=== PATIENT | male | born 1990 | race American Indian/Alaskan Native ===

== ENCOUNTER 2018-12-25 19:05 | Inpatient (IN) | payer SELFPAY ==
[2018-12-25] MEDS ORDERED: ZOFRAN IV ONE ×2 (19:21→22:40)
[2018-12-25] MEDS ORDERED: NACL 0.9% 1000 ML 1,000 ML IV ONE ×3 (19:21→23:29)
--- NOTE | 2018-12-25 19:24 | Emergency Department Report ---
ED Abdominal Pain HPI - General Stated Complaint: HYPERGLYCEMIA Source: patient, EMS Mode of arrival: Stretcher Limitations: No Limitations - History of Present Illness Initial Comments: Patient is a 28-year-old male that presents emergency with complaints of abdominal pain and nausea vomiting. Patient states pain is 10 out of 10. Patient states the pain started approximate 4 -5 hours ago. Patient states has not been holding anything down. Patient states every time he has abdominal pain he goes into DKA. Patient states the type I diabetic. Patient states the pain is 10 out of 10 and it is not radiating. Patient states the pain is generalized abdomen. Patient states that the pain is better with rest and worse with movement of vomiting exertion. MD Complaint: abdominal pain -: Sudden Location: diffuse Radiation: none Migration to: no migration Severity: severe Severity scale (0 -10): 10 Quality: stabbing, sharp Consistency: constant Improves With: rest Worsens With: vomiting, movement Associated Symptoms: nausea, vomiting. denies: diarrhea, fever, chills, constipation, dysuria, hematemesis, hematochezia, melena, hematuria, anorexia, syncope - Related Data Home Medications Medication Instructions Recorded Confirmed Last Taken Detemir (Nf) [Levemir (Nf)] 20 units SUB-Q QPM 12/25/18 12/25/18 Unknown Allergies Allergy/AdvReac Type Severity Reaction Status Date / Time No Known Allergies Allergy Verified 07/13/14 23:38 ED Review of Systems ROS: Stated complaint: HYPERGLYCEMIA Other details as noted in HPI Constitutional: denies: chills, fever Eyes: denies: eye pain, eye discharge, vision change ENT: denies: ear pain, throat pain Respiratory: denies: cough, shortness of breath, wheezing Cardiovascular: denies: chest pain, palpitations Endocrine: no symptoms reported, increased thirst Gastrointestinal: abdominal pain, nausea, vomiting. denies: diarrhea Genitourinary: denies: urgency, dysuria Musculoskeletal: denies: back pain, joint swelling, arthralgia Skin: denies: rash, lesions Neurological: denies: headache, weakness, paresthesias Psychiatric: denies: anxiety, depression Hematological/Lymphatic: denies: easy bleeding, easy bruising ED Past Medical Hx - Past Medical History Previous Medical History?: Yes Hx Diabetes: Yes - Surgical History Past Surgical History?: No - Family History Family history: no significant - Social History Smoking Status: Never Smoker Substance Use Type: None - Medications Home Medications: Home Medications Medication Instructions Recorded Confirmed Last Taken Type Detemir (Nf) [Levemir (Nf)] 20 units SUB-Q QPM 12/25/18 12/25/18 Unknown History ED Physical Exam - General Limitations: No Limitations General appearance: alert, in no apparent distress - Head Head exam: Present: atraumatic, normocephalic - Eye Eye exam: Present: normal appearance - ENT ENT exam: Present: mucous membranes dry - Neck Neck exam: Present: normal inspection - Respiratory Respiratory exam: Present: normal lung sounds bilaterally. Absent: respiratory distress - Cardiovascular Cardiovascular Exam: Present: regular rate, normal rhythm. Absent: systolic murmur, diastolic murmur, rubs, gallop - GI/Abdominal GI/Abdominal exam: Present: soft, normal bowel sounds - Rectal Rectal exam: Present: deferred - Extremities Exam Extremities exam: Present: normal inspection - Back Exam Back exam: Present: normal inspection - Neurological Exam Neurological exam: Present: alert, oriented X3 - Psychiatric Psychiatric exam: Present: normal affect, normal mood - Skin Skin exam: Present: warm, dry, intact, normal color. Absent: rash ED Course Vital Signs 12/25/18 12/25/18 12/25/18 19:16 19:24 19:27 Temperature 97.9 F Pulse Rate 107 H 106 H Respiratory 20 20 Rate Blood Pressure Blood Pressure 160/92 [Left] O2 Sat by Pulse 100 100 100 Oximetry 12/25/18 12/25/18 12/25/18 19:30 19:46 20:00 Temperature Pulse Rate 106 H 106 H 104 H Respiratory 36 H 22 20 Rate Blood Pressure 160/92 160/92 160/92 Blood Pressure [Left] O2 Sat by Pulse 100 100 Oximetry 12/25/18 12/25/18 12/25/18 20:29 20:31 20:45 Temperature Pulse Rate 99 H 94 H Respiratory 17 20 Rate Blood Pressure 158/96 158/96 158/96 Blood Pressure [Left] O2 Sat by Pulse 100 94 91 Oximetry 12/25/18 12/25/18 12/25/18 21:00 21:15 21:31 Temperature Pulse Rate 99 H 84 97 H Respiratory 22 25 H 21 Rate Blood Pressure 165/90 165/90 165/90 Blood Pressure [Left] O2 Sat by Pulse 94 100 100 Oximetry 12/25/18 12/25/18 12/25/18 21:45 22:00 22:15 Temperature Pulse Rate 97 H 93 H 99 H Respiratory 14 16 16 Rate Blood Pressure 165/90 169/93 169/93 Blood Pressure [Left] O2 Sat by Pulse 100 99 100 Oximetry 12/25/18 12/25/18 12/26/18 22:31 22:35 00:01 Temperature Pulse Rate 93 H 97 H 98 H Respiratory 18 19 20 Rate Blood Pressure 169/93 169/93 146/80 Blood Pressure [Left] O2 Sat by Pulse 91 100 100 Oximetry - Reevaluation(s) Reevaluation #1: Discussed all results with patient. Patient will be given insulin. Patient pain has not improved. Patient failed by mouth challenge. Patient was given another dose of Zofran and Dilaudid. 12/25/18 22:41 Discussed all results with patient. Patient was admitted to the patient's pcp for further evaluation and treatment. Patient agrees with plan of care and admission. PCP verified with the patient 12/25/18 23:22 - Consultations Consultation #1: Patient's primary care consulted for admission. Dr Leon to admit patient and assume care of patient. 12/25/18 23:22 ED Medical Decision Making - Lab Data Result diagrams: 12/25/18 19:32 12/25/18 19:32 - Radiology Data Radiology results: report reviewed FINAL REPORT PROCEDURE: CT abdomen and pelvis without contrast. TECHNIQUE: Computerized axial tomography of the abdomen and pelvis was performed without intravenous contrast. This study is performed without intravascular contrast material and its sensitivity for abdominal and pelvic pathology, including neoplasms, inflammation, abscess, free fluid, thrombosis, arterial dissection and infarction, is reduced compared with a contrast enhanced study. HISTORY: Abdominal pain. COMPARISON: No prior studies are available for comparison. FINDINGS: The lung bases are clear. There are no pleural effusions. The heart size is normal. The liver, pancreas and spleen are grossly normal. The gallbladder is present. There is no biliary dilatation. The adrenal glands are not enlarged. Both kidneys appear normal in size and configuration. The abdominal aorta has a normal caliber. There is no retroperitoneal adenopathy. The unopacified gastrointestinal tract is unremarkable. I believe there is a normal appendix visible. The bladder, seminal vesicles and prostate appear normal. The regional skeleton appears intact. There is probably a bone island in the left iliac bone. IMPRESSION: Normal unenhanced studies of the abdomen and pelvis. - Medical Decision Making Patient is a 28-year-old male that presents to the ER with complaints of abdominal pain and elevated sugar. Abdominal CT negative. Abdominal pain secondary to gastroparesis or gastroenteritis. Patient failed by mouth challenge. Patient's got multiple doses of pain meds for abdominal pain and nausea medications. Patient was admitted to the patient's primary care. Patient's labs marked for hyperglycemia, hyponatremia, and hyperkalemia. - Differential Diagnosis DKA. Hyperglycemia. Intractable nausea and vomiting. Abdominal pain. Critical Care Time: Yes Critical care attestation.: If time is entered above; I have spent that time in minutes in the direct care of this critically ill patient, excluding procedure time. Critical Care Time: 45 minutes ED Disposition Clinical Impression: Intractable abdominal pain, Hyperglycemia due to type 1 diabetes mellitus, Hyperkalemia Abdominal pain Qualifiers: Abdominal location: generalized Qualified Code(s): R10.84 - Generalized abdominal pain Intractable nausea and vomiting Qualifiers: Vomiting type: unspecified Qualified Code(s): R11.2 - Nausea with vomiting, unspecified Disposition: DC-09 OP ADMIT IP TO THIS HOSP Is pt being admited?: Yes Does the pt Need Aspirin: No Condition: Critical Time of Disposition: 23:24
[2018-12-25] MEDS ORDERED: DILAUDID IV ONE ×2 (19:48→22:40)
[2018-12-25 19:56] LABS: Basophils % (Auto) 0.5 % (0.0-1.8); Eosinophils % (Auto) 0.3 % (0.0-4.3); Hematocrit 45.3 % (35.5-45.6); Hemoglobin 15.4 gm/dl (11.8-15.2); Lymphocytes # (Auto) 0.9 K/mm3 (1.2-5.4); Lymphocytes % (Auto) 9.7 % (13.4-35.0); Mean Corpuscular HGB Conc 34 % (32-34); Mean Corpuscular Volume 86 fl (84-94); Monocytes # (Auto) 0.4 K/mm3 (0.0-0.8); Monocytes % (Auto) 4.6 % (0.0-7.3); Platelet Count 372 K/mm3 (140-440); Red Blood Count 5.24 M/mm3 (3.65-5.03); Red Cell Distribution Width 13.7 % (13.2-15.2)
[2018-12-25 20:13] LABS: Alanine Aminotransferase 26 units/L (7-56); Albumin 4.6 g/dL (3.9-5); BUN/Creatinine Ratio 18; Bilirubin,Direct 0.2 mg/dL (0-0.2); Blood Urea Nitrogen 16 mg/dL (9-20); Hemolysis Index 7
[2018-12-25 20:32] LABS: Bilirubin,Urine NEG (Negative); Blood,Urine SM (Negative); Color,Urine Straw (Yellow); Urobilinogen,Urine < 2.0 mg/dL (<2.0); WBC,Urine < 1.0 /HPF (0.0-6.0)
--- NOTE | 2018-12-25 21:15 | Cat Scan Report ---
FINAL REPORT PROCEDURE: CT abdomen and pelvis without contrast. TECHNIQUE: Computerized axial tomography of the abdomen and pelvis was performed without intravenous contrast. This study is performed without intravascular contrast material and its sensitivity for ab dominal and pelvic pathology, including neoplasms, inflammation, abscess, free fluid, thrombosis, art erial dissection and infarction, is reduced compared with a contrast enhanced study. HISTORY: Abdominal pain. COMPARISON: No prior studies are available for comparison. FINDINGS: The lung bases are clear. There are no pleural effusions. The heart size is normal. The liver, pancre as and spleen are grossly normal. The gallbladder is present. There is no biliary dilatation. The adr enal glands are not enlarged. Both kidneys appear normal in size and configuration. The abdominal aor ta has a normal caliber. There is no retroperitoneal adenopathy. The unopacified gastrointestinal tra ct is unremarkable. I believe there is a normal appendix visible. The bladder, seminal vesicles and p rostate appear normal. The regional skeleton appears intact. There is probably a bone island in the l eft iliac bone. IMPRESSION: Normal unenhanced studies of the abdomen and pelvis.
[2018-12-25] MEDS ORDERED: HumuLIN R IV ONE ×2 (22:39→22:49)
[2018-12-26] MEDS: ZOFRAN IV PRN ×3 (05:55→18:59)
[2018-12-26] MEDS: DILAUDID IV PRN ×3 (05:55→19:00)
[2018-12-26 06:50] LABS: Hematocrit 43.5 % (35.5-45.6); Hemoglobin 14.4 gm/dl (11.8-15.2); Mean Corpuscular HGB Conc 33 % (32-34); Mean Corpuscular Volume 87 fl (84-94); Platelet Count 342 K/mm3 (140-440); Red Blood Count 5.01 M/mm3 (3.65-5.03); Red Cell Distribution Width 13.8 % (13.2-15.2)
[2018-12-26 07:12] LABS: Alanine Aminotransferase 23 units/L (7-56); Albumin 4.4 g/dL (3.9-5); BUN/Creatinine Ratio 26; Blood Urea Nitrogen 21 mg/dL (9-20); Calcium 9.2 mg/dL (8.4-10.2); Hemolysis Index 6
[2018-12-26 08:39] LABS: Basophils % (Manual) 0 % (0.0-1.8); Eosinophils % (Manual) 0 % (0.0-4.3); Monocytes % (Manual) 0 % (0.0-7.3); Total Cells Counted 100
[2018-12-26 08:40] LABS: Anisocytosis 1+; Platelet Estimate Consistent w Auto
[2018-12-26] MEDS: HumuLIN R SUB-Q SCH ×4 (09:30→21:51)
[2018-12-26] MEDS ORDERED: LOVENOX SUB-Q SCH (10:00)
[2018-12-26] MEDS ORDERED: APRESOLINE IV ONE (14:00)
[2018-12-26] MEDS: NACL 0.45% 1000 ML 1,000 ML IV SCH (15:28)
[2018-12-26] MEDS ORDERED: APRESOLINE PO PRN (18:48)
[2018-12-26] MEDS: APRESOLINE IV PRN (19:31)
--- NOTE | 2018-12-26 20:29 | History and Physical Report ---
History of Present Illness Date of examination: 12/26/18 Date of admission: 12/25/18 23:42 Chief complaint: ABD pain.N/V. History of present illness: Patient presented to the ED with CC of abd pain, hx of DM-[address] of the abd/pelvic in the ED was normal. He rated his pain at 10/10 even with Diludid 1mg IV q6hrs prn started from the ER.Will start him on reglan, and erythomycin for proper motility. Past History Past Medical History: diabetes Social history: no significant social history, lives with family Medications and Allergies Allergies Allergy/AdvReac Type Severity Reaction Status Date / Time No Known Allergies Allergy Verified 07/13/14 23:38 Home Medications Medication Instructions Recorded Confirmed Last Taken Type Detemir (Nf) [Levemir (Nf)] 20 units SUB-Q QPM 12/25/18 12/25/18 Unknown History Active Meds: Active Medications Hydralazine HCl (Apresoline) 20 mg IV Q4HR PRN PRN Reason: Hypertension Last Admin: 12/26/18 19:31 Dose: 20 mg Documented by: Hydromorphone HCl (Dilaudid) 1 mg IV Q6H PRN PRN Reason: Pain , Severe (7-10) Last Admin: 12/26/18 19:00 Dose: 1 mg Documented by: Sodium Chloride (Nacl 0.45% 1000 Ml) 1,000 mls @ 125 mls/hr IV DIRECT CHIP Last Admin: 12/26/18 15:28 Dose: 125 mls/hr Documented by: Insulin Glargine (Lantus) 20 units SUB-Q QHS CHIP Insulin Human Regular (Humulin R) 0 units SUB-Q ACHS CHIP; Protocol Last Admin: 12/26/18 17:19 Dose: 6 units Documented by: Metoprolol Tartrate (Lopressor) 50 mg PO BID CHIP Ondansetron HCl (Zofran) 4 mg IV Q4HR PRN PRN Reason: Nausea And Vomiting Last Admin: 12/26/18 18:59 Dose: 4 mg Documented by: Review of Systems Constitutional: fatigue, weakness, chronic pain Gastrointestinal: abdominal pain, nausea, vomiting Exam - Constitutional Vitals: Temp Pulse Resp BP Pulse Ox 98.2 F 129 H 12 172/88 100 12/26/18 17:10 12/26/18 17:10 12/26/18 17:10 12/26/18 19:31 12/26/18 17:10 General appearance: Present: mild distress, well-nourished - EENT Eyes: Present: PERRL ENT: hearing intact, clear oral mucosa - Neck Neck: Present: supple, normal ROM - Respiratory Respiratory effort: normal Respiratory: bilateral: CTA - Cardiovascular Heart Sounds: Present: S1 & S2. Absent: rub, click - Extremities Extremities: pulses symmetrical, No edema Peripheral Pulses: within normal limits - Abdominal General gastrointestinal: Present: soft, non-tender, non-distended, normal bowel sounds Male genitourinary: Present: deferred - Rectal Rectal Exam: deferred - Integumentary Integumentary: Present: clear, warm, dry - Musculoskeletal Musculoskeletal: gait normal, strength equal bilaterally - Psychiatric Psychiatric: appropriate mood/affect, intact judgment & insight - Neurologic Neurologic: CNII-XII intact, moves all extremities Results - Labs CBC & Chem 7: 12/26/18 06:09 12/26/18 06:09 Labs: Abnormal lab results 12/25/18 12/26/18 12/26/18 Range/Units 23:42 06:09 06:09 WBC 12.2 H (4.5-11.0) K/mm3 Seg Neuts % (Manual) 97.0 H (40.0-70.0) % Lymphocytes % (Manual) 3.0 L (13.4-35.0) % Seg Neutrophils # Man 11.8 H (1.8-7.7) K/mm3 Lymphocytes # (Manual) 0.4 L (1.2-5.4) K/mm3 Potassium 5.2 H (3.6-5.0) mmol/L Carbon Dioxide 18 L (22-30) mmol/L BUN 21 H (9-20) mg/dL Glucose 434 H (75-100) mg/dL POC Glucose 378 H (70-105) Hemoglobin A1c (4-6) % 12/26/18 12/26/18 12/26/18 Range/Units 06:09 08:47 11:31 WBC (4.5-11.0) K/mm3 Seg Neuts % (Manual) (40.0-70.0) % Lymphocytes % (Manual) (13.4-35.0) % Seg Neutrophils # Man (1.8-7.7) K/mm3 Lymphocytes # (Manual) (1.2-5.4) K/mm3 Potassium (3.6-5.0) mmol/L Carbon Dioxide (22-30) mmol/L BUN (9-20) mg/dL Glucose (75-100) mg/dL POC Glucose 364 H 349 H (70-105) Hemoglobin A1c 8.2 H (4-6) % 12/26/18 Range/Units 16:26 WBC (4.5-11.0) K/mm3 Seg Neuts % (Manual) (40.0-70.0) % Lymphocytes % (Manual) (13.4-35.0) % Seg Neutrophils # Man (1.8-7.7) K/mm3 Lymphocytes # (Manual) (1.2-5.4) K/mm3 Potassium (3.6-5.0) mmol/L Carbon Dioxide (22-30) mmol/L BUN (9-20) mg/dL Glucose (75-100) mg/dL POC Glucose 345 H (70-105) Hemoglobin A1c (4-6) % Assessment and Plan - Patient Problems (1) Abdominal pain Current Visit: Yes Status: Acute Qualifiers: Abdominal location: generalized Qualified Code(s): R10.84 - Generalized abdominal pain Plan to address problem: Pain control, pro-motility. (2) Hyperglycemia due to type 1 diabetes mellitus Current Visit: Yes Status: Acute Plan to address problem: monitor, and adjust BG with insulin. (3) Hyperkalemia Current Visit: Yes Status: Acute Plan to address problem: monitor, and adjust when needed. (4) Intractable nausea and vomiting Current Visit: Yes Status: Acute Qualifiers: Vomiting type: unspecified Qualified Code(s): R11.2 - Nausea with vomiting, unspecified Plan to address problem: Anti emetics.hydration.
[2018-12-26] MEDS: REGLAN IV PRN (21:51)
[2018-12-26] MEDS: LANTUS SUB-Q SCH (21:52)
[2018-12-26] MEDS ORDERED: ERY-TAB PO SCH (22:00)
[2018-12-26] MEDS ORDERED: LOPRESSOR PO SCH (22:00)
[2018-12-26] MEDS: APRESOLINE PO SCH (22:00)
[2018-12-26] MEDS: ERY-TAB PO SCH (22:01)
[2018-12-27] MEDS: DILAUDID IV PRN ×3 (01:08→22:30)
[2018-12-27] MEDS: REGLAN IV PRN ×3 (08:32→22:30)
[2018-12-27] MEDS: ERY-TAB PO SCH ×3 (09:26→17:47)
[2018-12-27] MEDS: HumuLIN R SUB-Q SCH ×4 (09:27→22:32)
[2018-12-27] MEDS: APRESOLINE PO SCH ×2 (09:48→22:45)
[2018-12-27] MEDS: NACL 0.45% 1000 ML 1,000 ML IV SCH ×3 (11:57→22:30)
[2018-12-27] MEDS: APRESOLINE IV PRN (13:59)
[2018-12-27] MEDS: LOPRESSOR PO SCH ×2 (16:50→22:44)
--- NOTE | 2018-12-27 21:30 | Progress Note ---
Assessment and Plan - Patient Problems (1) Abdominal pain Current Visit: Yes Status: Acute Qualifiers: Abdominal location: generalized Qualified Code(s): R10.84 - Generalized abdominal pain Plan to address problem: Pain control, pro-motility. (2) Hyperglycemia due to type 1 diabetes mellitus Current Visit: Yes Status: Acute Plan to address problem: monitor, and adjust BG with insulin. (3) Hyperkalemia Current Visit: Yes Status: Acute Plan to address problem: monitor, and adjust when needed. (4) Intractable nausea and vomiting Current Visit: Yes Status: Acute Qualifiers: Vomiting type: unspecified Qualified Code(s): R11.2 - Nausea with vomiting, unspecified Plan to address problem: Anti emetics.hydration. (5) Loss of appetite Current Visit: Yes Status: Acute Plan to address problem: try on megace. Subjective Date of service: 12/27/18 Principal diagnosis: Diabetic gastropareses Interval history: patient seen/examined, resting in bed, had N/V today, but better, Claims lack of appetite.Will try on megace. Objective - Constitutional Vitals: Vital Signs - 12hr 12/27/18 12/27/18 12/27/18 09:48 10:00 12:49 Temperature 97.5 F L Pulse Rate 119 H 126 H Respiratory 18 Rate Blood Pressure 121/68 172/102 O2 Sat by Pulse 100 100 Oximetry 12/27/18 12/27/18 12/27/18 13:59 16:50 16:51 Temperature 99.1 F Pulse Rate 126 H 142 H 142 H Respiratory 18 Rate Blood Pressure 172/102 132/73 132/73 O2 Sat by Pulse 97 Oximetry General appearance: Present: mild distress - EENT Eyes: PERRL, EOM intact ENT: hearing intact, clear oral mucosa Ears: bilateral: normal - Neck Neck: supple, normal ROM - Respiratory Respiratory effort: normal Respiratory: bilateral: CTA - Breasts Breasts: deferred - Cardiovascular Rhythm: regular Heart Sounds: Present: S1 & S2. Absent: gallop, rub Extremities: pulses intact, No edema, normal color, Full ROM - Gastrointestinal General gastrointestinal: Present: soft, non-tender, non-distended, normal bowel sounds Rectal Exam: deferred - Genitourinary Male genitourinary: deferred - Integumentary Integumentary: clear, warm, dry - Musculoskeletal Musculoskeletal: 1, strength equal bilaterally - Neurologic Neurologic: moves all extremities - Psychiatric Psychiatric: memory intact, appropriate mood/affect, intact judgment & insight - Labs CBC & Chem 7: 12/26/18 06:09 12/26/18 06:09 Labs: Abnormal lab results 12/27/18 12/27/18 12/27/18 Range/Units 08:29 11:51 16:57 POC Glucose 200 H 222 H 291 H (70-105) 12/27/18 Range/Units 21:22 POC Glucose 216 H (70-105) Medications & Allergies - Medications Allergies/Adverse Reactions: Allergies No Known Allergies Allergy (Verified 07/13/14 23:38) Home Medications: Home Medications Medication Instructions Recorded Confirmed Last Taken Type Detemir (Nf) [Levemir (Nf)] 20 units SUB-Q QPM 12/25/18 12/25/18 Unknown History Active Medications: Generic Name Dose Route Start Last Admin Trade Name Freq PRN Reason Stop Dose Admin Erythromycin 250 mg 12/26/18 22:00 12/27/18 17:47 Jg-Tab PO Not Given AC CHIP Hydralazine HCl 20 mg 12/26/18 19:07 12/27/18 13:59 Apresoline IV 20 mg Q4HR PRN Administration Hypertension Hydralazine HCl 50 mg 12/26/18 22:00 12/27/18 09:48 Apresoline PO 50 mg Q12HR CHIP Administration Hydromorphone HCl 1 mg 12/26/18 05:07 12/27/18 09:49 Dilaudid IV 1 mg Q6H PRN Administration Pain , Severe (7-10) Sodium Chloride 1,000 mls @ 125 mls/hr 12/26/18 14:00 12/27/18 11:57 Nacl 0.45% 1000 Ml IV 125 mls/hr DIRECT CHIP Administration Insulin Glargine 20 units 12/26/18 22:00 12/26/18 21:52 Lantus SUB-Q 20 units QHS CHIP Administration Insulin Human Regular 0 units 12/26/18 07:30 12/27/18 17:46 Humulin R SUB-Q 4 units ACHS CHIP Administration Protocol Megestrol Acetate 400 mg 12/28/18 10:00 Megace PO QDAY CHIP Metoclopramide HCl 10 mg 12/26/18 20:38 12/27/18 15:05 Reglan IV 10 mg Q6H PRN Administration Nausea And Vomiting Metoprolol Tartrate 50 mg 12/27/18 17:00 12/27/18 16:50 Lopressor PO 50 mg BID CHIP Administration
[2018-12-27] MEDS: LANTUS SUB-Q SCH (22:30)
[2018-12-28 06:07] LABS: BUN/Creatinine Ratio 29; Blood Urea Nitrogen 23 mg/dL (9-20); Calcium 9.2 mg/dL (8.4-10.2); Hemolysis Index 12
[2018-12-28 06:09] LABS: Basophils % (Auto) 0.3 % (0.0-1.8); Hematocrit 45.9 % (35.5-45.6); Hemoglobin 15.1 gm/dl (11.8-15.2); Lymphocytes # (Auto) 1.3 K/mm3 (1.2-5.4); Lymphocytes % (Auto) 9.9 % (13.4-35.0); Mean Corpuscular HGB Conc 33 % (32-34); Mean Corpuscular Volume 87 fl (84-94); Monocytes % (Auto) 7.7 % (0.0-7.3); Platelet Count 327 K/mm3 (140-440); Red Blood Count 5.28 M/mm3 (3.65-5.03); Red Cell Distribution Width 13.9 % (13.2-15.2)
[2018-12-28] MEDS: DILAUDID IV PRN ×2 (08:32→21:56)
[2018-12-28] MEDS: ERY-TAB PO SCH ×3 (08:33→17:19)
[2018-12-28] MEDS: HumuLIN R SUB-Q SCH ×4 (08:45→22:04)
[2018-12-28] MEDS: REGLAN IV PRN ×2 (10:48→21:57)
[2018-12-28] MEDS: LOPRESSOR PO SCH ×2 (10:50→22:02)
[2018-12-28] MEDS: MEGACE PO SCH (10:51)
[2018-12-28] MEDS: APRESOLINE PO SCH ×2 (10:51→21:57)
[2018-12-28] MEDS: NACL 0.45% 1000 ML 1,000 ML IV SCH (12:00)
--- NOTE | 2018-12-28 15:50 | Progress Note ---
Assessment and Plan - Patient Problems (1) Abdominal pain Current Visit: Yes Status: Acute Qualifiers: Abdominal location: generalized Qualified Code(s): R10.84 - Generalized abdominal pain Plan to address problem: Pain control, pro-motility. (2) Hyperglycemia due to type 1 diabetes mellitus Current Visit: Yes Status: Acute Plan to address problem: monitor, and adjust BG with insulin. (3) Hyperkalemia Current Visit: Yes Status: Acute Plan to address problem: monitor, and adjust when needed. (4) Intractable nausea and vomiting Current Visit: Yes Status: Acute Qualifiers: Vomiting type: unspecified Qualified Code(s): R11.2 - Nausea with vomiting, unspecified Plan to address problem: Anti emetics.hydration. (5) Loss of appetite Current Visit: Yes Status: Acute Plan to address problem: try on megace. Subjective Date of service: 12/28/18 Principal diagnosis: Diabetic gastropareses Interval history: patient seen/examined, resting in bed, had N/V today, but better, Claims lack of appetite.Will try on megace. Patient seen/examined, case d/w him, and his family at the bed side.encouraged him to eat some food. will continue current management, and probably plan d/c in the next day or two. Objective - Constitutional Vitals: Vital Signs - 12hr 12/28/18 12/28/18 12/28/18 05:01 10:50 10:51 Temperature 99.1 F Pulse Rate 100 H 100 H 100 H Respiratory 18 Rate Blood Pressure 132/77 132/77 132/77 O2 Sat by Pulse 97 Oximetry 12/28/18 14:13 Temperature 98.2 F Pulse Rate 86 Respiratory 16 Rate Blood Pressure 131/89 O2 Sat by Pulse 99 Oximetry General appearance: Present: mild distress - EENT Eyes: PERRL, EOM intact ENT: hearing intact, clear oral mucosa Ears: bilateral: normal - Neck Neck: supple, normal ROM - Respiratory Respiratory effort: normal Respiratory: bilateral: CTA - Breasts Breasts: deferred - Cardiovascular Rhythm: regular Heart Sounds: Present: S1 & S2. Absent: gallop, rub Extremities: pulses intact, No edema, normal color, Full ROM - Gastrointestinal General gastrointestinal: Present: soft, non-tender, non-distended, normal bowel sounds - Genitourinary Male genitourinary: deferred - Integumentary Integumentary: clear, warm, dry - Musculoskeletal Musculoskeletal: 1, strength equal bilaterally - Neurologic Neurologic: moves all extremities - Psychiatric Psychiatric: memory intact, appropriate mood/affect, intact judgment & insight - Labs CBC & Chem 7: 12/28/18 04:20 12/28/18 04:20 Labs: Abnormal lab results 12/27/18 12/27/18 12/28/18 Range/Units 16:57 21:22 04:20 WBC 13.2 H (4.5-11.0) K/mm3 RBC 5.28 H (3.65-5.03) M/mm3 Hct 45.9 H (35.5-45.6) % Lymph % (Auto) 9.9 L (13.4-35.0) % [place] % (Auto) 7.7 H (0.0-7.3) % [place] # 1.0 H (0.0-0.8) K/mm3 Seg Neutrophils % 82.1 H (40.0-70.0) % Seg Neutrophils # 10.8 H (1.8-7.7) K/mm3 BUN (9-20) mg/dL Glucose (75-100) mg/dL POC Glucose 291 H 216 H (70-105) 12/28/18 12/28/18 12/28/18 Range/Units 04:20 08:34 11:56 WBC (4.5-11.0) K/mm3 RBC (3.65-5.03) M/mm3 Hct (35.5-45.6) % Lymph % (Auto) (13.4-35.0) % [place] % (Auto) (0.0-7.3) % [place] # (0.0-0.8) K/mm3 Seg Neutrophils % (40.0-70.0) % Seg Neutrophils # (1.8-7.7) K/mm3 BUN 23 H (9-20) mg/dL Glucose 178 H (75-100) mg/dL POC Glucose 188 H 237 H (70-105) Medications & Allergies - Medications Allergies/Adverse Reactions: Allergies No Known Allergies Allergy (Verified 07/13/14 23:38) Home Medications: Home Medications Medication Instructions Recorded Confirmed Last Taken Type Detemir (Nf) [Levemir (Nf)] 20 units SUB-Q QPM 12/25/18 12/25/18 Unknown History Active Medications: Generic Name Dose Route Start Last Admin Trade Name Reba PRN Reason Stop Dose Admin Erythromycin 250 mg 12/26/18 22:00 12/28/18 12:32 Jg-Tab PO 250 mg AC CHIP Administration Hydralazine HCl 20 mg 12/26/18 19:07 12/27/18 13:59 Apresoline IV 20 mg Q4HR PRN Administration Hypertension Hydralazine HCl 50 mg 12/26/18 22:00 12/28/18 10:51 Apresoline PO 50 mg Q12HR CHIP Administration Hydromorphone HCl 1 mg 12/26/18 05:07 12/28/18 08:32 Dilaudid IV 1 mg Q6H PRN Administration Pain , Severe (7-10) Sodium Chloride 1,000 mls @ 125 mls/hr 12/26/18 14:00 12/28/18 12:00 Nacl 0.45% 1000 Ml IV 125 mls/hr DIRECT CHIP Administration Insulin Glargine 20 units 12/26/18 22:00 12/27/18 22:30 Lantus SUB-Q 20 units QHS CHIP Administration Insulin Human Regular 0 units 12/26/18 07:30 12/28/18 12:32 Humulin R SUB-Q 3 units ACHS CHIP Administration Protocol Megestrol Acetate 400 mg 12/28/18 10:00 12/28/18 10:51 Megace PO 400 mg QDAY CHIP Administration Metoclopramide HCl 10 mg 12/26/18 20:38 12/28/18 10:48 Reglan IV 10 mg Q6H PRN Administration Nausea And Vomiting Metoprolol Tartrate 50 mg 12/27/18 17:00 12/28/18 10:50 Lopressor PO 50 mg BID CHIP Administration
[2018-12-28] MEDS: LANTUS SUB-Q SCH (22:03)
[2018-12-29] MEDS: NACL 0.45% 1000 ML 1,000 ML IV SCH (03:38)
[2018-12-29] MEDS: HumuLIN R SUB-Q SCH ×3 (08:33→17:47)
[2018-12-29] MEDS: ERY-TAB PO SCH ×3 (08:37→17:47)
[2018-12-29] MEDS: APRESOLINE PO SCH (09:36)
[2018-12-29] MEDS: LOPRESSOR PO SCH (09:36)
[2018-12-29] MEDS: MEGACE PO SCH (09:37)
[2018-12-29 18:16] VITALS: BP 145/93
--- NOTE | 2018-12-29 18:50 | Discharge Summary ---
Providers - Providers Date of Admission: 12/25/18 23:42 Date of discharge: 12/29/18 Attending physician: CAROL WILLAMS Primary care physician: CAROL WILLAMS Hospitalization Reason for admission: diabetic gastroparesis Condition: Good Hospital course: Patient presented to the ER with intractable n/v, and hx of type 1 diabetes, was not in ketosis , Hx of gastroparesis, He was hydrated, given anti emetic, and insulin, and admitted for better control of his sxs. The same management was continues on the floor. He needed an appetite enhancement, and tolerated it very well. patient was seen today, examined, in bed, and doing much better in every way. he was eating well, denies any problem. he will be discharged home. Patient was never my patient, but i was called late at night, not sure about the name, but admitted him anyhow. He has never met me before. So the next time , that he comes to the ER, he will need to go to the hospitalist group. He usually goes to [facility]. Disposition: TO HOME OR SELFCARE - Discharge Diagnoses (1) Abdominal pain Status: Resolved Qualifiers: Abdominal location: generalized Qualified Code(s): R10.84 - Generalized abdominal pain (2) Hyperglycemia due to type 1 diabetes mellitus Status: Chronic (3) Hyperkalemia Status: Resolved (4) Intractable nausea and vomiting Status: Resolved Qualifiers: Vomiting type: unspecified Qualified Code(s): R11.2 - Nausea with vomiting, unspecified (5) Loss of appetite Status: Resolved Core Measure Documentation - Palliative Care Palliative Care/ Comfort Measures: Not Applicable - Core Measures Any of the following diagnoses?: none Exam - Constitutional Vitals: Temp Pulse Resp BP Pulse Ox 98.0 F 85 14 145/93 99 12/29/18 17:25 12/29/18 17:25 12/29/18 17:25 12/29/18 17:25 12/29/18 17:25 General appearance: Present: no acute distress - EENT Eyes: Present: PERRL ENT: hearing intact, clear oral mucosa - Neck Neck: Present: supple, normal ROM - Respiratory Respiratory effort: normal Respiratory: bilateral: CTA - Cardiovascular Heart Sounds: Present: S1 & S2. Absent: rub, click - Extremities Extremities: pulses symmetrical, No edema Peripheral Pulses: within normal limits - Abdominal General gastrointestinal: Present: soft, non-tender, non-distended, normal bowel sounds Male genitourinary: Present: deferred - Rectal Rectal Exam: deferred - Integumentary Integumentary: Present: clear, warm, dry - Musculoskeletal Musculoskeletal: gait normal, strength equal bilaterally - Psychiatric Psychiatric: appropriate mood/affect, intact judgment & insight - Neurologic Neurologic: CNII-XII intact, moves all extremities Plan Diet: diabetic Additional Instructions: Follow up with your Doctors at [facility].
== END 2018-12-29 20:05 | disposition home or self-care (01) | DRG 639 ==
LOC: ED 19:05 → 3A 23:42
PROVIDERS: ADMIT Internal Medicine Hematology & Oncology; ATTEND Internal Medicine Hematology & Oncology
DX: E10.65 Type 1 diabetes mellitus with hyperglycemia (principal); E87.5 Hyperkalemia; E10.43 Type 1 diabetes mellitus with diabetic autonomic (poly)neuropathy; K31.84 Gastroparesis; F17.210 Nicotine dependence, cigarettes, uncomplicated; Z79.84 Long term (current) use of oral hypoglycemic drugs; Z71.6 Tobacco abuse counseling
CPT/HCPCS: 36415; 74176; 80048; 80053; 80076; 81001; 82140; 82805; 82962; 83036; 85007; 85025; 96361; 96374; 96375; 96376; 99406; G0378; J0360; J1170; J1815; J2405; J2765; J7030

== ENCOUNTER 2019-02-12 19:44 | Inpatient (IN) | payer SELFPAY ==
[2019-02-12] MEDS ORDERED: NACL 0.9% 1000 ML 1,000 ML IV ONE ×2 (21:40→23:26)
[2019-02-12] MEDS ORDERED: ZOFRAN IV ONE (21:44)
[2019-02-12] MEDS ORDERED: SUBLIMAZE IV ONE (21:44)
[2019-02-12] MEDS ORDERED: ZOFRAN ONE (21:48)
--- NOTE | 2019-02-12 21:48 | Emergency Department Report ---
HPI - General Chief Complaint: Hyperglycemia Time Seen by Provider: 02/12/19 21:39 - HPI HPI: Room 18 The patient is a 29-year-old male presenting with chief complaint of "DKA." Patient states she's had abdominal pain weakness and since this m orning. Patient states he was asymptomatic yesterday. She states he has been compliant with his Levemir. Patient denies any history of fever. Location: See above Duration: One day Quality: "DKA" Severity: Moderate Modifying factors: [see above] Context: [see above] Mode of transportation: [not driving] ED Past Medical Hx - Past Medical History Hx Diabetes: Yes (type 1) Additional medical history: Gastroparesis - Surgical History Past Surgical History?: No - Family History Family history: no significant - Social History Smoking Status: Current Some Day Smoker Substance Use Type: None - Medications Home Medications: Home Medications Medication Instructions Recorded Confirmed Last Taken Type Detemir (Nf) [Levemir (Nf)] 20 units SUB-Q QPM 12/25/18 12/25/18 Unknown History ED Review of Systems ROS: Stated complaint: HYPERGLYCEMIA Other details as noted in HPI Constitutional: weakness Eyes: denies: eye pain ENT: denies: throat pain Respiratory: no symptoms reported Cardiovascular: denies: chest pain Endocrine: increased thirst Gastrointestinal: abdominal pain, nausea, vomiting Genitourinary: denies: dysuria Musculoskeletal: denies: back pain Neurological: denies: headache Physical Exam - Physical Exam Vital Signs: Vital Signs 02/12/19 19:47 Temperature 98.3 F Pulse Rate 124 H Respiratory 27 H Rate Blood Pressure 181/104 [Right] O2 Sat by Pulse 100 Oximetry Physical Exam: GENERAL: The patient is well-developed well-nourished male appearing lethargic lying on stretcher. [] HEENT: Normocephalic. Atraumatic. Extraocular motions are intact. NECK: Supple. Trachea midline CHEST/LUNGS: Clear to auscultation. There is no respiratory distress noted. HEART/CARDIOVASCULAR: Regular. There is tachycardia. There is no gallop rub or murmur. ABDOMEN: Abdomen is soft, nontender. Patient has normal bowel sounds. There is no abdominal distention. SKIN: There is no rash. There is no edema. There is no diaphoresis. NEURO: The patient is awake and oriented but appears lethargic. The patient is cooperative. The patient has no focal neurologic deficits. The patient has normal speech MUSCULOSKELETAL: There is no evidence of acute injury. ED Course Vital Signs 02/12/19 19:47 Temperature 98.3 F Pulse Rate 124 H Respiratory 27 H Rate Blood Pressure 181/104 [Right] O2 Sat by Pulse 100 Oximetry - Reevaluation(s) Reevaluation #1: 02/13/19 00:44 Patient persistently tachycardic despite 2 L of IV fluids. Will admit ED Medical Decision Making - Lab Data Result diagrams: 02/12/19 21:53 02/12/19 21:53 Laboratory Tests 02/12/19 02/12/19 02/12/19 21:41 21:53 21:53 WBC 9.5 RBC 4.86 Hgb 14.7 Hct 41.8 MCV 86 MCH 30 MCHC 35 H RDW 14.2 Plt Count 291 Lymph % (Auto) 6.9 L Whitley % (Auto) 6.7 Eos % (Auto) 0.0 Baso % (Auto) 0.6 Lymph # 0.7 L Whitley # 0.6 Eos # 0.0 Baso # 0.1 Seg Neutrophils % 85.8 H Seg Neutrophils # 8.1 H VBG pH Sodium 131 L Potassium 5.0 Chloride 91.3 L Carbon Dioxide 18 L Anion Gap 27 BUN 24 H Creatinine 1.2 Estimated GFR > 60 BUN/Creatinine Ratio 20 Glucose 560 H* POC Glucose 425 H Calcium 9.3 Total Bilirubin 0.60 AST 23 ALT 17 Alkaline Phosphatase 115 Total Protein 7.2 Albumin 3.9 Albumin/Globulin Ratio 1.2 Lipase 7 L Urine Color Urine Turbidity Urine pH Ur Specific Dante Urine Protein Urine Glucose (UA) Urine Ketones Urine Blood Urine Nitrite Urine Bilirubin Urine Urobilinogen Ur Leukocyte Esterase Urine WBC (Auto) Urine RBC (Auto) 02/12/19 02/12/19 02/12/19 21:53 22:11 23:30 WBC RBC Hgb Hct MCV MCH MCHC RDW Plt Count Lymph % (Auto) Whitley % (Auto) Eos % (Auto) Baso % (Auto) Lymph # Whitley # Eos # Baso # Seg Neutrophils % Seg Neutrophils # VBG pH 7.375 Sodium Potassium Chloride Carbon Dioxide Anion Gap BUN Creatinine Estimated GFR BUN/Creatinine Ratio Glucose POC Glucose 444 H Calcium Total Bilirubin AST ALT Alkaline Phosphatase Total Protein Albumin Albumin/Globulin Ratio Lipase Urine Color Straw Urine Turbidity Clear Urine pH 6.0 Ur Specific Dante 1.027 Urine Protein 100 mg/dl Urine Glucose (UA) >=500 Urine Ketones 80 Urine Blood Mod Urine Nitrite Neg Urine Bilirubin Neg Urine Urobilinogen < 2.0 Ur Leukocyte Esterase Neg Urine WBC (Auto) 1.0 Urine RBC (Auto) 16.0 - Radiology Data Radiology results: report reviewed (CT abdomen and pelvis), image reviewed (CT abdomen and pelvis) Findings [facility], [place] [address] [place] [address] Cat Scan Report Signed Patient: JODI HAYDEN MR#: [id number] : 1990 Acct:[id number] Age/Sex: 29 / M ADM Date: 02/12/19 Loc: ED Attending Dr: Ordering Physician: MARISSA SOSA MD Date of Service: 02/12/19 Procedure(s): CT abdomen pelvis w con Accession Number(s): [id number] cc: MARISSA SOSA MD PROCEDURE: CT ABDOMEN PELVIS W CON TECHNIQUE: Computerized axial tomography of the abdomen and pelvis was performed after the IV injection of iodinated nonionic contrast. CT DOSE LENGTH PRODUCT: 930.6 mGycm HISTORY: epigastric abdominal pain nausea vomiting COMPARISONS: None . FINDINGS: Visualized lower thorax: No significant abnormality. Liver: Normal size and attenuation. Spleen: Normal size and attenuation. Gallbladder and biliary system: Normal. Pancreas: Normal. Adrenals: Normal. Kidneys: Both kidneys have a normal size. There is mild prominence of the collecting systems including the ureters all the way down the distended urinary bladder. No stones or masses are identified. Nonobstructive uropathy is suspected.. GI tract: No obstruction is seen. There is minimal fecal debris in the colon. The appendix is not identified separate from the remainder of the bowel. The evaluation is limited without oral contrast. . Lymph nodes and mesentery: Normal. Vasculature: Normal.. Bladder: The urinary bladder is significantly distended in this patient.. Reproductive organs: Normal. Peritoneum: No free fluid. Musculoskeletal structures: No significant abnormality. Other: None . IMPRESSION: The urinary bladder is significantly distended. There is mild hydronephrosis and hydroureter of both collecting systems, this is most likely related to nonobstructive uropathy due to a distended urinary bladder. Stones or masses are noted. There is no evidence of intestinal obstruction. The appendix is not clearly visualized on this study. . This document is electronically signed by Ching Mcgarry DO., February 13 2019 12:15:14 AM ET Transcribed By: [facility] Dictated By: CHING MCGARRY MD Electronically Authenticated By: CHING MCGARRY MD Signed Date/Time: 02/13/19 0017 DD/ 0004 TD/TT: 02/13/19 0006 - Differential Diagnosis DKA, gastroparesis, dehydration Critical care attestation.: If time is entered above; I have spent that time in minutes in the direct care of this critically ill patient, excluding procedure time. ED Disposition Clinical Impression: Hyperglycemia, Gastroparesis, Tachycardia Disposition: -09 OP ADMIT IP TO THIS HOSP Is pt being admited?: Yes Does the pt Need Aspirin: No Condition: Fair Referrals: PRIMARY CARE, [Primary Care Provider] - 3-5 Days Time of Disposition: 00:49 ( hospitalist notified (Dr. Florecita Mays))
[2019-02-12 22:08] LABS: Basophils # (Auto) 0.1 K/mm3 (0.0-0.1); Basophils % (Auto) 0.6 % (0.0-1.8); Hematocrit 41.8 % (35.5-45.6); Hemoglobin 14.7 gm/dl (11.8-15.2); Lymphocytes # (Auto) 0.7 K/mm3 (1.2-5.4); Lymphocytes % (Auto) 6.9 % (13.4-35.0); Mean Corpuscular HGB Conc 35 % (32-34); Mean Corpuscular Volume 86 fl (84-94); Monocytes # (Auto) 0.6 K/mm3 (0.0-0.8); Monocytes % (Auto) 6.7 % (0.0-7.3); Platelet Count 291 K/mm3 (140-440); Red Blood Count 4.86 M/mm3 (3.65-5.03); Red Cell Distribution Width 14.2 % (13.2-15.2)
[2019-02-12 22:27] LABS: Alanine Aminotransferase 17 units/L (7-56); Albumin 3.9 g/dL (3.9-5); BUN/Creatinine Ratio 20; Blood Urea Nitrogen 24 mg/dL (9-20); Calcium 9.3 mg/dL (8.4-10.2); Hemolysis Index 2
[2019-02-12 23:25] LABS: Bilirubin,Urine NEG (Negative); Blood,Urine MOD (Negative); Color,Urine Straw (Yellow); Urobilinogen,Urine < 2.0 mg/dL (<2.0)
[2019-02-12] MEDS ORDERED: REGLAN IV ONE (23:27)
[2019-02-12] MEDS ORDERED: HumuLIN R IV ONE (23:27)
--- NOTE | 2019-02-13 00:17 | Cat Scan Report ---
PROCEDURE: CT ABDOMEN PELVIS W CON TECHNIQUE: Computerized axial tomography of the abdomen and pelvis was performed after the IV inject ion of iodinated nonionic contrast. CT DOSE LENGTH PRODUCT: 930.6 mGycm HISTORY: epigastric abdominal pain nausea vomiting COMPARISONS: None . FINDINGS: Visualized lower thorax: No significant abnormality. Liver: Normal size and attenuation. Spleen: Normal size and attenuation. Gallbladder and biliary system: Normal. Pancreas: Normal. Adrenals: Normal. Kidneys: Both kidneys have a normal size. There is mild prominence of the collecting systems includin g the ureters all the way down the distended urinary bladder. No stones or masses are identified. Non obstructive uropathy is suspected.. GI tract: No obstruction is seen. There is minimal fecal debris in the colon. The appendix is not id entified separate from the remainder of the bowel. The evaluation is limited without oral contrast. . Lymph nodes and mesentery: Normal. Vasculature: Normal.. Bladder: The urinary bladder is significantly distended in this patient.. Reproductive organs: Normal. Peritoneum: No free fluid. Musculoskeletal structures: No significant abnormality. Other: None . IMPRESSION: The urinary bladder is significantly distended. There is mild hydronephrosis and hydrour eter of both collecting systems, this is most likely related to nonobstructive uropathy due to a dist ended urinary bladder. Stones or masses are noted. There is no evidence of intestinal obstruction. The appendix is not clearly visualized on this study. . This document is electronically signed by Ching Mcgarry DO., February 13 2019 12:15:14 AM ET
[2019-02-13] MEDS ORDERED: HumuLIN R IV ONE (00:42)
[2019-02-13] MEDS ORDERED: D50W (25GM) Syringe IV PRN (01:25)
[2019-02-13] MEDS ORDERED: TYLENOL PO PRN (01:26)
[2019-02-13] MEDS ORDERED: SODIUM CHLORIDE FLUSH SYRINGE 10 ML IV PRN (01:26)
[2019-02-13] MEDS ORDERED: TYLENOL PR PRN (01:26)
--- NOTE | 2019-02-13 01:33 | History and Physical Report ---
History of Present Illness Date of examination: 02/13/19 History of present illness: 29-year-old man a history of diabetes comes emergency room complaining of feeling sick. He stated that he had allergic symptoms from the pollen, he was coughing a lot, itchy eyes, a symptoms worsen and he started going downhill. He complains of generalized weakness over the last 3 days, nausea vomiting, unable to tolerate oral intake. Also complaining of abdominal pain, mid abdomen, constant, sharp, intensity 5/10, no radiation, cannot identify exacerbating factors. Review of systems Constitutional: no weight loss, chills, fever Ears, eyes, nose, mouth and throat: no nasal congestion, no nasal discharge, no sinus pressure, no vision change, no red eye. Neck: No neck pain or rigidity. Cardiovascular: no palpitations, chest pain Respiratory: no cough, shortness of breath Gastrointestinal: no hematochezia, +abdominal pain Genitourinary : no frequency , no hematuria Musculoskeletal: no joint swelling or muscle ache Integumentary: no rash, no pruritis Neurological: no parathesias, no focal weakness Endocrine: no cold or heat intolerance, no polyuria or polydipsia Hematologic/Lymphatic: no easy bruising, no easy bleeding, no gland swelling Allergic/Immunologic: no urticaria, no angioedema. PAST MEDICAL HISTORY:diabetes PAST SURGICAL HISTORY: None SOCIAL HISTORY: Denies alcohol, drugs, +tobacco FAMILY HISTORY: Hypertension Medications and Allergies Allergies Allergy/AdvReac Type Severity Reaction Status Date / Time No Known Allergies Allergy Verified 07/13/14 23:38 Home Medications Medication Instructions Recorded Confirmed Last Taken Type Detemir (Nf) [Levemir (Nf)] 20 units SUB-Q QPM 12/25/18 12/25/18 Unknown History Exam - Physical Exam Narrative exam: General Apperance: The patient lying in bed, breathing comfortable HEENT: Normocephalic, atraumatic. Pupils equally round and reactive to light, EOMI, no sclericterus or JVD or thyromegaly or nodule. , no carotid bruit, mucous membranes moist, no exudate or erythema Heart: S1-S2, regular is rhythm Lungs: Clear to auscultation bilaterally, breathing comfortable Abdomen: Positive bowel sounds, soft, tender in the mid abdomen, nondistended, no organomegaly Extremities: No edema cyanosis clubbing Skin: no rash, nodule, warm and dry Neuro: cranial nerves 2-12 intact, speech is fluent, motor/sensory intact - Constitutional Vitals: Temp Pulse Resp BP Pulse Ox 98.3 F 134 H 52 H 175/91 100 02/12/19 19:47 02/13/19 01:00 02/13/19 01:00 02/13/19 01:00 02/13/19 01:00 Results - Labs CBC & Chem 7: 02/13/19 04:20 02/13/19 04:20 Labs: Abnormal lab results 02/12/19 02/12/19 02/12/19 Range/Units 21:41 21:53 21:53 MCHC 35 H (32-34) % Lymph % (Auto) 6.9 L (13.4-35.0) % Lymph # 0.7 L (1.2-5.4) K/mm3 Seg Neutrophils % 85.8 H (40.0-70.0) % Seg Neutrophils # 8.1 H (1.8-7.7) K/mm3 Sodium 131 L (137-145) mmol/L Chloride 91.3 L (98-107) mmol/L Carbon Dioxide 18 L (22-30) mmol/L BUN 24 H (9-20) mg/dL Glucose 560 H* (75-100) mg/dL POC Glucose 425 H (70-105) Lipase 7 L (13-60) units/L 02/12/19 02/13/19 Range/Units 23:30 00:45 MCHC (32-34) % Lymph % (Auto) (13.4-35.0) % Lymph # (1.2-5.4) K/mm3 Seg Neutrophils % (40.0-70.0) % Seg Neutrophils # (1.8-7.7) K/mm3 Sodium (137-145) mmol/L Chloride (98-107) mmol/L Carbon Dioxide (22-30) mmol/L BUN (9-20) mg/dL Glucose (75-100) mg/dL POC Glucose 444 H 424 H (70-105) Lipase (13-60) units/L - Imaging and Cardiology CT scan - abdomen: report reviewed CT scan - pelvis: report reviewed Assessment and Plan Assessment DKA Pseudohyponatremia Abdominal pain secondary to DKA Distended bladder with hydronephrosis and hydroureter Plan Start DKA protocol with insulin drip, IV fluid Monitor serial electrolytes Consult medical care, urology. Patient refuses Melvin IV morphine, DVT prophylaxis
[2019-02-13] MEDS ORDERED: NACL 0.9% 1000 ML 1,000 ML IV SCH (02:00)
[2019-02-13] MEDS ORDERED: D5W/0.45% NACL/KCL 20 MEQ 20 MEQ/1,000 ML BAG IV SCH (02:00)
[2019-02-13] MEDS: MORPHINE IV PRN ×3 (02:32→22:00)
[2019-02-13] MEDS: ZOFRAN IV PRN ×2 (02:32→18:32)
[2019-02-13] MEDS: HumuLIN R 100 UNITS in NACL 0.9% 99 ML IV SCH (02:33)
[2019-02-13 02:44] LABS: BUN/Creatinine Ratio 22; Blood Urea Nitrogen 22 mg/dL (9-20); Hemolysis Index 4
[2019-02-13 04:35] LABS: Basophils % (Auto) 0.4 % (0.0-1.8); Hematocrit 44.3 % (35.5-45.6); Hemoglobin 15.1 gm/dl (11.8-15.2); Lymphocytes # (Auto) 0.7 K/mm3 (1.2-5.4); Mean Corpuscular HGB Conc 34 % (32-34); Mean Corpuscular Volume 87 fl (84-94); Monocytes # (Auto) 0.6 K/mm3 (0.0-0.8); Monocytes % (Auto) 5.8 % (0.0-7.3); Platelet Count 286 K/mm3 (140-440); Red Blood Count 5.12 M/mm3 (3.65-5.03); Red Cell Distribution Width 14.1 % (13.2-15.2)
[2019-02-13] MEDS ORDERED: PHENERGAN PR ONE ×2 (04:40→04:45)
[2019-02-13] MEDS ORDERED: DILAUDID IV ONE (04:42)
[2019-02-13] MEDS ORDERED: DILAUDID ONE (04:45)
[2019-02-13 04:55] LABS: BUN/Creatinine Ratio 22; Blood Urea Nitrogen 20 mg/dL (9-20); Calcium 9.7 mg/dL (8.4-10.2); Hemolysis Index 24
[2019-02-13 07:29] LABS: BUN/Creatinine Ratio 22; Blood Urea Nitrogen 20 mg/dL (9-20); Calcium 9.1 mg/dL (8.4-10.2); Hemolysis Index 15
[2019-02-13 07:48] LABS: BUN/Creatinine Ratio 22; Blood Urea Nitrogen 20 mg/dL (9-20); Calcium 9.3 mg/dL (8.4-10.2); Hemolysis Index 20
--- NOTE | 2019-02-13 09:38 | Event Note ---
Date: 02/13/19 Patient seen and examined. Was admitted today for DKA pseudohyponatremia abdomen pains or limits of DKA hydronephrosis and hydroureters. We'll continue current management. With recommendations from urologist
[2019-02-13] MEDS ORDERED: LOVENOX SUB-Q SCH (10:00)
[2019-02-13] MEDS ORDERED: D5W/0.45% NACL/KCL 20 MEQ 20 MEQ/1,000 ML BAG IV ONE ×2 (10:33→22:11)
[2019-02-13 10:54] LABS: Hemolysis Index 0
[2019-02-13] MEDS: SODIUM CHLORIDE FLUSH SYRINGE 10 ML IV SCH (11:18)
[2019-02-13 11:22] LABS: BUN/Creatinine Ratio 20; Blood Urea Nitrogen 20 mg/dL (9-20); Calcium 9.6 mg/dL (8.4-10.2)
[2019-02-13] MEDS ORDERED: LOVENOX SUB-Q ONE (11:25)
[2019-02-13] MEDS: LOVENOX SUB-Q SCH (11:30)
[2019-02-13] MEDS ORDERED: REGLAN ONE ×2 (11:40→21:06)
[2019-02-13] MEDS ORDERED: MORPHINE ONE ×2 (11:41→21:06)
[2019-02-13] MEDS: REGLAN IV PRN ×2 (11:50→22:00)
--- NOTE | 2019-02-13 16:07 | Consultation ---
History of Present Illness - Reason for Consult Consult date: 02/13/19 hypernatremia, metabolic acidosis - History of Present Illness The patient is a 29 YO male with history significant for Type 1 DM and Gastroparesis who presented to [facility] ED with complaint of nausea, vomiting and abd pain since yesterday. He also reports having cough, itchy eyes, generalized weakness and unable to keep food down. He states he has been compliant with his Insulin. Patient denies any history of fever, chills, hemetemesis, dysuria, hematuria, cp, sob or leg swelling. His blood sugar on arrival was 560 and urine ketones were positive. Creatinine was 1.2 on admission. Nephrology was consulted for further evaluation. Past History Past Medical History: diabetes Medications and Allergies Allergies Allergy/AdvReac Type Severity Reaction Status Date / Time No Known Allergies Allergy Verified 07/13/14 23:38 Home Medications Medication Instructions Recorded Confirmed Last Taken Type Detemir (Nf) [Levemir (Nf)] 0 units SUB-Q AC 12/25/18 02/13/19 Unknown History Lispro Insulin [Humalog] 0 unit SQ AC 02/13/19 02/13/19 Unknown History Active Meds: Active Medications Acetaminophen (Tylenol) 650 mg PO Q4H PRN PRN Reason: Pain MILD(1-3)/Fever >100.5/BAE Acetaminophen (Tylenol) 650 mg NM Q4H PRN PRN Reason: Pain MILD(1-3)/Fever >100.5/BAE Dextrose (D50w (25gm) Syringe) 0 ml IV ONCE PRN PRN Reason: Hypoglycemia Enoxaparin Sodium (Lovenox) 40 mg SUB-Q QDAY@1000 CHIP Last Admin: 02/13/19 11:30 Dose: 40 mg Documented by: Sodium Chloride (Nacl 0.9% 1000 Ml) 1,000 mls @ 150 mls/hr IV DIRECT CHIP Insulin Human Regular 100 (units/ Sodium Chloride) 100 mls @ 1 mls/hr IV TITR [facility]; Protocol Last Titration: 02/13/19 14:18 Dose: 3 units/hr, 3 mls/hr Documented by: Potassium Chloride/Dextrose/Sod Cl (D5w/0.45% Nacl/Kcl 20 Meq) 20 meq in 1,000 mls @ 125 mls/hr IV DIRECT CHIP Metoclopramide HCl (Reglan) 10 mg IV Q6H PRN PRN Reason: Nausea And Vomiting Last Admin: 02/13/19 11:50 Dose: 10 mg Documented by: Morphine Sulfate (Morphine) 2 mg IV Q4H PRN PRN Reason: Pain, Moderate (4-6) Last Admin: 02/13/19 11:49 Dose: 2 mg Documented by: Ondansetron HCl (Zofran) 4 mg IV Q4H PRN PRN Reason: Nausea And Vomiting Last Admin: 02/13/19 02:32 Dose: 4 mg Documented by: Sodium Chloride (Sodium Chloride Flush Syringe 10 Ml) 10 ml IV BID CHIP Last Admin: 02/13/19 11:18 Dose: 10 ml Documented by: Sodium Chloride (Sodium Chloride Flush Syringe 10 Ml) 10 ml IV PRN PRN PRN Reason: LINE FLUSH Review of Systems Constitutional: anorexia, weakness, no weight loss, no weight gain, no fever, no chills Cardiovascular: no chest pain, no orthopnea, no edema, no syncope, no lightheadedness, no shortness of breath, no leg edema Respiratory: no cough, no hemoptysis, no shortness of breath, no dyspnea on exertion Gastrointestinal: abdominal pain, nausea, vomiting, no diarrhea, no hematemesis, no melena, no hematochezia Genitourinary Male: no dysuria, no hematuria Musculoskeletal: no low back pain Integumentary: no rash, no wounds Neurological: no paralysis, no weakness, no seizures, no syncope, no change in speech, no change in mentation, no confusion, no memory loss Exam - Vital Signs Vital signs: Vital Signs Temp Pulse Resp BP Pulse Ox 98.3 F 124 H 27 H 181/104 100 02/12/19 19:47 02/12/19 19:47 02/12/19 19:47 02/12/19 19:47 02/12/19 19:47 - General Appearance General appearance: well-developed, well-nourished, appears stated age, other (not in distress) EENT: ATNC, PERRL, mucous membranes dry, hearing intact, vision intact Neck: Present: neck supple, trachea midline Respiratory: Clear to Ascultation Heart: regular, S1S2, no murmurs Gastrointestinal: Present: normoactive bowel sounds, other (Palacios catheter). Absent: tenderness, distended Integumentary: no rash, warm and dry Neurologic: no focal deficit, no asterixis, alert and oriented x3 Musculoskeletal: Present: other (no edema) Results - Lab Results 02/13/19 04:20 02/13/19 17:06 Most recent lab results Calcium 9.6 mg/dL (8.4-10.2) 02/13/19 10:08 Phosphorus 4.10 mg/dL (2.5-4.5) 02/13/19 02:04 Magnesium 2.30 mg/dL (1.7-2.3) 02/13/19 02:04 Assessment and Plan 1. Acute kidney injury: Mild WANDY in the setting of DKA. Renal function is better. Continue IV fluids. Monitor renal function. Avoid nephrotoxic agents. 2. FEN: Continue IV fluids. Monitor lytes. 3. Bladder retention: S/p palacios catheter. 4. DKA.
--- NOTE | 2019-02-13 16:40 | Event Note ---
Date: 02/13/19 Discussed with patient again who had earlier refuse insertion of Melvin's catheter despite evidence of obstructive Uropathy, explaining to him the consequences of his action which included . He now agreed to have Melvin catheter inserted.
--- NOTE | 2019-02-13 17:17 | Consultation ---
History of Present Illness - Reason for Consult Consult date: 02/13/19 - History of Present Illness CC - Retention (NEW The patient is a 29-year-old male presenting with chief complaint of "DKA." Patient states she's had abdominal pain weakness and since this morning. Patient states he was asymptomatic yesterday. She states he has been compliant with his Levemir. Patient denies any history of fever. HX OF GASTROPARESIS CTAP: MILD BILAT HYDRO, DISTENDED BLADDER ABD SOFT CIRC NIXON WITH GUILLERMINA URINE A/p NEUROGENIC BLADDER MILD BILAT HYDRO MAY NEED URODYNAMICS CONTINUE NIXON NEEDED Medications and Allergies Allergies Allergy/AdvReac Type Severity Reaction Status Date / Time No Known Allergies Allergy Verified 07/13/14 23:38 Home Medications Medication Instructions Recorded Confirmed Last Taken Type Detemir (Nf) [Levemir (Nf)] 0 units SUB-Q AC 12/25/18 02/13/19 Unknown History Lispro Insulin [Humalog] 0 unit SQ AC 02/13/19 02/13/19 Unknown History Active Meds: Active Medications Acetaminophen (Tylenol) 650 mg PO Q4H PRN PRN Reason: Pain MILD(1-3)/Fever >100.5/BAE Acetaminophen (Tylenol) 650 mg CA Q4H PRN PRN Reason: Pain MILD(1-3)/Fever >100.5/BAE Dextrose (D50w (25gm) Syringe) 0 ml IV ONCE PRN PRN Reason: Hypoglycemia Enoxaparin Sodium (Lovenox) 40 mg SUB-Q QDAY@1000 CHIP Last Admin: 02/13/19 11:30 Dose: 40 mg Documented by: Sodium Chloride (Nacl 0.9% 1000 Ml) 1,000 mls @ 150 mls/hr IV DIRECT CHIP Insulin Human Regular 100 (units/ Sodium Chloride) 100 mls @ 1 mls/hr IV TITR CHIP; Protocol Last Titration: 02/13/19 16:22 Dose: 1.5 units/hr, 1.5 mls/hr Documented by: Potassium Chloride/Dextrose/Sod Cl (D5w/0.45% Nacl/Kcl 20 Meq) 20 meq in 1,000 mls @ 125 mls/hr IV DIRECT CHIP Metoclopramide HCl (Reglan) 10 mg IV Q6H PRN PRN Reason: Nausea And Vomiting Last Admin: 02/13/19 11:50 Dose: 10 mg Documented by: Morphine Sulfate (Morphine) 2 mg IV Q4H PRN PRN Reason: Pain, Moderate (4-6) Last Admin: 02/13/19 11:49 Dose: 2 mg Documented by: Ondansetron HCl (Zofran) 4 mg IV Q4H PRN PRN Reason: Nausea And Vomiting Last Admin: 02/13/19 02:32 Dose: 4 mg Documented by: Sodium Chloride (Sodium Chloride Flush Syringe 10 Ml) 10 ml IV BID CHIP Last Admin: 02/13/19 11:18 Dose: 10 ml Documented by: Sodium Chloride (Sodium Chloride Flush Syringe 10 Ml) 10 ml IV PRN PRN PRN Reason: LINE FLUSH Exam - Constitutional Vitals: Temp Pulse Resp BP Pulse Ox 98.3 F 108 H 16 170/83 100 02/12/19 19:47 02/13/19 16:25 02/13/19 16:25 02/13/19 16:25 02/13/19 16:25 Results - Labs CBC & Chem 7: 02/13/19 04:20 02/13/19 10:08 Labs: Abnormal lab results 02/12/19 02/12/19 02/12/19 Range/Units 21:41 21:53 21:53 RBC (3.65-5.03) M/mm3 MCHC 35 H (32-34) % Lymph % (Auto) 6.9 L (13.4-35.0) % Lymph # 0.7 L (1.2-5.4) K/mm3 Seg Neutrophils % 85.8 H (40.0-70.0) % Seg Neutrophils # 8.1 H (1.8-7.7) K/mm3 Sodium 131 L (137-145) mmol/L Chloride 91.3 L (98-107) mmol/L Carbon Dioxide 18 L (22-30) mmol/L BUN 24 H (9-20) mg/dL Glucose 560 H* (75-100) mg/dL POC Glucose 425 H (70-105) Lipase 7 L (13-60) units/L 02/12/19 02/13/19 02/13/19 Range/Units 23:30 00:45 02:04 RBC (3.65-5.03) M/mm3 MCHC (32-34) % Lymph % (Auto) (13.4-35.0) % Lymph # (1.2-5.4) K/mm3 Seg Neutrophils % (40.0-70.0) % Seg Neutrophils # (1.8-7.7) K/mm3 Sodium 136 L (137-145) mmol/L Chloride (98-107) mmol/L Carbon Dioxide 19 L (22-30) mmol/L BUN 22 H (9-20) mg/dL Glucose 379 H (75-100) mg/dL POC Glucose 444 H 424 H (70-105) Lipase (13-60) units/L 02/13/19 02/13/19 02/13/19 Range/Units 03:45 04:20 04:20 RBC 5.12 H (3.65-5.03) M/mm3 MCHC (32-34) % Lymph % (Auto) 7.0 L (13.4-35.0) % Lymph # 0.7 L (1.2-5.4) K/mm3 Seg Neutrophils % 86.8 H (40.0-70.0) % Seg Neutrophils # 8.8 H (1.8-7.7) K/mm3 Sodium (137-145) mmol/L Chloride (98-107) mmol/L Carbon Dioxide 18 L (22-30) mmol/L BUN (9-20) mg/dL Glucose 283 H (75-100) mg/dL POC Glucose 266 H (70-105) Lipase (13-60) units/L 02/13/19 02/13/19 02/13/19 Range/Units 04:54 06:54 06:58 RBC (3.65-5.03) M/mm3 MCHC (32-34) % Lymph % (Auto) (13.4-35.0) % Lymph # (1.2-5.4) K/mm3 Seg Neutrophils % (40.0-70.0) % Seg Neutrophils # (1.8-7.7) K/mm3 Sodium (137-145) mmol/L Chloride (98-107) mmol/L Carbon Dioxide 18 L (22-30) mmol/L BUN (9-20) mg/dL Glucose 315 H (75-100) mg/dL POC Glucose 295 H 278 H (70-105) Lipase (13-60) units/L 03/29/19 03/29/19 03/29/19 Range/Units 07:20 08:18 09:49 RBC (3.65-5.03) M/mm3 MCHC (32-34) % Lymph % (Auto) (13.4-35.0) % Lymph # (1.2-5.4) K/mm3 Seg Neutrophils % (40.0-70.0) % Seg Neutrophils # (1.8-7.7) K/mm3 Sodium (137-145) mmol/L Chloride (98-107) mmol/L Carbon Dioxide 19 L (22-30) mmol/L BUN (9-20) mg/dL Glucose 311 H (75-100) mg/dL POC Glucose 207 H 175 H (70-105) Lipase (13-60) units/L 02/13/19 02/13/19 02/13/19 Range/Units 10:08 12:06 13:04 RBC (3.65-5.03) M/mm3 MCHC (32-34) % Lymph % (Auto) (13.4-35.0) % Lymph # (1.2-5.4) K/mm3 Seg Neutrophils % (40.0-70.0) % Seg Neutrophils # (1.8-7.7) K/mm3 Sodium (137-145) mmol/L Chloride 60.0 L (98-107) mmol/L Carbon Dioxide 21 L (22-30) mmol/L BUN (9-20) mg/dL Glucose 185 H (75-100) mg/dL POC Glucose 218 H 190 H (70-105) Lipase (13-60) units/L 02/13/19 Range/Units 16:23 RBC (3.65-5.03) M/mm3 MCHC (32-34) % Lymph % (Auto) (13.4-35.0) % Lymph # (1.2-5.4) K/mm3 Seg Neutrophils % (40.0-70.0) % Seg Neutrophils # (1.8-7.7) K/mm3 Sodium (137-145) mmol/L Chloride (98-107) mmol/L Carbon Dioxide (22-30) mmol/L BUN (9-20) mg/dL Glucose (75-100) mg/dL POC Glucose 129 H (70-105) Lipase (13-60) units/L
[2019-02-13 17:46] LABS: BUN/Creatinine Ratio 26; Blood Urea Nitrogen 21 mg/dL (9-20); Calcium 9.2 mg/dL (8.4-10.2); Hemolysis Index 15
[2019-02-13] MEDS ORDERED: ZOFRAN ONE (18:31)
[2019-02-13] MEDS: D5W/0.45% NACL/KCL 20 MEQ 20 MEQ/1,000 ML BAG IV SCH ×2 (18:33→22:16)
[2019-02-13] MEDS ORDERED: NACL 0.9% 1000 ML 1,000 ML ONE (21:08)
--- NOTE | 2019-02-13 21:40 | Event Note ---
EDMD EJ IV note Request by nursing to place EJ IV as patient has accidentally lost his other peripheral access. Right external jugular site prepped. 20-gauge IV placed in the right external jugular with good blood return. IV secured in place with tape. Patient tolerated well
[2019-02-14] MEDS ORDERED: ZOFRAN ONE ×3 (01:54→13:03)
[2019-02-14] MEDS: ZOFRAN IV PRN ×5 (02:00→21:37)
[2019-02-14 02:22] LABS: BUN/Creatinine Ratio 27; Blood Urea Nitrogen 19 mg/dL (9-20); Calcium 9.1 mg/dL (8.4-10.2); Hemolysis Index 115
[2019-02-14] MEDS: HumuLIN R 100 UNITS in NACL 0.9% 99 ML IV SCH (04:15)
[2019-02-14] MEDS ORDERED: D5W/0.45% NACL/KCL 20 MEQ 20 MEQ/1,000 ML BAG IV ONE (06:44)
[2019-02-14] MEDS: D5W/0.45% NACL/KCL 20 MEQ 20 MEQ/1,000 ML BAG IV SCH ×2 (07:00→20:16)
--- NOTE | 2019-02-14 09:28 | Progress Note ---
Assessment and Plan - DKA Improved on insulin drip which is discontinued. Continue with sliding scale insulin Cholecystectomy provider diet - Acute kidney injury Resolving with IV hydration and relief of urinary retention Continue with indwelling Melvin - Diabetes mellitus Sliding scale insulin Consistent carbohydrate diet - Diabetes gastroparesis IV Protonix Consider iv Reglan if condition persists - Pseudohyponatremia - corrected -Urinary retention from neurogenic bladder Continue with indwelling Melvin Urology following - Mild bilateral hydronephrosis For urodynamic studies per Urology - DVT prophylaxis with Lovenox and GI Pepcid Disposition downgraded admission to [facility] and discharge home when more stable Time spent 35 minutes Subjective Date of service: 02/14/19 Principal diagnosis: DKA, acute kidney injury, neurogenic bladder with urinary retention Interval history: Mary leyva in bed. In no obvious distress Objective - Exam Narrative Exam: Constitutional: Well-nourished well-developed. In no distress Head: Normocephalic atraumatic Eyes: Pupils are equal round and reactive to light Nose: No enlarged turbinates, no septal deviation. Mouth: Moist mucous membranes. Neck: Supple no thyromegaly. No bruit. No JVD Heart: Regular rate and rhythm, S1-S2 normal. No rubs murmurs or gallop Lungs: Clear to auscultation bilaterally. no rales or rhonchi Abdomen: Soft, nontender. Bowel sound are present. Extremities: No edema, no cyanosis, no clubbing. Neuro: Alert oriented Oriented x3. No focal sensory or motor deficit. Skin: No rashes or hyperpigmented spots Musculoskeletal system: No joint pain or swelling Hematological: No petechia or subcutanous hemorrhages. Genitourinary system: Has an indwelling Melvin is currently in place Immunological: No multiple septic spots on the skin Lymphatic: No generalized lymphadenopathy Psychiatry: Euthymic. Calm. - Constitutional Vitals: Vital Signs - 12hr 02/13/19 02/13/19 02/13/19 22:00 22:31 23:00 Temperature Pulse Rate 111 H 107 H 98 H Respiratory 17 16 19 Rate Blood Pressure 177/103 162/91 116/66 O2 Sat by Pulse 98 98 100 Oximetry 02/14/19 02/14/19 02/14/19 00:00 03:00 04:00 Temperature Pulse Rate 103 H 104 H 104 H Respiratory 22 18 18 Rate Blood Pressure 122/80 153/86 O2 Sat by Pulse 97 100 98 Oximetry 02/14/19 02/14/19 02/14/19 05:00 06:00 07:00 Temperature Pulse Rate 96 H 106 H 104 H Respiratory 20 21 22 Rate Blood Pressure 181/85 166/95 148/85 O2 Sat by Pulse 100 99 100 Oximetry 02/14/19 02/14/19 08:00 08:53 Temperature 98.2 F Pulse Rate 103 H Respiratory 18 Rate Blood Pressure 157/93 O2 Sat by Pulse 99 Oximetry - Labs CBC & Chem 7: 02/13/19 04:20 02/14/19 01:56 Labs: Abnormal lab results 02/13/19 02/13/19 02/13/19 Range/Units 09:49 10:08 12:06 Chloride 60.0 L (98-107) mmol/L Carbon Dioxide 21 L (22-30) mmol/L BUN (9-20) mg/dL Creatinine (0.8-1.5) mg/dL Glucose 185 H (75-100) mg/dL POC Glucose 175 H 218 H (70-105) 02/13/19 02/13/19 02/13/19 Range/Units 13:04 16:23 17:06 Chloride (98-107) mmol/L Carbon Dioxide (22-30) mmol/L BUN 21 H (9-20) mg/dL Creatinine (0.8-1.5) mg/dL Glucose 139 H (75-100) mg/dL POC Glucose 190 H 129 H (70-105) 02/13/19 02/13/19 02/13/19 Range/Units 17:36 18:32 19:35 Chloride (98-107) mmol/L Carbon Dioxide (22-30) mmol/L BUN (9-20) mg/dL Creatinine (0.8-1.5) mg/dL Glucose (75-100) mg/dL POC Glucose 130 H 150 H 144 H (70-105) 02/13/19 02/14/19 02/14/19 Range/Units 22:01 01:24 01:56 Chloride (98-107) mmol/L Carbon Dioxide (22-30) mmol/L BUN (9-20) mg/dL Creatinine 0.7 L (0.8-1.5) mg/dL Glucose 128 H (75-100) mg/dL POC Glucose 204 H 110 H (70-105) 02/14/19 02/14/19 02/14/19 Range/Units 02:56 04:21 05:30 Chloride (98-107) mmol/L Carbon Dioxide (22-30) mmol/L BUN (9-20) mg/dL Creatinine (0.8-1.5) mg/dL Glucose (75-100) mg/dL POC Glucose 129 H 158 H 159 H (70-105) 02/14/19 Range/Units 06:35 Chloride (98-107) mmol/L Carbon Dioxide (22-30) mmol/L BUN (9-20) mg/dL Creatinine (0.8-1.5) mg/dL Glucose (75-100) mg/dL POC Glucose 170 H (70-105)
[2019-02-14] MEDS: REGLAN IV PRN ×3 (09:47→20:15)
[2019-02-14] MEDS: MORPHINE IV PRN ×4 (09:47→20:08)
[2019-02-14] MEDS ORDERED: REGLAN ONE (09:47)
[2019-02-14] MEDS ORDERED: MORPHINE ONE ×2 (09:47→13:03)
[2019-02-14] MEDS: LOVENOX SUB-Q SCH (10:25)
[2019-02-14] MEDS: SODIUM CHLORIDE FLUSH SYRINGE 10 ML IV SCH ×3 (10:25→21:08)
--- NOTE | 2019-02-14 10:44 | Progress Note ---
Assessment and Plan WANDY - Resolved on IVF, continue as present Acidosis - Resolved, continue IVF Vitals - Stable Urinary Retention - ?Neurogenic bladder, f/u per , palacios in place Abd pain - F/u Mx Will sign of at this time, plse reconsult if necessary. Thanks Subjective Date of service: 02/14/19 Principal diagnosis: DKA, acute kidney injury, neurogenic bladder with urinary retention Interval history: Still c/o abd pain, N/v No BM Objective - Vital Signs Vital signs: Vital Signs - 12hr 02/13/19 02/14/19 02/14/19 23:00 00:00 03:00 Temperature Pulse Rate 98 H 103 H 104 H Respiratory 19 22 18 Rate Blood Pressure 116/66 122/80 O2 Sat by Pulse 100 97 100 Oximetry 02/14/19 02/14/19 02/14/19 04:00 05:00 06:00 Temperature Pulse Rate 104 H 96 H 106 H Respiratory 18 20 21 Rate Blood Pressure 153/86 181/85 166/95 O2 Sat by Pulse 98 100 99 Oximetry 02/14/19 02/14/19 02/14/19 07:00 08:00 08:53 Temperature 98.2 F Pulse Rate 104 H 103 H Respiratory 22 18 Rate Blood Pressure 148/85 157/93 O2 Sat by Pulse 100 99 Oximetry 02/14/19 09:00 Temperature Pulse Rate 95 H Respiratory 19 Rate Blood Pressure 140/90 O2 Sat by Pulse 100 Oximetry - General Appearance General appearance: other (Awake & alert) Neck: no JVD Respiratory: Present: Clear to Ascultation, Other Cardiology: regular, S1S2 Gastrointestinal: other (Diffuse tenderness with guarding) Neurologic: no focal deficit - Lab 02/13/19 04:20 02/14/19 01:56 Most recent lab results Calcium 9.1 mg/dL (8.4-10.2) 02/14/19 01:56 Phosphorus 4.10 mg/dL (2.5-4.5) 02/13/19 02:04 Magnesium 2.30 mg/dL (1.7-2.3) 02/13/19 02:04 Medications & Allergies - Medications Allergies/Adverse Reactions: Allergies No Known Allergies Allergy (Verified 07/13/14 23:38) Home Medications: Home Medications Medication Instructions Recorded Confirmed Last Taken Type Detemir (Nf) [Levemir (Nf)] 0 units SUB-Q AC 12/25/18 02/13/19 Unknown History Lispro Insulin [Humalog] 0 unit SQ AC 02/13/19 02/13/19 Unknown History Active Medications: Generic Name Dose Route Start Last Admin Trade Name Freq PRN Reason Stop Dose Admin Acetaminophen 650 mg 02/13/19 01:26 Tylenol PO Q4H PRN Pain MILD(1-3)/Fever >100.5/BAE Acetaminophen 650 mg 02/13/19 01:26 Tylenol CO Q4H PRN Pain MILD(1-3)/Fever >100.5/BAE Dextrose 0 ml 02/13/19 01:25 D50w (25gm) Syringe IV ONCE PRN Hypoglycemia Enoxaparin Sodium 40 mg 02/13/19 10:00 02/14/19 10:25 Lovenox SUB-Q Not Given QDAY@1000 CHIP Sodium Chloride 1,000 mls @ 150 mls/hr 02/13/19 02:00 Nacl 0.9% 1000 Ml IV DIRECT CHIP Potassium Chloride/Dextrose/Sod Cl 20 meq in 1,000 mls @ 125 mls/hr 02/13/19 10:00 02/14/19 07:00 D5w/0.45% Nacl/Kcl 20 Meq IV 125 mls/hr DIRECT CHIP Administration Metoclopramide HCl 10 mg 02/13/19 01:26 02/14/19 09:47 Reglan IV 10 mg Q6H PRN Administration Nausea And Vomiting Morphine Sulfate 2 mg 02/13/19 01:26 02/14/19 09:47 Morphine IV 2 mg Q4H PRN Administration Pain, Moderate (4-6) Ondansetron HCl 4 mg 02/13/19 01:26 02/14/19 07:21 Zofran IV 4 mg Q4H PRN Administration Nausea And Vomiting Sodium Chloride 10 ml 02/13/19 10:00 02/14/19 10:25 Sodium Chloride Flush Syringe 10 Ml IV 10 ml BID CHIP Administration Sodium Chloride 10 ml 02/13/19 01:26 Sodium Chloride Flush Syringe 10 Ml IV PRN PRN LINE FLUSH
[2019-02-14 11:36] LABS: BUN/Creatinine Ratio 20; Blood Urea Nitrogen 16 mg/dL (9-20); Calcium 9.7 mg/dL (8.4-10.2); Hemolysis Index 12
[2019-02-14] MEDS: HumaLOG SUB-Q SCH ×2 (17:29→21:35)
[2019-02-14] MEDS ORDERED: APRESOLINE IV PRN (19:46)
[2019-02-14] MEDS: COZAAR PO SCH (21:06)
[2019-02-14] MEDS ORDERED: DILAUDID IV ONE (21:18)
[2019-02-14] MEDS ORDERED: COREG PO SCH (22:00)
[2019-02-14 22:17] LABS: Creatine Kinase MB 5.6 ng/mL (0.0-4.0)
[2019-02-14] MEDS ORDERED: NORMODYNE IV ONE (23:41)
[2019-02-14] MEDS ORDERED: LOPRESSOR IV ONE (23:45)
[2019-02-14] MEDS: LANTUS SUB-Q SCH (23:55)
[2019-02-15] MEDS: MORPHINE IV PRN ×2 (03:23→08:37)
[2019-02-15] MEDS: ZOFRAN IV PRN ×2 (03:23→22:51)
[2019-02-15] MEDS ORDERED: DILAUDID IV ONE (03:37)
[2019-02-15] MEDS: REGLAN IV PRN (05:26)
[2019-02-15] MEDS: DILAUDID IV PRN ×4 (05:26→22:51)
[2019-02-15] MEDS: NORVASC PO SCH (10:07)
[2019-02-15] MEDS: COZAAR PO SCH (10:07)
[2019-02-15] MEDS: COREG PO SCH ×2 (10:08→22:51)
[2019-02-15] MEDS: HumaLOG SUB-Q SCH ×4 (10:11→23:05)
[2019-02-15] MEDS: LOVENOX SUB-Q SCH (10:14)
[2019-02-15] MEDS: SODIUM CHLORIDE FLUSH SYRINGE 10 ML IV SCH ×2 (10:19→22:56)
--- NOTE | 2019-02-15 13:16 | Progress Note ---
Assessment and Plan - DKA Improved on insulin drip which is discontinued. Continue with sliding scale insulin Cholecystectomy provider diet - Acute kidney injury Resolving with IV hydration and relief of urinary retention Continue with indwelling Melvin - Diabetes mellitus type 1 Sliding scale insulin add balasl insulin Consistent carbohydrate diet - Diabetes gastroparesis IV Protonix Consider iv Reglan if condition persists - Pseudohyponatremia - corrected -Urinary retention from neurogenic bladder Continue with indwelling Melvin Urology following - Mild bilateral hydronephrosis For urodynamic studies per Urology - DVT prophylaxis with Lovenox and GI Pepcid Disposition downgraded admission to [facility] and discharge home when more stable Time spent 35 minutes Subjective Date of service: 02/15/19 Principal diagnosis: DKA, acute kidney injury, neurogenic bladder with urinary retention Interval history: Lying quielty in bed. In no obvious distress Objective - Exam Narrative Exam: Constitutional: Well-nourished well-developed. In no distress Head: Normocephalic atraumatic Eyes: Pupils are equal round and reactive to light Nose: No enlarged turbinates, no septal deviation. Mouth: Moist mucous membranes. Neck: Supple no thyromegaly. No bruit. No JVD Heart: Regular rate and rhythm, S1-S2 normal. No rubs murmurs or gallop Lungs: Clear to auscultation bilaterally. no rales or rhonchi Abdomen: Soft, nontender. Bowel sound are present. Extremities: No edema, no cyanosis, no clubbing. Neuro: Alert oriented Oriented x3. No focal sensory or motor deficit. Skin: No rashes or hyperpigmented spots Musculoskeletal system: No joint pain or swelling Hematological: No petechia or subcutanous hemorrhages. Genitourinary system: Has an indwelling Melvin is currently in place Immunological: No multiple septic spots on the skin Lymphatic: No generalized lymphadenopathy Psychiatry: Euthymic. Calm. - Constitutional Vitals: Vital Signs - 12hr 02/15/19 02/15/19 02/15/19 01:42 03:23 03:41 Temperature 98.2 F 97.5 F L Pulse Rate 100 H 100 H Respiratory 20 22 20 Rate Respiratory Rate [Abdomen] Blood Pressure 166/104 169/108 O2 Sat by Pulse 100 100 Oximetry 02/15/19 02/15/19 02/15/19 03:53 03:55 05:26 Temperature Pulse Rate Respiratory 22 18 Rate Respiratory 22 Rate [Abdomen] Blood Pressure O2 Sat by Pulse Oximetry 02/15/19 02/15/19 02/15/19 05:56 06:11 10:05 Temperature 98.1 F Pulse Rate 106 H 73 Respiratory 20 20 Rate Respiratory Rate [Abdomen] Blood Pressure 163/97 187/109 O2 Sat by Pulse 96 97 Oximetry 02/15/19 02/15/19 02/15/19 10:07 10:08 12:18 Temperature 98.3 F Pulse Rate 104 H Respiratory 18 Rate Respiratory Rate [Abdomen] Blood Pressure 187/109 187/109 150/90 O2 Sat by Pulse 99 Oximetry - Labs CBC & Chem 7: 02/13/19 04:20 02/14/19 10:01 Labs: Abnormal lab results 02/14/19 02/14/19 02/14/19 Range/Units 16:50 21:07 23:55 POC Glucose 405 H 251 H (70-105) Total Creatine Kinase 347 H (55-170) units/L CK-MB (CK-2) 5.6 H (0.0-4.0) ng/mL 02/15/19 02/15/19 Range/Units 07:44 11:35 POC Glucose 272 H 228 H (70-105) Total Creatine Kinase (55-170) units/L CK-MB (CK-2) (0.0-4.0) ng/mL
[2019-02-15] MEDS: DUONEB *Not for PRN Use IH SCH ×2 (20:40→20:41)
[2019-02-15] MEDS: LANTUS SUB-Q SCH (22:52)
[2019-02-16] MEDS: DUONEB *Not for PRN Use IH SCH ×4 (03:15→20:51)
[2019-02-16] MEDS: ZOFRAN IV PRN ×2 (05:12→17:27)
[2019-02-16] MEDS: DILAUDID IV PRN ×3 (05:12→17:26)
[2019-02-16 08:50] LABS: Basophils # (Auto) 0.1 K/mm3 (0.0-0.1); Basophils % (Auto) 0.6 % (0.0-1.8); Eosinophils % (Auto) 0.1 % (0.0-4.3); Hematocrit 44.7 % (35.5-45.6); Hemoglobin 15.5 gm/dl (11.8-15.2); Lymphocytes # (Auto) 1.4 K/mm3 (1.2-5.4); Mean Corpuscular HGB Conc 35 % (32-34); Mean Corpuscular Volume 84 fl (84-94); Monocytes # (Auto) 0.8 K/mm3 (0.0-0.8); Monocytes % (Auto) 7.9 % (0.0-7.3); Platelet Count 224 K/mm3 (140-440)
[2019-02-16] MEDS: HumaLOG SUB-Q SCH ×4 (09:03→22:42)
[2019-02-16] MEDS: COREG PO SCH ×2 (09:04→22:43)
[2019-02-16] MEDS: LOVENOX SUB-Q SCH (09:04)
[2019-02-16] MEDS: NORVASC PO SCH (09:04)
[2019-02-16] MEDS: COZAAR PO SCH (09:04)
[2019-02-16] MEDS: SODIUM CHLORIDE FLUSH SYRINGE 10 ML IV SCH ×2 (09:05→22:47)
[2019-02-16] MEDS: REGLAN IV PRN (09:09)
[2019-02-16 09:51] LABS: Alanine Aminotransferase 13 units/L (7-56); Albumin 3.4 g/dL (3.9-5); BUN/Creatinine Ratio 25; Blood Urea Nitrogen 20 mg/dL (9-20); Calcium 8.9 mg/dL (8.4-10.2); Hemolysis Index 33
--- NOTE | 2019-02-16 17:43 | Progress Note ---
Assessment and Plan - DKA Improved on insulin drip which is discontinued. Continue with sliding scale insulin Conistent CHO diet - Acute kidney injury Resolving with IV hydration and relief of urinary retention Continue with indwelling Melvin - Diabetes mellitus type 1 Sliding scale insulin add balasl insulin Consistent carbohydrate diet - Diabetes gastroparesis IV Protonix Consider iv Reglan if condition persists - Pseudohyponatremia - corrected -Urinary retention from neurogenic bladder Continue with indwelling Melvin Urology following - Mild bilateral hydronephrosis For urodynamic studies per Urology - DVT prophylaxis with Lovenox and GI Pepcid Disposition downgraded admission to [facility] and discharge home by tomorrow as vomiting is resolving. To f/u with Urology on outpt for Neurogenic bladder and hydronephrosis Time spent 35 minutes Subjective Date of service: 02/16/19 Principal diagnosis: DKA, acute kidney injury, neurogenic bladder with urinary retention Interval history: Lying quielty in bed. In no obvious distress. Requesting the Melvin catheter to be removed Objective - Exam Narrative Exam: Constitutional: Well-nourished well-developed. In no distress Head: Normocephalic atraumatic Eyes: Pupils are equal round and reactive to light Nose: No enlarged turbinates, no septal deviation. Mouth: Moist mucous membranes. Neck: Supple no thyromegaly. No bruit. No JVD Heart: Regular rate and rhythm, S1-S2 normal. No rubs murmurs or gallop Lungs: Clear to auscultation bilaterally. no rales or rhonchi Abdomen: Soft, nontender. Bowel sound are present. Extremities: No edema, no cyanosis, no clubbing. Neuro: Alert oriented Oriented x3. No focal sensory or motor deficit. Skin: No rashes or hyperpigmented spots Musculoskeletal system: No joint pain or swelling Hematological: No petechia or subcutanous hemorrhages. Genitourinary system: Has an indwelling Melvin is currently in place Immunological: No multiple septic spots on the skin Lymphatic: No generalized lymphadenopathy Psychiatry: Euthymic. Calm. - Constitutional Vitals: Vital Signs - 12hr 02/16/19 02/16/19 02/16/19 06:29 08:08 08:18 Temperature 98.1 F Pulse Rate 83 Pulse Rate [ 82 83 Bilateral Throughout] Respiratory 20 Rate Respiratory 18 18 Rate [Bilateral Throughout] Blood Pressure 135/88 O2 Sat by Pulse 99 Oximetry 02/16/19 11:40 Temperature Pulse Rate 79 Pulse Rate [ Bilateral Throughout] Respiratory 20 Rate Respiratory Rate [Bilateral Throughout] Blood Pressure 107/71 O2 Sat by Pulse 99 Oximetry - Labs CBC & Chem 7: 02/16/19 08:14 02/16/19 08:14 Labs: Abnormal lab results 02/16/19 02/16/19 02/16/19 Range/Units 08:02 08:14 08:14 RBC 5.30 H (3.65-5.03) M/mm3 Hgb 15.5 H (11.8-15.2) gm/dl MCHC 35 H (32-34) % [place] % (Auto) 7.9 H (0.0-7.3) % Seg Neutrophils % 77.4 H (40.0-70.0) % Sodium 134 L D (137-145) mmol/L Chloride 97.9 L (98-107) mmol/L Glucose 352 H (75-100) mg/dL POC Glucose 237 H (70-105) Albumin 3.4 L (3.9-5) g/dL 02/16/19 Range/Units 11:47 RBC (3.65-5.03) M/mm3 Hgb (11.8-15.2) gm/dl MCHC (32-34) % [place] % (Auto) (0.0-7.3) % Seg Neutrophils % (40.0-70.0) % Sodium (137-145) mmol/L Chloride (98-107) mmol/L Glucose (75-100) mg/dL POC Glucose 213 H (70-105) Albumin (3.9-5) g/dL
[2019-02-16] MEDS: LANTUS SUB-Q SCH (22:42)
[2019-02-17] MEDS: DILAUDID IV PRN (01:36)
[2019-02-17] MEDS: DUONEB *Not for PRN Use IH SCH ×3 (07:22→13:51)
[2019-02-17] MEDS: HumaLOG SUB-Q SCH ×2 (08:40→12:38)
[2019-02-17] MEDS: SODIUM CHLORIDE FLUSH SYRINGE 10 ML IV SCH (09:55)
[2019-02-17] MEDS: LOVENOX SUB-Q SCH (09:55)
[2019-02-17] MEDS: NORVASC PO SCH (09:55)
[2019-02-17] MEDS: COREG PO SCH (09:56)
[2019-02-17] MEDS: COZAAR PO SCH (09:59)
[2019-02-17 10:41] LABS: Basophils % (Auto) 0.6 % (0.0-1.8); Eosinophils % (Auto) 0.1 % (0.0-4.3); Hematocrit 43.8 % (35.5-45.6); Hemoglobin 14.9 gm/dl (11.8-15.2); Lymphocytes # (Auto) 1.2 K/mm3 (1.2-5.4); Mean Corpuscular HGB Conc 34 % (32-34); Mean Corpuscular Volume 86 fl (84-94); Monocytes # (Auto) 0.6 K/mm3 (0.0-0.8); Platelet Count 230 K/mm3 (140-440); Red Blood Count 5.09 M/mm3 (3.65-5.03); Red Cell Distribution Width 13.9 % (13.2-15.2)
[2019-02-17 11:07] LABS: Alanine Aminotransferase 11 units/L (7-56); Albumin 3.5 g/dL (3.9-5); BUN/Creatinine Ratio 20; Blood Urea Nitrogen 24 mg/dL (9-20); Calcium 8.8 mg/dL (8.4-10.2); Hemolysis Index 17
[2019-02-17 11:36] VITALS: BP 99/55
--- NOTE | 2019-02-17 12:02 | Discharge Summary ---
Providers - Providers Date of Admission: 02/13/19 01:33 Attending physician: DUC WONG MD 02/13/19 01:37 Consult to Physician [CONS] Routine Comment: office notified [phone] left message Consulting Provider: GENNA HIGHTOWER Physician Instructions: Reason For Exam: hydro 02/13/19 16:08 Consult to Physician [CONS] Routine Comment: Consulting Provider: PARAS SANCHEZ Physician Instructions: Reason For Exam: Acute renal failure Primary care physician: COMPUTER TESTER Hospitalization Condition: Fair Hospital course: 29m with pmh of DM, who pw high sugars. he was found to have DKA, he was rx with insulin ggt, and then transitioned to sq insulin. He was found to have neurogenic distended bladder with mild biateral hydronephrosis, he received palacios cath, CT confirmed lack of obstruction he was seen by urology who recommended cath PRN, and fup with Urology clinic for urodynamics, Palacios removed prior to dc, he is to go to clinic [facility] -he was found to have htn urgency, started on BP meds -he also had n/v due to Dm gastroparesis, improved with anti-emetics Diagnosis DKA uncontrolled type 1 DM neurogenic bladder, leaded to non obstructive urinary stasis htn urgency Dm gastroparesis Disposition: DC-01 TO HOME OR SELFCARE Time spent for discharge: 33 mins Core Measure Documentation - Palliative Care Palliative Care/ Comfort Measures: Not Applicable - Core Measures Any of the following diagnoses?: none Exam - Constitutional Vitals: Temp Pulse Resp BP Pulse Ox 98.6 F 88 16 99/55 97 02/17/19 11:34 02/17/19 11:34 02/17/19 11:34 02/17/19 11:34 02/17/19 11:34 General appearance: Present: no acute distress, well-nourished - EENT Eyes: Present: PERRL ENT: hearing intact, clear oral mucosa - Neck Neck: Present: supple, normal ROM - Respiratory Respiratory effort: normal Respiratory: bilateral: CTA - Cardiovascular Heart Sounds: Present: S1 & S2. Absent: rub, click - Extremities Extremities: pulses symmetrical, No edema Peripheral Pulses: within normal limits - Abdominal General gastrointestinal: Present: soft, non-tender, non-distended, normal bowel sounds Male genitourinary: Present: normal - Integumentary Integumentary: Present: clear, warm, dry - Musculoskeletal Musculoskeletal: gait normal, strength equal bilaterally - Psychiatric Psychiatric: appropriate mood/affect, intact judgment & insight - Neurologic Neurologic: CNII-XII intact, moves all extremities Plan Follow up with: PRIMARY CARE,MD [Primary Care Provider] - 3-5 Days Prescriptions: Insulin Glargine [Lantus VIAL] 20 units SUB-Q QHS #1 vial Insulin Lispro [HumaLOG VIAL] 0 units SQ AC #1 vial Lisinopril/Hydrochlorothiazide [Zestoretic 10-12.5 mg Tablet] 1 each PO DAILY #30 tablet Ondansetron [Zofran Odt] 4 mg PO Q8HR PRN #30 tab.rapdis PRN Reason: Nausea
== END 2019-02-17 16:00 | disposition home or self-care (01) | DRG 638 ==
LOC: ED 19:44 → CC1 02-13 01:33 → 3A 02-14 11:02
PROVIDERS: ADMIT Internal Medicine; ATTEND Internal Medicine
DX: E10.10 Type 1 diabetes mellitus with ketoacidosis without coma (principal); E87.1 Hypo-osmolality and hyponatremia; N13.30 Unspecified hydronephrosis; N17.9 Acute kidney failure, unspecified; E10.43 Type 1 diabetes mellitus with diabetic autonomic (poly)neuropathy; K31.84 Gastroparesis; R33.9 Retention of urine, unspecified; N32.89 Other specified disorders of bladder; F17.210 Nicotine dependence, cigarettes, uncomplicated; Z82.49 Family history of ischemic heart disease and other diseases of the circulatory system; Z71.6 Tobacco abuse counseling
CPT/HCPCS: 36415; 74177; 80048; 80053; 81001; 82550; 82553; 82805; 82962; 83690; 83735; 84100; 84484; 85025; 93005; 93010; 94640; 96374; 99285; 99406; G0378; J0360; J1170; J1650; J1815; J2270; J2405; J2765; J3010; J7030; Q9967

== ENCOUNTER 2019-05-18 23:11 | Inpatient (IN) | payer SELFPAY ==
[2019-05-19] MEDS ORDERED: NACL 0.9% 1000 ML 1,000 ML ONE (00:49)
[2019-05-19 01:20] LABS: Hematocrit 42.6 % (35.5-45.6); Hemoglobin 14.3 gm/dl (11.8-15.2); Mean Corpuscular HGB Conc 34 % (32-34); Mean Corpuscular Volume 87 fl (84-94); Platelet Count 284 K/mm3 (140-440); Red Blood Count 4.88 M/mm3 (3.65-5.03); Red Cell Distribution Width 14.1 % (13.2-15.2)
[2019-05-19] MEDS ORDERED: ZOFRAN ONE ×2 (01:38→11:35)
[2019-05-19] MEDS ORDERED: SUBLIMAZE IV ONE (01:41)
[2019-05-19] MEDS ORDERED: ZOFRAN IV ONE ×2 (01:41→17:15)
[2019-05-19] MEDS ORDERED: SUBLIMAZE ONE (01:44)
[2019-05-19 01:47] LABS: Alanine Aminotransferase 23 units/L (7-56); Albumin 4.9 g/dL (3.9-5); BUN/Creatinine Ratio 24; Blood Urea Nitrogen 26 mg/dL (9-20); Calcium 10.3 mg/dL (8.4-10.2); Hemolysis Index 5
[2019-05-19] MEDS ORDERED: NACL 0.9% 1000 ML 1,000 ML IV ONE (01:47)
--- NOTE | 2019-05-19 01:48 | Emergency Department Report ---
HPI - General Chief Complaint: Hyperglycemia Time Seen by Provider: 05/19/19 01:01 - [facility] HPI: Room 40 The patient is a 29-year-old male presenting with a chief complaint of abdominal pain nausea vomiting. She has a history of type 1 diabetes and gastroparesis and states he has been compliant with his insulin. The patient states this afternoon at 13:00 "overheated and diaphoretic experience frequent nausea vomiting. Patient, pain but denies diarrhea. Patient produces pain is 8/10. Location: [See above] Duration: [See above] Quality: [See above] Severity: [See above] Modifying factors: [see above] Context: [see above] Mode of transportation: [not driving] ED Past Medical Hx - Past Medical History Previous Medical History?: Yes Hx Hypertension: Yes Hx Diabetes: Yes (type 1) Additional medical history: Gastroparesis - Surgical History Past Surgical History?: No - Family History Family history: no significant - Social History Smoking Status: Never Smoker Substance Use Type: None (denies illicit drug use) - Medications Home Medications: Home Medications Medication Instructions Recorded Confirmed Last Taken Type Insulin NPH, Human [NovoLIN N] 10 unit SQ BID #1 vial 02/17/19 Unknown Rx Insulin Regular, Human [HumuLIN R] 0 unit SQ AC #1 vial 02/17/19 Unknown Rx Lisinopril [Zestril TAB] 40 mg PO QDAY #30 tablet 02/17/19 Unknown Rx Ondansetron [Zofran Odt] 4 mg PO Q8HR PRN #30 tab.rapdis 02/17/19 Unknown Rx ED Review of Systems ROS: Stated complaint: STOMACH PAIN/EMESIS/SOB Other details as noted in HPI Constitutional: fever (subjective) Eyes: denies: eye pain ENT: denies: throat pain Respiratory: no symptoms reported Cardiovascular: denies: chest pain Endocrine: no symptoms reported Gastrointestinal: abdominal pain, nausea, vomiting. denies: diarrhea Genitourinary: denies: dysuria Musculoskeletal: denies: back pain Neurological: denies: headache Physical Exam - Physical Exam Vital Signs: Vital Signs 05/18/19 05/19/19 23:27 01:27 Temperature 97.5 F L 97.7 F Pulse Rate 109 H 105 H Respiratory 18 22 Rate Blood Pressure 171/91 Blood Pressure 175/92 [Left] O2 Sat by Pulse 100 99 Oximetry Physical Exam: GENERAL: The patient is well-developed well-nourished male lying on stretcher appearing to be in moderate discomfort increased respirations. [] HEENT: Normocephalic. Atraumatic. Extraocular motions are intact. Patient has dry-appearing lips NECK: Supple. Trachea midline CHEST/LUNGS: Clear to auscultation. There is no respiratory distress noted. HEART/CARDIOVASCULAR: Regular. There is tachycardia. There is no gallop rub or murmur. ABDOMEN: Abdomen is soft, nontender. Patient has normal bowel sounds. There is no abdominal distention. SKIN: There is no rash. There is no edema. There is no diaphoresis. NEURO: The patient is awake, alert, and oriented. The patient is cooperative. The patient has normal speech MUSCULOSKELETAL: There is no evidence of acute injury. ED Course Vital Signs 05/18/19 05/19/19 23:27 01:27 Temperature 97.5 F L 97.7 F Pulse Rate 109 H 105 H Respiratory 18 22 Rate Blood Pressure 171/91 Blood Pressure 175/92 [Left] O2 Sat by Pulse 100 99 Oximetry ED Medical Decision Making - Lab Data Result diagrams: 05/19/19 00:57 05/19/19 00:57 Laboratory Tests 05/18/19 05/19/19 05/19/19 23:24 00:56 00:57 WBC 12.7 H RBC 4.88 Hgb 14.3 Hct 42.6 MCV 87 MCH 29 MCHC 34 RDW 14.1 Plt Count 284 Add Manual Diff Complete Total Counted 100 Seg Neutrophils % Merchandise Flow Team Leader Seg Neuts % (Manual) 94.0 H Band Neutrophils % 0 Lymphocytes % (Manual) 3.0 L Reactive Lymphs % (Man) 0 Monocytes % (Manual) 3.0 Eosinophils % (Manual) 0 Basophils % (Manual) 0 Metamyelocytes % 0 Myelocytes % 0 Promyelocytes % 0 Blast Cells % 0 Nucleated RBC % Not Reportable Seg Neutrophils # Man 11.9 H Band Neutrophils # 0.0 Lymphocytes # (Manual) 0.4 L Abs React Lymphs (Man) 0.0 Monocytes # (Manual) 0.4 Eosinophils # (Manual) 0.0 Basophils # (Manual) 0.0 Metamyelocytes # 0.0 Myelocytes # 0.0 Promyelocytes # 0.0 Blast Cells # 0.0 WBC Morphology Not Reportable Hypersegmented Neuts Not Reportable Hyposegmented Neuts Not Reportable Hypogranular Neuts Not Reportable Smudge Cells Not Reportable Toxic Granulation Not Reportable Toxic Vacuolation Not Reportable Dohle Bodies Not Reportable Pelger-Huet Anomaly Not Reportable Daniel Rods Not Reportable Platelet Estimate Consistent w auto Clumped Platelets Not Reportable Plt Clumps, EDTA Not Reportable Large Platelets Not Reportable Giant Platelets Not Reportable Platelet Satelliting Not Reportable Plt Morphology Comment Not Reportable RBC Morphology Not Reportable Dimorphic RBCs Not Reportable Polychromasia Not Reportable Hypochromasia Not Reportable Poikilocytosis 1+ Anisocytosis 1+ Microcytosis Not Reportable Macrocytosis Not Reportable Spherocytes Not Reportable Pappenheimer Bodies Not Reportable Sickle Cells Not Reportable Target Cells Not Reportable Tear Drop Cells Not Reportable Ovalocytes Not Reportable Helmet Cells Not Reportable Diez-[place] Bodies Not Reportable [place] Rings Not Reportable [place] Cells Not Reportable Bite Cells Not Reportable Crenated Cell Not Reportable Elliptocytes Not Reportable Acanthocytes (Spur) Not Reportable Rouleaux Not Reportable Hemoglobin C Crystals Not Reportable Schistocytes Not Reportable Malaria parasites Not Reportable [place] Bodies Not Reportable Hem Pathologist Commnt No VBG pH 7.425 H Sodium Potassium Chloride Carbon Dioxide Anion Gap BUN Creatinine Estimated GFR BUN/Creatinine Ratio Glucose POC Glucose 346 H Calcium Total Bilirubin AST ALT Alkaline Phosphatase Total Protein Albumin Albumin/Globulin Ratio Urine Color Urine Turbidity Urine pH Ur Specific [place] Urine Protein Urine Glucose (UA) Urine Ketones Urine Blood Urine Nitrite Urine Bilirubin Urine Urobilinogen Ur Leukocyte Esterase Urine WBC (Auto) Urine RBC (Auto) 05/19/19 05/19/19 00:57 Unknown WBC RBC Hgb Hct MCV MCH MCHC RDW Plt Count Add Manual Diff Total Counted Seg Neutrophils % Seg Neuts % (Manual) Band Neutrophils % Lymphocytes % (Manual) Reactive Lymphs % (Man) Monocytes % (Manual) Eosinophils % (Manual) Basophils % (Manual) Metamyelocytes % Myelocytes % Promyelocytes % Blast Cells % Nucleated RBC % Seg Neutrophils # Man Band Neutrophils # Lymphocytes # (Manual) Abs React Lymphs (Man) Monocytes # (Manual) Eosinophils # (Manual) Basophils # (Manual) Metamyelocytes # Myelocytes # Promyelocytes # Blast Cells # WBC Morphology Hypersegmented Neuts Hyposegmented Neuts Hypogranular Neuts Smudge Cells Toxic Granulation Toxic Vacuolation Dohle Bodies Pelger-Huet Anomaly Daniel Rods Platelet Estimate Clumped Platelets Plt Clumps, EDTA Large Platelets Giant Platelets Platelet Satelliting Plt Morphology Comment RBC Morphology Dimorphic RBCs Polychromasia Hypochromasia Poikilocytosis Anisocytosis Microcytosis Macrocytosis Spherocytes Pappenheimer Bodies Sickle Cells Target Cells Tear Drop Cells Ovalocytes Helmet Cells Diez-[place] Bodies [place] Rings Sal Cells Bite Cells Crenated Cell Elliptocytes Acanthocytes (Spur) Rouleaux Hemoglobin C Crystals Schistocytes Malaria parasites Bonifacio Bodies Hem Pathologist Commnt VBG pH Sodium 137 Potassium 5.3 H Chloride 96.3 L Carbon Dioxide 18 L Anion Gap 28 BUN 26 H Creatinine 1.1 Estimated GFR > 60 BUN/Creatinine Ratio 24 Glucose 501 H* POC Glucose Calcium 10.3 H Total Bilirubin 0.90 AST 28 ALT 23 Alkaline Phosphatase 119 Total Protein 8.2 Albumin 4.9 Albumin/Globulin Ratio 1.5 Urine Color Yellow Urine Turbidity Clear Urine pH 8.0 H Ur Specific [place] 1.028 Urine Protein >500 Urine Glucose (UA) >=500 Urine Ketones 80 Urine Blood Sm Urine Nitrite Neg Urine Bilirubin Neg Urine Urobilinogen < 2.0 Ur Leukocyte Esterase Neg Urine WBC (Auto) 3.0 Urine RBC (Auto) 26.0 - Differential Diagnosis DKA, gastroparesis, dehydration Critical care attestation.: If time is entered above; I have spent that time in minutes in the direct care of this critically ill patient, excluding procedure time. ED Disposition Clinical Impression: Hyperglycemia, Gastroparesis, Tachycardia, Nausea and vomiting Disposition: OP ADMIT IP TO THIS HOSP Is pt being admited?: Yes Does the pt Need Aspirin: No Condition: Fair Referrals: DEDRICK DUMONT MD [Primary Care Provider] - 3-5 Days Time of Disposition: 03:25 (hospitalist notified (Dr Hackett))
[2019-05-19 02:08] LABS: Bilirubin,Urine NEG (Negative); Blood,Urine SM (Negative); Color,Urine Yellow (Yellow); Urobilinogen,Urine < 2.0 mg/dL (<2.0)
[2019-05-19 02:12] LABS: Protein,Urine >500 mg/dL (Negative)
[2019-05-19 02:22] LABS: Basophils % (Manual) 0 % (0.0-1.8); Eosinophils % (Manual) 0 % (0.0-4.3); Total Cells Counted 100
[2019-05-19 02:23] LABS: Anisocytosis 1+; Platelet Estimate Consistent w Auto; Poikilocytosis 1+
[2019-05-19] MEDS ORDERED: D50W (25GM) Syringe IV PRN ×2 (03:21→11:52)
[2019-05-19] MEDS ORDERED: HumuLIN R 100 UNITS in NACL 0.9% 99 ML IV SCH (04:00)
[2019-05-19] MEDS ORDERED: APRESOLINE IV PRN (04:20)
[2019-05-19] MEDS ORDERED: SODIUM CHLORIDE FLUSH SYRINGE 10 ML IV PRN (04:20)
[2019-05-19 04:37] LABS: BUN/Creatinine Ratio 25; Blood Urea Nitrogen 27 mg/dL (9-20); Calcium 9.6 mg/dL (8.4-10.2); Hemolysis Index 11
--- NOTE | 2019-05-19 04:39 | History and Physical Report ---
History of Present Illness Date of examination: 05/19/19 Chief complaint: severe Nausea and Vomiting. Abdominal pain History of present illness: 29M with PMH of DM, type 1, gastroparesis, HTN presents with c/o severe abdominal pain that started around 1am today. He says pain is across his abdomen and that he has vomited about 4 times, non bloody. Reports that his abdominal pain is severe and 10/10. PT is visibly writhing in pain in the ED. He says his BS were 300s then 200s yesterday. He reports he has been adherent to taking his insulin and other meds. He says he gets relief from Cannabis sometimes. Denies any dysuria,polyuria Past History Past Medical History: diabetes (type 1), hypertension Past Surgical History: No surgical history Social history: no significant social history, full code Family history: hypertension Medications and Allergies Allergies Allergy/AdvReac Type Severity Reaction Status Date / Time No Known Allergies Allergy Verified 07/13/14 23:38 Home Medications Medication Instructions Recorded Confirmed Last Taken Type Insulin Detemir [Levemir VIAL] 12 unit SQ QHS 05/19/19 05/19/19 Unknown History Insulin Regular, Human [Novolin R] 12 unit SQ AC 05/19/19 05/19/19 Unknown History Lispro Insulin [HumaLOG] 0 unit SQ QID PRN 05/19/19 05/19/19 Unknown History Active Meds: Active Medications Dextrose (D50w (25gm) Syringe) 0 ml IV ONCE PRN PRN Reason: Hypoglycemia Enoxaparin Sodium (Lovenox) 40 mg SUB-Q QDAY CHIP Hydralazine HCl (Apresoline) 10 mg IV Q4HR PRN PRN Reason: Increased Blood Pressure Hydromorphone HCl (Dilaudid) 0.5 mg IV Q3H PRN PRN Reason: Pain , Severe (7-10) Insulin Human Regular 100 (units/ Sodium Chloride) 100 mls @ 6 mls/hr IV TITR CHIP; Protocol Sodium Chloride (Nacl 0.9% 1000 Ml) 1,000 mls @ 200 mls/hr IV DIRECT CHIP Metoclopramide HCl (Reglan) 10 mg IV Q6H PRN PRN Reason: Nausea And Vomiting Morphine Sulfate (Morphine) 2 mg IV Q4H PRN PRN Reason: Pain, Moderate (4-6) Ondansetron HCl (Zofran) 4 mg IV Q8H PRN PRN Reason: Nausea And Vomiting Pantoprazole Sodium (Protonix) 40 mg IV QDAY CHIP Sodium Chloride (Sodium Chloride Flush Syringe 10 Ml) 10 ml IV BID CHIP Sodium Chloride (Sodium Chloride Flush Syringe 10 Ml) 10 ml IV PRN PRN PRN Reason: LINE FLUSH Review of Systems Constitutional: poor appetite Exam - Constitutional Vitals: Temp Pulse Resp BP Pulse Ox 97.9 F 118 H 22 161/84 100 05/19/19 03:00 05/19/19 03:00 05/19/19 03:00 05/19/19 03:00 05/19/19 03:00 General appearance: Present: no acute distress, well-nourished - EENT Eyes: Present: PERRL ENT: hearing intact, clear oral mucosa - Neck Neck: Present: supple, normal ROM - Respiratory Respiratory effort: normal Respiratory: bilateral: CTA - Cardiovascular Heart Sounds: Present: S1 & S2. Absent: rub, click - Extremities Extremities: pulses symmetrical, No edema Peripheral Pulses: within normal limits - Abdominal General gastrointestinal: Present: soft, non-tender, tender (across his abdomen), non-distended, normal bowel sounds. Absent: distended Male genitourinary: Present: normal - Integumentary Integumentary: Present: clear, warm, dry - Musculoskeletal Musculoskeletal: gait normal, strength equal bilaterally - Psychiatric Psychiatric: appropriate mood/affect, intact judgment & insight - Neurologic Neurologic: CNII-XII intact, moves all extremities Results - Labs CBC & Chem 7: 05/19/19 00:57 05/19/19 00:57 Labs: Laboratory Last Values WBC 12.7 K/mm3 (4.5-11.0) H 05/19/19 00:57 RBC 4.88 M/mm3 (3.65-5.03) 05/19/19 00:57 Hgb 14.3 gm/dl (11.8-15.2) 05/19/19 00:57 Hct 42.6 % (35.5-45.6) 05/19/19 00:57 MCV 87 fl (84-94) 05/19/19 00:57 MCH 29 pg (28-32) 05/19/19 00:57 MCHC 34 % (32-34) 05/19/19 00:57 RDW 14.1 % (13.2-15.2) 05/19/19 00:57 Plt Count 284 K/mm3 (140-440) 05/19/19 00:57 Add Manual Diff Complete 05/19/19 00:57 Total Counted 100 05/19/19 00:57 Seg Neutrophils % Structures Assembler 05/19/19 00:57 Seg Neuts % (Manual) 94.0 % (40.0-70.0) H 05/19/19 00:57 0 % 05/19/19 00:57 3.0 % (13.4-35.0) L 05/19/19 00:57 Reactive Lymphs % (Man) 0 % 05/19/19 00:57 3.0 % (0.0-7.3) 05/19/19 00:57 0 % (0.0-4.3) 05/19/19 00:57 0 % (0.0-1.8) 05/19/19 00:57 0 % 05/19/19 00:57 0 % 05/19/19 00:57 0 % 05/19/19 00:57 0 % 05/19/19 00:57 Nucleated RBC % Not Reportable 05/19/19 00:57 Seg Neutrophils # Man 11.9 K/mm3 (1.8-7.7) H 05/19/19 00:57 Band Neutrophils # 0.0 K/mm3 05/19/19 00:57 0.4 K/mm3 (1.2-5.4) L 05/19/19 00:57 Abs React Lymphs (Man) 0.0 K/mm3 05/19/19 00:57 0.4 K/mm3 (0.0-0.8) 05/19/19 00:57 0.0 K/mm3 (0.0-0.4) 05/19/19 00:57 0.0 K/mm3 (0.0-0.1) 05/19/19 00:57 0.0 K/mm3 05/19/19 00:57 0.0 K/mm3 05/19/19 00:57 0.0 K/mm3 05/19/19 00:57 Blast Cells # 0.0 K/mm3 05/19/19 00:57 WBC Morphology Not Reportable 05/19/19 00:57 Hypersegmented Neuts Not Reportable 05/19/19 00:57 Hyposegmented Neuts Not Reportable 05/19/19 00:57 Hypogranular Neuts Not Reportable 05/19/19 00:57 Not Reportable 05/19/19 00:57 Not Reportable 05/19/19 00:57 Not Reportable 05/19/19 00:57 Not Reportable 05/19/19 00:57 Not Reportable 05/19/19 00:57 Not Reportable 05/19/19 00:57 Consistent w auto 05/19/19 00:57 Not Reportable 05/19/19 00:57 Plt Clumps, EDTA Not Reportable 05/19/19 00:57 Not Reportable 05/19/19 00:57 Not Reportable 05/19/19 00:57 Not Reportable 05/19/19 00:57 Plt Morphology Comment Not Reportable 05/19/19 00:57 RBC Morphology Not Reportable 05/19/19 00:57 Dimorphic RBCs Not Reportable 05/19/19 00:57 Not Reportable 05/19/19 00:57 Not Reportable 05/19/19 00:57 1+ 05/19/19 00:57 1+ 05/19/19 00:57 Not Reportable 05/19/19 00:57 Not Reportable 05/19/19 00:57 Not Reportable 05/19/19 00:57 Not Reportable 05/19/19 00:57 Not Reportable 05/19/19 00:57 Not Reportable 05/19/19 00:57 Not Reportable 05/19/19 00:57 Not Reportable 05/19/19 00:57 Not Reportable 05/19/19 00:57 Not Reportable 05/19/19 00:57 Not Reportable 05/19/19 00:57 Not Reportable 05/19/19 00:57 Not Reportable 05/19/19 00:57 Not Reportable 05/19/19 00:57 Not Reportable 05/19/19 00:57 Acanthocytes (Spur) Not Reportable 05/19/19 00:57 Rouleaux Not Reportable 05/19/19 00:57 Not Reportable 05/19/19 00:57 Not Reportable 05/19/19 00:57 Not Reportable 05/19/19 00:57 Not Reportable 05/19/19 00:57 Hem Pathologist Commnt No 05/19/19 00:57 VBG pH 7.425 (7.320-7.420) H 05/19/19 00:56 Sodium 137 mmol/L (137-145) 05/19/19 00:57 Potassium 5.3 mmol/L (3.6-5.0) H 05/19/19 00:57 Chloride 96.3 mmol/L (98-107) L 05/19/19 00:57 Carbon Dioxide 18 mmol/L (22-30) L 05/19/19 00:57 28 mmol/L 05/19/19 00:57 BUN 26 mg/dL (9-20) H 05/19/19 00:57 1.1 mg/dL (0.8-1.5) 05/19/19 00:57 Estimated GFR > 60 ml/min 05/19/19 00:57 24 % 05/19/19 00:57 Glucose 501 mg/dL (75-100) H* 05/19/19 00:57 POC Glucose 346 (70-105) H 05/18/19 23:24 Calcium 10.3 mg/dL (8.4-10.2) H 05/19/19 00:57 0.90 mg/dL (0.1-1.2) 05/19/19 00:57 AST 28 units/L (5-40) 05/19/19 00:57 ALT 23 units/L (7-56) 05/19/19 00:57 119 units/L (35-129) 05/19/19 00:57 8.2 g/dL (6.3-8.2) 05/19/19 00:57 4.9 g/dL (3.9-5) 05/19/19 00:57 1.5 % 05/19/19 00:57 Yellow (Yellow) 05/19/19 Unknown Clear (Clear) 05/19/19 Unknown 8.0 (5.0-7.0) H 05/19/19 Unknown Ur Specific [place] 1.028 (1.003-1.030) 05/19/19 Unknown >500 mg/dL (Negative) 05/19/19 Unknown >=500 mg/dL (Negative) 05/19/19 Unknown 80 mg/dL (Negative) 05/19/19 Unknown Sm (Negative) 05/19/19 Unknown Neg (Negative) 05/19/19 Unknown Neg (Negative) 05/19/19 Unknown < 2.0 mg/dL (<2.0) 05/19/19 Unknown Ur Leukocyte Esterase Neg (Negative) 05/19/19 Unknown 3.0 /HPF (0.0-6.0) 05/19/19 Unknown 26.0 /HPF (0.0-6.0) 05/19/19 Unknown Assessment and Plan Assessment and plan: Intractable Nausea/Vomiting Acute Gastroparesis Mild DKA Hyperkalemia Hypertension; uncontrolled Plan - Admit to the hospital using the DKA protocol. initiate IV insulin Gtt for now to achieve prompt euglycemia - no infection focus present - IVF with NS - transition to SQ insulin once ketosis has been stopped - IV Analgesia and antihypertensives - recheck and monitor for resolution of Hyperkalemia with continued Insulin use
[2019-05-19] MEDS ORDERED: NACL 0.9% 1000 ML 1,000 ML IV SCH (05:00)
[2019-05-19] MEDS: REGLAN IV PRN ×2 (05:03→13:05)
[2019-05-19 06:39] LABS: BUN/Creatinine Ratio 25; Blood Urea Nitrogen 27 mg/dL (9-20); Calcium 9.9 mg/dL (8.4-10.2); Hemolysis Index 95
[2019-05-19 08:52] LABS: BUN/Creatinine Ratio 25; Blood Urea Nitrogen 28 mg/dL (9-20); Hemolysis Index 7
[2019-05-19] MEDS ORDERED: D5W/0.45% NACL/KCL 20 MEQ 20 MEQ/1,000 ML BAG IV SCH (09:00)
[2019-05-19] MEDS ORDERED: LOVENOX SUB-Q ONE (10:06)
[2019-05-19] MEDS ORDERED: PROTONIX IV ONE (10:07)
[2019-05-19] MEDS: LOVENOX SUB-Q SCH (10:11)
[2019-05-19] MEDS: PROTONIX IV SCH (10:11)
[2019-05-19] MEDS: SODIUM CHLORIDE FLUSH SYRINGE 10 ML IV SCH ×2 (10:12→22:44)
[2019-05-19 10:26] LABS: BUN/Creatinine Ratio 23; Blood Urea Nitrogen 28 mg/dL (9-20); Calcium 9.2 mg/dL (8.4-10.2); Hemolysis Index 10
[2019-05-19] MEDS ORDERED: MORPHINE ONE (11:34)
[2019-05-19] MEDS: ZOFRAN IV PRN (11:39)
[2019-05-19] MEDS: MORPHINE IV PRN ×2 (11:40→16:50)
--- NOTE | 2019-05-19 11:48 | Event Note ---
Date: 05/19/19 Patient with DKA. I have seen and examined him. He is doing better. blood glucose improved. Will downgrade to med/surg. Discontinue Insulin drip, start subcut Insulin, diabetic diet.
[2019-05-19] MEDS: NACL 0.9% 1000 ML 1,000 ML IV SCH ×2 (13:00→20:53)
[2019-05-19] MEDS: HumaLOG SUB-Q SCH ×4 (13:07→22:42)
[2019-05-19 13:45] LABS: BUN/Creatinine Ratio 24; Blood Urea Nitrogen 26 mg/dL (9-20); Calcium 9.8 mg/dL (8.4-10.2); Hemolysis Index 18
[2019-05-19] MEDS: THORAZINE 25 MG in NACL 0.9% 50 ML IV PRN (19:48)
[2019-05-19] MEDS: LANTUS SUB-Q SCH (22:41)
[2019-05-19 23:35] LABS: BUN/Creatinine Ratio 22; Blood Urea Nitrogen 29 mg/dL (9-20); Calcium 9.1 mg/dL (8.4-10.2); Hemolysis Index 6
[2019-05-20] MEDS: ZOFRAN IV PRN ×2 (03:06→20:24)
[2019-05-20 04:51] LABS: Basophils % (Auto) 0.3 % (0.0-1.8); Hematocrit 41.7 % (35.5-45.6); Lymphocytes % (Auto) 6.4 % (13.4-35.0); Mean Corpuscular HGB Conc 34 % (32-34); Mean Corpuscular Volume 87 fl (84-94); Monocytes # (Auto) 0.9 K/mm3 (0.0-0.8); Monocytes % (Auto) 5.4 % (0.0-7.3); Platelet Count 271 K/mm3 (140-440); Red Blood Count 4.81 M/mm3 (3.65-5.03); Red Cell Distribution Width 14.2 % (13.2-15.2)
[2019-05-20 05:11] LABS: BUN/Creatinine Ratio 25; Blood Urea Nitrogen 27 mg/dL (9-20); Calcium 9.5 mg/dL (8.4-10.2); Hemolysis Index 7
[2019-05-20] MEDS: MORPHINE IV PRN ×4 (05:37→22:44)
[2019-05-20] MEDS: HumaLOG SUB-Q SCH ×7 (08:51→22:14)
[2019-05-20] MEDS: REGLAN IV PRN (08:55)
[2019-05-20] MEDS: PROTONIX IV SCH (09:42)
[2019-05-20] MEDS: LOVENOX SUB-Q SCH (09:42)
[2019-05-20] MEDS: SODIUM CHLORIDE FLUSH SYRINGE 10 ML IV SCH ×2 (09:43→22:13)
[2019-05-20] MEDS ORDERED: PNEUMOVAX 23 IM ONE (12:00)
--- NOTE | 2019-05-20 12:21 | Progress Note ---
Assessment and Plan Assessment and plan: Diabetic ketoacidosis, Resolved Blood glucose improved continue Niovolin 70/30 gastroparesis Still vomiting change diet to full liquid diet Abdominal pain Persists Will get CT Abdomen Dehydration. Cont iv fluids Full code status History Interval history: Still not feeling well Nausea still vomiting Hospitalist Physical - Physical exam Narrative exam: Gen: Not in acute distress, lying in bed,obese HEENT: Normocephalic, atraumatic Neck: supple, no JVD Heart: S1 and S2 reg, no murmurs, rubs or gallop Lungs: Clear, no crackles, no wheeze Abd: soft, non tender, non distended, normal BS Ext: No edema, no clubbing, no cyanosis, Neuro: Awake,alert, oriented,moves all ext, - Constitutional Vitals: Temp Pulse Resp BP Pulse Ox 97.7 F 114 H 20 184/91 100 05/20/19 06:39 05/20/19 10:00 05/20/19 06:39 05/20/19 06:39 05/20/19 06:39 General appearance: Present: no acute distress, well-nourished Results - Labs CBC & Chem 7: 05/20/19 04:31 05/20/19 04:31 Labs: Laboratory Last Values WBC 15.7 K/mm3 (4.5-11.0) H 05/20/19 04:31 RBC 4.81 M/mm3 (3.65-5.03) 05/20/19 04:31 Hgb 14.0 gm/dl (11.8-15.2) 05/20/19 04:31 Hct 41.7 % (35.5-45.6) 05/20/19 04:31 MCV 87 fl (84-94) 05/20/19 04:31 MCH 29 pg (28-32) 05/20/19 04:31 MCHC 34 % (32-34) 05/20/19 04:31 RDW 14.2 % (13.2-15.2) 05/20/19 04:31 Plt Count 271 K/mm3 (140-440) 05/20/19 04:31 Lymph % (Auto) 6.4 % (13.4-35.0) L 05/20/19 04:31 [place] % (Auto) 5.4 % (0.0-7.3) 05/20/19 04:31 Eos % (Auto) 0.0 % (0.0-4.3) 05/20/19 04:31 Baso % (Auto) 0.3 % (0.0-1.8) 05/20/19 04:31 Lymph # 1.0 K/mm3 (1.2-5.4) L 05/20/19 04:31 [place] # 0.9 K/mm3 (0.0-0.8) H 05/20/19 04:31 Eos # 0.0 K/mm3 (0.0-0.4) 05/20/19 04:31 Baso # 0.0 K/mm3 (0.0-0.1) 05/20/19 04:31 Add Manual Diff Complete 05/19/19 00:57 Total Counted 100 05/19/19 00:57 Seg Neutrophils % 87.9 % (40.0-70.0) H 05/20/19 04:31 Seg Neuts % (Manual) 94.0 % (40.0-70.0) H 05/19/19 00:57 0 % 05/19/19 00:57 3.0 % (13.4-35.0) L 05/19/19 00:57 Reactive Lymphs % (Man) 0 % 05/19/19 00:57 3.0 % (0.0-7.3) 05/19/19 00:57 0 % (0.0-4.3) 05/19/19 00:57 0 % (0.0-1.8) 05/19/19 00:57 0 % 05/19/19 00:57 0 % 05/19/19 00:57 0 % 05/19/19 00:57 0 % 05/19/19 00:57 Nucleated RBC % Not Reportable 05/19/19 00:57 Seg Neutrophils # 13.8 K/mm3 (1.8-7.7) H 05/20/19 04:31 Seg Neutrophils # Man 11.9 K/mm3 (1.8-7.7) H 05/19/19 00:57 Band Neutrophils # 0.0 K/mm3 05/19/19 00:57 0.4 K/mm3 (1.2-5.4) L 05/19/19 00:57 Abs React Lymphs (Man) 0.0 K/mm3 05/19/19 00:57 0.4 K/mm3 (0.0-0.8) 05/19/19 00:57 0.0 K/mm3 (0.0-0.4) 05/19/19 00:57 0.0 K/mm3 (0.0-0.1) 05/19/19 00:57 0.0 K/mm3 05/19/19 00:57 0.0 K/mm3 05/19/19 00:57 0.0 K/mm3 05/19/19 00:57 Blast Cells # 0.0 K/mm3 05/19/19 00:57 WBC Morphology Not Reportable 05/19/19 00:57 Hypersegmented Neuts Not Reportable 05/19/19 00:57 Hyposegmented Neuts Not Reportable 05/19/19 00:57 Hypogranular Neuts Not Reportable 05/19/19 00:57 Not Reportable 05/19/19 00:57 Not Reportable 05/19/19 00:57 Not Reportable 05/19/19 00:57 Not Reportable 05/19/19 00:57 Not Reportable 05/19/19 00:57 Not Reportable 05/19/19 00:57 Consistent w auto 05/19/19 00:57 Not Reportable 05/19/19 00:57 Plt Clumps, EDTA Not Reportable 05/19/19 00:57 Not Reportable 05/19/19 00:57 Not Reportable 05/19/19 00:57 Not Reportable 05/19/19 00:57 Plt Morphology Comment Not Reportable 05/19/19 00:57 RBC Morphology Not Reportable 05/19/19 00:57 Dimorphic RBCs Not Reportable 05/19/19 00:57 Not Reportable 05/19/19 00:57 Not Reportable 05/19/19 00:57 1+ 05/19/19 00:57 1+ 05/19/19 00:57 Not Reportable 05/19/19 00:57 Not Reportable 05/19/19 00:57 Not Reportable 05/19/19 00:57 Not Reportable 05/19/19 00:57 Not Reportable 05/19/19 00:57 Not Reportable 05/19/19 00:57 Not Reportable 05/19/19 00:57 Not Reportable 05/19/19 00:57 Not Reportable 05/19/19 00:57 Not Reportable 05/19/19 00:57 Not Reportable 05/19/19 00:57 Not Reportable 05/19/19 00:57 Not Reportable 05/19/19 00:57 Not Reportable 05/19/19 00:57 Not Reportable 05/19/19 00:57 Acanthocytes (Spur) Not Reportable 05/19/19 00:57 Rouleaux Not Reportable 05/19/19 00:57 Not Reportable 05/19/19 00:57 Not Reportable 05/19/19 00:57 Not Reportable 05/19/19 00:57 Not Reportable 05/19/19 00:57 Hem Pathologist Commnt No 05/19/19 00:57 VBG pH 7.425 (7.320-7.420) H 05/19/19 00:56 Sodium 141 mmol/L (137-145) 05/20/19 04:31 Potassium 4.4 mmol/L (3.6-5.0) 05/20/19 04:31 Chloride 103.7 mmol/L (98-107) 05/20/19 04:31 Carbon Dioxide 20 mmol/L (22-30) L 05/20/19 04:31 22 mmol/L 05/20/19 04:31 BUN 27 mg/dL (9-20) H 05/20/19 04:31 1.1 mg/dL (0.8-1.5) 05/20/19 04:31 Estimated GFR > 60 ml/min 05/20/19 04:31 25 % 05/20/19 04:31 Glucose 291 mg/dL (75-100) H 05/20/19 04:31 POC Glucose 161 (70-105) H 05/20/19 11:26 8.2 % (4-6) H 05/19/19 00:57 Calcium 9.5 mg/dL (8.4-10.2) 05/20/19 04:31 Phosphorus 4.90 mg/dL (2.5-4.5) H 05/19/19 03:52 Magnesium 2.10 mg/dL (1.7-2.3) 05/19/19 03:52 0.90 mg/dL (0.1-1.2) 05/19/19 00:57 AST 28 units/L (5-40) 05/19/19 00:57 ALT 23 units/L (7-56) 05/19/19 00:57 119 units/L (35-129) 05/19/19 00:57 8.2 g/dL (6.3-8.2) 05/19/19 00:57 4.9 g/dL (3.9-5) 05/19/19 00:57 1.5 % 05/19/19 00:57 Yellow (Yellow) 05/19/19 Unknown Clear (Clear) 05/19/19 Unknown 8.0 (5.0-7.0) H 05/19/19 Unknown Ur Specific [place] 1.028 (1.003-1.030) 05/19/19 Unknown >500 mg/dL (Negative) 05/19/19 Unknown >=500 mg/dL (Negative) 05/19/19 Unknown 80 mg/dL (Negative) 05/19/19 Unknown Sm (Negative) 05/19/19 Unknown Neg (Negative) 05/19/19 Unknown Neg (Negative) 05/19/19 Unknown < 2.0 mg/dL (<2.0) 05/19/19 Unknown Ur Leukocyte Esterase Neg (Negative) 05/19/19 Unknown 3.0 /HPF (0.0-6.0) 05/19/19 Unknown 26.0 /HPF (0.0-6.0) 05/19/19 Unknown Active Medications - Current Medications Current Medications: Generic Name Dose Route Start Last Admin Trade Name Shirazq PRN Reason Stop Dose Admin Dextrose 50 ml 05/19/19 11:52 D50w (25gm) Syringe IV PRN PRN Hypoglycemia Enoxaparin Sodium 40 mg 05/19/19 10:00 05/20/19 09:42 Lovenox SUB-Q 40 mg QDAY CHIP Administration Hydralazine HCl 10 mg 05/19/19 04:20 Apresoline IV Q4H PRN Increased Blood Pressure Hydromorphone HCl 0.5 mg 05/19/19 04:20 Dilaudid IV Q3H PRN Pain , Severe (7-10) Sodium Chloride 1,000 mls @ 200 mls/hr 05/19/19 05:00 05/19/19 05:18 Nacl 0.9% 1000 Ml IV 200 mls/hr DIRECT CHIP Administration Sodium Chloride 1,000 mls @ 125 mls/hr 05/19/19 12:00 05/19/19 20:53 Nacl 0.9% 1000 Ml IV 125 mls/hr DIRECT CHIP Administration Chlorpromazine HCl 25 mg/ 51 mls @ 100 mls/hr 05/19/19 19:30 05/19/19 19:48 Sodium Chloride IV 100 mls/hr Q4H PRN Administration Hiccups Insulin Glargine 15 units 05/19/19 22:00 05/19/19 22:41 Lantus SUB-Q 15 units QHS CHIP Administration Insulin Human Lispro 10 unit 05/19/19 12:00 05/20/19 08:51 Humalog SUB-Q 10 unit AC CHIP Administration Insulin Human Lispro 0 unit 05/19/19 16:30 05/20/19 08:51 Humalog SUB-Q 4 unit AC CHIP Administration Protocol Insulin Human Lispro 0 unit 05/19/19 22:00 05/19/19 22:42 Humalog SUB-Q 3 unit QHS CHIP Administration Protocol Metoclopramide HCl 10 mg 05/19/19 04:20 05/20/19 08:55 Reglan IV 10 mg Q6H PRN Administration Nausea And Vomiting Morphine Sulfate 2 mg 05/19/19 04:20 05/20/19 09:42 Morphine IV 2 mg Q4H PRN Administration Pain, Moderate (4-6) Ondansetron HCl 4 mg 05/19/19 04:20 05/20/19 03:06 Zofran IV 4 mg Q8H PRN Administration Nausea And Vomiting Pantoprazole Sodium 40 mg 05/21/19 10:00 Protonix PO DAILY CHIP Sodium Chloride 10 ml 05/19/19 10:00 05/20/19 09:43 Sodium Chloride Flush Syringe 10 Ml IV 10 ml BID CHIP Administration Sodium Chloride 10 ml 05/19/19 04:20 Sodium Chloride Flush Syringe 10 Ml IV PRN PRN LINE FLUSH
[2019-05-20] MEDS: REGLAN IV SCH ×2 (16:16→22:13)
[2019-05-20] MEDS: NACL 0.9% 1000 ML 1,000 ML IV SCH (16:22)
--- NOTE | 2019-05-20 19:24 | Cat Scan Report ---
CT of the abdomen and pelvis with intravenous contrast INDICATION / CLINICAL INFORMATION: Abdominal pain with nausea and vomiting. TECHNIQUE: The patient received 100 cc Omnipaque [address] scans at this location are performed using CT dose reduction for ALARA by means of automated exposure control. COMPARISON: None currently available. FINDINGS: ABDOMEN: The liver, spleen, gallbladder, bile ducts, pancreas, adrenal glands and kidneys are normal. There is no evidence of bowel obstruction, wall thickening or free air. No adenopathy is identified. Minimal soft tissue gas involving the subcutaneous cutaneous fat of the right lower anterior abdomin al wall is likely related to an injection site. The lung bases are clear. PELVIS: The distal ureters, urinary bladder and prostate gland are normal. A normal appendix is prese nt and there is no evidence of diverticulitis. There is a 5.7 cm fat-containing mass in the right upp er thigh medially near the perineum. I do not identify a hernia. No acute osseous abnormality is seen . IMPRESSION: 1. No acute intra-abdominal disease is identified. 2. 5.7 cm lipoma in the right upper thigh medially. Signer Name: Abram Guerra MD Signed: 05/20/2019 7:20 PM Workstation Name: [id number]
[2019-05-20] MEDS: LANTUS SUB-Q SCH (22:12)
[2019-05-20] MEDS: DILAUDID IV PRN (23:35)
[2019-05-21] MEDS: DILAUDID IV PRN ×4 (03:43→22:14)
[2019-05-21] MEDS: THORAZINE 25 MG in NACL 0.9% 50 ML IV PRN ×2 (03:44→22:12)
[2019-05-21 08:05] LABS: BUN/Creatinine Ratio 23; Blood Urea Nitrogen 18 mg/dL (9-20); Calcium 9.1 mg/dL (8.4-10.2); Hemolysis Index 4
[2019-05-21] MEDS: PROTONIX PO SCH (11:09)
[2019-05-21] MEDS: LOVENOX SUB-Q SCH (11:09)
[2019-05-21] MEDS: NACL 0.9% 1000 ML 1,000 ML IV SCH ×2 (11:10→22:12)
[2019-05-21] MEDS: HumaLOG SUB-Q SCH ×7 (11:11→22:13)
[2019-05-21] MEDS: SODIUM CHLORIDE FLUSH SYRINGE 10 ML IV SCH ×2 (11:12→22:15)
[2019-05-21] MEDS: REGLAN IV SCH ×4 (11:14→22:12)
--- NOTE | 2019-05-21 13:49 | Progress Note ---
Assessment and Plan Assessment and plan: Diabetic ketoacidosis, Resolved Blood glucose improved continue Niovolin 70/30 Gastroparesis Still vomiting Trial of GI soft diet Still having abd pain CT Abd unremarkable Abdominal pain Persists CT Abdomen unremarkable Dehydration. Cont iv fluids Full code status patient not stable to discharge because still vomiting, not eating, abdominal pain. History Interval history: Still not feeling well Nausea still vomiting Still having abd pain Hospitalist Physical - Physical exam Narrative exam: Gen: Not in acute distress, lying in bed,obese HEENT: Normocephalic, atraumatic Neck: supple, no JVD Heart: S1 and S2 reg, no murmurs, rubs or gallop Lungs: Clear, no crackles, no wheeze Abd: soft, non tender, non distended, normal BS Ext: No edema, no clubbing, no cyanosis, right upper thigh lipoma Neuro: Awake,alert, oriented,moves all ext, - Constitutional Vitals: Temp Pulse Resp BP Pulse Ox 98.3 F 128 H 16 178/115 100 05/21/19 12:21 05/21/19 12:21 05/21/19 12:21 05/21/19 12:21 05/21/19 12:21 General appearance: Present: no acute distress, well-nourished Results - Labs CBC & Chem 7: 05/20/19 04:31 05/21/19 07:26 Labs: Laboratory Last Values WBC 15.7 K/mm3 (4.5-11.0) H 05/20/19 04:31 RBC 4.81 M/mm3 (3.65-5.03) 05/20/19 04:31 Hgb 14.0 gm/dl (11.8-15.2) 05/20/19 04:31 Hct 41.7 % (35.5-45.6) 05/20/19 04:31 MCV 87 fl (84-94) 05/20/19 04:31 MCH 29 pg (28-32) 05/20/19 04:31 MCHC 34 % (32-34) 05/20/19 04:31 RDW 14.2 % (13.2-15.2) 05/20/19 04:31 Plt Count 271 K/mm3 (140-440) 05/20/19 04:31 Lymph % (Auto) 6.4 % (13.4-35.0) L 05/20/19 04:31 [place] % (Auto) 5.4 % (0.0-7.3) 05/20/19 04:31 Eos % (Auto) 0.0 % (0.0-4.3) 05/20/19 04:31 Baso % (Auto) 0.3 % (0.0-1.8) 05/20/19 04:31 Lymph # 1.0 K/mm3 (1.2-5.4) L 05/20/19 04:31 [place] # 0.9 K/mm3 (0.0-0.8) H 05/20/19 04:31 Eos # 0.0 K/mm3 (0.0-0.4) 05/20/19 04:31 Baso # 0.0 K/mm3 (0.0-0.1) 05/20/19 04:31 Add Manual Diff Complete 05/19/19 00:57 Total Counted 100 05/19/19 00:57 Seg Neutrophils % 87.9 % (40.0-70.0) H 05/20/19 04:31 Seg Neuts % (Manual) 94.0 % (40.0-70.0) H 05/19/19 00:57 0 % 05/19/19 00:57 3.0 % (13.4-35.0) L 05/19/19 00:57 Reactive Lymphs % (Man) 0 % 05/19/19 00:57 3.0 % (0.0-7.3) 05/19/19 00:57 0 % (0.0-4.3) 05/19/19 00:57 0 % (0.0-1.8) 05/19/19 00:57 0 % 05/19/19 00:57 0 % 05/19/19 00:57 0 % 05/19/19 00:57 0 % 05/19/19 00:57 Nucleated RBC % Not Reportable 05/19/19 00:57 Seg Neutrophils # 13.8 K/mm3 (1.8-7.7) H 05/20/19 04:31 Seg Neutrophils # Man 11.9 K/mm3 (1.8-7.7) H 05/19/19 00:57 Band Neutrophils # 0.0 K/mm3 05/19/19 00:57 0.4 K/mm3 (1.2-5.4) L 05/19/19 00:57 Abs React Lymphs (Man) 0.0 K/mm3 05/19/19 00:57 0.4 K/mm3 (0.0-0.8) 05/19/19 00:57 0.0 K/mm3 (0.0-0.4) 05/19/19 00:57 0.0 K/mm3 (0.0-0.1) 05/19/19 00:57 0.0 K/mm3 05/19/19 00:57 0.0 K/mm3 05/19/19 00:57 0.0 K/mm3 05/19/19 00:57 Blast Cells # 0.0 K/mm3 05/19/19 00:57 WBC Morphology Not Reportable 05/19/19 00:57 Hypersegmented Neuts Not Reportable 05/19/19 00:57 Hyposegmented Neuts Not Reportable 05/19/19 00:57 Hypogranular Neuts Not Reportable 05/19/19 00:57 Not Reportable 05/19/19 00:57 Not Reportable 05/19/19 00:57 Not Reportable 05/19/19 00:57 Not Reportable 05/19/19 00:57 Not Reportable 05/19/19 00:57 Not Reportable 05/19/19 00:57 Consistent w auto 05/19/19 00:57 Not Reportable 05/19/19 00:57 Plt Clumps, EDTA Not Reportable 05/19/19 00:57 Not Reportable 05/19/19 00:57 Not Reportable 05/19/19 00:57 Not Reportable 05/19/19 00:57 Plt Morphology Comment Not Reportable 05/19/19 00:57 RBC Morphology Not Reportable 05/19/19 00:57 Dimorphic RBCs Not Reportable 05/19/19 00:57 Not Reportable 05/19/19 00:57 Not Reportable 05/19/19 00:57 1+ 05/19/19 00:57 1+ 05/19/19 00:57 Not Reportable 05/19/19 00:57 Not Reportable 05/19/19 00:57 Not Reportable 05/19/19 00:57 Not Reportable 05/19/19 00:57 Not Reportable 05/19/19 00:57 Not Reportable 05/19/19 00:57 Not Reportable 05/19/19 00:57 Not Reportable 05/19/19 00:57 Not Reportable 05/19/19 00:57 Not Reportable 05/19/19 00:57 Not Reportable 05/19/19 00:57 Not Reportable 05/19/19 00:57 Not Reportable 05/19/19 00:57 Not Reportable 05/19/19 00:57 Not Reportable 05/19/19 00:57 Acanthocytes (Spur) Not Reportable 05/19/19 00:57 Rouleaux Not Reportable 05/19/19 00:57 Not Reportable 05/19/19 00:57 Not Reportable 05/19/19 00:57 Not Reportable 05/19/19 00:57 Not Reportable 05/19/19 00:57 Hem Pathologist Commnt No 05/19/19 00:57 VBG pH 7.425 (7.320-7.420) H 05/19/19 00:56 Sodium 138 mmol/L (137-145) 05/21/19 07:26 Potassium 4.1 mmol/L (3.6-5.0) 05/21/19 07:26 Chloride 100.4 mmol/L (98-107) 05/21/19 07:26 Carbon Dioxide 24 mmol/L (22-30) 05/21/19 07:26 18 mmol/L 05/21/19 07:26 BUN 18 mg/dL (9-20) 05/21/19 07:26 0.8 mg/dL (0.8-1.5) 05/21/19 07:26 Estimated GFR > 60 ml/min 05/21/19 07:26 23 % 05/21/19 07:26 Glucose 298 mg/dL (75-100) H 05/21/19 07:26 POC Glucose 328 (70-105) H 05/21/19 11:08 8.2 % (4-6) H 05/19/19 00:57 Calcium 9.1 mg/dL (8.4-10.2) 05/21/19 07:26 Phosphorus 4.90 mg/dL (2.5-4.5) H 05/19/19 03:52 Magnesium 2.10 mg/dL (1.7-2.3) 05/19/19 03:52 0.90 mg/dL (0.1-1.2) 05/19/19 00:57 AST 28 units/L (5-40) 05/19/19 00:57 ALT 23 units/L (7-56) 05/19/19 00:57 119 units/L (35-129) 05/19/19 00:57 8.2 g/dL (6.3-8.2) 05/19/19 00:57 4.9 g/dL (3.9-5) 05/19/19 00:57 1.5 % 05/19/19 00:57 Yellow (Yellow) 05/19/19 Unknown Clear (Clear) 05/19/19 Unknown 8.0 (5.0-7.0) H 05/19/19 Unknown Ur Specific [place] 1.028 (1.003-1.030) 05/19/19 Unknown >500 mg/dL (Negative) 05/19/19 Unknown >=500 mg/dL (Negative) 05/19/19 Unknown 80 mg/dL (Negative) 05/19/19 Unknown Sm (Negative) 05/19/19 Unknown Neg (Negative) 05/19/19 Unknown Neg (Negative) 05/19/19 Unknown < 2.0 mg/dL (<2.0) 05/19/19 Unknown Ur Leukocyte Esterase Neg (Negative) 05/19/19 Unknown 3.0 /HPF (0.0-6.0) 05/19/19 Unknown 26.0 /HPF (0.0-6.0) 05/19/19 Unknown Active Medications - Current Medications Current Medications: Generic Name Dose Route Start Last Admin Trade Name Freq PRN Reason Stop Dose Admin Dextrose 50 ml 05/19/19 11:52 05/20/19 17:38 D50w (25gm) Syringe IV 50 ml PRN PRN Administration Hypoglycemia Enoxaparin Sodium 40 mg 05/19/19 10:00 05/21/19 11:09 Lovenox SUB-Q 40 mg QDAY CHIP Administration Hydralazine HCl 10 mg 05/19/19 04:20 05/20/19 19:50 Apresoline IV 10 mg Q4H PRN Administration Increased Blood Pressure Hydromorphone HCl 0.5 mg 05/19/19 04:20 05/21/19 12:17 Dilaudid IV 0.5 mg Q3H PRN Administration Pain , Severe (7-10) Sodium Chloride 1,000 mls @ 200 mls/hr 05/19/19 05:00 05/19/19 05:18 Nacl 0.9% 1000 Ml IV 200 mls/hr DIRECT CHIP Administration Sodium Chloride 1,000 mls @ 125 mls/hr 05/19/19 12:00 05/21/19 11:10 Nacl 0.9% 1000 Ml IV 125 mls/hr DIRECT CHIP Administration Chlorpromazine HCl 25 mg/ 51 mls @ 100 mls/hr 05/19/19 19:30 05/21/19 03:44 Sodium Chloride IV 100 mls/hr Q4H PRN Administration Hiccups Insulin Glargine 15 units 05/19/19 22:00 05/20/19 22:12 Lantus SUB-Q 15 units QHS CHIP Administration Insulin Human Lispro 10 unit 05/19/19 12:00 05/21/19 11:11 Humalog SUB-Q 10 unit AC CHIP Administration Insulin Human Lispro 0 unit 05/19/19 16:30 05/21/19 11:11 Humalog SUB-Q 8 unit AC CHIP Administration Protocol Insulin Human Lispro 0 unit 05/19/19 22:00 05/20/19 22:14 Humalog SUB-Q Not Given QHS [facility] Protocol Metoclopramide HCl 10 mg 05/20/19 16:30 05/21/19 11:14 Reglan IV 10 mg ACHS CHIP Administration Morphine Sulfate 2 mg 05/19/19 04:20 05/20/19 22:44 Morphine IV 2 mg Q4H PRN Administration Pain, Moderate (4-6) Ondansetron HCl 4 mg 05/19/19 04:20 05/20/19 20:24 Zofran IV 4 mg Q8H PRN Administration Nausea And Vomiting Pantoprazole Sodium 40 mg 05/21/19 10:00 05/21/19 11:09 Protonix PO 40 mg DAILY CHIP Administration Sodium Chloride 10 ml 05/19/19 10:00 05/21/19 11:12 Sodium Chloride Flush Syringe 10 Ml IV 10 ml BID CHIP Administration Sodium Chloride 10 ml 05/19/19 04:20 Sodium Chloride Flush Syringe 10 Ml IV PRN PRN LINE FLUSH Nutrition/Malnutrition Assess - Dietary Evaluation Nutrition/Malnutrition Findings: Nutrition Notes Start: 05/20/19 18:35 Freq: Status: Active Protocol: Document 05/20/19 18:35 RM (Rec: 05/20/19 18:45 RM [id number]) Nutrition Notes Need for Assessment generated from: MD Order Initial or Follow up Assessment Current Diagnosis Diabetes,Hypertension Other Pertinent Diagnosis Gastroparesis, DKA, Abdominal pain Current Diet Full liquid Labs/Tests A1c 8.2 Pertinent Medications Zofran Height 5 ft 5 in Weight 54.3 kg Usual Body Weight 55.91 kg [place] Body Weight (kg) 61.81 BMI 19.9 Subjective/Other Information Consulted for ONS diet. Screened for malnutrition. Consistent CHO diet in place earlier today. Full liquid diet ordered later today. Pt stated that PIPELAYER his appetite was poor and he did not eat anything X 2 days. Stated that his appetite is okay now. Admitted to vomiting meals and Glucerna this morning. Stated UBW was 123 lbs 1 month ago. No temporal or orbital wasting . Pt stated that he had been previously educated but could not recall what he learned. Reviewed DM diet education. Gave handout. Percent of energy/protein needs met: 0%/0% Burn Absent Trauma Absent #2 Nutrition Diagnosis Food and nutrition-related knowledge deficit Etiology inability to recall previous education As Evidenced by Signs and Symptoms pt desire for education #1 Nutrition Diagnosis Inadequate oral intake Etiology gastroparesis As Evidenced by Signs and Symptoms pt statement that he vomited meals and Glucerna Is patient on ventilator? No Is Patient Ambulatory and/or Out of Bed Yes REE-([facility]-ambulatory/OOB) [ [id number] [id number]] Calculation Used for Recommendations [facility] Additional Notes Protein Needs: (0.8-1g/kg) Fluid Needs: 1 ml/kcal Nutrition Intervention Change Diet Order: Advance diet when medically able Add Supplement/Snack (indicate name/kcal Glucerna 1 daily /protein ) Provides kCal: 220 Provides Protein (gm) 10 Teaching Recipient Patient Learning Readiness Good Teaching Methods Discussion,Handout Response to Teaching Verbalize understanding Education Handouts Provided Carbohydrate counting for people with diabetes Barriers to Learning No Barriers RD phone number provided Yes Patient aware of follow up options Yes Goal #1 PO tolerance Goal #2 Diet advancement Anticipated Discharge Needs: Unable to determine at this time Follow-Up By: 05/22/19 Additional Comments Follow for PO and ONS intakes
[2019-05-21] MEDS: LANTUS SUB-Q SCH (22:12)
[2019-05-22] MEDS: HumaLOG SUB-Q SCH ×3 (08:30→12:39)
[2019-05-22] MEDS: SODIUM CHLORIDE FLUSH SYRINGE 10 ML IV SCH (09:59)
[2019-05-22] MEDS: PROTONIX PO SCH (09:59)
[2019-05-22] MEDS: LOVENOX SUB-Q SCH (09:59)
[2019-05-22] MEDS: REGLAN IV SCH ×2 (10:01→12:19)
--- NOTE | 2019-05-22 10:25 | Discharge Summary ---
Providers - Providers Date of Admission: 05/19/19 04:20 Date of discharge: 05/22/19 Attending physician: WILD LEACH 05/19/19 04:20 Consult to Dietitian/Nutrition [CONS] Routine Physician Instructions: Reason For Exam: Reason for Consult: Diet education Primary care physician: DEDRICK AMEZCUA MD Hospitalization Condition: Fair Hospital course: Patient is 29 yo with diabetes mellitus type 1, gastroparesis, HTN presented with c/o severe abdominal pain, nausea and vomiting. He was seen and evaluated in Emergency Department. He was diagnosed with diabetic ketoacidosis with glucose of 548, CO 2 of 18 and anion gap 24. He also had hyperkalemia. He was started on iv fluids, Insulin drip. Blood glucose improved, anion gap closed so was transferred to medical floor. he was put on Zofran and Reglan for nausea and vomiting due to gastroparesis. He improved slowly and was eventually discharged home on 05/22/19. Total time spent on discharge, 33 mins Disposition: DC- TO HOME OR SELFCARE - Discharge Diagnoses (1) DKA (diabetic ketoacidosis) Status: Acute (2) Gastroparesis Status: Acute (3) Hyperkalemia Status: Acute (4) Hyperphosphatemia Status: Acute Core Measure Documentation - Palliative Care Palliative Care/ Comfort Measures: Not Applicable - Core Measures Any of the following diagnoses?: none Exam - Physical Exam Narrative exam: Gen: Not in acute distress, lying in bed,obese HEENT: Normocephalic, atraumatic Neck: supple, no JVD Heart: S1 and S2 reg, no murmurs, rubs or gallop Lungs: Clear, no crackles, no wheeze Abd: soft, non tender, non distended, normal BS Ext: No edema, no clubbing, no cyanosis, right upper thigh lipoma Neuro: Awake,alert, oriented,moves all ext, - Constitutional Vitals: Temp Pulse Resp BP Pulse Ox 97.9 F 100 H 18 126/77 98 05/22/19 05:19 05/22/19 05:19 05/22/19 05:19 05/22/19 05:19 05/22/19 05:19 Plan Activity: no restrictions Diet: diabetic Additional Instructions: 1.Follow up with PCP or Dedrick spivey in 1 week Follow up with: DEDRICK DUMONT MD [Primary Care Provider] - 3-5 Days Forms: Work/School Release Form Prescriptions: Famotidine [Pepcid] 20 mg PO BID #30 tablet Metoclopramide HCl [Reglan TAB] 5 mg PO TIDAC PRN #20 tablet PRN Reason: nausea or vomiting
[2019-05-22 11:48] VITALS: BP 138/83
== END 2019-05-22 13:00 | disposition home or self-care (01) | DRG 74 ==
LOC: ED 23:11 → CC1 05-19 04:20 → 3A 05-19 11:57
PROVIDERS: ADMIT Hospitalist; ATTEND Internal Medicine
DX: E10.43 Type 1 diabetes mellitus with diabetic autonomic (poly)neuropathy (principal); K31.84 Gastroparesis; E10.10 Type 1 diabetes mellitus with ketoacidosis without coma; I10 Essential (primary) hypertension; E86.0 Dehydration; Z82.49 Family history of ischemic heart disease and other diseases of the circulatory system; Z79.4 Long term (current) use of insulin
CPT/HCPCS: 36415; 74177; 80048; 80053; 81001; 82805; 82962; 83036; 83735; 84100; 85007; 85025; 90732; 96361; 96365; 96375; G0378; C9113; J0360; J1170; J1650; J1815; J2270; J2405; J2765; J3010; J3230; J7030; Q9967

== ENCOUNTER 2019-09-12 12:37 | Inpatient (IN) | payer OTHER ==
[2019-09-12] MEDS ORDERED: ONDANSETRON 4 MG/2 ML INJ IV ONE ×2 (13:26→15:03)
[2019-09-12] MEDS ORDERED: diphenhydrAMINE 50 MG/ML VIAL IV ONE (14:00)
[2019-09-12] MEDS ORDERED: METOCLOPRAMIDE 10 MG/2 ML INJ IV ONE (14:00)
[2019-09-12 14:25] LABS: Bilirubin,Urine NEG (Negative); Blood,Urine MOD (Negative); Color,Urine Straw (Yellow); Urobilinogen,Urine < 2.0 mg/dL (<2.0)
[2019-09-12] MEDS ORDERED: MORPHINE 4 MG/1 ML INJ IV ONE (14:50)
--- NOTE | 2019-09-12 15:01 | Emergency Department Report ---
<MIKAL LAMAR - Last Filed: 09/12/19 16:51> ED N/V/D HPI - General Chief complaint: Nausea/Vomiting/Diarrhea Stated complaint: NAUSEA VOMITING Time Seen by Provider: 09/12/19 13:18 Source: EMS Mode of arrival: Stretcher Limitations: No Limitations - History of Present Illness Initial comments: 29-year-old -Slovenian male patient with history of type 1 diabetes and gastroparesis presents today with complaints of sudden onset of nausea and vomiting today. Admits to abdominal pain. Denies stool changes. Patient also admits to smoking marijuana yesterday. Patient has been admitted 2-3 times this year for intractable vomiting. He denies any hematemesis/coffee ground emesis, shortness of breath, chest pain, or fever -: Sudden Associated Abdominal Pain: Yes Location: epigastric Radiation: none Severity: severe Pain Scale: 10 Quality: stabbing Consistency: constant Improves with: none Worsens with: vomiting - Related Data Home Medications Medication Instructions Recorded Confirmed Last Taken Insulin Detemir [Levemir VIAL] 12 unit SQ QHS 05/19/19 09/12/19 09/11/19 10 Insulin Regular, Human [Novolin R] 12 unit SQ AC 05/19/19 09/12/19 09/11/19 10 Allergies Allergy/AdvReac Type Severity Reaction Status Date / Time No Known Allergies Allergy Verified 07/13/14 23:38 ED Past Medical Hx - Past Medical History Hx Hypertension: Yes Hx Congestive Heart Failure: No Hx Diabetes: Yes Hx Asthma: No Hx COPD: No Hx HIV: No Additional medical history: Gastroparesis - Surgical History Past Surgical History?: No - Social History Smoking Status: Never Smoker Substance Use Type: None - Medications Home Medications: Home Medications Medication Instructions Recorded Confirmed Last Taken Type Insulin Detemir [Levemir VIAL] 12 unit SQ QHS 05/19/19 09/12/19 09/11/19 History 10 Insulin Regular, Human [Novolin R] 12 unit SQ AC 05/19/19 09/12/19 09/11/19 History 10 ED Physical Exam - General Limitations: No Limitations General appearance: alert - Head Head exam: Present: atraumatic, normocephalic - Eye Eye exam: Present: normal appearance - Neck Neck exam: Present: normal inspection - Respiratory Respiratory exam: Present: normal lung sounds bilaterally. Absent: respiratory distress, wheezes - Cardiovascular Cardiovascular Exam: Present: tachycardia, normal heart sounds - GI/Abdominal GI/Abdominal exam: Present: soft, tenderness, guarding, normal bowel sounds. Absent: distended, rebound, rigid, mass - Rectal Rectal exam: Present: deferred - Extremities Exam Extremities exam: Absent: pedal edema, joint swelling, calf tenderness - Neurological Exam Neurological exam: Present: alert, oriented X3 - Psychiatric Psychiatric exam: Present: normal affect, normal mood - Skin Skin exam: Present: warm, dry, intact, normal color. Absent: rash ED Medical Decision Making - Lab Data Result diagrams: 09/12/19 15:07 09/12/19 15:07 Lab Results 09/12/19 09/12/19 09/12/19 Range/Units 12:59 13:35 15:07 WBC 9.2 (4.5-11.0) K/mm3 RBC 5.12 H (3.65-5.03) M/mm3 Hgb 14.8 (11.8-15.2) gm/dl Hct 44.3 (35.5-45.6) % MCV 87 (84-94) fl MCH 29 (28-32) pg MCHC 34 (32-34) % RDW 14.0 (13.2-15.2) % Plt Count 323 (140-440) K/mm3 Lymph % (Auto) 9.5 L (13.4-35.0) % [place] % (Auto) 4.6 (0.0-7.3) % Eos % (Auto) 0.1 (0.0-4.3) % Baso % (Auto) 0.3 (0.0-1.8) % Lymph # 0.9 L (1.2-5.4) K/mm3 [place] # 0.4 (0.0-0.8) K/mm3 Eos # 0.0 (0.0-0.4) K/mm3 Baso # 0.0 (0.0-0.1) K/mm3 Seg Neutrophils % 85.5 H (40.0-70.0) % Seg Neutrophils # 7.8 H (1.8-7.7) K/mm3 Sodium (137-145) mmol/L Potassium (3.6-5.0) mmol/L Chloride (98-107) mmol/L Carbon Dioxide (22-30) mmol/L Anion Gap mmol/L BUN (9-20) mg/dL Creatinine (0.8-1.5) mg/dL Estimated GFR ml/min BUN/Creatinine Ratio % Glucose (75-100) mg/dL POC Glucose 84 (70-105) Calcium (8.4-10.2) mg/dL Total Bilirubin (0.1-1.2) mg/dL Direct Bilirubin (0-0.2) mg/dL Indirect Bilirubin mg/dL AST (5-40) units/L ALT (7-56) units/L Alkaline Phosphatase (35-129) units/L Total Protein (6.3-8.2) g/dL Albumin (3.9-5) g/dL Albumin/Globulin Ratio % Lipase (13-60) units/L Urine Color Straw (Yellow) Urine Turbidity Clear (Clear) Urine pH 9.0 H (5.0-7.0) Ur Specific [place] 1.010 (1.003-1.030) Urine Protein 100 mg/dl (Negative) mg/dL Urine Glucose (UA) Neg (Negative) mg/dL Urine Ketones Neg (Negative) mg/dL Urine Blood Mod (Negative) Urine Nitrite Neg (Negative) Urine Bilirubin Neg (Negative) Urine Urobilinogen < 2.0 (<2.0) mg/dL Ur Leukocyte Esterase Neg (Negative) Urine WBC (Auto) 1.0 (0.0-6.0) /HPF Urine RBC (Auto) 33.0 (0.0-6.0) /HPF 09/12/19 09/12/19 09/12/19 Range/Units 15:07 15:07 15:07 WBC (4.5-11.0) K/mm3 RBC (3.65-5.03) M/mm3 Hgb (11.8-15.2) gm/dl Hct (35.5-45.6) % MCV (84-94) fl MCH (28-32) pg MCHC (32-34) % RDW (13.2-15.2) % Plt Count (140-440) K/mm3 Lymph % (Auto) (13.4-35.0) % [place] % (Auto) (0.0-7.3) % Eos % (Auto) (0.0-4.3) % Baso % (Auto) (0.0-1.8) % Lymph # (1.2-5.4) K/mm3 [place] # (0.0-0.8) K/mm3 Eos # (0.0-0.4) K/mm3 Baso # (0.0-0.1) K/mm3 Seg Neutrophils % (40.0-70.0) % Seg Neutrophils # (1.8-7.7) K/mm3 Sodium 138 (137-145) mmol/L Potassium 3.6 (3.6-5.0) mmol/L Chloride 101.9 (98-107) mmol/L Carbon Dioxide 19 L (22-30) mmol/L Anion Gap 21 mmol/L BUN 14 (9-20) mg/dL Creatinine 0.9 (0.8-1.5) mg/dL Estimated GFR > 60 ml/min BUN/Creatinine Ratio 16 % Glucose 200 H (75-100) mg/dL POC Glucose (70-105) Calcium 9.3 (8.4-10.2) mg/dL Total Bilirubin 0.60 (0.1-1.2) mg/dL Direct Bilirubin < 0.2 (0-0.2) mg/dL Indirect Bilirubin 0.4 mg/dL AST 46 H (5-40) units/L ALT 25 (7-56) units/L Alkaline Phosphatase 114 (35-129) units/L Total Protein 7.7 (6.3-8.2) g/dL Albumin 4.4 (3.9-5) g/dL Albumin/Globulin Ratio 1.3 % Lipase 14 (13-60) units/L Urine Color (Yellow) Urine Turbidity (Clear) Urine pH (5.0-7.0) Ur Specific [place] (1.003-1.030) Urine Protein (Negative) mg/dL Urine Glucose (UA) (Negative) mg/dL Urine Ketones (Negative) mg/dL Urine Blood (Negative) Urine Nitrite (Negative) Urine Bilirubin (Negative) Urine Urobilinogen (<2.0) mg/dL Ur Leukocyte Esterase (Negative) Urine WBC (Auto) (0.0-6.0) /HPF Urine RBC (Auto) (0.0-6.0) /HPF 09/12/ Range/Units 16:27 WBC (4.5-11.0) K/mm3 RBC (3.65-5.03) M/mm3 Hgb (11.8-15.2) gm/dl Hct (35.5-45.6) % MCV (84-94) fl MCH (28-32) pg MCHC (32-34) % RDW (13.2-15.2) % Plt Count (140-440) K/mm3 Lymph % (Auto) (13.4-35.0) % [place] % (Auto) (0.0-7.3) % Eos % (Auto) (0.0-4.3) % Baso % (Auto) (0.0-1.8) % Lymph # (1.2-5.4) K/mm3 [place] # (0.0-0.8) K/mm3 Eos # (0.0-0.4) K/mm3 Baso # (0.0-0.1) K/mm3 Seg Neutrophils % (40.0-70.0) % Seg Neutrophils # (1.8-7.7) K/mm3 Sodium (137-145) mmol/L Potassium (3.6-5.0) mmol/L Chloride (98-107) mmol/L Carbon Dioxide (22-30) mmol/L Anion Gap mmol/L BUN (9-20) mg/dL Creatinine (0.8-1.5) mg/dL Estimated GFR ml/min BUN/Creatinine Ratio % Glucose (75-100) mg/dL POC Glucose 232 H (70-105) Calcium (8.4-10.2) mg/dL Total Bilirubin (0.1-1.2) mg/dL Direct Bilirubin (0-0.2) mg/dL Indirect Bilirubin mg/dL AST (5-40) units/L ALT (7-56) units/L Alkaline Phosphatase (35-129) units/L Total Protein (6.3-8.2) g/dL Albumin (3.9-5) g/dL Albumin/Globulin Ratio % Lipase (13-60) units/L Urine Color (Yellow) Urine Turbidity (Clear) Urine pH (5.0-7.0) Ur Specific [place] (1.003-1.030) Urine Protein (Negative) mg/dL Urine Glucose (UA) (Negative) mg/dL Urine Ketones (Negative) mg/dL Urine Blood (Negative) Urine Nitrite (Negative) Urine Bilirubin (Negative) Urine Urobilinogen (<2.0) mg/dL Ur Leukocyte Esterase (Negative) Urine WBC (Auto) (0.0-6.0) /HPF Urine RBC (Auto) (0.0-6.0) /HPF - Medical Decision Making 29-year-old male patient with history of type 1 diabetes and gastroparesis. Here with intractable vomiting. Patient has filled on 2 rounds of Zofran and Benadryl and Reglan. Patient is mildly tachycardic around 110. Gastroparesis versus marijuana induced hyperemesis. Initial glucose at 86. Glucose 232 on repeat. Discussed patient with Dr. Murphy, agrees with admission. Also agrees with trial of Haldol to control vomiting. 2 L normal saline currently infusing. An anionic gap of 21 noted. No other acute findings on labs.. No ketones noted in UA. ED Disposition Clinical Impression: Gastroparesis, Intractable vomiting with nausea Disposition: OP ADMIT IP TO THIS HOSP Is pt being admited?: Yes Condition: Stable <WILLIAM CARRANZA P - Last Filed: 09/13/19 16:07> ED Review of Systems ROS: Stated complaint: NAUSEA VOMITING Other details as noted in HPI ED Course Vital Signs 09/12/19 09/12/19 09/12/19 12:48 12:57 13:00 Temperature 97.7 F Pulse Rate 100 H 94 H 78 Respiratory 22 19 Rate Blood Pressure 170/83 170/83 Blood Pressure 170/83 [Left] O2 Sat by Pulse 100 100 100 Oximetry 09/12/19 09/12/19 09/12/19 13:02 13:16 13:30 Temperature 97.7 F Pulse Rate 94 H 88 93 H Respiratory 22 22 Rate Blood Pressure 152/78 164/88 Blood Pressure 170/83 [Left] O2 Sat by Pulse 100 99 100 Oximetry 09/12/19 09/12/19 09/12/19 13:46 14:00 14:15 Temperature Pulse Rate 95 H 93 H 93 H Respiratory 35 H Rate Blood Pressure 182/100 179/98 164/92 Blood Pressure [Left] O2 Sat by Pulse 100 99 100 Oximetry 09/12/19 09/12/19 09/12/19 14:31 14:45 15:01 Temperature Pulse Rate 95 H 84 84 Respiratory 29 H 14 20 Rate Blood Pressure 128/94 128/94 128/94 Blood Pressure [Left] O2 Sat by Pulse 100 91 99 Oximetry 09/12/19 09/12/19 09/12/19 15:15 15:31 15:45 Temperature Pulse Rate 100 H 94 H 98 H Respiratory 47 H 28 H 21 Rate Blood Pressure 128/94 128/94 128/94 Blood Pressure [Left] O2 Sat by Pulse 100 100 98 Oximetry 09/12/19 09/12/19 09/12/19 16:01 16:15 16:30 Temperature Pulse Rate 92 H 104 H 103 H Respiratory 27 H 54 H 50 H Rate Blood Pressure 128/94 128/94 184/106 Blood Pressure [Left] O2 Sat by Pulse 98 100 100 Oximetry 09/12/19 09/12/19 09/12/19 16:45 17:00 17:16 Temperature Pulse Rate 100 H 90 94 H Respiratory 20 17 19 Rate Blood Pressure 184/106 167/98 167/98 Blood Pressure [Left] O2 Sat by Pulse 100 99 98 Oximetry 09/12/19 09/12/19 09/12/19 17:30 17:40 17:50 Temperature Pulse Rate 95 H 96 H 96 H Respiratory 19 22 20 Rate Blood Pressure 172/97 167/98 167/98 Blood Pressure [Left] O2 Sat by Pulse 100 100 100 Oximetry ED Medical Decision Making - Lab Data Result diagrams: 09/13/19 13:28 09/13/19 13:28 - Medical Decision Making Attestation: Available for consultation Critical care attestation.: If time is entered above; I have spent that time in minutes in the direct care of this critically ill patient, excluding procedure time. ED Disposition Is pt being admited?: Yes
[2019-09-12] MEDS ORDERED: SODIUM CHLORIDE 0.9% 1000 ML 1,000 ML IV ONE ×2 (15:26→16:47)
[2019-09-12 15:31] LABS: Basophils % (Auto) 0.3 % (0.0-1.8); Eosinophils % (Auto) 0.1 % (0.0-4.3); Hematocrit 44.3 % (35.5-45.6); Hemoglobin 14.8 gm/dl (11.8-15.2); Lymphocytes # (Auto) 0.9 K/mm3 (1.2-5.4); Lymphocytes % (Auto) 9.5 % (13.4-35.0); Mean Corpuscular HGB Conc 34 % (32-34); Mean Corpuscular Volume 87 fl (84-94); Monocytes # (Auto) 0.4 K/mm3 (0.0-0.8); Monocytes % (Auto) 4.6 % (0.0-7.3); Platelet Count 323 K/mm3 (140-440); Red Blood Count 5.12 M/mm3 (3.65-5.03)
[2019-09-12 15:40] LABS: BUN/Creatinine Ratio 16; Blood Urea Nitrogen 14 mg/dL (9-20); Calcium 9.3 mg/dL (8.4-10.2); Hemolysis Index 43
[2019-09-12 15:44] LABS: Alanine Aminotransferase 25 units/L (7-56); Albumin 4.4 g/dL (3.9-5); Bilirubin,Direct < 0.2 mg/dL (0-0.2)
[2019-09-12] MEDS ORDERED: SODIUM BICARBONATE 150 MEQ in DEXTROSE 5% IN WATER 1,000 ML IV ONE (16:00)
[2019-09-12] MEDS ORDERED: HALOPERIDOL LACTATE 5 MG/1 ML INJ IM ONE (16:46)
[2019-09-12] MEDS ORDERED: HYDROmorphone 1 MG/1 ML INJ IV ONE (16:47)
--- NOTE | 2019-09-12 19:57 | History and Physical Report ---
History of Present Illness Date of examination: 09/12/19 Date of admission: 09/12/19 16:48 Chief complaint: Nausea and vomiting since a.m. 5-6 times. History of present illness: 29-year-old -Iranian male with history of insulin-dependent diabetes --type 1 and hypertension comes in for persistent nausea and vomiting since a.m. Warned her about 5-6 times. Patient also admits to smoking marijuana yesterday. No fever or chills. No exacerbating or relieving factors. Patient has been taking his insulin regularly. No shortness of breath. No hematemesis or coffee-ground emesis. No chest pain. Has diffuse abdominal pain. Pain is about 5 on a scale of 1-10 intermittent in nature. Dull in character. Past Medical History Hypertension: Yes Diabetes Gastroparesis Surgical History Past Surgical History?: No Social History Smoking Status: Never Smoker Substance Use Type: None Family history Htn - Medications Home Medications: Home Medications Medication Instructions Recorded Confirmed Last Taken Type Insulin Detemir [Levemir VIAL] 12 unit SQ QHS 05/19/19 05/19/19 Unknown History Insulin Regular, Human [Novolin R] 12 unit SQ AC 05/19/19 05/19/19 Unknown History Lispro Insulin [HumaLOG] 0 unit SQ QID PRN 05/19/19 05/19/19 Unknown History Famotidine [Pepcid] 20 mg PO BID #30 tablet 05/22/19 Unknown Rx Metoclopramide HCl [Reglan TAB] 5 mg PO TIDAC PRN #20 tablet 05/22/19 Unknown Rx Review of Systems ROS: Stated complaint: NAUSEA VOMITING Other details as noted in HPI Medications and Allergies Allergies Allergy/AdvReac Type Severity Reaction Status Date / Time No Known Allergies Allergy Verified 07/13/14 23:38 Home Medications Medication Instructions Recorded Confirmed Last Taken Type Insulin Detemir [Levemir VIAL] 12 unit SQ QHS 05/19/19 09/12/19 09/11/19 History 10 Insulin Regular, Human [Novolin R] 12 unit SQ AC 05/19/19 09/12/19 09/11/19 History 10 Review of Systems All systems: negative Ears, nose, mouth and throat: no ear pain, no ear discharge, no tinnitis, no decreased hearing, no nose pain, no nasal congestion, no nasal discharge, no s inus pressure, no sinus pain Cardiovascular: no chest pain, no orthopnea Respiratory: no cough, no cough with sputum, no excessive sputum Gastrointestinal: abdominal pain, nausea, vomiting, no diarrhea, no constipation, no change in bowel habits, no hematemesis Genitourinary Male: no dysuria, no hematuria, no flank pain, no discharge, no urinary frequency, no urinary hesitancy, no nocturia, no incontinence, no erectile dysfunction, no genital pain Musculoskeletal: no neck stiffness, no neck pain, no shooting arm pain, no arm numbness/tingling, no low back pain, no shooting leg pain, no leg numbness/tingling, no redness of joints Integumentary: no pruritis, no redness, no sores, no wounds, no jaundice, no boils, no blisters Neurological: no seizures, no syncope Psychiatric: no anxiety, no memory loss, no change in sleep habits, no sleep disturbances Endocrine: no cold intolerance, no heat intolerance, no polyphagia, no excessive thirst, no polydipsia, no polyuria Hematologic/Lymphatic: no easy bruising, no easy bleeding Allergic/Immunologic: no urticaria, no allergic rhinitis, no wheezing Exam - Constitutional Vitals: Temp Pulse Resp BP Pulse Ox 99.0 F 96 H 12 162/89 100 09/12/19 18:23 09/12/19 17:50 09/12/19 18:23 09/12/19 18:23 09/12/19 17:50 General appearance: Present: no acute distress, well-nourished - EENT Eyes: Present: PERRL ENT: hearing intact, clear oral mucosa - Neck Neck: Present: supple, normal ROM - Respiratory Respiratory effort: normal Respiratory: bilateral: CTA - Cardiovascular Rhythm: regular Heart Sounds: Present: S1 & S2. Absent: rub, click - Extremities Extremities: no ischemia, pulses intact, pulses symmetrical, No edema Peripheral Pulses: within normal limits - Abdominal General gastrointestinal: Present: soft, non-tender, non-distended, normal bowel sounds Localized gastrointestinal: tender: diffuse Male genitourinary: Present: normal - Integumentary Integumentary: Present: clear, warm, dry - Musculoskeletal Musculoskeletal: gait normal, strength equal bilaterally - Psychiatric Psychiatric: appropriate mood/affect, intact judgment & insight - Neurologic Neurologic: CNII-XII intact, moves all extremities - Allied Health Allied health notes reviewed: nursing, case management Results - Labs CBC & Chem 7: 09/12/19 15:07 09/12/19 15:07 Labs: Laboratory Last Values WBC 9.2 K/mm3 (4.5-11.0) 09/12/19 15:07 RBC 5.12 M/mm3 (3.65-5.03) H 09/12/19 15:07 Hgb 14.8 gm/dl (11.8-15.2) 09/12/19 15:07 Hct 44.3 % (35.5-45.6) 09/12/19 15:07 MCV 87 fl (84-94) 09/12/19 15:07 MCH 29 pg (28-32) 09/12/19 15:07 MCHC 34 % (32-34) 09/12/19 15:07 RDW 14.0 % (13.2-15.2) 09/12/19 15:07 Plt Count 323 K/mm3 (140-440) 09/12/19 15:07 Lymph % (Auto) 9.5 % (13.4-35.0) L 09/12/19 15:07 [place] % (Auto) 4.6 % (0.0-7.3) 09/12/19 15:07 Eos % (Auto) 0.1 % (0.0-4.3) 09/12/19 15:07 Baso % (Auto) 0.3 % (0.0-1.8) 09/12/19 15:07 Lymph # 0.9 K/mm3 (1.2-5.4) L 09/12/19 15:07 [place] # 0.4 K/mm3 (0.0-0.8) 09/12/19 15:07 Eos # 0.0 K/mm3 (0.0-0.4) 09/12/19 15:07 Baso # 0.0 K/mm3 (0.0-0.1) 09/12/19 15:07 Seg Neutrophils % 85.5 % (40.0-70.0) H 09/12/19 15:07 Seg Neutrophils # 7.8 K/mm3 (1.8-7.7) H 09/12/19 15:07 Sodium 138 mmol/L (137-145) 09/12/19 15:07 Potassium 3.6 mmol/L (3.6-5.0) 09/12/19 15:07 Chloride 101.9 mmol/L (98-107) 09/12/19 15:07 Carbon Dioxide 19 mmol/L (22-30) L 09/12/19 15:07 Anion Gap 21 mmol/L 09/12/19 15:07 BUN 14 mg/dL (9-20) 09/12/19 15:07 Creatinine 0.9 mg/dL (0.8-1.5) 09/12/19 15:07 Estimated GFR > 60 ml/min 09/12/19 15:07 BUN/Creatinine Ratio 16 % 09/12/19 15:07 Glucose 200 mg/dL (75-100) H 09/12/19 15:07 POC Glucose 232 (70-105) H 09/12/19 16:27 Calcium 9.3 mg/dL (8.4-10.2) 09/12/19 15:07 Total Bilirubin 0.60 mg/dL (0.1-1.2) 09/12/19 15:07 Direct Bilirubin < 0.2 mg/dL (0-0.2) 09/12/19 15:07 Indirect Bilirubin 0.4 mg/dL 09/12/19 15:07 AST 46 units/L (5-40) H 09/12/19 15:07 ALT 25 units/L (7-56) 09/12/19 15:07 Alkaline Phosphatase 114 units/L (35-129) 09/12/19 15:07 Total Protein 7.7 g/dL (6.3-8.2) 09/12/19 15:07 Albumin 4.4 g/dL (3.9-5) 09/12/19 15:07 Albumin/Globulin Ratio 1.3 % 09/12/19 15:07 Lipase 14 units/L (13-60) 09/12/19 15:07 Urine Color Straw (Yellow) 09/12/19 13:35 Urine Turbidity Clear (Clear) 09/12/19 13:35 Urine pH 9.0 (5.0-7.0) H 09/12/19 13:35 Ur Specific [place] 1.010 (1.003-1.030) 09/12/19 13:35 Urine Protein 100 mg/dl mg/dL (Negative) 09/12/19 13:35 Urine Glucose (UA) Neg mg/dL (Negative) 09/12/19 13:35 Urine Ketones Neg mg/dL (Negative) 09/12/19 13:35 Urine Blood Mod (Negative) 09/12/19 13:35 Urine Nitrite Neg (Negative) 09/12/19 13:35 Urine Bilirubin Neg (Negative) 09/12/19 13:35 Urine Urobilinogen < 2.0 mg/dL (<2.0) 09/12/19 13:35 Ur Leukocyte Esterase Neg (Negative) 09/12/19 13:35 Urine WBC (Auto) 1.0 /HPF (0.0-6.0) 09/12/19 13:35 Urine RBC (Auto) 33.0 /HPF (0.0-6.0) 09/12/19 13:35 Short CBC 09/12/19 Range/Units 15:07 WBC 9.2 (4.5-11.0) K/mm3 Hgb 14.8 (11.8-15.2) gm/dl Hct 44.3 (35.5-45.6) % Plt Count 323 (140-440) K/mm3 BMP 09/12/19 15:07 Sodium 138 Potassium 3.6 Chloride 101.9 Carbon Dioxide 19 L BUN 14 Creatinine 0.9 Glucose 200 H Calcium 9.3 Liver Function 09/12/19 Range/Units 15:07 Total Bilirubin 0.60 (0.1-1.2) mg/dL Direct Bilirubin < 0.2 (0-0.2) mg/dL AST 46 H (5-40) units/L ALT 25 (7-56) units/L Alkaline Phosphatase 114 (35-129) units/L Albumin 4.4 (3.9-5) g/dL Urine 09/12/19 Range/Units 13:35 Urine Color Straw (Yellow) Urine pH 9.0 H (5.0-7.0) Ur Specific [place] 1.010 (1.003-1.030) Urine Protein 100 mg/dl (Negative) mg/dL Urine Glucose (UA) Neg (Negative) mg/dL Assessment and Plan Advance Directives: Yes (full code) VTE prophylaxis?: Chemical Plan of care discussed with patient/family: Yes - Patient Problems (1) Gastroparesis due to DM Current Visit: Yes Status: Acute Plan to address problem: Patient initiated on IV fluids IV Zofran IV Reglan and Phenergan suppositories when necessary.. Nuclear scan for gastric emptying was not ordered Will order if necessary or if not done in the past (2) Insulin dependent diabetes mellitus Current Visit: Yes Status: Chronic Plan to address problem: Patient is vomiting. Will hold his home insulin and give him coverage every every 4 hours. Resume home insulin when he starts eating. Check hemoglobin A1c (3) Hypertension Current Visit: Yes Status: Chronic Qualifiers: Hypertension type: essential hypertension Qualified Code(s): I10 - Essential (primary) hypertension Plan to address problem: Patient initiated on losartan 100 mg once a day (4) DVT prophylaxis Current Visit: Yes Status: Acute Plan to address problem: On Lovenox and GI prophylaxis
[2019-09-12] MEDS ORDERED: ACETAMINOPHEN 325 MG TAB PO PRN (19:58)
[2019-09-12] MEDS: PANTOPRAZOLE 40 MG INJ IV SCH (21:32)
[2019-09-12] MEDS: SODIUM CHLORIDE 0.9% 1000 ML 1,000 ML IV SCH (21:32)
[2019-09-12] MEDS: LOSARTAN 50 MG TAB PO SCH (21:33)
[2019-09-12] MEDS: INSULIN LISPRO 100 UNIT/ML SUB-Q SCH (22:35)
[2019-09-13] MEDS: INSULIN LISPRO 100 UNIT/ML SUB-Q SCH ×6 (03:05→22:29)
[2019-09-13] MEDS: ONDANSETRON 4 MG/2 ML INJ IV PRN ×3 (03:06→21:51)
[2019-09-13] MEDS: PANTOPRAZOLE 40 MG INJ IV SCH ×2 (09:09→21:50)
[2019-09-13] MEDS: LOSARTAN 50 MG TAB PO SCH (09:09)
[2019-09-13] MEDS: HYDROmorphone 1 MG/1 ML INJ IV PRN ×2 (09:16→16:31)
--- NOTE | 2019-09-13 09:36 | Progress Note ---
Assessment and Plan Assessment and plan: -- Gastroparesis due to uncontrolled DM Current Visit: Yes Status: Acute Continue IV fluids IV Zofran IV Reglan and Phenergan Check gastric emptying tomorrow, nothing by mouth midnight Advance diet to mechanical soft as tolerated GI consult if no improvement -- Insulin dependent diabetes mellitus Current Visit: Yes Status: Chronic Accu-Chek sliding scale coverage initiated soft diet Advance as tolerated, resume long-acting home insulin Monitor blood sugars closely HbA1c 8.0. Diabetic education, nutrition education --Hypertension; uncontrolled Current Visit: Yes Status: Chronic Patient initiated on losartan 100 mg once a day Add by mouth and IV hydralazine, monitor -- DVT prophylaxis Current Visit: Yes Status: Acute On Lovenox DC planning per case management; possible home health nurse at discharge For disease monitoring and diabetic education Clinically monitor closely and adjust the management As needed Plan of care reviewed with the patient and his nurse History Interval history: Patient seen and examined medical records reviewed Patient was admitted with severe gastroparesis Patient is sleeping easily awakens Encouraged to take oral nutrition Vital signs noted Hospitalist Physical - Constitutional Vitals: Temp Pulse Resp BP Pulse Ox 97.6 F 108 H 20 177/96 99 09/13/19 05:22 09/13/19 05:22 09/13/19 05:22 09/13/19 09:09 09/13/19 05:22 General appearance: Present: no acute distress, well-nourished - EENT Eyes: Present: PERRL, EOM intact - Neck Neck: Present: supple, normal ROM - Respiratory Respiratory effort: normal Respiratory: bilateral: diminished, negative: rales, rhonchi, wheezing - Cardiovascular Rhythm: regular Heart Sounds: Present: S1 & S2 - Extremities Extremities: no ischemia, No edema - Abdominal General gastrointestinal: soft, non-tender, non-distended, normal bowel sounds - Integumentary Integumentary: Present: clear, warm - Psychiatric Psychiatric: appropriate mood/affect, cooperative - Neurologic Neurologic: CNII-XII intact, moves all extremities Results - Labs CBC & Chem 7: 09/12/19 15:07 09/12/19 15:07 Labs: Laboratory Last Values WBC 9.2 K/mm3 (4.5-11.0) 09/12/19 15:07 RBC 5.12 M/mm3 (3.65-5.03) H 09/12/19 15:07 Hgb 14.8 gm/dl (11.8-15.2) 09/12/19 15:07 Hct 44.3 % (35.5-45.6) 09/12/19 15:07 MCV 87 fl (84-94) 09/12/19 15:07 MCH 29 pg (28-32) 09/12/19 15:07 MCHC 34 % (32-34) 09/12/19 15:07 RDW 14.0 % (13.2-15.2) 09/12/19 15:07 Plt Count 323 K/mm3 (140-440) 09/12/19 15:07 Lymph % (Auto) 9.5 % (13.4-35.0) L 09/12/19 15:07 [place] % (Auto) 4.6 % (0.0-7.3) 09/12/19 15:07 Eos % (Auto) 0.1 % (0.0-4.3) 09/12/19 15:07 Baso % (Auto) 0.3 % (0.0-1.8) 09/12/19 15:07 Lymph # 0.9 K/mm3 (1.2-5.4) L 09/12/19 15:07 [place] # 0.4 K/mm3 (0.0-0.8) 09/12/19 15:07 Eos # 0.0 K/mm3 (0.0-0.4) 09/12/19 15:07 Baso # 0.0 K/mm3 (0.0-0.1) 09/12/19 15:07 Seg Neutrophils % 85.5 % (40.0-70.0) H 09/12/19 15:07 Seg Neutrophils # 7.8 K/mm3 (1.8-7.7) H 09/12/19 15:07 Sodium 138 mmol/L (137-145) 09/12/19 15:07 Potassium 3.6 mmol/L (3.6-5.0) 09/12/19 15:07 Chloride 101.9 mmol/L (98-107) 09/12/19 15:07 Carbon Dioxide 19 mmol/L (22-30) L 09/12/19 15:07 Anion Gap 21 mmol/L 09/12/19 15:07 BUN 14 mg/dL (9-20) 09/12/19 15:07 Creatinine 0.9 mg/dL (0.8-1.5) 09/12/19 15:07 Estimated GFR > 60 ml/min 09/12/19 15:07 BUN/Creatinine Ratio 16 % 09/12/19 15:07 Glucose 200 mg/dL (75-100) H 09/12/19 15:07 POC Glucose 282 (70-105) H 09/13/19 05:41 Hemoglobin A1c 8.0 % (4-6) H 09/12/19 15:07 Calcium 9.3 mg/dL (8.4-10.2) 09/12/19 15:07 Total Bilirubin 0.60 mg/dL (0.1-1.2) 09/12/19 15:07 Direct Bilirubin < 0.2 mg/dL (0-0.2) 09/12/19 15:07 Indirect Bilirubin 0.4 mg/dL 09/12/19 15:07 AST 46 units/L (5-40) H 09/12/19 15:07 ALT 25 units/L (7-56) 09/12/19 15:07 Alkaline Phosphatase 114 units/L (35-129) 09/12/19 15:07 Total Protein 7.7 g/dL (6.3-8.2) 09/12/19 15:07 Albumin 4.4 g/dL (3.9-5) 09/12/19 15:07 Albumin/Globulin Ratio 1.3 % 09/12/19 15:07 Lipase 14 units/L (13-60) 09/12/19 15:07 Urine Color Straw (Yellow) 09/12/19 13:35 Urine Turbidity Clear (Clear) 09/12/19 13:35 Urine pH 9.0 (5.0-7.0) H 09/12/19 13:35 Ur Specific [place] 1.010 (1.003-1.030) 09/12/19 13:35 Urine Protein 100 mg/dl mg/dL (Negative) 09/12/19 13:35 Urine Glucose (UA) Neg mg/dL (Negative) 09/12/19 13:35 Urine Ketones Neg mg/dL (Negative) 09/12/19 13:35 Urine Blood Mod (Negative) 09/12/19 13:35 Urine Nitrite Neg (Negative) 09/12/19 13:35 Urine Bilirubin Neg (Negative) 09/12/19 13:35 Urine Urobilinogen < 2.0 mg/dL (<2.0) 09/12/19 13:35 Ur Leukocyte Esterase Neg (Negative) 09/12/19 13:35 Urine WBC (Auto) 1.0 /HPF (0.0-6.0) 09/12/19 13:35 Urine RBC (Auto) 33.0 /HPF (0.0-6.0) 09/12/19 13:35 Active Medications - Current Medications Current Medications: Generic Name Dose Route Start Last Admin Trade Name Freq PRN Reason Stop Dose Admin Acetaminophen 650 mg 09/12/19 19:58 Tylenol PO Q4H PRN Pain MILD(1-3)/Fever >100.5/BAE Hydromorphone HCl 1 mg 09/12/19 19:58 09/13/19 09:16 Dilaudid IV 1 mg Q3H PRN Administration Pain , Severe (7-10) Sodium Chloride 1,000 mls @ 100 mls/hr 09/12/19 20:00 09/12/19 21:32 Nacl 0.9% 1000 Ml IV 100 mls/hr DIRECT CHIP Administration Insulin Human Lispro 0 unit 09/12/19 22:00 09/13/19 06:13 Humalog SUB-Q 4 unit Q4HR CHIP Administration Protocol Losartan Potassium 100 mg 09/12/19 21:00 09/13/19 09:09 Cozaar PO 100 mg QDAY CHIP Administration Metoclopramide HCl 10 mg 09/12/19 19:58 Reglan IV Q6H PRN Nausea And Vomiting Ondansetron HCl 4 mg 09/12/19 19:58 09/13/19 03:06 Zofran IV 4 mg Q3H PRN Administration Nausea And Vomiting Pantoprazole Sodium 40 mg 09/12/19 22:00 09/13/19 09:09 Protonix IV 40 mg BID CHIP Administration Promethazine HCl 25 mg 09/12/19 19:58 Phenergan HI Q6H PRN N/V IF NPO AND NO IV ACCESS Sodium Chloride 10 ml 09/12/19 22:00 09/13/19 09:19 Sodium Chloride Flush Syringe 10 Ml IV 10 ml BID CHIP Administration Sodium Chloride 10 ml 09/12/19 19:58 Sodium Chloride Flush Syringe 10 Ml IV PRN PRN LINE FLUSH
[2019-09-13] MEDS: INSULIN REGULAR, HUMAN 100 UNITS/1 ML SUB-Q SCH ×2 (12:11→17:17)
[2019-09-13 14:00] LABS: Basophils # (Auto) 0.1 K/mm3 (0.0-0.1); Basophils % (Auto) 0.6 % (0.0-1.8); Eosinophils % (Auto) 0.1 % (0.0-4.3); Hematocrit 42.9 % (35.5-45.6); Hemoglobin 14.1 gm/dl (11.8-15.2); Lymphocytes # (Auto) 1.1 K/mm3 (1.2-5.4); Lymphocytes % (Auto) 7.4 % (13.4-35.0); Mean Corpuscular HGB Conc 33 % (32-34); Mean Corpuscular Volume 88 fl (84-94); Monocytes # (Auto) 0.8 K/mm3 (0.0-0.8); Monocytes % (Auto) 5.4 % (0.0-7.3); Platelet Count 294 K/mm3 (140-440); Red Cell Distribution Width 14.2 % (13.2-15.2)
[2019-09-13] MEDS ORDERED: hydrALAZINE 25 MG TAB PO SCH (14:00)
[2019-09-13 14:26] LABS: Alanine Aminotransferase 23 units/L (7-56); BUN/Creatinine Ratio 25; Blood Urea Nitrogen 30 mg/dL (9-20); Calcium 8.9 mg/dL (8.4-10.2); Hemolysis Index 8
[2019-09-13] MEDS: SODIUM CHLORIDE 0.9% 1000 ML 1,000 ML IV SCH (14:47)
[2019-09-13] MEDS ORDERED: SODIUM CHLORIDE 0.9% 1000 ML 1,000 ML IV ONE (16:25)
[2019-09-13] MEDS: PROMETHAZINE 25 MG RECT SUPP PR PRN (16:51)
[2019-09-13] MEDS: hydrALAZINE 20 MG/1 ML INJ IV PRN (16:51)
--- NOTE | 2019-09-13 16:52 | Event Note ---
Date: 09/13/19 Patient has intractable nausea vomiting, unable to retain anything down Tachycardic heart rate ranging between 105 - 114 Uncontrolled blood pressures probably secondary to pain and vomiting Manage his pain medications, antiemetics, Reglan as needed ,IV normal saline bolus Nutrition supplements Glucerna. Most recent blood sugar is 294 If the patient's symptoms and blood sugars do not improve with the above management Plan to transfer the patient to IMCU. I discussed with ICU charge Ms. Colon, no beds available Plan of care reviewed with the patient's nurse. we will Sign out to the covering hospitalist.
[2019-09-13] MEDS: hydrALAZINE 25 MG TAB PO SCH (21:52)
[2019-09-13] MEDS ORDERED: INSULIN GLARGINE 100 UNITS/ML SUB-Q SCH (22:00)
[2019-09-13] MEDS ORDERED: INSULIN DETEMIR 12 UNIT SQ SCH (22:00)
[2019-09-14] MEDS: hydrALAZINE 25 MG TAB PO SCH ×3 (05:38→21:09)
[2019-09-14] MEDS: SODIUM CHLORIDE 0.9% 1000 ML 1,000 ML IV SCH (06:26)
[2019-09-14 07:28] LABS: Alanine Aminotransferase 18 units/L (7-56); Albumin 3.5 g/dL (3.9-5); BUN/Creatinine Ratio 26; Blood Urea Nitrogen 29 mg/dL (9-20); Calcium 8.7 mg/dL (8.4-10.2); Hemolysis Index 1
[2019-09-14] MEDS ORDERED: INSULIN NPH/REGULAR 70/30 INJ SUB-Q ONE (09:00)
[2019-09-14] MEDS: INSULIN LISPRO 100 UNIT/ML SUB-Q SCH ×4 (09:32→21:17)
[2019-09-14] MEDS: PANTOPRAZOLE 40 MG TAB PO SCH ×2 (09:33→21:08)
[2019-09-14] MEDS: LOSARTAN 50 MG TAB PO SCH (09:33)
[2019-09-14 10:21] LABS: Basophils % (Auto) 0.4 % (0.0-1.8); Hematocrit 40.4 % (35.5-45.6); Hemoglobin 13.8 gm/dl (11.8-15.2); Lymphocytes # (Auto) 1.2 K/mm3 (1.2-5.4); Lymphocytes % (Auto) 11.5 % (13.4-35.0); Mean Corpuscular HGB Conc 34 % (32-34); Mean Corpuscular Volume 86 fl (84-94); Monocytes # (Auto) 0.7 K/mm3 (0.0-0.8); Monocytes % (Auto) 6.6 % (0.0-7.3); Platelet Count 284 K/mm3 (140-440); Red Blood Count 4.72 M/mm3 (3.65-5.03); Red Cell Distribution Width 14.4 % (13.2-15.2)
[2019-09-14] MEDS: ONDANSETRON 4 MG/2 ML INJ IV PRN (10:30)
[2019-09-14] MEDS: HYDROmorphone 1 MG/1 ML INJ IV PRN ×2 (10:30→12:32)
[2019-09-14] MEDS: PROMETHAZINE 25 MG RECT SUPP PR PRN (11:46)
[2019-09-14] MEDS ORDERED: METOCLOPRAMIDE 10 MG/2 ML INJ IV ONE (12:14)
[2019-09-14] MEDS ORDERED: SODIUM CHLORIDE 0.9% 500 ML 500 ML IV ONE (12:15)
--- NOTE | 2019-09-14 12:20 | Progress Note ---
Assessment and Plan Assessment and plan: 29-year-old -Filipino male patient with history of type 1 diabetes and gastroparesis was admitted through emergency room with complaints of sudden onset of nausea and vomiting today. Patient also has mild abdominal pain. Patient has severe gastroparesis and uncontrolled blood sugars Started on clear liquids slightly improved patient's diet was advanced, scheduled for gastric emptying study he refused . Blood sugars are moderately controlled , however this afternoon again patient started having intractable nausea vomiting and abdominal pain , on antiemetics and Reglan and full liquid diet rescheduled for gastric emptying study for tomorrow. If negative and patient is stable and may be discharged home tomorrow -- Severe Gastroparesis due to uncontrolled DM Current Visit: Yes Status: Acute Continue IV fluids IV Zofran IV Reglan and Phenergan Check gastric emptying tomorrow, nothing by mouth midnight Advance diet to mechanical soft as tolerated GI consult if no improvement -- Insulin dependent diabetes mellitus; moderate control Current Visit: Yes Status: Chronic Accu-Chek sliding scale coverage and cannot afford Lantus Novolin 70/30 15 units twice a day, HbA1c 8.0. adjust as needed Diabetic education, nutrition education --Hypertension; Moderate control Current Visit: Yes Status: Chronic Continue losartan 100 mg once a day, hydralazine When necessary medications, closely monitor -- DVT prophylaxis Current Visit: Yes Status: Acute On Lovenox DC planning per case management; possible home health nurse at discharge For disease monitoring and diabetic education Disposition :Possible discharge in 1-2 days if stable Plan of care as reviewed with the patient and his nurse History Interval history: Patient seen and examined medical records reviewed Patient was feeling slightly better this morning Diet was advanced ,however patient unable to tolerate Later developed severe intractable nausea vomiting, Vital signs reviewed Hospitalist Physical - Constitutional Vitals: Temp Pulse Resp BP Pulse Ox 98.2 F 117 H 28 H 183/100 100 09/14/19 11:31 09/14/19 11:31 09/14/19 11:31 09/14/19 11:31 09/14/19 11:31 General appearance: Present: no acute distress, well-nourished - EENT Eyes: Present: PERRL, EOM intact - Neck Neck: Present: supple, normal ROM - Respiratory Respiratory effort: normal Respiratory: bilateral: diminished, negative: rales, rhonchi, wheezing - Cardiovascular Rhythm: regular Heart Sounds: Present: S1 & S2 - Extremities Extremities: no ischemia, No edema Peripheral Pulses: within normal limits - Abdominal General gastrointestinal: soft, non-tender, non-distended, normal bowel sounds - Integumentary Integumentary: Present: clear, warm - Psychiatric Psychiatric: appropriate mood/affect, cooperative - Neurologic Neurologic: CNII-XII intact, moves all extremities Results - Labs CBC & Chem 7: 09/14/19 10:03 09/14/19 06:48 Labs: Laboratory Last Values WBC 10.6 K/mm3 (4.5-11.0) 09/14/19 10:03 RBC 4.72 M/mm3 (3.65-5.03) 09/14/19 10:03 Hgb 13.8 gm/dl (11.8-15.2) 09/14/19 10:03 Hct 40.4 % (35.5-45.6) 09/14/19 10:03 MCV 86 fl (84-94) 09/14/19 10:03 MCH 29 pg (28-32) 09/14/19 10:03 MCHC 34 % (32-34) 09/14/19 10:03 RDW 14.4 % (13.2-15.2) 09/14/19 10:03 Plt Count 284 K/mm3 (140-440) 09/14/19 10:03 Lymph % (Auto) 11.5 % (13.4-35.0) L 09/14/19 10:03 [place] % (Auto) 6.6 % (0.0-7.3) 09/14/19 10:03 Eos % (Auto) 0.0 % (0.0-4.3) 09/14/19 10:03 Baso % (Auto) 0.4 % (0.0-1.8) 09/14/19 10:03 Lymph # 1.2 K/mm3 (1.2-5.4) 09/14/19 10:03 [place] # 0.7 K/mm3 (0.0-0.8) 09/14/19 10:03 Eos # 0.0 K/mm3 (0.0-0.4) 09/14/19 10:03 Baso # 0.0 K/mm3 (0.0-0.1) 09/14/19 10:03 Seg Neutrophils % 81.5 % (40.0-70.0) H 09/14/19 10:03 Seg Neutrophils # 8.6 K/mm3 (1.8-7.7) H 09/14/19 10:03 Sodium 140 mmol/L (137-145) 09/14/19 06:48 Potassium 4.1 mmol/L (3.6-5.0) 09/14/19 06:48 Chloride 106.6 mmol/L (98-107) 09/14/19 06:48 Carbon Dioxide 22 mmol/L (22-30) 09/14/19 06:48 Anion Gap 16 mmol/L 09/14/19 06:48 BUN 29 mg/dL (9-20) H 09/14/19 06:48 Creatinine 1.1 mg/dL (0.8-1.5) 09/14/19 06:48 Estimated GFR > 60 ml/min 09/14/19 06:48 BUN/Creatinine Ratio 26 % 09/14/19 06:48 Glucose 224 mg/dL (75-100) H 09/14/19 06:48 POC Glucose 243 (70-105) H 09/14/19 11:37 Hemoglobin A1c 8.0 % (4-6) H 09/12/19 15:07 Calcium 8.7 mg/dL (8.4-10.2) 09/14/19 06:48 Phosphorus 2.60 mg/dL (2.5-4.5) 09/14/19 06:48 Magnesium 2.20 mg/dL (1.7-2.3) 09/14/19 06:48 Total Bilirubin 0.50 mg/dL (0.1-1.2) 09/14/19 06:48 Direct Bilirubin < 0.2 mg/dL (0-0.2) 09/12/19 15:07 Indirect Bilirubin 0.4 mg/dL 09/12/19 15:07 AST 21 units/L (5-40) 09/14/19 06:48 ALT 18 units/L (7-56) 09/14/19 06:48 Alkaline Phosphatase 102 units/L (35-129) 09/14/19 06:48 Total Protein 6.1 g/dL (6.3-8.2) L 09/14/19 06:48 Albumin 3.5 g/dL (3.9-5) L 09/14/19 06:48 Albumin/Globulin Ratio 1.3 % 09/14/19 06:48 Lipase 14 units/L (13-60) 09/12/19 15:07 Urine Color Straw (Yellow) 09/12/19 13:35 Urine Turbidity Clear (Clear) 09/12/19 13:35 Urine pH 9.0 (5.0-7.0) H 09/12/19 13:35 Ur Specific [place] 1.010 (1.003-1.030) 09/12/19 13:35 Urine Protein 100 mg/dl mg/dL (Negative) 09/12/19 13:35 Urine Glucose (UA) Neg mg/dL (Negative) 09/12/19 13:35 Urine Ketones Neg mg/dL (Negative) 09/12/19 13:35 Urine Blood Mod (Negative) 09/12/19 13:35 Urine Nitrite Neg (Negative) 09/12/19 13:35 Urine Bilirubin Neg (Negative) 09/12/19 13:35 Urine Urobilinogen < 2.0 mg/dL (<2.0) 09/12/19 13:35 Ur Leukocyte Esterase Neg (Negative) 09/12/19 13:35 Urine WBC (Auto) 1.0 /HPF (0.0-6.0) 09/12/19 13:35 Urine RBC (Auto) 33.0 /HPF (0.0-6.0) 09/12/19 13:35 Active Medications - Current Medications Current Medications: Generic Name Dose Route Start Last Admin Trade Name Freq PRN Reason Stop Dose Admin Acetaminophen 650 mg 09/12/19 19:58 Tylenol PO Q4H PRN Pain MILD(1-3)/Fever >100.5/BAE Hydralazine HCl 20 mg 09/13/19 13:05 09/13/19 16:51 Apresoline IV 20 mg Q4H PRN Administration Hypertension Hydralazine HCl 50 mg 09/13/19 16:31 09/14/19 05:38 Apresoline PO 50 mg Q8HR CHIP Administration Hydromorphone HCl 1 mg 09/12/19 19:58 09/14/19 10:30 Dilaudid IV 1 mg Q3H PRN Administration Pain , Severe (7-10) Sodium Chloride 1,000 mls @ 100 mls/hr 09/12/19 20:00 09/14/19 06:26 Nacl 0.9% 1000 Ml IV 100 mls/hr DIRECT CHIP Administration Sodium Chloride 500 mls @ 999 mls/hr 09/14/19 12:15 Nacl 0.9% 500 Ml IV 09/14/19 12:45 ONCE ONE Insulin Human Isoph/Insulin Regular 15 unit 09/14/19 17:00 Humulin 70/30 SUB-Q BIDDIAB CHIP Insulin Human Lispro 0 unit 09/13/19 16:30 09/14/19 09:32 Humalog SUB-Q 3 unit ACHS CHIP Administration Protocol Losartan Potassium 100 mg 09/12/19 21:00 09/14/19 09:33 Cozaar PO 100 mg QDAY CHIP Administration Metoclopramide HCl 10 mg 09/12/19 19:58 Reglan IV Q6H PRN Nausea And Vomiting Metoclopramide HCl 10 mg 09/14/19 12:14 Reglan IV 09/14/19 12:15 ONCE ONE Ondansetron HCl 4 mg 09/12/19 19:58 09/14/19 10:30 Zofran IV 4 mg Q3H PRN Administration Nausea And Vomiting Pantoprazole Sodium 40 mg 09/14/19 10:00 09/14/19 09:33 Protonix PO 40 mg BID CHIP Administration Promethazine HCl 25 mg 09/12/19 19:58 09/14/19 11:46 Phenergan NM 25 mg Q6H PRN Administration N/V IF NPO AND NO IV ACCESS Sodium Chloride 10 ml 09/12/19 22:00 09/13/19 21:51 Sodium Chloride Flush Syringe 10 Ml IV 10 ml BID CHIP Administration Sodium Chloride 10 ml 09/12/19 19:58 Sodium Chloride Flush Syringe 10 Ml IV PRN PRN LINE FLUSH Nutrition/Malnutrition Assess - Dietary Evaluation Nutrition/Malnutrition Findings: Nutrition Notes Start: 09/13/19 10:27 Freq: Status: Active Protocol: Document 09/13/19 10:27 LP (Rec: 09/13/19 10:32 LP [id number]) Nutrition Notes Need for Assessment generated from: MD Order Initial or Follow up Assessment Current Diagnosis Diabetes,Hypertension Other Pertinent Diagnosis Gastroparesis, N/V Current Diet Clear Liquid Labs/Tests A1c 8 Pertinent Medications NS at 100ml/hr Height 5 ft 5 in Weight 56.699 kg [place] Body Weight (kg) 61.81 BMI 20.7 Subjective/Other Information Consult for diet education. 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 Pt denies wt changes and would like a supplement. Pt denies need for diet education. Burn Absent Trauma Absent GI Symptoms Nausea,Vomiting Food Allergy No Current % PO Negligible Minimum of two criteria No #1 Nutrition Diagnosis Inadequate oral intake Etiology DKA As Evidenced by Signs and Symptoms Pt with N/V and unable to consume PO Is patient on ventilator? No Is Patient Ambulatory and/or Out of Bed Yes REE-([facility]-ambulatory/OOB) [ 1909.531 [id number]] Calculation Used for Recommendations [facility] Additional Notes Protein needs are 45-56g (0.8- 1g/kg) Fluid needs are 1ml/kcal Nutrition Intervention Change Diet Order: Advance as tolerated Add Supplement/Snack (indicate name/kcal Ensure clear apple daily /protein ) Provides kCal: 240 Provides Protein (gm) 8 Goal #1 Meet kcal and protein needs as best as possible with clear liquid diet and ONS Anticipated Discharge Needs: Cardiac/consistent CHO diet Follow-Up By: 09/15/19 Additional Comments Follow for diet advancement and intakes
[2019-09-14] MEDS: METOCLOPRAMIDE 10 MG/2 ML INJ IV PRN (12:32)
[2019-09-14] MEDS ORDERED: SODIUM CHLORIDE 0.9% 500 ML 500 ML ONE (14:50)
[2019-09-14] MEDS: INSULIN REGULAR, HUMAN 100 UNITS/1 ML SUB-Q SCH (16:46)
[2019-09-14] MEDS: INSULIN NPH/REGULAR 70/30 INJ SUB-Q SCH (18:14)
[2019-09-15] MEDS ORDERED: DEXTROSE 50% IN WATER (25GM) 50 ML SYRINGE IV ONE (03:41)
[2019-09-15] MEDS ORDERED: DEXTROSE 50% IN WATER (25GM) 50 ML SYRINGE IV PRN (03:45)
[2019-09-15] MEDS: hydrALAZINE 25 MG TAB PO SCH ×3 (06:00→21:37)
[2019-09-15 06:59] LABS: BUN/Creatinine Ratio 14; Blood Urea Nitrogen 15 mg/dL (9-20); Calcium 8.4 mg/dL (8.4-10.2); Hemolysis Index 6
[2019-09-15] MEDS: INSULIN LISPRO 100 UNIT/ML SUB-Q SCH ×4 (08:46→21:48)
[2019-09-15] MEDS: INSULIN NPH/REGULAR 70/30 INJ SUB-Q SCH (08:47)
[2019-09-15] MEDS: ONDANSETRON 4 MG/2 ML INJ IV PRN (09:18)
[2019-09-15] MEDS: HYDROmorphone 1 MG/1 ML INJ IV PRN (09:46)
--- NOTE | 2019-09-15 11:32 | Progress Note ---
Assessment and Plan / Severe Gastroparesis due to uncontrolled DM Continue IV fluids, IV Zofran as needed, IV Reglan scheduled, ativan po on full liquid now, Advance diet to mechanical soft as tolerated GI consult if no improvement / Insulin dependent diabetes mellitus; moderate control Accu-Chek sliding scale coverage and cannot afford Lantus adjust Novolin 70/30 dose to prevent hypoglycemia, HbA1c 8.0. adjust as needed Diabetic education, nutrition education /Hypertension; Moderate control Continue losartan 100 mg once a day, hydralazine When necessary medications, closely monitor / DVT prophylaxis On Lovenox DC planning when BG more stabilizes AND n/v IMPROVES possible home health nurse at discharge For disease monitoring and diabetic ed ucation Brief History 29-year-old -[place] male with history of insulin-dependent diabetes --type 1 and hypertension comes in for persistent nausea and vomiting Hospitalist Physical General appearance: Present: no acute distress, well-nourished - EENT Eyes: Present: PERRL, EOM intact - Neck Neck: Present: supple, normal ROM - Respiratory Respiratory effort: normal Respiratory: bilateral: diminished, negative: rales, rhonchi, wheezing - Cardiovascular Rhythm: regular Heart Sounds: Present: S1 & S2 - Extremities Extremities: no ischemia, No edema Peripheral Pulses: within normal limits - Abdominal General gastrointestinal: soft, non-tender, non-distended, normal bowel sounds - Integumentary Integumentary: Present: clear, warm - Psychiatric Psychiatric: appropriate mood/affect, cooperative - Neurologic Neurologic: CNII-XII intact, moves all extremities Subjective Date of service: 09/15/19 Interval history: Patient seen and examined. Medical records and medication list reviewed. No acute event overnight noted by the RN. Patient denies any chest pain or difficulty breathing. 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 Objective - Constitutional Vitals: Vital Signs - 12hr 09/14/19 09/15/19 23:52 06:00 Temperature 97.9 F Pulse Rate 98 H 84 Respiratory 16 Rate Blood Pressure 116/65 122/72 O2 Sat by Pulse 97 Oximetry - Labs CBC & Chem 7: 09/14/19 10:03 09/15/19 05:54 Labs: Abnormal lab results 09/14/19 09/14/19 09/15/19 Range/Units 11:37 21:04 03:39 Carbon Dioxide (22-30) mmol/L Glucose (75-100) mg/dL POC Glucose 243 H 352 H 40 L (70-105) 09/15/19 09/15/19 09/15/19 Range/Units 03:57 04:23 05:54 Carbon Dioxide 21 L (22-30) mmol/L Glucose 273 H (75-100) mg/dL POC Glucose 45 L 172 H (70-105) 09/15/19 09/15/19 Range/Units 06:22 07:48 Carbon Dioxide (22-30) mmol/L Glucose (75-100) mg/dL POC Glucose 281 H 311 H (70-105)
[2019-09-15] MEDS: LOSARTAN 50 MG TAB PO SCH (11:44)
[2019-09-15] MEDS: PANTOPRAZOLE 40 MG TAB PO SCH ×2 (11:44→21:37)
[2019-09-15] MEDS ORDERED: INSULIN NPH/REGULAR 70/30 INJ SUB-Q SCH ×3 (12:00→17:00)
[2019-09-15] MEDS ORDERED: LORazepam 0.5 MG TAB PO PRN (12:10)
[2019-09-15] MEDS: SODIUM CHLORIDE 0.9% 1000 ML 1,000 ML IV SCH ×2 (12:12→21:32)
[2019-09-15] MEDS: hydrALAZINE 20 MG/1 ML INJ IV PRN (12:13)
[2019-09-15] MEDS: METOCLOPRAMIDE 10 MG/2 ML INJ IV PRN (12:14)
[2019-09-16] MEDS: hydrALAZINE 25 MG TAB PO SCH ×2 (05:45→13:34)
[2019-09-16] MEDS: SODIUM CHLORIDE 0.9% 1000 ML 1,000 ML IV SCH (06:59)
[2019-09-16] MEDS: INSULIN LISPRO 100 UNIT/ML SUB-Q SCH ×3 (07:35→17:01)
[2019-09-16] MEDS: INSULIN NPH/REGULAR 70/30 INJ SUB-Q SCH ×2 (08:00→12:57)
[2019-09-16] MEDS: PANTOPRAZOLE 40 MG TAB PO SCH (10:48)
[2019-09-16] MEDS: LOSARTAN 50 MG TAB PO SCH (10:48)
[2019-09-16] MEDS: ONDANSETRON 4 MG/2 ML INJ IV PRN (10:53)
[2019-09-16] MEDS ORDERED: LORazepam 0.5 MG TAB PO PRN (12:05)
[2019-09-16 12:14] VITALS: BP 161/85
[2019-09-16] MEDS: LORazepam 1 MG TAB PO PRN ×2 (12:39→17:16)
--- NOTE | 2019-09-16 13:44 | Discharge Summary ---
Providers - Providers Date of Admission: 09/12/19 16:48 Date of discharge: 09/16/19 Attending physician: CAMRON ARIZA 09/12/19 20:00 Consult to Dietitian/Nutrition [CONS] Routine Physician Instructions: Reason For Exam: Reason for Consult: Diet education Primary care physician: RESOURCE ROOM TEACHER Hospitalization Condition: Stable Hospital course: Brief History 29-year-old -Bangladeshi male with history of insulin-dependent diabetes --type 1 and hypertension comes in for persistent nausea and vomiting Discharge diagnosis and Mx: / Severe Gastroparesis due to uncontrolled DM Treated with IV fluids, IV Zofran as needed, IV Reglan scheduled, ativan po Placed on full liquid, Advance diet to mechanical soft as tolerated / Insulin dependent diabetes mellitus; moderate control Monitored BG with Accu-Chek sliding scale coverage, Patient cannot afford Lantus adjusted Novolin 70/30 dose to prevent hypoglycemia, HbA1c 8.0. Provided Diabetic education, nutrition education /Hypertension; Moderately control Continue losartan 100 mg once a day, hydralazine / DVT prophylaxis On Lovenox DC planning: home with Hospitalist Physical General appearance: Present: no acute distress, well-nourished - EENT Eyes: Present: PERRL, EOM intact - Neck Neck: Present: supple, normal ROM - Respiratory Respiratory effort: normal Respiratory: bilateral: diminished, negative: rales, rhonchi, wheezing - Cardiovascular Rhythm: regular Heart Sounds: Present: S1 & S2 - Extremities Extremities: no ischemia, No edema Peripheral Pulses: within normal limits - Abdominal General gastrointestinal: soft, non-tender, non-distended, normal bowel sounds - Integumentary Integumentary: Present: clear, warm - Psychiatric Psychiatric: appropriate mood/affect, cooperative - Neurologic Neurologic: CNII-XII intact, moves all extremities Disposition: [id number]/[id number] HOME UNDER [facility] Time spent for discharge: 34 minutes Core Measure Documentation - Palliative Care Palliative Care/ Comfort Measures: Not Applicable - Core Measures Any of the following diagnoses?: none Exam - Constitutional Vitals: Temp Pulse Resp BP Pulse Ox 97.5 F L 115 H 20 161/85 99 09/16/19 11:41 09/16/19 11:41 09/16/19 11:41 09/16/19 11:41 09/16/19 11:41 Plan Activity: advance as tolerated Weight Bearing Status: Weight Bear as Tolerated Diet: advance as tolerated Special Instructions: record blood sugar diary Follow up with: PRIMARY CARE, [Primary Care Provider] - 3-5 Days MARIA ISABEL HALL MD [Staff Physician] - 7 Days Prescriptions: LORazepam [Ativan] 1 mg PO Q4H PRN #10 tablet PRN Reason: Agitation Losartan [Cozaar] 100 mg PO QDAY #30 tablet Insulin Regular, Human [HumuLIN R] See Protocol SQ QAC 30 Days Insulin NPH/Regular [NovoLIN 70/30] 14 unit SUB-Q QPMDIAB 30 Days Insulin NPH/Regular [NovoLIN 70/30] 18 unit SUB-Q QAMDIAB 30 Days Promethazine [Phenergan] 25 mg PO Q6HR PRN #14 tab PRN Reason: Nausea Pantoprazole [Protonix TAB] 40 mg PO BID #60 tablet Metoclopramide [Reglan ORAL LIQ] 10 mg PO QACHS 30 Days
[2019-09-16] MEDS ORDERED: INSULIN NPH/REGULAR 70/30 INJ SUB-Q SCH (17:00)
== END 2019-09-16 19:15 | disposition home health service (06) | DRG 74 ==
LOC: ED 12:37 → 3A 16:48
PROVIDERS: ADMIT Internal Medicine; ATTEND Internal Medicine
DX: E10.43 Type 1 diabetes mellitus with diabetic autonomic (poly)neuropathy (principal); K31.84 Gastroparesis; I10 Essential (primary) hypertension; Z79.4 Long term (current) use of insulin; Z82.49 Family history of ischemic heart disease and other diseases of the circulatory system; Z79.899 Other long term (current) drug therapy
CPT/HCPCS: 36415; 80048; 80053; 80076; 81001; 82962; 83036; 83690; 83735; 84100; 85025; 96361; 96374; 96375; 96376; G0378; C9113; J0360; J1170; J1200; J1630; J1815; J2270; J2405; J2765; J7030; J7040; J7070

== ENCOUNTER 2019-10-08 05:49 | Inpatient (IN) | payer SELFPAY ==
[2019-10-08 06:18] LABS: Basophils # (Auto) 0.1 K/mm3 (0.0-0.1); Basophils % (Auto) 0.7 % (0.0-1.8); Eosinophils % (Auto) 0.1 % (0.0-4.3); Hematocrit 39.6 % (35.5-45.6); Hemoglobin 13.6 gm/dl (11.8-15.2); Lymphocytes # (Auto) 0.9 K/mm3 (1.2-5.4); Lymphocytes % (Auto) 11.2 % (13.4-35.0); Mean Corpuscular HGB Conc 34 % (32-34); Mean Corpuscular Volume 85 fl (84-94); Monocytes # (Auto) 0.2 K/mm3 (0.0-0.8); Platelet Count 340 K/mm3 (140-440); Red Blood Count 4.65 M/mm3 (3.65-5.03); Red Cell Distribution Width 14.1 % (13.2-15.2)
[2019-10-08 06:27] LABS: BUN/Creatinine Ratio 18; Blood Urea Nitrogen 21 mg/dL (9-20); Calcium 10.1 mg/dL (8.4-10.2); Hemolysis Index 5
[2019-10-08] MEDS ORDERED: ONDANSETRON 4 MG/2 ML INJ ONE (06:31)
[2019-10-08] MEDS ORDERED: SODIUM CHLORIDE 0.9% 1000 ML 1,000 ML ONE (06:32)
[2019-10-08] MEDS ORDERED: SODIUM CHLORIDE 0.9% 1000 ML 1,000 ML IV ONE ×2 (06:33→07:51)
[2019-10-08] MEDS ORDERED: ONDANSETRON 4 MG/2 ML INJ IV ONE ×2 (06:33→07:35)
[2019-10-08] MEDS ORDERED: INSULIN REGULAR, HUMAN 100 UNITS/1 ML IV ONE (07:51)
--- NOTE | 2019-10-08 08:02 | Emergency Department Report ---
ED Abdominal Pain HPI - General Chief Complaint: Hyperglycemia Stated Complaint: EMESIS Time Seen by Provider: 10/08/19 07:50 Source: patient Mode of arrival: Ambulatory Limitations: No Limitations - History of Present Illness Initial Comments: CC: "DKA" HPI: Mr. Santa is a 29 yo male with hx of T1DM and gastroparesis who presents with abdominal pain and vomiting. He has abdominal central cramping severe abdominal pain. Symptoms began this morning. Gradual onset. No radiation of pain. Persistent pain. According to EMR admitted 3 weeks ago with similar presentation CT A/P obtained 05/20/2019 no acute intraabdominal disease identified MD Complaint: abdominal pain -: Gradual, days(s) (1) Location: diffuse Radiation: none Migration to: no migration Severity: severe Severity scale (0 -10): 10 Quality: cramping Consistency: constant Improves With: nothing Worsens With: nothing Context: other (diabetric gastroparesis) Associated Symptoms: nausea, vomiting - Related Data Previous Rx's Medication Instructions Recorded Last Taken Type Insulin NPH/Regular [NovoLIN 70/30] 14 unit SUB-Q QPMDIAB 30 Days 09/16/19 Unknown Rx Insulin NPH/Regular [NovoLIN 70/30] 18 unit SUB-Q QAMDIAB 30 Days 09/16/19 Unknown Rx Insulin Regular, Human [HumuLIN R] See Protocol SQ QAC 30 Days 09/16/19 Unknown Rx LORazepam [Ativan] 1 mg PO Q4H PRN #10 tablet 09/16/19 Unknown Rx Losartan [Cozaar] 100 mg PO QDAY #30 tablet 09/16/19 Unknown Rx Metoclopramide [Reglan ORAL LIQ] 10 mg PO QACHS 30 Days 09/16/19 Unknown Rx Pantoprazole [Protonix TAB] 40 mg PO BID #60 tablet 09/16/19 Unknown Rx Promethazine [Phenergan] 25 mg PO Q6HR PRN #14 tab 09/16/19 Unknown Rx Allergies Allergy/AdvReac Type Severity Reaction Status Date / Time No Known Allergies Allergy Verified 07/13/14 23:38 ED Review of Systems ROS: Stated complaint: EMESIS Other details as noted in HPI Comment: All other systems reviewed and negative Constitutional: denies: fever, malaise Gastrointestinal: abdominal pain, nausea, vomiting ED Past Medical Hx - Past Medical History Previous Medical History?: Yes Hx Hypertension: Yes Hx Congestive Heart Failure: No Hx Diabetes: Yes Hx Asthma: No Hx COPD: No Hx HIV: No Additional medical history: Gastroparesis - Surgical History Past Surgical History?: No - Social History Smoking Status: Never Smoker Substance Use Type: None - Medications Home Medications: Home Medications Medication Instructions Recorded Confirmed Last Taken Type Insulin NPH/Regular [NovoLIN 70/30] 14 unit SUB-Q QPMDIAB 30 Days 09/16/19 Un known Rx Insulin NPH/Regular [NovoLIN 70/30] 18 unit SUB-Q QAMDIAB 30 Days 09/16/19 Unknown Rx Insulin Regular, Human [HumuLIN R] See Protocol SQ QAC 30 Days 09/16/19 Unknown Rx LORazepam [Ativan] 1 mg PO Q4H PRN #10 tablet 09/16/19 Unknown Rx Losartan [Cozaar] 100 mg PO QDAY #30 tablet 09/16/19 Unknown Rx Metoclopramide [Reglan ORAL LIQ] 10 mg PO QACHS 30 Days 09/16/19 Unknown Rx Pantoprazole [Protonix TAB] 40 mg PO BID #60 tablet 09/16/19 Unknown Rx Promethazine [Phenergan] 25 mg PO Q6HR PRN #14 tab 09/16/19 Unknown Rx ED Physical Exam - General Limitations: No Limitations General appearance: alert, other (appears uncomfortable) - Head Head exam: Present: atraumatic, normocephalic - Eye Eye exam: Present: normal appearance - ENT ENT exam: Present: mucous membranes moist - Neck Neck exam: Present: normal inspection, full ROM - Respiratory Respiratory exam: Present: normal lung sounds bilaterally. Absent: respiratory distress, wheezes, rales - Cardiovascular Cardiovascular Exam: Present: regular rate, normal rhythm, normal heart sounds. Absent: systolic murmur, diastolic murmur, rubs, gallop - GI/Abdominal GI/Abdominal exam: Present: soft, normal bowel sounds. Absent: distended, tenderness, guarding, rebound - Rectal Rectal exam: Present: deferred - Extremities Exam Extremities exam: Present: normal inspection - Neurological Exam Neurological exam: Present: alert, oriented X3 - Psychiatric Psychiatric exam: Present: normal affect, normal mood - Skin Skin exam: Present: warm, dry, intact, normal color. Absent: rash ED Course Vital Signs 10/08/19 10/08/19 10/08/19 05:53 06:10 06:16 Temperature 97.6 F Pulse Rate 105 H 97 H 97 H Respiratory 22 10 L 16 Rate Blood Pressure 168/112 160/96 Blood Pressure [Left] O2 Sat by Pulse 97 100 100 Oximetry 10/08/19 10/08/19 10/08/19 06:30 06:34 06:46 Temperature 97.7 F Pulse Rate 102 H 106 H 111 H Respiratory 25 H 24 35 H Rate Blood Pressure 160/96 Blood Pressure 165/104 [Left] O2 Sat by Pulse 100 100 100 Oximetry 10/08/19 10/08/19 10/08/19 07:00 07:11 07:16 Temperature Pulse Rate 113 H 86 120 H Respiratory 24 30 H 39 H Rate Blood Pressure 171/106 175/103 Blood Pressure 175/103 [Left] O2 Sat by Pulse 100 100 100 Oximetry 10/08/19 10/08/19 10/08/19 07:30 07:46 08:00 Temperature Pulse Rate 116 H Respiratory 35 H Rate Blood Pressure 168/102 168/102 189/108 Blood Pressure [Left] O2 Sat by Pulse 100 100 100 Oximetry ED Medical Decision Making - Lab Data Result diagrams: 10/08/19 06:00 10/08/19 06:00 Laboratory Results - last 24 hr 10/08/19 10/08/19 10/08/19 06:00 06:00 06:00 WBC 7.8 RBC 4.65 Hgb 13.6 Hct 39.6 MCV 85 MCH 29 MCHC 34 RDW 14.1 Plt Count 340 Lymph % (Auto) 11.2 L [place] % (Auto) 2.0 Eos % (Auto) 0.1 Baso % (Auto) 0.7 Lymph # 0.9 L [place] # 0.2 Eos # 0.0 Baso # 0.1 Seg Neutrophils % 86.0 H Seg Neutrophils # 6.7 VBG pH 7.336 Sodium 137 Potassium 3.8 Chloride 97.3 L Carbon Dioxide 21 L Anion Gap 23 BUN 21 H Creatinine 1.2 Estimated GFR > 60 BUN/Creatinine Ratio 18 Glucose 437 H POC Glucose Calcium 10.1 10/08/19 06:05 WBC RBC Hgb Hct MCV MCH MCHC RDW Plt Count Lymph % (Auto) [place] % (Auto) Eos % (Auto) Baso % (Auto) Lymph # [place] # Eos # Baso # Seg Neutrophils % Seg Neutrophils # VBG pH Sodium Potassium Chloride Carbon Dioxide Anion Gap BUN Creatinine Estimated GFR BUN/Creatinine Ratio Glucose POC Glucose 402 H Calcium - Medical Decision Making Mr. Santa presents with severe abdominal pain and intractable n/v due to diabetic gastroparesis. I do not suspect peritonitis or acute intra-abdominal process such as obstruction with normal exam and absence of leukocytosis on CBC Given supportive care in the ED with IVF, IV antiemetic, IV analgesia with persistent vomiting and discomfort Admitted to the hospitalist service for further treatment Critical care attestation.: If time is entered above; I have spent that time in minutes in the direct care of this critically ill patient, excluding procedure time. ED Disposition Clinical Impression: Hyperglycemia due to type 1 diabetes mellitus, Gastroparesis, Intractable vomiting with nausea, Intractable abdominal pain Disposition: OP ADMIT IP TO THIS HOSP Is pt being admited?: Yes Does the pt Need Aspirin: No Condition: Stable
[2019-10-08 08:33] LABS: Bilirubin,Urine NEG (Negative); Blood,Urine MOD (Negative); Color,Urine Yellow (Yellow); Urobilinogen,Urine < 2.0 mg/dL (<2.0)
[2019-10-08 08:36] LABS: Protein,Urine >500 mg/dL (Negative)
[2019-10-08] MEDS ORDERED: PNEUMOCOCCAL 23 Valent 0.5 ML VIAL IM ONE (10:44)
[2019-10-08] MEDS ORDERED: FLU VACC QUAD 2019-20 (3 YR UP)/PF 60 MCG/0.5 ML SYRINGE IM ONE (10:44)
[2019-10-08] MEDS ORDERED: oxyCODONE /ACETAMINOPHEN 5-325MG TAB PO PRN (11:12)
[2019-10-08] MEDS ORDERED: ACETAMINOPHEN 325 MG TAB PO PRN (11:12)
[2019-10-08] MEDS: HYDROmorphone 1 MG/1 ML INJ IV PRN ×2 (11:35→14:44)
[2019-10-08] MEDS: ONDANSETRON 4 MG/2 ML INJ IV PRN ×3 (11:35→23:12)
[2019-10-08] MEDS: INSULIN LISPRO 100 UNIT/ML SUB-Q SCH ×4 (11:39→23:12)
[2019-10-09] MEDS: HYDROmorphone 1 MG/1 ML INJ IV PRN ×5 (03:42→21:53)
[2019-10-09] MEDS: INSULIN LISPRO 100 UNIT/ML SUB-Q SCH ×6 (04:37→21:50)
--- NOTE | 2019-10-09 07:19 | History and Physical Report ---
History of Present Illness Date of examination: 10/08/19 Date of admission: 10/08/19 08:47 Chief complaint: Persistent Vomiting History of present illness: Mr. Santa is a 29 yo male with hx of T1DM and gastroparesis who presents with abdominal pain and vomiting. He has abdominal central cramping severe abdominal pain. Symptoms began this morning. Gradual onset. No radiation of pain. Persistent pain. According to EMR admitted 3 weeks ago with similar presentation. Past Medical History Previous Medical History?: Yes Hx Hypertension: Yes Hx Diabetes: Yes Additional medical history: Gastroparesis - Surgical History Past Surgical History?: No - Social History Smoking Status: Never Smoker Substance Use Type: None - Medications Home Medications: Home Medications Medication Instructions Recorded Confirmed Last Taken Type Insulin NPH/Regular [NovoLIN 70/30] 14 unit SUB-Q QPMDIAB 30 Days 09/16/19 Unknown Rx Insulin NPH/Regular [NovoLIN 70/30] 18 unit SUB-Q QAMDIAB 30 Days 09/16/19 Un known Rx Insulin Regular, Human [HumuLIN R] See Protocol SQ QAC 30 Days 09/16/19 Unknown Rx LORazepam [Ativan] 1 mg PO Q4H PRN #10 tablet 09/16/19 Unknown Rx Losartan [Cozaar] 100 mg PO QDAY #30 tablet 09/16/19 Unknown Rx Metoclopramide [Reglan ORAL LIQ] 10 mg PO QACHS 30 Days 09/16/19 Unknown Rx Pantoprazole [Protonix TAB] 40 mg PO BID #60 tablet 09/16/19 Unknown Rx Promethazine [Phenergan] 25 mg PO Q6HR PRN #14 tab 09/16/19 Unknown Rx Review of Systems ROS: Stated complaint: EMESIS Other details as noted in HPI Comment: All other systems reviewed and negative Constitutional: denies: fever, malaise Gastrointestinal: abdominal pain, nausea, vomiting Medications and Allergies Allergies Allergy/AdvReac Type Severity Reaction Status Date / Time No Known Allergies Allergy Verified 07/13/14 23:38 Home Medications Medication Instructions Recorded Confirmed Last Taken Type Insulin NPH/Regular [NovoLIN 70/30] 14 unit SUB-Q QPMDIAB 30 Days 09/16/19 10/08/19 10/07/19 Rx Insulin NPH/Regular [NovoLIN 70/30] 18 unit SUB-Q QAMDIAB 30 Days 09/16/19 10/08/1910/07/19 Rx Insulin Regular, Human [HumuLIN R] See Protocol SQ QAC 30 Days 09/16/19 10/08/19 10/07/19 Rx Active Meds: Active Medications Acetaminophen (Tylenol) 650 mg PO Q4H PRN PRN Reason: Pain MILD(1-3)/Fever >100.5/BAE Hydromorphone HCl (Dilaudid) 1 mg IV Q3H PRN PRN Reason: Pain , Severe (7-10) Last Admin: 10/09/19 03:42 Dose: 1 mg Documented by: Sodium Chloride (Nacl 0.9% 1000 Ml) 1,000 mls @ 75 mls/hr IV DIRECT CHIP Insulin Human Lispro (Humalog) 0 unit SUB-Q Q4HR CHIP; Protocol Last Admin: 10/09/19 06:08 Dose: 6 unit Documented by: Ondansetron HCl (Zofran) 4 mg IV Q3H PRN PRN Reason: Nausea And Vomiting Last Admin: 10/08/19 23:12 Dose: 4 mg Documented by: Oxycodone/Acetaminophen (Percocet 5/325) 1 tab PO Q6H PRN PRN Reason: Pain, Moderate (4-6) Sodium Chloride (Sodium Chloride Flush Syringe 10 Ml) 10 ml IV BID CHIP Last Admin: 10/08/19 23:14 Dose: 10 ml Documented by: Sodium Chloride (Sodium Chloride Flush Syringe 10 Ml) 10 ml IV PRN PRN PRN Reason: LINE FLUSH Exam - Constitutional Vitals: Temp Pulse Resp BP Pulse Ox 98.8 F 111 H 20 190/107 99 10/09/19 05:46 10/09/19 05:46 10/09/19 05:46 10/09/19 05:46 10/09/19 05:46 General appearance: Present: no acute distress, well-nourished - EENT Eyes: Present: PERRL ENT: hearing intact, clear oral mucosa - Neck Neck: Present: supple, normal ROM - Respiratory Respiratory effort: normal Respiratory: bilateral: CTA - Cardiovascular Heart rate: 78 Rhythm: regular Heart Sounds: Present: S1 & S2. Absent: rub, click - Extremities Extremities: pulses symmetrical, No edema Peripheral Pulses: within normal limits - Abdominal General gastrointestinal: Present: soft, non-tender, non-distended, normal bowel sounds Male genitourinary: Present: normal - Integumentary Integumentary: Present: clear, warm, dry - Musculoskeletal Musculoskeletal: gait normal, strength equal bilaterally - Psychiatric Psychiatric: appropriate mood/affect, intact judgment & insight - Neurologic Neurologic: CNII-XII intact, moves all extremities Results - Labs CBC & Chem 7: 10/08/19 06:00 10/08/19 06:00 Labs: Laboratory Last Values WBC 7.8 K/mm3 (4.5-11.0) 10/08/19 06:00 RBC 4.65 M/mm3 (3.65-5.03) 10/08/19 06:00 Hgb 13.6 gm/dl (11.8-15.2) 10/08/19 06:00 Hct 39.6 % (35.5-45.6) 10/08/19 06:00 MCV 85 fl (84-94) 10/08/19 06:00 MCH 29 pg (28-32) 10/08/19 06:00 MCHC 34 % (32-34) 10/08/19 06:00 RDW 14.1 % (13.2-15.2) 10/08/19 06:00 Plt Count 340 K/mm3 (140-440) 10/08/19 06:00 Lymph % (Auto) 11.2 % (13.4-35.0) L 10/08/19 06:00 [place] % (Auto) 2.0 % (0.0-7.3) 10/08/19 06:00 Eos % (Auto) 0.1 % (0.0-4.3) 10/08/19 06:00 Baso % (Auto) 0.7 % (0.0-1.8) 10/08/19 06:00 Lymph # 0.9 K/mm3 (1.2-5.4) L 10/08/19 06:00 [place] # 0.2 K/mm3 (0.0-0.8) 10/08/19 06:00 Eos # 0.0 K/mm3 (0.0-0.4) 10/08/19 06:00 Baso # 0.1 K/mm3 (0.0-0.1) 10/08/19 06:00 Seg Neutrophils % 86.0 % (40.0-70.0) H 10/08/19 06:00 Seg Neutrophils # 6.7 K/mm3 (1.8-7.7) 10/08/19 06:00 VBG pH 7.336 (7.320-7.420) 10/08/19 06:00 Sodium 137 mmol/L (137-145) 10/08/19 06:00 Potassium 3.8 mmol/L (3.6-5.0) 10/08/19 06:00 Chloride 97.3 mmol/L (98-107) L 10/08/19 06:00 Carbon Dioxide 21 mmol/L (22-30) L 10/08/19 06:00 Anion Gap 23 mmol/L 10/08/19 06:00 BUN 21 mg/dL (9-20) H 10/08/19 06:00 Creatinine 1.2 mg/dL (0.8-1.5) 10/08/19 06:00 Estimated GFR > 60 ml/min 10/08/19 06:00 BUN/Creatinine Ratio 18 % 10/08/19 06:00 Glucose 437 mg/dL (75-100) H 10/08/19 06:00 POC Glucose 343 (70-105) H 10/09/19 05:57 Ketones Quantitative Small (Negative) 10/08/19 08:08 Calcium 10.1 mg/dL (8.4-10.2) 10/08/19 06:00 Lipase 8 units/L (13-60) L 10/08/19 08:08 Urine Color Yellow (Yellow) 10/08/19 08:11 Urine Turbidity Clear (Clear) 10/08/19 08:11 Urine pH 6.0 (5.0-7.0) 10/08/19 08:11 Ur Specific [place] 1.026 (1.003-1.030) 10/08/19 08:11 Urine Protein >500 mg/dL (Negative) 10/08/19 08:11 Urine Glucose (UA) >=500 mg/dL (Negative) 10/08/19 08:11 Urine Ketones 80 mg/dL (Negative) 10/08/19 08:11 Urine Blood Mod (Negative) 10/08/19 08:11 Urine Nitrite Neg (Negative) 10/08/19 08:11 Urine Bilirubin Neg (Negative) 10/08/19 08:11 Urine Urobilinogen < 2.0 mg/dL (<2.0) 10/08/19 08:11 Ur Leukocyte Esterase Neg (Negative) 10/08/19 08:11 Urine WBC (Auto) 1.0 /HPF (0.0-6.0) 10/08/19 08:11 Urine RBC (Auto) 12.0 /HPF (0.0-6.0) 10/08/19 08:11 U Epithel Cells (Auto) < 1.0 /HPF (0-13.0) 10/08/19 08:11 Urine 10/08/19 Range/Units 08:11 Urine Color Yellow (Yellow) Urine pH 6.0 (5.0-7.0) Ur Specific [place] 1.026 (1.003-1.030) Urine Protein >500 (Negative) mg/dL Urine Glucose (UA) >=500 (Negative) mg/dL Assessment and Plan Advance Directives: Yes (Full code) VTE prophylaxis?: Chemical Plan of care discussed with patient/family: Yes - Patient Problems (1) Gastroparesis Current Visit: Yes Status: Acute Plan to address problem: Control emesis IV Zofran and IV Metoclopromide (2) Intractable abdominal pain Current Visit: Yes Status: Acute Plan to address problem: IV Dilaudid (3) Uncontrolled diabetes mellitus Current Visit: Yes Status: Acute Qualifiers: Diabetes mellitus type: type 1 Plan to address problem: Frequent accuchecks and Insulin high dose protocol (4) HTN (hypertension) Current Visit: Yes Status: Chronic Qualifiers: Hypertension type: essential hypertension Qualified Code(s): I10 - Essential (primary) hypertension Plan to address problem: COnt antihypertensives (5) DVT prophylaxis Current Visit: No Status: Acute Plan to address problem: On Heparin
[2019-10-09] MEDS ORDERED: hydrALAZINE 20 MG/1 ML INJ IV PRN (07:30)
--- NOTE | 2019-10-09 08:10 | Progress Note ---
Assessment and Plan Assessment and plan: -- Gastroparesis Current Visit: Yes Status: Acute Control emesis with anti emetics, IV Zofran and IV Metoclopromide -- Intractable abdominal pain Current Visit: Yes Status: Acute Pain meds,supportive care --Uncontrolled diabetes mellitus Current Visit: Yes Status: Acute accuchecks,SSC and long acting Insulin as needed --HTN (hypertension) Current Visit: Yes Status: Chronic COnt current antihypertensives --DVT prophylaxis Current Visit: No Status: Acute On Heparin. Monitor closely and adjust as needed Possible discharge in 1-2 days if stable History Interval history: Patient seen and examined Medical records reviewed. Continues to have nausea and vomiting Feels tired and weak Vital signs reviewed Hospitalist Physical - Constitutional Vitals: Temp Pulse Resp BP Pulse Ox 98.8 F 111 H 20 190/107 99 10/09/19 05:46 10/09/19 05:46 10/09/19 05:46 10/09/19 05:46 10/09/19 05:46 General appearance: Present: no acute distress, well-nourished - EENT Eyes: Present: PERRL, EOM intact - Neck Neck: Present: supple, normal ROM - Respiratory Respiratory effort: normal Respiratory: bilateral: diminished, negative: rales, rhonchi, wheezing - Cardiovascular Rhythm: regular Heart Sounds: Present: S1 & S2 - Extremities Extremities: no ischemia, No edema - Abdominal General gastrointestinal: soft, non-tender, non-distended, normal bowel sounds - Integumentary Integumentary: Present: clear, warm - Psychiatric Psychiatric: appropriate mood/affect, cooperative - Neurologic Neurologic: CNII-XII intact, moves all extremities Results - Labs CBC & Chem 7: 10/09/19 08:07 10/09/19 08:07 Labs: Laboratory Last Values WBC 7.8 K/mm3 (4.5-11.0) 10/08/19 06:00 RBC 4.65 M/mm3 (3.65-5.03) 10/08/19 06:00 Hgb 13.6 gm/dl (11.8-15.2) 10/08/19 06:00 Hct 39.6 % (35.5-45.6) 10/08/19 06:00 MCV 85 fl (84-94) 10/08/19 06:00 MCH 29 pg (28-32) 10/08/19 06:00 MCHC 34 % (32-34) 10/08/19 06:00 RDW 14.1 % (13.2-15.2) 10/08/19 06:00 Plt Count 340 K/mm3 (140-440) 10/08/19 06:00 Lymph % (Auto) 11.2 % (13.4-35.0) L 10/08/19 06:00 [place] % (Auto) 2.0 % (0.0-7.3) 10/08/19 06:00 Eos % (Auto) 0.1 % (0.0-4.3) 10/08/19 06:00 Baso % (Auto) 0.7 % (0.0-1.8) 10/08/19 06:00 Lymph # 0.9 K/mm3 (1.2-5.4) L 10/08/19 06:00 [place] # 0.2 K/mm3 (0.0-0.8) 10/08/19 06:00 Eos # 0.0 K/mm3 (0.0-0.4) 10/08/19 06:00 Baso # 0.1 K/mm3 (0.0-0.1) 10/08/19 06:00 Seg Neutrophils % 86.0 % (40.0-70.0) H 10/08/19 06:00 Seg Neutrophils # 6.7 K/mm3 (1.8-7.7) 10/08/19 06:00 VBG pH 7.336 (7.320-7.420) 10/08/19 06:00 Sodium 137 mmol/L (137-145) 10/08/19 06:00 Potassium 3.8 mmol/L (3.6-5.0) 10/08/19 06:00 Chloride 97.3 mmol/L (98-107) L 10/08/19 06:00 Carbon Dioxide 21 mmol/L (22-30) L 10/08/19 06:00 Anion Gap 23 mmol/L 10/08/19 06:00 BUN 21 mg/dL (9-20) H 10/08/19 06:00 Creatinine 1.2 mg/dL (0.8-1.5) 10/08/19 06:00 Estimated GFR > 60 ml/min 10/08/19 06:00 BUN/Creatinine Ratio 18 % 10/08/19 06:00 Glucose 437 mg/dL (75-100) H 10/08/19 06:00 POC Glucose 343 (70-105) H 10/09/19 05:57 Ketones Quantitative Small (Negative) 10/08/19 08:08 Calcium 10.1 mg/dL (8.4-10.2) 10/08/19 06:00 Lipase 8 units/L (13-60) L 10/08/19 08:08 Urine Color Yellow (Yellow) 10/08/19 08:11 Urine Turbidity Clear (Clear) 10/08/19 08:11 Urine pH 6.0 (5.0-7.0) 10/08/19 08:11 Ur Specific [place] 1.026 (1.003-1.030) 10/08/19 08:11 Urine Protein >500 mg/dL (Negative) 10/08/19 08:11 Urine Glucose (UA) >=500 mg/dL (Negative) 10/08/19 08:11 Urine Ketones 80 mg/dL (Negative) 10/08/19 08:11 Urine Blood Mod (Negative) 10/08/19 08:11 Urine Nitrite Neg (Negative) 10/08/19 08:11 Urine Bilirubin Neg (Negative) 10/08/19 08:11 Urine Urobilinogen < 2.0 mg/dL (<2.0) 10/08/19 08:11 Ur Leukocyte Esterase Neg (Negative) 10/08/19 08:11 Urine WBC (Auto) 1.0 /HPF (0.0-6.0) 10/08/19 08:11 Urine RBC (Auto) 12.0 /HPF (0.0-6.0) 10/08/19 08:11 U Epithel Cells (Auto) < 1.0 /HPF (0-13.0) 10/08/19 08:11 Active Medications - Current Medications Current Medications: Generic Name Dose Route Start Last Admin Trade Name Freq PRN Reason Stop Dose Admin Acetaminophen 650 mg 10/08/19 11:12 Tylenol PO Q4H PRN Pain MILD(1-3)/Fever >100.5/BAE Hydralazine HCl 10 mg 10/09/19 07:30 Apresoline IV Q3H PRN Blood Pressure Hydromorphone HCl 1 mg 10/08/19 11:12 10/09/19 03:42 Dilaudid IV 1 mg Q3H PRN Administration Pain , Severe (7-10) Sodium Chloride 1,000 mls @ 75 mls/hr 10/08/19 12:00 Nacl 0.9% 1000 Ml IV DIRECT CHIP Insulin Human Isoph/Insulin Regular 14 unit 10/09/19 17:00 Humulin 70/30 SUB-Q QPMDIAB CHIP Insulin Human Isoph/Insulin Regular 18 unit 10/09/19 08:00 Humulin 70/30 SUB-Q QAMDIAB [facility] Insulin Human Lispro 0 unit 10/08/19 12:00 10/09/19 06:08 Humalog SUB-Q 6 unit Q4HR [facility] Administration Protocol Losartan Potassium 100 mg 10/09/19 08:00 Cozaar PO QDAY CHIP Ondansetron HCl 4 mg 10/08/19 11:12 10/08/19 23:12 Zofran IV 4 mg Q3H PRN Administration Nausea And Vomiting Oxycodone/Acetaminophen 1 tab 10/08/19 11:12 Percocet 5/325 PO Q6H PRN Pain, Moderate (4-6) Sodium Chloride 10 ml 10/08/19 22:00 10/08/19 23:14 Sodium Chloride Flush Syringe 10 Ml IV 10 ml BID CHIP Administration Sodium Chloride 10 ml 10/08/19 11:12 Sodium Chloride Flush Syringe 10 Ml IV PRN PRN LINE FLUSH
[2019-10-09] MEDS: LOSARTAN 50 MG TAB PO SCH (08:25)
[2019-10-09] MEDS: ONDANSETRON 4 MG/2 ML INJ IV PRN ×3 (08:25→18:10)
[2019-10-09] MEDS: SODIUM CHLORIDE 0.9% 1000 ML 1,000 ML IV SCH ×2 (09:23→21:52)
[2019-10-09] MEDS: INSULIN NPH/REGULAR 70/30 INJ SUB-Q SCH (09:25)
[2019-10-09 09:28] LABS: Basophils % (Auto) 0.2 % (0.0-1.8); Hematocrit 42.9 % (35.5-45.6); Hemoglobin 14.3 gm/dl (11.8-15.2); Lymphocytes # (Auto) 1.1 K/mm3 (1.2-5.4); Lymphocytes % (Auto) 6.5 % (13.4-35.0); Mean Corpuscular HGB Conc 33 % (32-34); Mean Corpuscular Volume 85 fl (84-94); Monocytes # (Auto) 0.9 K/mm3 (0.0-0.8); Monocytes % (Auto) 5.4 % (0.0-7.3); Red Blood Count 5.07 M/mm3 (3.65-5.03); Red Cell Distribution Width 14.2 % (13.2-15.2)
[2019-10-09 10:18] LABS: Platelet Count 355 K/mm3 (140-440)
[2019-10-09 10:23] LABS: BUN/Creatinine Ratio 22; Blood Urea Nitrogen 24 mg/dL (9-20); Calcium 9.8 mg/dL (8.4-10.2); Hemolysis Index 24
[2019-10-09] MEDS ORDERED: INSULIN NPH/REGULAR 70/30 INJ SUB-Q SCH (17:00)
[2019-10-10] MEDS: HYDROmorphone 1 MG/1 ML INJ IV PRN (00:57)
[2019-10-10] MEDS: INSULIN LISPRO 100 UNIT/ML SUB-Q SCH ×2 (03:27→10:49)
[2019-10-10] MEDS ORDERED: DEXTROSE 50% IN WATER (25GM) 50 ML SYRINGE IV PRN (03:32)
[2019-10-10] MEDS: INSULIN NPH/REGULAR 70/30 INJ SUB-Q SCH (10:50)
[2019-10-10] MEDS: LOSARTAN 50 MG TAB PO SCH (10:50)
[2019-10-10 12:30] VITALS: BP 155/92
--- NOTE | 2019-10-10 13:03 | Discharge Summary ---
Providers - Providers Date of Admission: 10/08/19 08:47 Date of discharge: 10/10/19 Attending physician: ROSA OSORIO Primary care physician: [employer] Hospitalization Reason for admission: Intractable nausea and vomiting/gastroparesis Condition: Stable Hospital course: Mr. Santa is a 29 yo male with hx of T1DM and gastroparesis who presents with abdominal pain and vomiting. He has abdominal central cramping severe abdominal pain. Symptoms began this morning. Gradual onset. No radiation of pain. Persistent pain.Managed with anti emetics,pain meds,closely monitored blood sugars and optimised medications. Today patient feels better,no new complaints,vital signs good. Stable at discharge, Patient reports ,he has all his home meds and does not need prescriptions Advised to comply with meds,diet and f/u visits. Stable at discharge. Discharge Diagnosis: -- Gastroparesis Current Visit: Yes Status: Acute Control emesis with anti emetics, IV Zofran and IV Metoclopromide Symptoms improved -- Intractable abdominal pain Current Visit: Yes Status: Acute Pain meds,supportive care,resolved --Uncontrolled diabetes mellitus Current Visit: Yes Status: Acute accuchecks,SSC and long acting Insulin as needed --HTN (hypertension) Current Visit: Yes Status: Chronic COnt current antihypertensives --DVT prophylaxis Current Visit: No Status: Acute On Heparin. Stable at discharge Disposition: DC-01 TO HOME OR SELFCARE Time spent for discharge: 32 min Core Measure Documentation - Palliative Care Palliative Care/ Comfort Measures: Not Applicable - Core Measures Any of the following diagnoses?: none Exam - Constitutional Vitals: Temp Pulse Resp BP Pulse Ox 97.4 F L 115 H 20 155/92 98 10/10/19 11:24 10/10/19 11:24 10/10/19 11:24 10/10/19 11:24 10/10/19 11:24 General appearance: Present: no acute distress, well-nourished - EENT Eyes: Present: PERRL, EOM intact - Neck Neck: Present: supple, normal ROM - Respiratory Respiratory effort: normal Respiratory: negative: rales, rhonchi, wheezing - Cardiovascular Rhythm: regular Heart Sounds: Present: S1 & S2 - Extremities Extremities: no ischemia, No edema - Abdominal General gastrointestinal: Present: soft, non-tender, non-distended, normal bowel sounds - Integumentary Integumentary: Present: clear, warm - Musculoskeletal Musculoskeletal: strength equal bilaterally - Psychiatric Psychiatric: appropriate mood/affect, cooperative - Neurologic Neurologic: moves all extremities Plan Activity: no restrictions Diet: diabetic, advance as tolerated Additional Instructions: Advice Glucerna 3 times a day. Advised to see private sports broadcaster for diabetes management Follow up with: PRIMARY CARE, [Primary Care Provider] - 7 Days
== END 2019-10-10 14:55 | disposition home or self-care (01) | DRG 74 ==
LOC: ED 05:49 → 3A 08:47
PROVIDERS: ADMIT Internal Medicine; ATTEND Internal Medicine
PROC: 3E0234Z Introduction of Serum, Toxoid and Vaccine into Muscle, Percutaneous Approach (ICD-10-PCS; principal; 2019-10-08)
DX: E10.43 Type 1 diabetes mellitus with diabetic autonomic (poly)neuropathy (principal); K31.84 Gastroparesis; I10 Essential (primary) hypertension; E10.65 Type 1 diabetes mellitus with hyperglycemia; Z23 Encounter for immunization; Z79.4 Long term (current) use of insulin; Z79.899 Other long term (current) drug therapy
CPT/HCPCS: 36415; 80048; 81001; 82010; 82805; 82962; 83690; 85025; 87116; 90686; 90732; 96374; 96375; 96376; G0378; J0360; J1170; J1815; J2405; J7030

== ENCOUNTER 2019-10-11 02:55 | Inpatient (IN) | payer OTHER ==
[2019-10-11] MEDS ORDERED: SODIUM CHLORIDE 0.9% 1000 ML 1,000 ML IV ONE ×3 (03:00→05:43)
--- NOTE | 2019-10-11 03:04 | Emergency Department Report ---
ED General Adult HPI - General Stated complaint: HYPERGLYCEMIA Time Seen by Provider: 10/11/19 02:58 Source: patient, EMS Mode of arrival: Stretcher Limitations: No Limitations - History of Present Illness Initial comments: Patient is a 29-year-old male presents to emergency with complaints of being in DKA and hyperglycemia. Patient states that his sugar is high. Patient states she hasn't taken any insulin for 24 hours. Patient states she was just discharged from this hospital and was instructed prior to discharge to take any insulin since he's always dropping low. Patient complains of polyuria, polydipsia and dry mouth. Patient also is complaining of abdominal pain. Patient states it's a mild abdominal pain. Patient states his symptoms are consistent with when he goes into DKA. Patient states she is a type I diabetic. Patient was brought in by EMS and his sugar on their glucometer is greater than 500. -: Sudden Location: abdomen Radiation: non-radiation Severity scale (0 -10): 4 Quality: aching Consistency: constant Improves with: rest Worsens with: movement Associated Symptoms: loss of appetite, weakness. denies: confusion, chest pain, cough, diaphoresis, fever/chills, headaches, malaise, nausea/vomiting, rash, seizure, shortness of breath, syncope Treatments Prior to Arrival: none - Related Data Previous Rx's Medication Instructions Recorded Last Taken Type Insulin NPH/Regular [NovoLIN 70/30] 14 unit SUB-Q QPMDIAB 30 Days 09/16/19 10/07/19 Rx Insulin NPH/Regular [NovoLIN 70/30] 18 unit SUB-Q QAMDIAB 30 Days 09/16/19 10/07/19 Rx Insulin Regular, Human [HumuLIN R] See Protocol SQ QAC 30 Days 09/16/19 10/07/19 Rx Losartan [Cozaar] 100 mg PO QDAY #30 tablet 10/10/19 Unknown Rx Ondansetron [Zofran Odt] 4 mg PO Q8HR PRN #21 tab.rapdis 10/10/19 Unknown Rx oxyCODONE /ACETAMINOPHEN [Percocet 1 tab PO Q8H PRN #6 tablet 10/10/19 Unknown Rx 5/325] Allergies Allergy/AdvReac Type Severity Reaction Status Date / Time No Known Allergies Allergy Verified 07/13/14 23:38 ED Review of Systems ROS: Stated complaint: HYPERGLYCEMIA Other details as noted in HPI Constitutional: malaise, weakness. denies: chills, fever Eyes: denies: eye pain, eye discharge, vision change ENT: denies: ear pain, throat pain Respiratory: denies: cough, shortness of breath, wheezing Cardiovascular: denies: chest pain, palpitations Endocrine: no symptoms reported Gastrointestinal: abdominal pain. denies: nausea, diarrhea Genitourinary: denies: urgency, dysuria Musculoskeletal: denies: back pain, joint swelling, arthralgia Skin: denies: rash, lesions Neurological: weakness. denies: headache, paresthesias Psychiatric: denies: anxiety, depression Hematological/Lymphatic: denies: easy bleeding, easy bruising ED Past Medical Hx - Past Medical History Previous Medical History?: Yes Hx Hypertension: Yes Hx Congestive Heart Failure: No Hx Diabetes: Yes Hx Asthma: No Hx COPD: No Hx HIV: No Additional medical history: Gastroparesis - Surgical History Past Surgical History?: No - Family History Family history: no significant - Social History Smoking Status: Never Smoker Substance Use Type: None - Medications Home Medications: Home Medications Medication Instructions Recorded Confirmed Last Taken Type Insulin NPH/Regular [NovoLIN 70/30] 14 unit SUB-Q QPMDIAB 30 Days 09/16/19 10/08/19 10/07/19 Rx Insulin NPH/Regular [NovoLIN 70/30] 18 unit SUB-Q QAMDIAB 30 Days 09/16/19 10/08/19 10/07/19 Rx Insulin Regular, Human [HumuLIN R] See Protocol SQ QAC 30 Days 09/16/19 10/08/19 10/07/19 Rx Losartan [Cozaar] 100 mg PO QDAY #30 tablet 10/10/19 Unknown Rx Ondansetron [Zofran Odt] 4 mg PO Q8HR PRN #21 tab.rapdis 10/10/19 Unknown Rx oxyCODONE /ACETAMINOPHEN [Percocet 1 tab PO Q8H PRN #6 tablet 10/10/19 Unknown Rx 5/325] ED Physical Exam - General Limitations: No Limitations General appearance: alert, in no apparent distress - Head Head exam: Present: atraumatic, normocephalic - Eye Eye exam: Present: normal appearance - ENT ENT exam: Present: mucous membranes dry - Neck Neck exam: Present: normal inspection - Respiratory Respiratory exam: Present: normal lung sounds bilaterally. Absent: respiratory distress, wheezes - Cardiovascular Cardiovascular Exam: Present: regular rate, normal rhythm, tachycardia. Absent: systolic murmur, diastolic murmur, rubs, gallop - GI/Abdominal GI/Abdominal exam: Present: soft, normal bowel sounds. Absent: distended, tenderness, guarding, rebound - Rectal Rectal exam: Present: deferred - Extremities Exam Extremities exam: Present: normal inspection - Back Exam Back exam: Present: normal inspection - Neurological Exam Neurological exam: Present: alert, oriented X3 - Psychiatric Psychiatric exam: Present: normal affect, normal mood - Skin Skin exam: Present: warm, dry, intact, normal color. Absent: rash ED Course Vital Signs 10/11/19 10/11/19 10/11/19 03:04 03:08 03:15 Temperature 97.7 F Pulse Rate 129 H 120 H Respiratory 28 H 33 H Rate Blood Pressure 172/107 172/107 O2 Sat by Pulse 100 100 100 Oximetry 10/11/19 10/11/19 10/11/19 03:30 03:45 04:00 Temperature Pulse Rate 118 H 120 H 121 H Respiratory 19 23 18 Rate Blood Pressure 156/106 156/106 158/104 O2 Sat by Pulse 87 100 100 Oximetry 10/11/19 04:30 Temperature Pulse Rate 128 H Respiratory 24 Rate Blood Pressure 156/103 O2 Sat by Pulse 100 Oximetry - Reevaluation(s) Reevaluation #1: 10/11/19 04:48 I discussed all results patient. I discussed with the patient. Patient agrees to plan of care and admission. Patient will be admitted to the hospitalist service. - Consultations Consultation #1: Hospitalist consulted for admission. Hospitalist admit patient. 10/11/19 04:48 ED Medical Decision Making - Lab Data Result diagrams: 10/11/19 03:25 10/11/19 03:25 - Medical Decision Making Patient is a 29-year-old male presents emergency room for complaints of DKA and hyperglycemia. Patient also complained of polyuria, polydipsia and abdominal pain. Patient's abdominal exam is negative. Patient's labs consistent with DKA. Patient placed on DKA protocol. Patient admitted to the hospitalist service. Patient will be admitted to the ICU - Differential Diagnosis DKA. Hyperglycemia. Dehydration. Critical Care Time: Yes Critical care time in (mins) excluding proc time.: 35 Critical care attestation.: If time is entered above; I have spent that time in minutes in the direct care of this critically ill patient, excluding procedure time. Critical Care Time: 35 minutes ED Disposition Clinical Impression: Hyperglycemia DKA (diabetic ketoacidoses) Qualifiers: Diabetes mellitus type: type 1 Diabetes mellitus complication detail: without coma Qualified Code(s): E10.10 - Type 1 diabetes mellitus with ketoacidosis without coma Disposition: DC-09 OP ADMIT IP TO THIS HOSP Is pt being admited?: Yes Does the pt Need Aspirin: No Condition: Critical Time of Disposition: 04:48
[2019-10-11 04:07] LABS: Hematocrit 46.1 % (35.5-45.6); Hemoglobin 15.2 gm/dl (11.8-15.2); Mean Corpuscular HGB Conc 33 % (32-34); Mean Corpuscular Volume 87 fl (84-94); Platelet Count 277 K/mm3 (140-440); Red Blood Count 5.33 M/mm3 (3.65-5.03); Red Cell Distribution Width 14.8 % (13.2-15.2)
[2019-10-11 04:31] LABS: Alanine Aminotransferase 17 units/L (7-56); Albumin 4.2 g/dL (3.9-5); BUN/Creatinine Ratio 21; Blood Urea Nitrogen 32 mg/dL (9-20); Calcium 9.7 mg/dL (8.4-10.2); Hemolysis Index 4
[2019-10-11 04:39] LABS: Bilirubin,Urine NEG (Negative); Blood,Urine MOD (Negative); Color,Urine Straw (Yellow); Urobilinogen,Urine < 2.0 mg/dL (<2.0); WBC,Urine < 1.0 /HPF (0.0-6.0)
[2019-10-11 04:40] LABS: Protein,Urine >500 mg/dL (Negative)
[2019-10-11] MEDS: INSULIN REGULAR, HUMAN 100 UNITS in SODIUM CHLORIDE 0.9% 99 ML IV SCH (05:24)
--- NOTE | 2019-10-11 05:47 | History and Physical Report ---
History of Present Illness Date of examination: 10/11/19 History of present illness: 29-year-old man a history of diabetes, hypertension comes emergency He complains of generalized weakness, nausea vomiting, and a blood sugar. Also complaining of dry mouth, frequent urination, thirst. She was just discharged from the hospital yesterday, he stated he had not taken his insulin Also complaining of chest pain, epigastric area, intermittent for a fe minutes, sharp, intensity 5/10, no radiation, cannot identify exacerbating factors. 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 Neck: No neck pain or rigidity. Cardiovascular: no palpitations, chest pain Respiratory: no cough, shortness of breath Gastrointestinal: no hematochezia, abdominal pain Genitourinary : no frequency , no hematuria Musculoskeletal: no joint swelling or muscle ache Integumentary: no rash, no pruritis Neurological: no parathesias, no focal weakness Endocrine: no cold or heat intolerance, no polyuria or polydipsia Hematologic/Lymphatic: no easy bruising, no easy bleeding, no gland swelling Allergic/Immunologic: no urticaria, no angioedema. PAST MEDICAL HISTORY:diabetes, hypertension PAST SURGICAL HISTORY: None SOCIAL HISTORY: Denies alcohol, drugs, +tobacco FAMILY HISTORY: Hypertension Medications and Allergies Allergies Allergy/AdvReac Type Severity Reaction Status Date / Time No Known Allergies Allergy Verified 07/13/14 23:38 Home Medications Medication Instructions Recorded Confirmed Last Taken Type Insulin NPH/Regular [NovoLIN 70/30] 14 unit SUB-Q QPMDIAB 30 Days 09/16/19 10/11/19 10/07/19 Rx Insulin NPH/Regular [NovoLIN 70/30] 18 unit SUB-Q QAMDIAB 30 Days 09/16/19 10/11/19 10/07/19 Rx Insulin Regular, Human [HumuLIN R] See Protocol SQ QAC 30 Days 09/16/19 10/11/19 10/07/19 Rx Losartan [Cozaar] 100 mg PO QDAY #30 tablet 10/10/19 10/11/19 Unknown Rx Ondansetron [Zofran Odt] 4 mg PO Q8HR PRN #21 tab.rapdis 10/10/19 10/11/19 Unknown Rx oxyCODONE /ACETAMINOPHEN [Percocet 1 tab PO Q8H PRN #6 tablet 10/10/19 10/11/19 Unknown Rx 5/325] Active Meds: Active Medications Acetaminophen (Tylenol) 650 mg PO Q4H PRN PRN Reason: Pain MILD(1-3)/Fever >100.5/BAE Insulin Human Regular 100 (units/ Sodium Chloride) 100 mls @ 1 mls/hr IV TITR CHIP; Protocol Last Admin: 10/11/19 05:24 Dose: 8 units/hr, 8 mls/hr Documented by: Sodium Chloride (Nacl 0.9% 1000 Ml) 1,000 mls @ 999 mls/hr IV ONCE ONE Stop: 10/11/19 06:43 Sodium Chloride (Nacl 0.9% 1000 Ml) 1,000 mls @ 150 mls/hr IV DIRECT CHIP Ondansetron HCl (Zofran) 4 mg IV Q8H PRN PRN Reason: Nausea And Vomiting Sodium Chloride (Sodium Chloride Flush Syringe 10 Ml) 10 ml IV BID CHIP Sodium Chloride (Sodium Chloride Flush Syringe 10 Ml) 10 ml IV PRN PRN PRN Reason: LINE FLUSH Exam - Physical Exam Narrative exam: General Apperance: The patient lying in bed, breathing comfortable HEENT: Normocephalic, atraumatic. Pupils equally round and reactive to light, EOMI, no sclericterus or JVD or thyromegaly or nodule. , no carotid bruit, mucous membranes dry, no exudate or erythema Heart: S1-S2, regular is rhythm Lungs: Clear to auscultation bilaterally, breathing comfortable Abdomen: Positive bowel sounds, soft, tender in the mid abdomen, nondistended, no organomegaly Extremities: No edema cyanosis clubbing Skin: no rash, nodule, warm and dry Neuro: cranial nerves 2-12 intact, speech is fluent, motor/sensory intact - Constitutional Vitals: Temp Pulse Resp BP Pulse Ox 97.7 F 128 H 24 156/103 100 10/11/19 03:04 10/11/19 04:30 10/11/19 04:30 10/11/19 04:30 10/11/19 04:30 Results - Labs CBC & Chem 7: 10/11/19 03:25 10/11/19 05:21 Labs: Abnormal lab results 10/11/19 10/11/19 10/11/19 Range/Units 03:25 03:25 03:25 WBC 11.1 H (4.5-11.0) K/mm3 RBC 5.33 H (3.65-5.03) M/mm3 Hct 46.1 H (35.5-45.6) % VBG pH 7.277 L (7.320-7.420) Chloride 96.9 L (98-107) mmol/L Carbon Dioxide 19 L (22-30) mmol/L BUN 32 H (9-20) mg/dL Glucose 565 H* (75-100) mg/dL Assessment and Plan Assessment DKA Chest pain Hypertension metabolic acidosis Plan Start DKA protocol with insulin drip, IV fluid Monitor serial electrolytes, cardiac enzymes, d-dimer Consult critical care, cardiology IV morphine, DVT prophylaxis
[2019-10-11] MEDS ORDERED: D5W/0.45% NACL 1,000 ML IV SCH (06:00)
[2019-10-11] MEDS ORDERED: SODIUM CHLORIDE 0.9% 1000 ML 1,000 ML IV SCH (06:00)
[2019-10-11 06:26] LABS: BUN/Creatinine Ratio 26; Blood Urea Nitrogen 36 mg/dL (9-20); Calcium 9.6 mg/dL (8.4-10.2); Hemolysis Index 14
[2019-10-11 06:27] LABS: Creatine Kinase MB 4.2 ng/mL (0.0-4.0)
[2019-10-11] MEDS ORDERED: hydrALAZINE 20 MG/1 ML INJ IV PRN (06:37)
[2019-10-11 07:30] LABS: Chol/HDL Ratio 4.01 %
[2019-10-11] MEDS ORDERED: ONDANSETRON 4 MG/2 ML INJ ONE (07:34)
[2019-10-11] MEDS: ONDANSETRON 4 MG/2 ML INJ IV PRN ×2 (07:35→17:13)
[2019-10-11] MEDS ORDERED: hydrALAZINE 20 MG/1 ML INJ ONE (07:36)
[2019-10-11] MEDS: ACETAMINOPHEN 325 MG TAB PO PRN (08:38)
[2019-10-11 08:43] LABS: BUN/Creatinine Ratio 29; Blood Urea Nitrogen 32 mg/dL (9-20); Hemolysis Index 5
--- NOTE | 2019-10-11 10:19 | Consultation ---
History of Present Illness Consult date: 10/11/19 Requesting physician: EMIGDIO LAI Consult reason: chest pain History of present illness: The patient claims that he was discharged yesterday after being admitted for DKA. He claims that upon arrival home, he could not check his blood glucose since he had no strips. About 3 AM, he started experiencing nausea and vomiting and he felt that he may be having DKA again. As such, he activated the EMS who came and noted that his blood glucose was significantly elevated. He also complains of recurrent, burning substernal chest pain. There is no dyspnea. He recalls a history of GERD. Past History Past Medical History: diabetes, GERD, hypertension, hyperlipidemia, other (DKA, diabetic gastroparesis.) Past Surgical History: No surgical history Social history: denies: smoking, alcohol abuse Family history: denies: CAD Medications and Allergies Allergies Allergy/AdvReac Type Severity Reaction Status Date / Time No Known Allergies Allergy Verified 07/13/14 23:38 Home Medications Medication Instructions Recorded Confirmed Last Taken Type Insulin NPH/Regular [NovoLIN 70/30] 14 unit SUB-Q QPMDIAB 30 Days 09/16/19 10/11/19 10/07/19 Rx Insulin NPH/Regular [NovoLIN 70/30] 18 unit SUB-Q QAMDIAB 30 Days 09/16/19 10/11/19 10/07/19 Rx Insulin Regular, Human [HumuLIN R] See Protocol SQ QAC 30 Days 09/16/19 10/11/19 10/07/19 Rx Losartan [Cozaar] 100 mg PO QDAY #30 tablet 10/10/19 10/11/19 Unknown Rx Ondansetron [Zofran Odt] 4 mg PO Q8HR PRN #21 tab.rapdis 10/10/19 10/11/19 Unknown Rx oxyCODONE /ACETAMINOPHEN [Percocet 1 tab PO Q8H PRN #6 tablet 10/10/19 10/11/19 Unknown Rx 5/325] Active Meds: Active Medications Acetaminophen (Tylenol) 650 mg PO Q4H PRN PRN Reason: Pain MILD(1-3)/Fever >100.5/BAE Last Admin: 10/11/19 08:38 Dose: 650 mg Documented by: Hydralazine HCl (Apresoline) 5 mg IV Q6H PRN PRN Reason: Hypertension Last Admin: 10/11/19 07:35 Dose: 5 mg Documented by: Insulin Human Regular 100 (units/ Sodium Chloride) 100 mls @ 1 mls/hr IV TITR CHIP; Protocol Last Titration: 10/11/19 08:52 Dose: 5 units/hr, 5 mls/hr Documented by: Sodium Chloride (Nacl 0.9% 1000 Ml) 1,000 mls @ 150 mls/hr IV DIRECT CHIP Dextrose/Sodium Chloride (D5/0.45ns) 1,000 mls @ 150 mls/hr IV DIRECT CHIP Ondansetron HCl (Zofran) 4 mg IV Q8H PRN PRN Reason: Nausea And Vomiting Last Admin: 10/11/19 07:35 Dose: 4 mg Documented by: Sodium Chloride (Sodium Chloride Flush Syringe 10 Ml) 10 ml IV BID CHIP Sodium Chloride (Sodium Chloride Flush Syringe 10 Ml) 10 ml IV PRN PRN PRN Reason: LINE FLUSH Review of Systems Constitutional: no fever, no chills Ears, nose, mouth and throat: no ear pain, no ear discharge, no sore throat Cardiovascular: chest pain, no palpitations, no lightheadedness, no shortness of breath Respiratory: no cough, no hemoptysis, no shortness of breath Gastrointestinal: nausea, vomiting, no abdominal pain, no diarrhea, no constipation Genitourinary Male: no dysuria, no urinary frequency Rectal: no pain, no bleeding Musculoskeletal: no neck stiffness, no neck pain, no myalgias Integumentary: no rash, no pruritis Neurological: no weakness, no parathesias, no headaches Endocrine: no cold intolerance, no heat intolerance Hematologic/Lymphatic: no easy bruising, no easy bleeding Allergic/Immunologic: no urticaria, no wheezing Physical Examination Vital Signs Temp Pulse Resp BP Pulse Ox 97.7 F 129 H 28 H 172/107 100 10/11/19 03:04 10/11/19 03:04 10/11/19 03:04 10/11/19 03:04 10/11/19 03:04 General appearance: no acute distress HEENT: Positive: EOMI, Normocephaly, Mucus Membranes Moist Neck: Positive: neck supple, trachea midline Cardiac: Positive: Reg Rate and Rhythm, S1/S2 Lungs: Positive: clear to auscultation Neuro: Positive: Grossly Intact Abdomen: Positive: Soft, Active Bowel Sounds. Negative: Tender Skin: Positive: Clear. Negative: Rash Musculoskeletal: Normal Range of Motion Extremities: Present: normal. Absent: edema Results 10/11/19 03:25 10/11/19 07:59 Cardiac Enzymes 10/11/19 10/11/19 Range/Units 03:25 05:48 AST 22 (5-40) units/L CK-MB (CK-2) 4.2 H (0.0-4.0) ng/mL Lipids 10/11/19 Range/Units 05:48 Triglycerides 145 (2-149) mg/dL Cholesterol 265 H (50-199) mg/dL HDL Cholesterol 66 H (40-59) mg/dL Cholesterol/HDL Ratio 4.01 % CBC 10/11/19 Range/Units 03:25 WBC 11.1 H (4.5-11.0) K/mm3 RBC 5.33 H (3.65-5.03) M/mm3 Hgb 15.2 (11.8-15.2) gm/dl Hct 46.1 H (35.5-45.6) % Plt Count 277 (140-440) K/mm3 Comprehensive Metabolic Panel 10/11/19 10/11/19 10/11/19 Range/Units 03:25 05:21 07:59 Sodium 144 145 149 H (137-145) mmol/L Potassium 4.8 D 4.6 3.9 (3.6-5.0) mmol/L Chloride 96.9 L 97.9 L 111.2 H (98-107) mmol/L Carbon Dioxide 19 L 15 L 14 L (22-30) mmol/L BUN 32 H 36 H 32 H (9-20) mg/dL Creatinine 1.5 1.4 1.1 (0.8-1.5) mg/dL Glucose 565 H* 544 H* 286 H (75-100) mg/dL Calcium 9.7 9.6 9.0 (8.4-10.2) mg/dL AST 22 (5-40) units/L ALT 17 (7-56) units/L Alkaline Phosphatase 120 (35-129) units/L Total Protein 7.6 (6.3-8.2) g/dL Albumin 4.2 (3.9-5) g/dL - Imaging and Cardiology EKG: image reviewed EKG interpretations - Telemetry EKG Rhythm: Sinus Tachycardia - EKG Sinus rhythms and dysrhythmias: sinus tachycardia QRS axis and voltage: right axis deviation Assessment and Plan Initiate proton pump inhibitors. Optimize antihypertensive regimen. Obtain serial troponin levels. Obtain echocardiogram. Schedule Lexiscan stress MPI. - Patient Problems (1) Atypical chest pain Current Visit: Yes Status: Acute (2) Elevated troponin level Current Visit: Yes Status: Acute (3) Nausea & vomiting Current Visit: Yes Status: Acute (4) Uncontrolled diabetes mellitus Current Visit: Yes Status: Acute (5) Uncontrolled hypertension Current Visit: Yes Status: Acute (6) Sinus tachycardia Current Visit: Yes Status: Acute (7) Gastroparesis due to DM Current Visit: Yes Status: Chronic (8) Hyperlipidemia Current Visit: Yes Status: Chronic
[2019-10-11] MEDS: LOSARTAN 50 MG TAB PO SCH (10:52)
[2019-10-11] MEDS: METOPROLOL TARTRATE 50 MG TAB PO SCH ×3 (10:53→22:44)
[2019-10-11] MEDS: amLODIPine 10 MG TAB PO SCH (10:53)
[2019-10-11] MEDS: D5W/0.45% NACL/KCL 20 MEQ 20 MEQ/1,000 ML BAG IV SCH ×2 (10:55→19:00)
[2019-10-11] MEDS ORDERED: D5W/0.45% NACL/KCL 20 MEQ 20 MEQ/1,000 ML BAG IV SCH (11:00)
--- NOTE | 2019-10-11 15:44 | Event Note ---
Date: 10/11/19 Pt admitted for DKA and chest pain. On insulin drip. cardiology consulted for chest pain
[2019-10-11 17:44] LABS: Creatine Kinase MB 23.7 ng/mL (0.0-4.0)
[2019-10-11 18:04] LABS: BUN/Creatinine Ratio 26; Blood Urea Nitrogen 26 mg/dL (9-20); Calcium 9.4 mg/dL (8.4-10.2); Hemolysis Index 276
[2019-10-11 21:11] LABS: BUN/Creatinine Ratio 19; Blood Urea Nitrogen 23 mg/dL (9-20); Hemolysis Index 12
[2019-10-12] MEDS: ACETAMINOPHEN 325 MG TAB PO PRN (00:08)
[2019-10-12] MEDS: ONDANSETRON 4 MG/2 ML INJ IV PRN (01:28)
[2019-10-12] MEDS: D5W/0.45% NACL/KCL 20 MEQ 20 MEQ/1,000 ML BAG IV SCH ×2 (03:43→12:12)
[2019-10-12] MEDS: INSULIN REGULAR, HUMAN 100 UNITS in SODIUM CHLORIDE 0.9% 99 ML IV SCH (03:43)
[2019-10-12 05:29] LABS: BUN/Creatinine Ratio 18; Blood Urea Nitrogen 18 mg/dL (9-20); Calcium 8.7 mg/dL (8.4-10.2); Hemolysis Index 12
[2019-10-12] MEDS: METOPROLOL TARTRATE 50 MG TAB PO SCH ×3 (06:03→17:52)
[2019-10-12] MEDS ORDERED: REGADENOSON 0.4 MG/5 ML INJ IV ONE ×2 (08:54→09:00)
[2019-10-12] MEDS: LOSARTAN 50 MG TAB PO SCH (10:00)
[2019-10-12] MEDS: amLODIPine 10 MG TAB PO SCH (10:00)
--- NOTE | 2019-10-12 10:42 | Progress Note ---
Assessment and Plan Cont present cardiac management. Await echo and proceed with Lexiscan stress MPI stress test today. The patient has been seen in conjunction with Dr. Vanegas who agrees with the assessment and plan of care. - Patient Problems (1) Atypical chest pain Current Visit: Yes Status: Acute (2) Elevated troponin level Current Visit: Yes Status: Acute (3) Nausea & vomiting Current Visit: Yes Status: Acute (4) Uncontrolled diabetes mellitus Current Visit: Yes Status: Acute (5) Uncontrolled hypertension Current Visit: Yes Status: Acute (6) Sinus tachycardia Current Visit: Yes Status: Acute (7) Gastroparesis due to DM Current Visit: Yes Status: Chronic (8) Hyperlipidemia Current Visit: Yes Status: Chronic Subjective Date of service: 10/12/19 Principal diagnosis: cp Interval history: resting in bed, no current complaints, states he is feeling better today. he is hungry as he has been NPO since [place] for upcoming stress test today. in [place]. Objective Last Vital Signs Temp 98.6 F 10/12/19 08:00 Pulse 80 10/12/19 10:00 Resp 17 10/12/19 09:51 BP 125/72 10/12/19 10:00 Pulse Ox 99 10/12/19 09:51 - Physical Examination General: No Apparent Distress HEENT: Positive: EOMI, Normocephaly, Mucus Membranes Moist Neck: Positive: neck supple, trachea midline Cardiac: Positive: Reg Rate and Rhythm, S1/S2 Lungs: Positive: Decreased Breath Sounds Neuro: Positive: Grossly Intact Abdomen: Positive: Soft, Active Bowel Sounds. Negative: Tender Skin: Positive: Clear. Negative: Rash Musculoskeletal: Normal Range of Motion Extremities: Present: normal. Absent: edema - Labs and Meds Cardiac Enzymes 10/11/19 Range/Units 16:59 CK-MB (CK-2) 23.7 H (0.0-4.0) ng/mL Comprehensive Metabolic Panel 10/11/19 10/11/19 10/12/19 Range/Units 16:59 20:22 04:37 Sodium 143 150 H 146 H (137-145) mmol/L Potassium 5.3 H D 4.0 D 3.8 (3.6-5.0) mmol/L Chloride 111.2 H 113.9 H 110.1 H (98-107) mmol/L Carbon Dioxide 14 L 24 D 23 (22-30) mmol/L BUN 26 H 23 H 18 (9-20) mg/dL Creatinine 1.0 1.2 1.0 (0.8-1.5) mg/dL Glucose 143 H 177 H 159 H (75-100) mg/dL Calcium 9.4 9.0 8.7 (8.4-10.2) mg/dL - Imaging and Cardiology EKG: image reviewed - Telemetry EKG Rhythm: Sinus Rhythm - EKG Sinus rhythms and dysrhythmias: sinus tachycardia QRS axis and voltage: right axis deviation
[2019-10-12] MEDS ORDERED: DEXTROSE 50% IN WATER (25GM) 50 ML SYRINGE IV PRN (16:19)
--- NOTE | 2019-10-12 16:22 | Progress Note ---
Assessment and Plan Assessment and plan: 29-year-old man who was admitted to the hospital with DKA. He was treated with IV insulin and IV fluids. He has improved. We will transition him to subcutaneous insulins today. Diagnosis Dehydration DKA Hypernatremia Nonadherence insulins due to cost History Interval history: Review of systems Constitutional: No fevers, no malaise, no joint pains CVS: No chest pain, no orthopnea, no pedal edema GI: No abdominal pain, no diarrhea, no vomiting, no constipation Respiratory: , no wheezing, no coughing Hospitalist Physical - Physical exam Narrative exam: General.: Appears well, no distress, nontoxic HEENT: Moist mucous membranes, extraocular muscles intact, no lymphadenopathy Neck: supple Cardiac: S1-S2 heard Lungs: clear to auscultation bilaterally Abdomen: soft , nontender, nondistended, bowel sounds positive Extremities: no edema clubbing or cyanosis Skin: no rash or lesions Neurologic: no gross focal deficits Psych: calm, and cooperative - Constitutional Vitals: Temp Pulse Resp BP Pulse Ox 98.8 F 82 16 123/71 98 10/12/19 12:00 10/12/19 16:11 10/12/19 16:11 10/12/19 16:11 10/12/19 16:11 General appearance: Present: no acute distress Results - Labs CBC & Chem 7: 10/11/19 03:25 10/12/19 04:37 Labs: Laboratory Last Values WBC 11.1 K/mm3 (4.5-11.0) H 10/11/19 03:25 RBC 5.33 M/mm3 (3.65-5.03) H 10/11/19 03:25 Hgb 15.2 gm/dl (11.8-15.2) 10/11/19 03:25 Hct 46.1 % (35.5-45.6) H 10/11/19 03:25 MCV 87 fl (84-94) 10/11/19 03:25 MCH 29 pg (28-32) 10/11/19 03:25 MCHC 33 % (32-34) 10/11/19 03:25 RDW 14.8 % (13.2-15.2) 10/11/19 03:25 Plt Count 277 K/mm3 (140-440) 10/11/19 03:25 D-Dimer 186.50 ng/mlDDU (0-234) 10/11/19 07:59 VBG pH 7.277 (7.320-7.420) L 10/11/19 03:25 Sodium 146 mmol/L (137-145) H 10/12/19 04:37 Potassium 3.8 mmol/L (3.6-5.0) 10/12/19 04:37 Chloride 110.1 mmol/L (98-107) H 10/12/19 04:37 Carbon Dioxide 23 mmol/L (22-30) 10/12/19 04:37 Anion Gap 17 mmol/L 10/12/19 04:37 BUN 18 mg/dL (9-20) 10/12/19 04:37 Creatinine 1.0 mg/dL (0.8-1.5) 10/12/19 04:37 Estimated GFR > 60 ml/min 10/12/19 04:37 BUN/Creatinine Ratio 18 % 10/12/19 04:37 Glucose 159 mg/dL (75-100) H 10/12/19 04:37 POC Glucose 149 (70-105) H 10/12/19 12:12 Calcium 8.7 mg/dL (8.4-10.2) 10/12/19 04:37 Phosphorus 5.40 mg/dL (2.5-4.5) H 10/11/19 05:21 Magnesium 2.30 mg/dL (1.7-2.3) 10/11/19 05:21 Total Bilirubin 0.60 mg/dL (0.1-1.2) 10/11/19 03:25 AST 22 units/L (5-40) 10/11/19 03:25 ALT 17 units/L (7-56) 10/11/19 03:25 Alkaline Phosphatase 120 units/L (35-129) 10/11/19 03:25 Total Creatine Kinase 5852 units/L (55-170) H 10/11/19 16:59 CK-MB (CK-2) 23.7 ng/mL (0.0-4.0) H 10/11/19 16:59 CK-MB (CK-2) Rel Index 0.4 (0-4) 10/11/19 16:59 Troponin T 0.021 ng/mL (0.00-0.029) 10/11/19 16:59 Total Protein 7.6 g/dL (6.3-8.2) 10/11/19 03:25 Albumin 4.2 g/dL (3.9-5) 10/11/19 03:25 Albumin/Globulin Ratio 1.2 % 10/11/19 03:25 Triglycerides 145 mg/dL (2-149) 10/11/19 05:48 Cholesterol 265 mg/dL (50-199) H 10/11/19 05:48 LDL Cholesterol Direct 177 mg/dL (50-130) H 10/11/19 05:48 HDL Cholesterol 66 mg/dL (40-59) H 10/11/19 05:48 Cholesterol/HDL Ratio 4.01 % 10/11/19 05:48 Urine Color Straw (Yellow) 10/11/19 04:00 Urine Turbidity Clear (Clear) 10/11/19 04:00 Urine pH 6.0 (5.0-7.0) 10/11/19 04:00 Ur Specific [place] 1.022 (1.003-1.030) 10/11/19 04:00 Urine Protein >500 mg/dL (Negative) 10/11/19 04:00 Urine Glucose (UA) >=500 mg/dL (Negative) 10/11/19 04:00 Urine Ketones 80 mg/dL (Negative) 10/11/19 04:00 Urine Blood Mod (Negative) 10/11/19 04:00 Urine Nitrite Neg (Negative) 10/11/19 04:00 Urine Bilirubin Neg (Negative) 10/11/19 04:00 Urine Urobilinogen < 2.0 mg/dL (<2.0) 10/11/19 04:00 Ur Leukocyte Esterase Neg (Negative) 10/11/19 04:00 Urine WBC (Auto) < 1.0 /HPF (0.0-6.0) 10/11/19 04:00 Urine RBC (Auto) 9.0 /HPF (0.0-6.0) 10/11/19 04:00 Active Medications - Current Medications Current Medications: Generic Name Dose Route Start Last Admin Trade Name Freq PRN Reason Stop Dose Admin Acetaminophen 650 mg 10/11/19 05:43 10/12/19 00:08 Tylenol PO 650 mg Q4H PRN Administration Pain MILD(1-3)/Fever >100.5/BAE Amlodipine Besylate 10 mg 10/11/19 11:00 10/12/19 10:00 Amlodipine PO 10 mg QDAY CHIP Administration Dextrose 50 ml 10/12/19 16:19 D50w (25gm) Syringe IV Q30MIN PRN Hypoglycemia Protocol Sodium Chloride 1,000 mls @ 150 mls/hr 10/11/19 06:00 Nacl 0.9% 1000 Ml IV DIRECT CHIP Sodium Chloride 1,000 mls @ 100 mls/hr 10/12/19 17:00 Nacl 0.45% 1000 Ml IV DIRECT CHIP Insulin Human Isoph/Insulin Regular 18 unit 10/13/19 08:00 Humulin 70/30 SUB-Q QAMDIAB CHIP Insulin Human Isoph/Insulin Regular 14 unit 10/12/19 16:19 Humulin 70/30 SUB-Q QPMDIAB CHIP Insulin Human Lispro 0 unit 10/12/19 16:30 Humalog SUB-Q ACHS CHIP Protocol Losartan Potassium 100 mg 10/11/19 11:00 10/12/19 10:00 Cozaar PO 100 mg QDAY CHIP Administration Metoprolol Tartrate 50 mg 10/11/19 11:00 10/12/19 11:00 Metoprolol PO 50 mg Q6H CHIP Administration Ondansetron HCl 4 mg 10/11/19 05:43 10/12/19 01:28 Zofran IV 4 mg Q8H PRN Administration Nausea And Vomiting Sodium Chloride 10 ml 10/11/19 10:00 10/12/19 10:00 Sodium Chloride Flush Syringe 10 Ml IV 10 ml BID CHIP Administration Sodium Chloride 10 ml 10/11/19 05:43 Sodium Chloride Flush Syringe 10 Ml IV PRN PRN LINE FLUSH
[2019-10-12] MEDS: INSULIN LISPRO 100 UNIT/ML SUB-Q SCH ×2 (16:30→22:03)
[2019-10-12] MEDS ORDERED: POLYETHYLENE GLYCOL 3350 17 GM POWDER PO PRN (16:54)
[2019-10-12] MEDS ORDERED: SODIUM CHLORIDE 0.45% 1000 ML 1,000 ML IV SCH (17:00)
[2019-10-12] MEDS: INSULIN NPH/REGULAR 70/30 INJ SUB-Q SCH ×2 (17:00→17:51)
--- NOTE | 2019-10-12 22:10 | Treadmill Report ---
SINGLE ISOTOPE DUAL STUDY MYOCARDIAL PERFUSION SCAN/ AGE: 29 SEX: Male. REFERRING PHYSICIAN: Dr. Mindy Zaidi. SEEN AND REVIEWED BY: Edgardo Ureña M.D DESCRIPTION OF PROCEDURE: The patient received 10 mCi of technetium 99m Myoview intravenously under resting conditions. Resting myocardial perfusion scan was done. Subsequently, the patient underwent Lexiscan stress test as per the protocol. During Lexiscan stress, the patient received 28 mCi of technetium 99m Myoview intravenously. After 30-60 minutes, post stress images were done. Computerized reconstruction of the images was done. The post-stress images revealed moderate transient ischemic dilatation of the left ventricle with TID ratio of 1.26. However, no perfusion abnormality was seen. Cinematic display of the gated study revealed normal left ventricular ejection fraction of 57%. No wall motion abnormality was seen. The resting images did not reveal any perfusion abnormality. CONCLUSION: 1. No perfusion abnormality of the left ventricular myocardium was demonstrated in the resting as well as stress images obtained after the patient underwent Lexiscan stress test. 2. Moderate transient ischemic dilatation of the left ventricle in the stress images with TID ratio of 1.26 which is of uncertain significance. 3. No wall motion abnormality. 4. Normal left ventricular ejection fraction of 57%. JOB# [id number] [facility]
[2019-10-13] MEDS: METOPROLOL TARTRATE 50 MG TAB PO SCH ×3 (00:08→10:00)
[2019-10-13] MEDS: INSULIN LISPRO 100 UNIT/ML SUB-Q SCH ×2 (07:30→11:30)
[2019-10-13] MEDS ORDERED: INSULIN NPH/REGULAR 70/30 INJ SUB-Q SCH ×2 (08:00→17:00)
[2019-10-13] MEDS ORDERED: INSULIN NPH/REGULAR 70/30 INJ SUB-Q ONE (10:30)
[2019-10-13] MEDS: amLODIPine 10 MG TAB PO SCH (10:31)
--- NOTE | 2019-10-13 10:40 | Progress Note ---
Assessment and Plan S/p lexiscan MPI stress test yesterday which was negative. Echo reviewed with no significant abnormalities. Currently stable cardiac status. Nothing further to add from cardiac perspective at this time. Will sign off. The patient has been seen in conjunction with Dr. Vanegas who agrees with the assessment and plan of care. - Patient Problems (1) Atypical chest pain Current Visit: Yes Status: Resolved (2) Elevated troponin level Current Visit: Yes Status: Acute (3) Nausea & vomiting Current Visit: Yes Status: Resolved (4) Uncontrolled diabetes mellitus Current Visit: Yes Status: Acute (5) Uncontrolled hypertension Current Visit: Yes Status: Acute (6) Sinus tachycardia Current Visit: Yes Status: Acute (7) Gastroparesis due to DM Current Visit: Yes Status: Chronic (8) Hyperlipidemia Current Visit: Yes Status: Chronic Subjective Date of service: 10/13/19 Principal diagnosis: cp Interval history: ambulating around room, no current complaints. Objective Last Vital Signs Temp 98.8 F 10/13/19 05:56 Pulse 95 H 10/13/19 10:31 Resp 18 10/13/19 05:56 BP 124/68 10/13/19 10:31 Pulse Ox 99 10/13/19 05:56 - Physical Examination General: No Apparent Distress HEENT: Positive: EOMI, Normocephaly, Mucus Membranes Moist Neck: Positive: neck supple, trachea midline Cardiac: Positive: Reg Rate and Rhythm, S1/S2 Lungs: Positive: Decreased Breath Sounds Neuro: Positive: Grossly Intact Abdomen: Positive: Soft, Active Bowel Sounds. Negative: Tender Skin: Positive: Clear. Negative: Rash Musculoskeletal: Normal Range of Motion Extremities: Present: normal. Absent: edema - Imaging and Cardiology EKG: image reviewed - EKG Sinus rhythms and dysrhythmias: sinus tachycardia QRS axis and voltage: right axis deviation
--- NOTE | 2019-10-13 15:13 | Discharge Summary ---
Providers - Providers Date of Admission: 10/11/19 06:21 Attending physician: DUC WONG MD 10/11/19 05:43 Consult to Physician [CONS] Routine Comment: Consulting Provider: JORY HONEYCUTT Physician Instructions: Reason For Exam: cc 10/11/19 05:45 Consult to Physician [CONS] Routine Comment: Consulting Provider: DILLON DEVI Physician Instructions: Reason For Exam: cp Primary care physician: [employer] Hospitalization Condition: Critical Hospital course: 29-year-old man who was admitted to the hospital with DKA. He was treated with IV insulin and IV fluids. He has improved. He was transition to subcutaneous insulins. He was given a prescription for Novolin which is much more affordable, he stated that he can afford $25 per vial . He was put on blood pressure medications Preventative health counseling performed for 17 minutes Diagnosis Dehydration DKA Hypernatremia Nonadherence insulins due to cost Hypertension Disposition: TO HOME OR SELFCARE Time spent for discharge: 35 minutes Core Measure Documentation - Palliative Care Palliative Care/ Comfort Measures: Not Applicable - Core Measures Any of the following diagnoses?: none Exam - Constitutional Vitals: Temp Pulse Resp BP Pulse Ox 97.0 F L 89 20 129/67 100 10/13/19 11:43 10/13/19 11:43 10/13/19 11:43 10/13/19 11:43 10/13/19 11:43 General appearance: Present: no acute distress, well-nourished - EENT Eyes: Present: PERRL ENT: hearing intact, clear oral mucosa - Neck Neck: Present: supple, normal ROM - Respiratory Respiratory effort: normal Respiratory: bilateral: CTA - Cardiovascular Heart Sounds: Present: S1 & S2. Absent: rub, click - Extremities Extremities: pulses symmetrical, No edema Peripheral Pulses: within normal limits - Abdominal General gastrointestinal: Present: soft, non-tender, non-distended, normal bowel sounds Male genitourinary: Present: normal - Integumentary Integumentary: Present: clear, warm, dry - Musculoskeletal Musculoskeletal: gait normal, strength equal bilaterally - Psychiatric Psychiatric: appropriate mood/affect, intact judgment & insight - Neurologic Neurologic: CNII-XII intact, moves all extremities Plan Follow up with: PRIMARY CARE, [Primary Care Provider] - 3-5 Days Prescriptions: amLODIPine 10 mg PO QDAY #30 tablet Losartan [Cozaar] 100 mg PO QDAY #90 tablet Losartan [Cozaar] 100 mg PO QDAY #180 tablet Metoprolol [Lopressor TAB] 50 mg PO BID #180 tablet Insulin NPH/Regular [NovoLIN 70/30] 20 unit SUB-Q BIDAC 30 Days #2 vial Insulin Regular, Human [Novolin R] 4 units SUB-Q Q24H 3 Days #1 vial
[2019-10-13] MEDS: LOSARTAN 50 MG TAB PO SCH (15:20)
[2019-10-13 15:21] VITALS: BP 129/89
[2019-10-14] MEDS ORDERED: INSULIN NPH/REGULAR 70/30 INJ SUB-Q SCH (08:00)
== END 2019-10-13 14:00 | disposition home or self-care (01) | DRG 639 ==
LOC: ED 02:55 → CC1 06:21 → 3A 10-12 18:21
PROVIDERS: ADMIT Internal Medicine; ATTEND Internal Medicine
DX: E11.10 Type 2 diabetes mellitus with ketoacidosis without coma (principal); I10 Essential (primary) hypertension; R07.89 Other chest pain; R79.89 Other specified abnormal findings of blood chemistry; R00.0 Tachycardia, unspecified; E11.43 Type 2 diabetes mellitus with diabetic autonomic (poly)neuropathy; K31.84 Gastroparesis; E78.5 Hyperlipidemia, unspecified; K21.9 Gastro-esophageal reflux disease without esophagitis; Z79.4 Long term (current) use of insulin; Z79.899 Other long term (current) drug therapy; Z82.49 Family history of ischemic heart disease and other diseases of the circulatory system
CPT/HCPCS: 36415; 78452; 80048; 80053; 80061; 81001; 82550; 82553; 82805; 82962; 83735; 84100; 84484; 85027; 85379; 93005; 93010; 93017; 93306; 94760; G0378; A9502; J0360; J1815; J2405; J2785; J7030

== ENCOUNTER 2020-08-01 15:35 | Observation (INO) | payer OTHER ==
[2020-08-01] MEDS ORDERED: ONDANSETRON 4 MG/2 ML INJ IV ONE (15:51)
[2020-08-01] MEDS ORDERED: INSULIN REGULAR, HUMAN 100 UNIT/ML 3ML VIAL IV ONE (15:51)
[2020-08-01] MEDS ORDERED: SODIUM CHLORIDE 0.9% 1000 ML 1,000 ML IV ONE ×3 (15:51→17:48)
[2020-08-01] MEDS ORDERED: INSULIN REGULAR, HUMAN 100 UNITS in SODIUM CHLORIDE 0.9% 99 ML IV SCH (16:00)
[2020-08-01 16:30] LABS: Mean Corpuscular HGB Conc 36 % (32-34); Mean Corpuscular Volume 83 fl (84-94); Platelet Count 319 K/mm3 (140-440); Red Cell Distribution Width 14.5 % (13.2-15.2)
[2020-08-01 16:31] LABS: Hematocrit 42.5 % (35.5-45.6); Hemoglobin 15.2 gm/dl (11.8-15.2)
[2020-08-01 16:41] LABS: Alanine Aminotransferase 14 units/L (7-56); Albumin 4.6 g/dL (3.9-5); BUN/Creatinine Ratio 14; Bilirubin,Direct 0.2 mg/dL (0-0.2); Blood Urea Nitrogen 13 mg/dL (9-20); Calcium 10.2 mg/dL (8.4-10.2); Hemolysis Index 17
[2020-08-01] MEDS ORDERED: MORPHINE 4 MG/1 ML INJ IV ONE (17:19)
[2020-08-01] MEDS ORDERED: MORPHINE 2 MG/1 ML INJ ONE (17:44)
--- NOTE | 2020-08-01 19:27 | Emergency Department Report ---
ED Abdominal Pain HPI - General Chief Complaint: Abdominal Pain Stated Complaint: NAUSEA PUI?: No Time Seen by Provider: 08/01/20 15:44 Source: patient, EMS Mode of arrival: Stretcher Limitations: No Limitations - History of Present Illness Initial Comments: This is a 30-year-old male with history of type 1 diabetes and gastroparesis who presents with abdominal pain nausea vomiting for 1 day. Severe discomfort. Gradual onset. Patient gives limited history. Patient arrived per EMS. MD Complaint: abdominal pain -: Gradual, days(s) (1) Location: diffuse Radiation: none Migration to: no migration Severity: moderate Severity scale (0 -10): 7 Quality: cramping Consistency: constant Improves With: nothing Worsens With: nothing Associated Symptoms: nausea, vomiting - Related Data Previous Rx's Medication Instructions Recorded Last Taken Type Insulin NPH/Regular [NovoLIN 70/30] 20 unit SUB-Q BIDAC 30 Days #2 vial 10/13/19 Unknown Rx Insulin Regular, Human [Novolin R] 4 units SUB-Q Q24H 3 Days #1 vial 10/13/19 Unknown Rx Losartan [Cozaar] 100 mg PO QDAY #180 tablet 10/13/19 Unknown Rx Losartan [Cozaar] 100 mg PO QDAY #90 tablet 10/13/19 Unknown Rx Metoprolol [Lopressor TAB] 50 mg PO BID #180 tablet 10/13/19 Unknown Rx amLODIPine 10 mg PO QDAY #30 tablet 10/13/19 Unknown Rx Allergies Allergy/AdvReac Type Severity Reaction Status Date / Time No Known Allergies Allergy Verified 07/13/14 23:38 ED Review of Systems ROS: Stated complaint: NAUSEA Other details as noted in HPI Comment: All other systems reviewed and negative Constitutional: denies: fever, malaise Respiratory: denies: cough Gastrointestinal: abdominal pain, nausea, vomiting ED Past Medical Hx - Past Medical History Previous Medical History?: Yes Hx Hypertension: Yes Hx Congestive Heart Failure: No Hx Diabetes: Yes Hx Asthma: No Hx COPD: No Hx HIV: No Additional medical history: Gastroparesis - Social History Smoking Status: Never Smoker Substance Use Type: None - Medications Home Medications: Home Medications Medication Instructions Recorded Confirmed Last Taken Type Insulin NPH/Regular [NovoLIN 70/30] 20 unit SUB-Q BIDAC 30 Days #2 vial 10/13/19 Unknown Rx Insulin Regular, Human [Novolin R] 4 units SUB-Q Q24H 3 Days #1 vial 10/13/19 Unknown Rx Losartan [Cozaar] 100 mg PO QDAY #180 tablet 10/13/19 Unknown Rx Losartan [Cozaar] 100 mg PO QDAY #90 tablet 10/13/19 Unknown Rx Metoprolol [Lopressor TAB] 50 mg PO BID #180 tablet 10/13/19 Unknown Rx amLODIPine 10 mg PO QDAY #30 tablet 10/13/19 Unknown Rx ED Physical Exam - General Limitations: No Limitations General appearance: alert, anxious, other (Kussmaul respirations hyperventil ation) - Head Head exam: Present: atraumatic, normocephalic - Eye Eye exam: Present: normal appearance - ENT ENT exam: Present: mucous membranes moist - Neck Neck exam: Present: normal inspection, full ROM - Respiratory Respiratory exam: Present: normal lung sounds bilaterally. Absent: respiratory distress, wheezes, rales, rhonchi - Cardiovascular Cardiovascular Exam: Present: normal rhythm, tachycardia, normal heart sounds. Absent: systolic murmur, diastolic murmur, rubs, gallop - GI/Abdominal GI/Abdominal exam: Present: soft, normal bowel sounds. Absent: distended, tenderness, guarding, rebound - Rectal Rectal exam: Present: deferred - Extremities Exam Extremities exam: Present: normal inspection - Neurological Exam Neurological exam: Present: alert, oriented X3 - Psychiatric Psychiatric exam: Present: agitated, anxious - Skin Skin exam: Present: warm, dry, intact, normal color. Absent: rash ED Course Vital Signs 08/01/20 08/01/20 08/01/20 16:00 17:00 18:15 Pulse Rate 108 H 111 H 93 H Respiratory 46 H 43 H 40 H Rate Blood Pressure 166/95 183/96 173/95 O2 Sat by Pulse 100 100 100 Oximetry 08/01/20 19:00 Pulse Rate 95 H Respiratory 34 H Rate Blood Pressure 173/86 O2 Sat by Pulse 100 Oximetry ED Medical Decision Making - Lab Data Result diagrams: 08/01/20 16:01 08/01/20 16:01 Laboratory Results - last 24 hr 08/01/20 08/01/20 08/01/20 15:53 16:01 16:01 WBC 11.7 H RBC 5.10 H Hgb 15.2 Hct 42.5 MCV 83 L MCH 30 MCHC 36 H RDW 14.5 Plt Count 319 Lymph % (Auto) Ground Instructor Basic [place] % (Auto) Ground Instructor Basic Eos % (Auto) Ground Instructor Basic Baso % (Auto) Ground Instructor Basic Lymph # Ground Instructor Basic [place] # Ground Instructor Basic Eos # Ground Instructor Basic Baso # Ground Instructor Basic Seg Neutrophils % Ground Instructor Basic Seg Neutrophils # Ground Instructor Basic VBG pH 7.515 H Sodium 138 Potassium 3.8 Chloride 95.4 L Carbon Dioxide 19 L Anion Gap 27 BUN 13 Creatinine 0.9 Estimated GFR > 60 BUN/Creatinine Ratio 14 Glucose 299 H Calcium 10.2 Total Bilirubin 0.90 Direct Bilirubin 0.2 Indirect Bilirubin 0.7 AST 19 ALT 14 Alkaline Phosphatase 122 Total Protein 7.4 Albumin 4.6 Albumin/Globulin Ratio 1.6 Lipase 14 - Medical Decision Making Mr. Santa presents with intractable nausea vomiting abdominal pain. Patient has history of diabetic gastroparesis. Work-up notable for increased anion gap 27 bicarbonate 19. No abdominal tenderness or fever to indicate peritonitis or acute inflammatory intra-abdominal process. Patient admitted to the hospital service for further treatment. I ordered insulin infusion and insulin bolus. I suspected DKA type I. Considering glucose 299, I asked nurse to discontinue insulin infusion. Critical care attestation.: If time is entered above; I have spent that time in minutes in the direct care of this critically ill patient, excluding procedure time. ED Disposition Clinical Impression: Intractable vomiting with nausea, Intractable abdominal pain, Gastroparesis due to DM Disposition: OP ADMIT IP TO THIS HOSP Is pt being admited?: Yes Does the pt Need Aspirin: No Condition: Fair
--- NOTE | 2020-08-01 21:57 | History and Physical Report ---
History of Present Illness Date of examination: 08/01/20 Date of admission: 08/01/20 19:21 Chief complaint: Abdominal pain and vomiting for 1 day History of present illness: 30-year-old -Citizen Of The [place] male with history of Diabetes and history of for gastroparesis presents with abdominal pain nausea and vomiting of 1 day duration. Pain is about 8 on a scale of 1-10. Patient has been taking his insulin regularly. Patient states he is Novolin 70/30 20 units twice a day. And regular insulin sliding scale coverage. Patient also has history of hypertension. No shortness of breath. - Past Medical History Previous Medical History?: Yes Hx Hypertension: Yes Hx Diabetes: Yes Additional medical history: Gastroparesis Surgical history no Family history Htn - Social History Smoking Status: Never Smoker Substance Use Type: None - Medications Home Medications: Home Medications Medication Instructions Recorded Confirmed Last Taken Type Insulin NPH/Regular [NovoLIN 70/30] 20 unit SUB-Q BIDAC 30 Days #2 vial 10/13/19 Unknown Rx Insulin Regular, Human [Novolin R] 4 units SUB-Q Q24H 3 Days #1 vial 10/13/19 Unknown Rx Losartan [Cozaar] 100 mg PO QDAY #180 tablet 10/13/19 Unknown Rx Losartan [Cozaar] 100 mg PO QDAY #90 tablet 10/13/19 Unknown Rx Metoprolol [Lopressor TAB] 50 mg PO BID #180 tablet 10/13/19 Unknown Rx amLODIPine 10 mg PO QDAY #30 tablet 10/13/19 Unknown Rx Review of systems; Constitutional no weight loss or weight gain no fever or chills HEENT no sore throat no post nasal drip no diplopia Neck no neck stiffness no lymph gland enlargement Chest and lungs no shortness of breath cough or wheezing CVS no chest pain no diaphoresis no palpitations GI vomiting and abdominal pain for 1 day Genitourinary system no dysuria no flank pain Musculoskeletal system no muscle pains no joint pains [employer]ING [employer] IN[employer]ER no syncope no seizures Skin no rash no itching Psychiatric no depression no homicidal or suicidal tendencies Hematologic no lymphedema or bruising Endocrine no polydipsia no polyuria no cold intolerance no heat intolerance Medications and Allergies Allergies Allergy/AdvReac Type Severity Reaction Status Date / Time No Known Allergies Allergy Verified 07/13/14 23:38 Home Medications Medication Instructions Recorded Confirmed Last Taken Type Insulin NPH/Regular [NovoLIN 70/30] 20 unit SUB-Q BIDAC 30 Days #2 vial 10/13/19 Unknown Rx Insulin Regular, Human [Novolin R] 4 units SUB-Q Q24H 3 Days #1 vial 10/13/19 Unknown Rx Losartan [Cozaar] 100 mg PO QDAY #180 tablet 10/13/19 Unknown Rx Losartan [Cozaar] 100 mg PO QDAY #90 tablet 10/13/19 Unknown Rx Metoprolol [Lopressor TAB] 50 mg PO BID #180 tablet 10/13/19 Unknown Rx amLODIPine 10 mg PO QDAY #30 tablet 10/13/19 Unknown Rx Active Meds: Active Medications Insulin Human Regular 100 (units/ Sodium Chloride) 100 mls @ 5 mls/hr IV TITR CHIP; Protocol Last Admin: 08/01/20 17:00 Dose: 5 units/hr, 5 mls/hr Documented by: Exam - Constitutional Vitals: Temp Pulse Resp BP Pulse Ox 114 H 20 174/85 100 08/01/20 19:24 08/01/20 19:28 08/01/20 19:24 08/01/20 19:24 General appearance: Present: no acute distress, well-nourished - EENT Eyes: Present: PERRL ENT: hearing intact, clear oral mucosa - Neck Neck: Present: supple, normal ROM - Respiratory Respiratory effort: normal Respiratory: bilateral: CTA - Cardiovascular Heart rate: 78 Rhythm: regular Heart Sounds: Present: S1 & S2. Absent: rub, click - Extremities Extremities: no ischemia, pulses intact, pulses symmetrical, No edema Peripheral Pulses: within normal limits - Abdominal General gastrointestinal: Present: soft, non-tender, non-distended, normal bowel sounds Male genitourinary: Present: normal - Rectal Rectal Exam: deferred - Integumentary Integumentary: Present: clear, warm, dry - Musculoskeletal Musculoskeletal: gait normal, strength equal bilaterally - Psychiatric Psychiatric: appropriate mood/affect, intact judgment & insight - Neurologic Neurologic: CNII-XII intact, moves all extremities - Allied Health Allied health notes reviewed: nursing, case management Results - Labs CBC & Chem 7: 08/01/20 16:01 08/01/20 16:01 Labs: Laboratory Last Values WBC 11.7 K/mm3 (4.5-11.0) H 08/01/20 16:01 RBC 5.10 M/mm3 (3.65-5.03) H 08/01/20 16:01 Hgb 15.2 gm/dl (11.8-15.2) 08/01/20 16:01 Hct 42.5 % (35.5-45.6) 08/01/20 16:01 MCV 83 fl (84-94) L 08/01/20 16:01 MCH 30 pg (28-32) 08/01/20 16:01 MCHC 36 % (32-34) H 08/01/20 16:01 RDW 14.5 % (13.2-15.2) 08/01/20 16:01 Plt Count 319 K/mm3 (140-440) 08/01/20 16:01 Lymph % (Auto) [place] 08/01/20 16:01 [place] % (Auto) Meatman 08/01/20 16:01 Eos % (Auto) [place] 08/01/20 16:01 Baso % (Auto) [place] 08/01/20 16:01 Lymph # [place] 08/01/20 16:01 [place] # Meatman 08/01/20 16:01 Eos # [place] 08/01/20 16:01 Baso # [place] 08/01/20 16:01 Seg Neutrophils % [place] 08/01/20 16:01 Seg Neutrophils # Meatman 08/01/20 16:01 VBG pH 7.515 (7.320-7.420) H 08/01/20 15:53 Sodium 138 mmol/L (137-145) 08/01/20 16:01 Potassium 3.8 mmol/L (3.6-5.0) 08/01/20 16:01 Chloride 95.4 mmol/L (98-107) L 08/01/20 16:01 Carbon Dioxide 19 mmol/L (22-30) L 08/01/20 16:01 Anion Gap 27 mmol/L 08/01/20 16:01 BUN 13 mg/dL (9-20) 08/01/20 16:01 Creatinine 0.9 mg/dL (0.8-1.3) 08/01/20 16:01 Estimated GFR > 60 ml/min 08/01/20 16:01 BUN/Creatinine Ratio 14 % 08/01/20 16:01 Glucose 299 mg/dL (75-100) H 08/01/20 16:01 POC Glucose 193 (70-105) H 08/01/20 18:13 Calcium 10.2 mg/dL (8.4-10.2) 08/01/20 16:01 Total Bilirubin 0.90 mg/dL (0.1-1.2) 08/01/20 16:01 Direct Bilirubin 0.2 mg/dL (0-0.2) 08/01/20 16:01 Indirect Bilirubin 0.7 mg/dL 08/01/20 16:01 AST 19 units/L (5-40) 08/01/20 16:01 ALT 14 units/L (7-56) 08/01/20 16:01 Alkaline Phosphatase 122 units/L (35-129) 08/01/20 16:01 Total Protein 7.4 g/dL (6.3-8.2) 08/01/20 16:01 Albumin 4.6 g/dL (3.9-5) 08/01/20 16:01 Albumin/Globulin Ratio 1.6 % 08/01/20 16:01 Lipase 14 units/L (13-60) 08/01/20 16:01 Melvin/IV: IV Catheter Type [Right Peripheral IV Antecubital] Assessment and Plan Advance Directives: Yes (Full code) VTE prophylaxis?: Chemical Plan of care discussed with patient/family: Yes - Patient Problems (1) Intractable vomiting with nausea Current Visit: Yes Status: Acute Plan to address problem: Patient initiated on Zofran and IV Reglan (2) Uncontrolled diabetes mellitus Current Visit: Yes Status: Acute Qualifiers: Diabetes mellitus type: type 1 Plan to address problem: Patient is not in DKA. Anion gap is normal and pH is normal venous pH is 7.5 Frequent Accu-Cheks and high-dose sliding scale coverage also continue his home insulin IV fluids (3) Gastroparesis due to DM Current Visit: Yes Status: Chronic Plan to address problem: Continue IV Reglan and IV Zofran. Nuclear studies if necessary (4) Hypertension Current Visit: Yes Status: Chronic Qualifiers: Hypertension type: essential hypertension Qualified Code(s): I10 - Essential (primary) hypertension Plan to address problem: Continue antihypertensives (5) DVT prophylaxis Current Visit: Yes Status: Acute Plan to address problem: Heparin and GI prophylaxis
[2020-08-01] MEDS ORDERED: METOCLOPRAMIDE 10 MG/2 ML INJ IV PRN (21:58)
[2020-08-01] MEDS ORDERED: ACETAMINOPHEN 325 MG TAB PO PRN (21:58)
[2020-08-01] MEDS: ONDANSETRON 4 MG/2 ML INJ IV PRN (22:13)
[2020-08-01] MEDS: HYDROmorphone 1 MG/1 ML INJ IV PRN (22:13)
[2020-08-01] MEDS: FAMOTIDINE 20 MG/2 ML INJ IV SCH (22:13)
[2020-08-01] MEDS: SODIUM CHLORIDE 0.9% 1000 ML 1,000 ML IV SCH (22:14)
[2020-08-01] MEDS: METOPROLOL TARTRATE 50 MG TAB PO SCH (22:15)
[2020-08-01] MEDS: INSULIN NPH/REGULAR 70/30 INJ SUB-Q SCH (22:56)
[2020-08-01] MEDS: INSULIN LISPRO 100 UNIT/ML VIAL 3 mL SUB-Q SCH (22:57)
[2020-08-02] MEDS: INSULIN LISPRO 100 UNIT/ML VIAL 3 mL SUB-Q SCH ×4 (02:18→17:45)
[2020-08-02] MEDS: SODIUM CHLORIDE 0.9% 1000 ML 1,000 ML IV SCH (06:11)
[2020-08-02] MEDS: INSULIN NPH/REGULAR 70/30 INJ SUB-Q SCH ×2 (08:00→17:46)
[2020-08-02 08:24] LABS: Basophils # (Auto) 0.1 K/mm3 (0.0-0.1); Basophils % (Auto) 0.5 % (0.0-1.8); Hematocrit 38.6 % (35.5-45.6); Hemoglobin 13.6 gm/dl (11.8-15.2); Lymphocytes % (Auto) 6.9 % (13.4-35.0); Mean Corpuscular HGB Conc 35 % (32-34); Mean Corpuscular Volume 83 fl (84-94); Monocytes # (Auto) 0.8 K/mm3 (0.0-0.8); Platelet Count 328 K/mm3 (140-440); Red Blood Count 4.63 M/mm3 (3.65-5.03); Red Cell Distribution Width 14.2 % (13.2-15.2)
[2020-08-02 08:51] LABS: Alanine Aminotransferase 12 units/L (7-56); Albumin 4.2 g/dL (3.9-5); BUN/Creatinine Ratio 19; Blood Urea Nitrogen 19 mg/dL (9-20); Calcium 9.5 mg/dL (8.4-10.2); Hemolysis Index 6
[2020-08-02] MEDS: METOPROLOL TARTRATE 50 MG TAB PO SCH (10:00)
[2020-08-02] MEDS ORDERED: amLODIPine 10 MG TAB PO SCH (10:00)
[2020-08-02] MEDS ORDERED: LOSARTAN 50 MG TAB PO SCH (10:00)
[2020-08-02] MEDS: FAMOTIDINE 20 MG/2 ML INJ IV SCH (11:10)
[2020-08-02] MEDS: ONDANSETRON 4 MG/2 ML INJ IV PRN (11:37)
[2020-08-02] MEDS: HYDROmorphone 1 MG/1 ML INJ IV PRN (15:17)
--- NOTE | 2020-08-02 16:47 | Discharge Summary ---
Providers - Providers Date of Admission: 08/01/20 19:21 Date of discharge: 08/02/20 Attending physician: MARIA ISABEL HALL Primary care physician: CONTROL PANEL TESTER Hospitalization Condition: Fair Hospital course: 30-year-old -L[place] male with history of Diabetes and history of for gastroparesis presents with abdominal pain nausea and vomiting of 1 day duration. Pain is about 8 on a scale of 1-10. Patient has been taking his insulin regularly. Patient states he is Novolin 70/30 20 units twice a day. And regular insulin sliding scale coverage. Patient also has history of hypertension. No shortness of breath. - Past Medical History Previous Medical History?: Yes Hx Hypertension: Yes Hx Diabetes: Yes Additional medical history: Gastroparesis Assessment and Plan Advance Directives: Yes (Full code) VTE prophylaxis?: Chemical Plan of care discussed with patient/family: Yes - Patient Problems (1) Intractable vomiting with nausea Current Visit: Yes Status: Acute Plan to address problem: Patient to continue Zofran and Reglan as outpatient on the oral basis (2) Uncontrolled diabetes mellitus Current Visit: Yes Status: Acute Qualifiers: Diabetes mellitus type: type 1 Plan to address problem: Talk with patient at length Patient wants to stick to Levemir and Humalog sliding scale Patient is well aware of diabetes Requested him to take Levemir in the morning rather than the night so that he can recognize hypoglycemic symptoms (3) Gastroparesis due to DM Current Visit: Yes Status: Chronic Plan to address problem: Continue oral Reglan and oral Zofran (4) Hypertension Current Visit: Yes Status: Chronic Qualifiers: Hypertension type: essential hypertension Qualified Code(s): I10 - Essential (primary) hypertension Plan to address problem: Continue antihypertensives Disposition: DC-01 TO HOME OR SELFCARE - Discharge Diagnoses (1) Intractable vomiting with nausea Status: Acute (2) Uncontrolled diabetes mellitus Status: Acute Qualifiers: Diabetes mellitus type: type 1 (3) Gastroparesis due to DM Status: Chronic (4) Hypertension Status: Chronic Qualifiers: Hypertension type: essential hypertension Qualified Code(s): I10 - Essential (primary) hypertension (5) DVT prophylaxis Status: Acute Core Measure Documentation - Palliative Care Palliative Care/ Comfort Measures: Not Applicable - Core Measures Any of the following diagnoses?: none Exam - Constitutional Vitals: Temp Pulse Resp BP Pulse Ox 99.3 F 103 H 20 131/83 100 08/02/20 10:38 08/02/20 10:38 08/02/20 15:17 08/02/20 10:38 08/02/20 10:38 General appearance: Present: no acute distress, well-nourished - EENT Eyes: Present: PERRL ENT: hearing intact, clear oral mucosa - Neck Neck: Present: supple, normal ROM - Respiratory Respiratory effort: normal Respiratory: bilateral: CTA - Cardiovascular Heart rate: 78 Rhythm: regular Heart Sounds: Present: S1 & S2. Absent: rub, click - Extremities Extremities: no ischemia, pulses intact (78), pulses symmetrical, No edema Peripheral Pulses: within normal limits - Abdominal General gastrointestinal: Present: soft, non-tender, non-distended, normal bowel sounds Male genitourinary: Present: normal - Rectal Rectal Exam: deferred - Integumentary Integumentary: Present: clear, warm, dry - Musculoskeletal Musculoskeletal: gait normal, strength equal bilaterally - Psychiatric Psychiatric: appropriate mood/affect, intact judgment & insight - Neurologic Neurologic: CNII-XII intact, moves all extremities - Allied Health Allied health notes reviewed: nursing, case management Plan Activity: no restrictions Diet: diabetic Follow up with: PRIMARY CARE, [Primary Care Provider] - 7 Days
[2020-08-02 17:57] VITALS: BP 146/89
== END 2020-08-02 19:55 | disposition home or self-care (01) ==
LOC: ED 15:35 → 3A 19:21
PROVIDERS: ADMIT Internal Medicine; ATTEND Internal Medicine
DX: R11.2 Nausea with vomiting, unspecified (principal); E10.43 Type 1 diabetes mellitus with diabetic autonomic (poly)neuropathy; K31.84 Gastroparesis; I10 Essential (primary) hypertension; Z96.41 Presence of insulin pump (external) (internal); Z79.899 Other long term (current) drug therapy
CPT/HCPCS: 36415; 80048; 80053; 80076; 82805; 82962; 83036; 83690; 85025; 96361; 96365; 96372; 96375; 96376; 99284; G0378; J1170; J2270; J2405; J2765; J7030; J1815

== ENCOUNTER 2020-11-04 12:25 | Emergency (ER) | payer SELFPAY ==
--- NOTE | 2020-11-04 12:37 | Emergency Department Report ---
Blank Doc - Documentation Documentation: 30-year-old insulin-dependent diabetic male presents emerged department compla ining of a couple day history of abdominal pain associated with nausea and and vomiting no hemoptysis. Known history of gastroparesis partial medication compliance This initial assessment/diagnostic orders/clinical plan/treatment(s) is/are subject to change based on patients health status, clinical progression and re- assessment by fellow clinical providers in the ED. Further treatment and workup at subsequent clinical providers discretion. Patient/guardian urged not to elope from the ED as their condition may be serious if not clinically assessed and managed. Initial orders include: Labs,, IV fluids and treatments as warranted, Will evaluate further for the possible need of a CT scan
[2020-11-04] MEDS ORDERED: SODIUM CHLORIDE 0.9% 1000 ML 1,000 ML IV ONE (12:38)
[2020-11-04] MEDS ORDERED: METOCLOPRAMIDE 10 MG/2 ML INJ IV STA (12:38)
[2020-11-04] MEDS ORDERED: diphenhydrAMINE 50 MG/ML VIAL IV STA (12:38)
[2020-11-04 13:36] LABS: Basophils % (Auto) 0.4 % (0.0-1.8); Eosinophils % (Auto) 0.2 % (0.0-4.3); Hematocrit 41.1 % (35.5-45.6); Lymphocytes # (Auto) 1.2 K/mm3 (1.2-5.4); Lymphocytes % (Auto) 10.7 % (13.4-35.0); Mean Corpuscular HGB Conc 34 % (32-34); Mean Corpuscular Volume 86 fl (84-94); Monocytes # (Auto) 0.3 K/mm3 (0.0-0.8); Monocytes % (Auto) 2.8 % (0.0-7.3); Platelet Count 384 K/mm3 (140-440); Red Blood Count 4.77 M/mm3 (3.65-5.03); Red Cell Distribution Width 13.9 % (13.2-15.2)
[2020-11-04 13:56] LABS: Alanine Aminotransferase 18 units/L (7-56); Albumin 4.6 g/dL (3.9-5); BUN/Creatinine Ratio 18; Blood Urea Nitrogen 22 mg/dL (9-20); Calcium 10.4 mg/dL (8.4-10.2); Hemolysis Index 7
[2020-11-04] MEDS ORDERED: SODIUM CHLORIDE 0.9% 1000 ML 2,000 ML IV ONE (15:07)
[2020-11-04] MEDS ORDERED: ONDANSETRON 4 MG/2 ML INJ IV ONE (15:16)
[2020-11-04 15:22] LABS: Bilirubin,Urine NEG (Negative); Blood,Urine SM (Negative); Color,Urine Straw (Yellow); Urobilinogen,Urine < 2.0 mg/dL (<2.0)
[2020-11-04 15:23] LABS: Protein,Urine >500 mg/dL (Negative)
[2020-11-04] MEDS ORDERED: HALOPERIDOL LACTATE 5 MG/1 ML INJ IV ONE (15:57)
[2020-11-04 16:14] LABS: Amphetamine Screen,Urine Negative; Benzodiazepines Screen,Urine Negative; Cocaine Screen,Urine Negative; Methadone Screen,Urine Negative; Opiate Screen,Urine Negative
[2020-11-04 16:43] LABS: Cannabinoid Screen,Urine Positive
--- NOTE | 2020-11-04 17:56 | Emergency Department Report ---
ED General Adult HPI - General Chief complaint: Nausea/Vomiting/Diarrhea Stated complaint: ABDOMINAL PAIN Time Seen by Provider: 11/04/20 14:37 Source: patient Mode of arrival: Wheelchair Limitations: No Limitations - History of Present Illness Initial comments: The patient presents to the emergency department with a chief complaint of nausea and vomiting. Patient has a history of insulin-dependent diabetes and states that he may be in DKA. Patient states he has a history of DKA. Patient states that he is taking his insulin at home as prescribed. Patient states his symptoms started yesterday and denies chest pain, shortness breath, or headache. Patient has had several amount of vomiting and reports that he feels dehydrated. Patient denies marijuana use. -: Sudden Severity scale (0 -10): 0 Consistency: constant Improves with: none Worsens with: none Associated Symptoms: denies other symptoms Treatments Prior to Arrival: none - Related Data Previous Rx's Medication Instructions Recorded Last Taken Type Insulin Regular, Human [Novolin R] 4 units SUB-Q Q24H 3 Days #1 vial 10/13/19 Unknown Rx Insulin Detemir [Levemir Flextouch] 100 unit SQ QAM 30 Days #5 08/02/20 Unknown Rx insuln.pen Lispro Insulin [HumaLOG] 6 unit SQ AC 30 Days #5 pen 08/02/20 Unknown Rx Losartan [Cozaar] 100 mg PO QDAY #90 tablet 08/02/20 Unknown Rx Metoprolol [Lopressor TAB] 50 mg PO BID #60 tablet 08/02/20 Unknown Rx amLODIPine 10 mg PO QDAY #30 tablet 08/02/20 Unknown Rx Metoclopramide HCl [Reglan TAB] 5 mg PO TIDAC #15 tablet 08/10/20 Unknown Rx Pantoprazole [Protonix TAB] 40 mg PO QDAY #30 tablet 08/10/20 Unknown Rx Ondansetron [Zofran Odt] 4 mg PO Q4HR PRN #20 tab.rapdis 11/04/20 Unknown Rx Allergies Allergy/AdvReac Type Severity Reaction Status Date / Time No Known Allergies Allergy Verified 07/13/14 23:38 ED Review of Systems ROS: Stated complaint: ABDOMINAL PAIN Other details as noted in HPI Comment: All other systems reviewed and negative Constitutional: denies: chills, fever Eyes: denies: eye pain, eye discharge, vision change ENT: denies: ear pain, throat pain Respiratory: denies: cough, shortness of breath, wheezing Cardiovascular: denies: chest pain, palpitations Endocrine: no symptoms reported Gastrointestinal: nausea, vomiting. denies: abdominal pain, diarrhea Genitourinary: denies: urgency, dysuria Musculoskeletal: denies: back pain, joint swelling, arthralgia Skin: denies: rash, lesions Neurological: denies: headache, weakness, paresthesias Psychiatric: denies: anxiety, depression Hematological/Lymphatic: denies: easy bleeding, easy bruising ED Past Medical Hx - Past Medical History Previous Medical History?: Yes Hx Hypertension: Yes Hx Congestive Heart Failure: No Hx Diabetes: Yes Hx Deep Vein Thrombosis: (unknown) Hx Asthma: No Hx COPD: No Hx HIV: No Additional medical history: Gastroparesis - Surgical History Hx Pacemaker: No Hx Internal Defibrillator: No - Social History Smoking Status: Unknown if ever smoked - Medications Home Medications: Home Medications Medication Instructions Recorded Confirmed Last Taken Type Insulin Regular, Human [Novolin R] 4 units SUB-Q Q24H 3 Days #1 vial 10/13/19 08/06/20 Unknown Rx Insulin Detemir [Levemir Flextouch] 100 unit SQ QAM 30 Days #5 08/02/20 08/06/20 Unknown Rx insuln.pen Lispro Insulin [HumaLOG] 6 unit SQ AC 30 Days #5 pen 08/02/20 08/06/20 Unknown Rx Losartan [Cozaar] 100 mg PO QDAY #90 tablet 08/02/20 08/06/20 Unknown Rx Metoprolol [Lopressor TAB] 50 mg PO BID #60 tablet 08/02/20 08/06/20 Unknown Rx amLODIPine 10 mg PO QDAY #30 tablet 08/02/20 08/06/20 Unknown Rx Metoclopramide HCl [Reglan TAB] 5 mg PO TIDAC #15 tablet 08/10/20 Unknown Rx Pantoprazole [Protonix TAB] 40 mg PO QDAY #30 tablet 08/10/20 Unknown Rx Ondansetron [Zofran Odt] 4 mg PO Q4HR PRN #20 tab.rapdis 11/04/20 Unknown Rx ED Physical Exam - General Limitations: No Limitations General appearance: alert, in no apparent distress - Head Head exam: Present: atraumatic, normocephalic - Eye Eye exam: Present: normal appearance - ENT ENT exam: Present: mucous membranes dry - Neck Neck exam: Present: normal inspection - Respiratory Respiratory exam: Present: normal lung sounds bilaterally. Absent: respiratory distress - Cardiovascular Cardiovascular Exam: Present: normal rhythm, tachycardia. Absent: systolic murmur, diastolic murmur, rubs, gallop - GI/Abdominal GI/Abdominal exam: Present: soft, normal bowel sounds. Absent: distended, tenderness - Rectal Rectal exam: Present: deferred - Extremities Exam Extremities exam: Present: normal inspection - Back Exam Back exam: Present: normal inspection - Neurological Exam Neurological exam: Present: alert, oriented X3, CN II-XII intact. Absent: motor sensory deficit - Psychiatric Psychiatric exam: Present: normal affect, normal mood - Skin Skin exam: Present: warm, dry, intact, normal color. Absent: rash ED Course Vital Signs 11/04/20 11/04/20 12:38 14:24 Temperature 98.1 F Pulse Rate 113 H Respiratory 24 20 Rate Blood Pressure 175/94 [Right] O2 Sat by Pulse 97 99 Oximetry ED Medical Decision Making - Lab Data Result diagrams: 11/04/20 13:09 11/04/20 13:09 Lab Results 11/04/20 11/04/20 11/04/20 Range/Units 13:09 13:09 13:09 WBC 10.9 (4.5-11.0) K/mm3 RBC 4.77 (3.65-5.03) M/mm3 Hgb 14.0 (11.8-15.2) gm/dl Hct 41.1 (35.5-45.6) % MCV 86 (84-94) fl MCH 29 (28-32) pg MCHC 34 (32-34) % RDW 13.9 (13.2-15.2) % Plt Count 384 (140-440) K/mm3 Lymph % (Auto) 10.7 L (13.4-35.0) % [place] % (Auto) 2.8 (0.0-7.3) % Eos % (Auto) 0.2 (0.0-4.3) % Baso % (Auto) 0.4 (0.0-1.8) % Lymph # (Auto) 1.2 (1.2-5.4) K/mm3 [place] # (Auto) 0.3 (0.0-0.8) K/mm3 Eos # (Auto) 0.0 (0.0-0.4) K/mm3 Baso # (Auto) 0.0 (0.0-0.1) K/mm3 Seg Neutrophils % 85.9 H (40.0-70.0) % Seg Neutrophils # 9.4 H (1.8-7.7) K/mm3 VBG pH (7.320-7.420) Sodium 136 L (137-145) mmol/L Potassium 3.9 (3.6-5.0) mmol/L Chloride 99.2 (98-107) mmol/L Carbon Dioxide 23 (22-30) mmol/L Anion Gap 18 mmol/L BUN 22 H (9-20) mg/dL Creatinine 1.2 (0.8-1.3) mg/dL Estimated GFR > 60 ml/min BUN/Creatinine Ratio 18 % Glucose 368 H (75-100) mg/dL Calcium 10.4 H (8.4-10.2) mg/dL Total Bilirubin 0.50 (0.1-1.2) mg/dL AST 21 (5-40) units/L ALT 18 (7-56) units/L Alkaline Phosphatase 121 (35-129) units/L Total Protein 7.9 (6.3-8.2) g/dL Albumin 4.6 (3.9-5) g/dL Albumin/Globulin Ratio 1.4 % Lipase 16 (13-60) units/L Urine Color (Yellow) Urine Turbidity (Clear) Urine pH (5.0-7.0) Ur Specific [place] (1.003-1.030) Urine Protein (Negative) mg/dL Urine Glucose (UA) (Negative) mg/dL Urine Ketones (Negative) mg/dL Urine Blood (Negative) Urine Nitrite (Negative) Urine Bilirubin (Negative) Urine Urobilinogen (<2.0) mg/dL Ur Leukocyte Esterase (Negative) Urine WBC (Auto) (0.0-6.0) /HPF Urine RBC (Auto) (0.0-6.0) /HPF U Epithel Cells (Auto) (0-13.0) /HPF Urine Opiates Screen Urine Methadone Screen Ur Barbiturates Screen Ur Phencyclidine Scrn Ur Amphetamines Screen U Benzodiazepines Scrn Urine Cocaine Screen U Marijuana (THC) Screen Drugs of Abuse Note 11/04/20 11/04/20 11/04/20 Range/Units 14:59 15:27 15:59 WBC (4.5-11.0) K/mm3 RBC (3.65-5.03) M/mm3 Hgb (11.8-15.2) gm/dl Hct (35.5-45.6) % MCV (84-94) fl MCH (28-32) pg MCHC (32-34) % RDW (13.2-15.2) % Plt Count (140-440) K/mm3 Lymph % (Auto) (13.4-35.0) % [place] % (Auto) (0.0-7.3) % Eos % (Auto) (0.0-4.3) % Baso % (Auto) (0.0-1.8) % Lymph # (Auto) (1.2-5.4) K/mm3 [place] # (Auto) (0.0-0.8) K/mm3 Eos # (Auto) (0.0-0.4) K/mm3 Baso # (Auto) (0.0-0.1) K/mm3 Seg Neutrophils % (40.0-70.0) % Seg Neutrophils # (1.8-7.7) K/mm3 VBG pH 7.476 H (7.320-7.420) Sodium (137-145) mmol/L Potassium (3.6-5.0) mmol/L Chloride (98-107) mmol/L Carbon Dioxide (22-30) mmol/L Anion Gap mmol/L BUN (9-20) mg/dL Creatinine (0.8-1.3) mg/dL Estimated GFR ml/min BUN/Creatinine Ratio % Glucose (75-100) mg/dL Calcium (8.4-10.2) mg/dL Total Bilirubin (0.1-1.2) mg/dL AST (5-40) units/L ALT (7-56) units/L Alkaline Phosphatase (35-129) units/L Total Protein (6.3-8.2) g/dL Albumin (3.9-5) g/dL Albumin/Globulin Ratio % Lipase (13-60) units/L Urine Color Straw (Yellow) Urine Turbidity Clear (Clear) Urine pH 8.0 H (5.0-7.0) Ur Specific [place] 1.017 (1.003-1.030) Urine Protein >500 (Negative) mg/dL Urine Glucose (UA) >=500 (Negative) mg/dL Urine Ketones 20 (Negative) mg/dL Urine Blood Sm (Negative) Urine Nitrite Neg (Negative) Urine Bilirubin Neg (Negative) Urine Urobilinogen < 2.0 (<2.0) mg/dL Ur Leukocyte Esterase Neg (Negative) Urine WBC (Auto) 2.0 (0.0-6.0) /HPF Urine RBC (Auto) 24.0 (0.0-6.0) /HPF U Epithel Cells (Auto) < 1.0 (0-13.0) /HPF Urine Opiates Screen Negative Urine Methadone Screen Negative Ur Barbiturates Screen Negative Ur Phencyclidine Scrn Negative Ur Amphetamines Screen Negative U Benzodiazepines Scrn Negative Urine Cocaine Screen Negative U Marijuana (THC) Screen Positive Drugs of Abuse Note Disclamer - Medical Decision Making On initial exam patient does not have clue jad respirations and there is no ketotic smell on exam. Initially the patient received 10 mg of Reglan and 25 mg of Benadryl The patient had continued vomiting with the above-mentioned medications Patient was given 8 mg Zofran to no avail. Patient was given 5 mg of Haldol IV which resolved the symptoms. Critical Care Time: No Critical care attestation.: If time is entered above; I have spent that time in minutes in the direct care of this critically ill patient, excluding procedure time. ED Disposition Clinical Impression: Cannabinoid hyperemesis syndrome Disposition: - TO HOME OR SELFCARE Is pt being admited?: No Does the pt Need Aspirin: No Condition: Stable Instructions: Nausea and Vomiting, Adult, Cannabis Use Disorder Additional Instructions: Return if worse Referrals: PRIMARY CARE,MD [Primary Care Provider] - 3-5 Days [facility] [Provider Group] - 3-5 Days [facility] [Provider Group] - 3-5 Days Time of Disposition: 17:56
[2020-11-04 18:47] VITALS: BP 172/89
== END 2020-11-04 18:48 | disposition home or self-care (01) ==
LOC: ED 12:25
DX: R11.10 Vomiting, unspecified (principal); I10 Essential (primary) hypertension; E11.9 Type 2 diabetes mellitus without complications; Z79.4 Long term (current) use of insulin; Z79.899 Other long term (current) drug therapy
CPT/HCPCS: 36415; 80053; 80307; 81001; 82805; 83690; 85025; 96361; 96374; 96375; 99284; J1200; J1630; J2405; J2765; J7030

== ENCOUNTER 2020-11-05 10:15 | Inpatient (IN) | payer OTHER ==
--- NOTE | 2020-11-05 10:44 | Emergency Department Report ---
Blank Doc - Documentation Documentation: 30-year-old male with medical history of dependent diabetes reports compliance but states that he has been having increased blood sugars in excess of 500 and has become faint nauseous with some vomiting and malaise and is worried about DKA This initial assessment/diagnostic orders/clinical plan/treatment(s) is/are subject to change based on patients health status, clinical progression and re- assessment by fellow clinical providers in the ED. Further treatment and workup at subsequent clinical providers discretion. Patient/guardian urged not to elope from the ED as their condition may be serious if not clinically assessed and managed. Initial orders include: Labs
[2020-11-05 11:56] LABS: Alanine Aminotransferase 19 units/L (7-56); BUN/Creatinine Ratio 21; Blood Urea Nitrogen 31 mg/dL (9-20); Calcium 10.8 mg/dL (8.4-10.2); Hemolysis Index 40
[2020-11-05 11:59] LABS: Basophils # (Auto) 0.1 K/mm3 (0.0-0.1); Basophils % (Auto) 0.5 % (0.0-1.8); Hematocrit 45.4 % (35.5-45.6); Hemoglobin 15.5 gm/dl (11.8-15.2); Lymphocytes # (Auto) 0.9 K/mm3 (1.2-5.4); Lymphocytes % (Auto) 6.2 % (13.4-35.0); Mean Corpuscular HGB Conc 34 % (32-34); Mean Corpuscular Volume 87 fl (84-94); Monocytes % (Auto) 6.6 % (0.0-7.3); Platelet Count 368 K/mm3 (140-440); Red Blood Count 5.25 M/mm3 (3.65-5.03); Red Cell Distribution Width 14.3 % (13.2-15.2)
[2020-11-05 12:00] LABS: Bilirubin,Urine NEG (Negative); Blood,Urine MOD (Negative); Color,Urine Yellow (Yellow); Hyaline Casts,Urine 17 /LPF; Mucus,Urine FEW /HPF; Urobilinogen,Urine < 2.0 mg/dL (<2.0)
[2020-11-05 12:03] LABS: Protein,Urine >500 mg/dL (Negative)
[2020-11-05] MEDS ORDERED: SODIUM CHLORIDE 0.9% 1000 ML 2,000 ML ONE (17:36)
[2020-11-05] MEDS ORDERED: INSULIN REGULAR, HUMAN 100 UNIT/ML 3ML VIAL IV ONE (17:37)
[2020-11-05] MEDS ORDERED: SODIUM CHLORIDE 0.9% 1000 ML 1,000 ML IV ONE ×2 (17:37)
--- NOTE | 2020-11-05 17:47 | Emergency Department Report ---
ED Abdominal Pain HPI - General Chief Complaint: Hyperglycemia Stated Complaint: DKA/VOMIT Time Seen by Provider: 11/05/20 10:44 Source: patient Mode of arrival: Ambulatory Limitations: No Limitations - History of Present Illness Initial Comments: Chief complaint: "I am in DKA." HPI this is a 30-year-old male history of insulin-dependent diabetes, hype rtension, gastroparesis who presents with abdominal pain for the past 2 days. Patient has generalized 9 out of 10 pain. He has had persistent nausea vomiting for the past 2 days. Gradual onset. Pain does not change with movement or palpation. He denies fever. He is followed at [facility]. He has not followed up with his physician since last hospitalization at this hospital in July. In July, patient underwent nuclear medicine gastric emptying study. The study revealed normal gastric emptying. Surgical consult patient was evaluated by general surgery. SMA syndrome was a concern at that time. Vascular surgery service opinion: minimal compression of SFA. Gastrojejunostomy or jejunostomy tube recommended. MD Complaint: abdominal pain -: Gradual, days(s) (2) Location: diffuse Radiation: none Severity: severe Severity scale (0 -10): 9 Quality: cramping, aching Consistency: constant Improves With: nothing Worsens With: nothing Context: other (Multiple hospitalizations for similar presentation) Associated Symptoms: nausea, vomiting - Related Data Previous Rx's Medication Instructions Recorded Last Taken Type Insulin Regular, Human [Novolin R] 4 units SUB-Q Q24H 3 Days #1 vial 10/13/19 Unknown Rx Insulin Detemir [Levemir Flextouch] 100 unit SQ QAM 30 Days #5 08/02/20 Unknown Rx insuln.pen Lispro Insulin [HumaLOG] 6 unit SQ AC 30 Days #5 pen 08/02/20 Unknown Rx Losartan [Cozaar] 100 mg PO QDAY #90 tablet 08/02/20 Unknown Rx Metoprolol [Lopressor TAB] 50 mg PO BID #60 tablet 08/02/20 Unknown Rx amLODIPine 10 mg PO QDAY #30 tablet 08/02/20 Unknown Rx Metoclopramide HCl [Reglan TAB] 5 mg PO TIDAC #15 tablet 08/10/20 Unknown Rx Pantoprazole [Protonix TAB] 40 mg PO QDAY #30 tablet 08/10/20 Unknown Rx Ondansetron [Zofran Odt] 4 mg PO Q4HR PRN #20 tab.rapdis 11/04/20 Unknown Rx Allergies Allergy/AdvReac Type Severity Reaction Status Date / Time No Known Allergies Allergy Verified 07/13/14 23:38 ED Review of Systems ROS: Stated complaint: DKA/VOMIT Other details as noted in HPI Comment: Unobtainable due to pts medical conditions Constitutional: denies: chills, fever Respiratory: denies: cough, shortness of breath Cardiovascular: denies: chest pain Gastrointestinal: abdominal pain, nausea, vomiting. denies: diarrhea, hematemesis, hematochezia ED Past Medical Hx - Past Medical History Previous Medical History?: Yes Hx Hypertension: Yes Hx Congestive Heart Failure: No Hx Diabetes: Yes Hx Deep Vein Thrombosis: (unknown) Hx Asthma: No Hx COPD: No Hx HIV: No Additional medical history: Gastroparesis - Surgical History Past Surgical History?: Yes Hx Pacemaker: No Hx Internal Defibrillator: No - Social History Smoking Status: Current Every Day Smoker Substance Use Type: None - Medications Home Medications: Home Medications Medication Instructions Recorded Confirmed Last Taken Type Insulin Regular, Human [Novolin R] 4 units SUB-Q Q24H 3 Days #1 vial 10/13/19 08/06/20 Unknown Rx Insulin Detemir [Levemir Flextouch] 100 unit SQ QAM 30 Days #5 08/02/20 08/06/20 Unknown Rx insuln.pen Lispro Insulin [HumaLOG] 6 unit SQ AC 30 Days #5 pen 08/02/20 08/06/20 Unknown Rx Losartan [Cozaar] 100 mg PO QDAY #90 tablet 08/02/20 08/06/20 Unknown Rx Metoprolol [Lopressor TAB] 50 mg PO BID #60 tablet 08/02/20 08/06/20 Unknown Rx amLODIPine 10 mg PO QDAY #30 tablet 08/02/20 08/06/20 Unknown Rx Metoclopramide HCl [Reglan TAB] 5 mg PO TIDAC #15 tablet 08/10/20 Unknown Rx Pantoprazole [Protonix TAB] 40 mg PO QDAY #30 tablet 08/10/20 Unknown Rx Ondansetron [Zofran Odt] 4 mg PO Q4HR PRN #20 tab.rapdis 11/04/20 Unknown Rx ED Physical Exam - General Limitations: No Limitations General appearance: alert, other (Appears ill, hyperventilating, clammy) - Head Head exam: Present: atraumatic, normocephalic - Eye Eye exam: Present: normal appearance - ENT ENT exam: Present: mucous membranes moist - Neck Neck exam: Present: normal inspection, full ROM. Absent: tenderness, meningismus - Respiratory Respiratory exam: Present: normal lung sounds bilaterally. Absent: respiratory distress, wheezes, rales, rhonchi - Cardiovascular Cardiovascular Exam: Present: normal rhythm, tachycardia, normal heart sounds. Absent: systolic murmur, diastolic murmur, rubs, gallop - GI/Abdominal GI/Abdominal exam: Present: soft, normal bowel sounds. Absent: distended, tenderness, guarding, rebound - Rectal Rectal exam: Present: deferred - Extremities Exam Extremities exam: Present: normal inspection - Neurological Exam Neurological exam: Present: alert, oriented X3 - Psychiatric Psychiatric exam: Present: normal affect, anxious - Skin Skin exam: Present: warm, dry, intact, normal color. Absent: rash ED Course Vital Signs 11/05/20 10:36 Temperature 98.2 F Pulse Rate 126 H Respiratory 19 Rate Blood Pressure 124/84 O2 Sat by Pulse 95 Oximetry ED Medical Decision Making - Lab Data Result diagrams: 11/05/20 11:14 11/05/20 11:14 Laboratory Results - last 24 hr 11/05/20 11/05/20 11/05/20 10:39 11:14 11:14 WBC 14.8 H RBC 5.25 H Hgb 15.5 H Hct 45.4 MCV 87 MCH 30 MCHC 34 RDW 14.3 Plt Count 368 Lymph % (Auto) 6.2 L [place] % (Auto) 6.6 Eos % (Auto) 0.0 Baso % (Auto) 0.5 Lymph # (Auto) 0.9 L [place] # (Auto) 1.0 H Eos # (Auto) 0.0 Baso # (Auto) 0.1 Seg Neutrophils % 86.7 H Seg Neutrophils # 12.8 H Sodium 144 D Potassium 4.4 Chloride 104.2 Carbon Dioxide 24 Anion Gap 20 BUN 31 H Creatinine 1.5 H Estimated GFR > 60 BUN/Creatinine Ratio 21 Glucose 324 H POC Glucose 274 H Calcium 10.8 H Total Bilirubin 0.50 AST 20 ALT 19 Alkaline Phosphatase 132 H Total Protein 8.3 H Albumin 5.0 Albumin/Globulin Ratio 1.5 Lipase 9 L Urine Color Urine Turbidity Urine pH Ur Specific [place] Urine Protein Urine Glucose (UA) Urine Ketones Urine Blood Urine Nitrite Urine Bilirubin Urine Urobilinogen Ur Leukocyte Esterase Urine WBC (Auto) Urine RBC (Auto) U Epithel Cells (Auto) Hyaline Casts Urine Mucus 11/05/20 11/05/20 17:33 Unknown WBC RBC Hgb Hct MCV MCH MCHC RDW Plt Count Lymph % (Auto) [place] % (Auto) Eos % (Auto) Baso % (Auto) Lymph # (Auto) [place] # (Auto) Eos # (Auto) Baso # (Auto) Seg Neutrophils % Seg Neutrophils # Sodium Potassium Chloride Carbon Dioxide Anion Gap BUN Creatinine Estimated GFR BUN/Creatinine Ratio Glucose POC Glucose 417 H Calcium Total Bilirubin AST ALT Alkaline Phosphatase Total Protein Albumin Albumin/Globulin Ratio Lipase Urine Color Yellow Urine Turbidity Clear Urine pH 5.0 Ur Specific [place] 1.026 Urine Protein >500 Urine Glucose (UA) >=500 Urine Ketones Tr Urine Blood Mod Urine Nitrite Neg Urine Bilirubin Neg Urine Urobilinogen < 2.0 Ur Leukocyte Esterase Neg Urine WBC (Auto) 5.0 Urine RBC (Auto) 7.0 U Epithel Cells (Auto) 1.0 Hyaline Casts 17 Urine Mucus Few - Medical Decision Making 1. Intractable nausea vomiting with abdominal pain: History of diabetic gastroparesis. No indication of peritonitis. Additional considerations: IBS, gastritis, cannabinoid hyperemesis syndrome. UDS obtained on yesterday was positive for marijuana. UDS in July also positive for marijuana. Supportive treatment in the emergency department included IV fluid, Zofran, IV analgesia, IV PPI 2. WANDY: Patient's kidney function has declined since admission in July. Suspect volume contraction as the cause. Prerenal injury pattern. 3. Acute hyperglycemia with trace ketones in urine no significant acidosis. Patient given IV insulin Lab review noted for nonspecific leukocytosis, elevated BUN elevated creatinine, trace ketones, anion gap 20, bicarbonate 24 Critical care attestation.: If time is entered above; I have spent that time in minutes in the direct care of this critically ill patient, excluding procedure time. ED Disposition Clinical Impression: Intractable vomiting with nausea, Cannabinoid hyperemesis syndrome, Intractable abdominal pain, Hyperglycemia due to type 1 diabetes mellitus Disposition: OP ADMIT IP TO THIS HOSP Is pt being admited?: Yes Does the pt Need Aspirin: No Condition: Fair Instructions: Diabetes Mellitus Type 2 in Adults (ED) Referrals: [facility] MD KAN [Primary Care Provider] - 3-5 Days
[2020-11-05] MEDS ORDERED: MORPHINE 4 MG/1 ML INJ IV ONE (17:48)
[2020-11-05] MEDS ORDERED: ONDANSETRON 4 MG/2 ML INJ IV ONE (17:48)
[2020-11-05] MEDS ORDERED: PANTOPRAZOLE 40 MG INJ IV ONE (17:52)
[2020-11-05] MEDS ORDERED: HALOPERIDOL LACTATE 5 MG/1 ML INJ IV ONE (17:52)
[2020-11-05] MEDS ORDERED: hydrALAZINE 20 MG/1 ML INJ ONE (21:32)
[2020-11-05] MEDS: hydrALAZINE 20 MG/1 ML INJ IV PRN (21:36)
[2020-11-05] MEDS ORDERED: hydrALAZINE 20 MG/1 ML INJ IV SCH (22:00)
[2020-11-05] MEDS ORDERED: INSULIN REGULAR, HUMAN 100 UNIT/ML 3ML VIAL ONE (22:14)
[2020-11-05] MEDS: INSULIN REGULAR, HUMAN 100 UNIT/ML 3ML VIAL SUB-Q SCH (22:19)
--- NOTE | 2020-11-05 22:28 | History and Physical Report ---
History of Present Illness Date of examination: 11/05/20 Date of admission: 11/05/20 17:53 Chief complaint: Abdominal pain for 2 days History of present illness: 30-year-old male with history of insulin-dependent diabetes, hypertension, GERD comes in for severe abdominal pain of 2 days duration. Pain is about 9 on a 10 scale of 1-10. Has persistent nausea and vomiting for the past 2 days. Pain is about 8 on a scale of 1-10. He follows at [facility]. His last hospitalization was in July 2020. Food is a exacerbating factor. Patient apparently had a nuclear gastric motility study which was normal - Past Medical History Previous Medical History?: Yes --Hypertension: Yes --Diabetes: Yes --Deep Vein Thrombosis: (unknown) --Additional medical history: Gastroparesis - Surgical History Past Surgical History?: Y - Social History Smoking Status: Current Every Day Smoker Substance Use Type: None Family history HtN - Medications Home Medications: Home Medications Medication Instructions Recorded Confirmed Last Taken Type Insulin Regular, Human [Novolin R] 4 units SUB-Q Q24H 3 Days #1 vial 10/13/19 08/06/20 Unknown Rx Insulin Detemir [Levemir Flextouch] 100 unit SQ QAM 30 Days #5 08/02/20 08/06/20 Unknown Rx insuln.pen Lispro Insulin [HumaLOG] 6 unit SQ AC 30 Days #5 pen 08/02/20 08/06/20 Unknown Rx Losartan [Cozaar] 100 mg PO QDAY #90 tablet 08/02/20 08/06/20 Unknown Rx Metoprolol [Lopressor TAB] 50 mg PO BID #60 tablet 08/02/20 08/06/20 Unknown Rx amLODIPine 10 mg PO QDAY #30 tablet 08/02/20 08/06/20 Unknown Rx Metoclopramide HCl [Reglan TAB] 5 mg PO TIDAC #15 tablet 08/10/20 Unknown Rx Pantoprazole [Protonix TAB] 40 mg PO QDAY #30 tablet 08/10/20 Unknown Rx Ondansetron [Zofran Odt] 4 mg PO Q4HR PRN #20 tab.rapdis 11/04/20 Unknown Rx Review of Systems ROS: Stated complaint: Persistent abdominal pain and vomiting Other details as noted in HPI Comment: Unobtainable due to pts medical conditions Constitutional: denies: chills, fever Respiratory: denies: cough, shortness of breath Cardiovascular: denies: chest pain Gastrointestinal: abdominal pain, nausea, vomiting. denies: diarrhea, hematemesis, hematochezia Medications and Allergies Allergies Allergy/AdvReac Type Severity Reaction Status Date / Time No Known Allergies Allergy Verified 07/13/14 23:38 Home Medications Medication Instructions Recorded Confirmed Last Taken Type Insulin Regular, Human [Novolin R] 4 units SUB-Q Q24H 3 Days #1 vial 10/13/19 08/06/20 Unknown Rx Insulin Detemir [Levemir Flextouch] 100 unit SQ QAM 30 Days #5 08/02/20 08/06/20 Unknown Rx insuln.pen Lispro Insulin [HumaLOG] 6 unit SQ AC 30 Days #5 pen 08/02/20 08/06/20 Unknown Rx Losartan [Cozaar] 100 mg PO QDAY #90 tablet 08/02/20 08/06/20 Unknown Rx Metoprolol [Lopressor TAB] 50 mg PO BID #60 tablet 08/02/20 08/06/20 Unknown Rx amLODIPine 10 mg PO QDAY #30 tablet 08/02/20 08/06/20 Unknown Rx Metoclopramide HCl [Reglan TAB] 5 mg PO TIDAC #15 tablet 08/10/20 Unknown Rx Pantoprazole [Protonix TAB] 40 mg PO QDAY #30 tablet 08/10/20 Unknown Rx Ondansetron [Zofran Odt] 4 mg PO Q4HR PRN #20 tab.rapdis 11/04/20 Unknown Rx Active Meds: Active Medications Hydralazine HCl (Hydralazine 20 Mg/1 Ml Inj) 10 mg IV Q4HR PRN PRN Reason: SBP =/> 160 Last Admin: 11/05/20 21:36 Dose: 10 mg Documented by: Insulin Human Regular (Insulin Regular, Human 100 Unit/Ml 3ml Vial) 0 unit SUB- Q [facility]; Protocol Last Admin: 11/05/20 22:19 Dose: 8 unit Documented by: Exam - Constitutional Vitals: Temp Pulse Resp BP Pulse Ox 98.2 F 113 H 18 181/96 98 11/05/20 22:07 11/05/20 22:07 11/05/20 22:07 11/05/20 22:07 11/05/20 22:07 General appearance: Present: no acute distress, well-nourished - EENT Eyes: Present: PERRL ENT: hearing intact, clear oral mucosa - Neck Neck: Present: supple, normal ROM - Respiratory Respiratory effort: normal Respiratory: bilateral: CTA - Cardiovascular Heart rate: 78 Rhythm: regular Heart Sounds: Present: S1 & S2. Absent: rub, click - Extremities Extremities: no ischemia, pulses symmetrical, No edema Peripheral Pulses: within normal limits - Abdominal General gastrointestinal: Present: soft, non-tender, tender, normal bowel sounds Localized gastrointestinal: tender: diffuse, guarding: diffuse Male genitourinary: Present: normal - Integumentary Integumentary: Present: clear, warm, dry - Musculoskeletal Musculoskeletal: gait normal, strength equal bilaterally - Psychiatric Psychiatric: appropriate mood/affect, intact judgment & insight - Neurologic Neurologic: CNII-XII intact, moves all extremities - Allied Health Allied health notes reviewed: nursing, case management Results - Labs CBC & Chem 7: 11/06/20 09:03 11/06/20 15:13 Labs: Laboratory Last Values WBC 14.8 K/mm3 (4.5-11.0) H 11/05/20 11:14 RBC 5.25 M/mm3 (3.65-5.03) H 11/05/20 11:14 Hgb 15.5 gm/dl (11.8-15.2) H 11/05/20 11:14 Hct 45.4 % (35.5-45.6) 11/05/20 11:14 MCV 87 fl (84-94) 11/05/20 11:14 MCH 30 pg (28-32) 11/05/20 11:14 MCHC 34 % (32-34) 11/05/20 11:14 RDW 14.3 % (13.2-15.2) 11/05/20 11:14 Plt Count 368 K/mm3 (140-440) 11/05/20 11:14 Lymph % (Auto) 6.2 % (13.4-35.0) L 11/05/20 11:14 [place] % (Auto) 6.6 % (0.0-7.3) 11/05/20 11:14 Eos % (Auto) 0.0 % (0.0-4.3) 11/05/20 11:14 Baso % (Auto) 0.5 % (0.0-1.8) 11/05/20 11:14 Lymph # (Auto) 0.9 K/mm3 (1.2-5.4) L 11/05/20 11:14 [place] # (Auto) 1.0 K/mm3 (0.0-0.8) H 11/05/20 11:14 Eos # (Auto) 0.0 K/mm3 (0.0-0.4) 11/05/20 11:14 Baso # (Auto) 0.1 K/mm3 (0.0-0.1) 11/05/20 11:14 Seg Neutrophils % 86.7 % (40.0-70.0) H 11/05/20 11:14 Seg Neutrophils # 12.8 K/mm3 (1.8-7.7) H 11/05/20 11:14 Sodium 144 mmol/L (137-145) D 11/05/20 11:14 Potassium 4.4 mmol/L (3.6-5.0) 11/05/20 11:14 Chloride 104.2 mmol/L (98-107) 11/05/20 11:14 Carbon Dioxide 24 mmol/L (22-30) 11/05/20 11:14 Anion Gap 20 mmol/L 11/05/20 11:14 BUN 31 mg/dL (9-20) H 11/05/20 11:14 Creatinine 1.5 mg/dL (0.8-1.3) H 11/05/20 11:14 Estimated GFR > 60 ml/min 11/05/20 11:14 BUN/Creatinine Ratio 21 % 11/05/20 11:14 Glucose 324 mg/dL (75-100) H 11/05/20 11:14 POC Glucose 431 mg/dL (70-105) H 11/05/20 21:23 Calcium 10.8 mg/dL (8.4-10.2) H 11/05/20 11:14 Total Bilirubin 0.50 mg/dL (0.1-1.2) 11/05/20 11:14 AST 20 units/L (5-40) 11/05/20 11:14 ALT 19 units/L (7-56) 11/05/20 11:14 Alkaline Phosphatase 132 units/L (35-129) H 11/05/20 11:14 Total Protein 8.3 g/dL (6.3-8.2) H 11/05/20 11:14 Albumin 5.0 g/dL (3.9-5) 11/05/20 11:14 Albumin/Globulin Ratio 1.5 % 11/05/20 11:14 Lipase 9 units/L (13-60) L 11/05/20 11:14 Urine Color Yellow (Yellow) 11/05/20 Unknown Urine Turbidity Clear (Clear) 11/05/20 Unknown Urine pH 5.0 (5.0-7.0) 11/05/20 Unknown Ur Specific [place] 1.026 (1.003-1.030) 11/05/20 Unknown Urine Protein >500 mg/dL (Negative) 11/05/20 Unknown Urine Glucose (UA) >=500 mg/dL (Negative) 11/05/20 Unknown Urine Ketones Tr mg/dL (Negative) 11/05/20 Unknown Urine Blood Mod (Negative) 11/05/20 Unknown Urine Nitrite Neg (Negative) 11/05/20 Unknown Urine Bilirubin Neg (Negative) 11/05/20 Unknown Urine Urobilinogen < 2.0 mg/dL (<2.0) 11/05/20 Unknown Ur Leukocyte Esterase Neg (Negative) 11/05/20 Unknown Urine WBC (Auto) 5.0 /HPF (0.0-6.0) 11/05/20 Unknown Urine RBC (Auto) 7.0 /HPF (0.0-6.0) 11/05/20 Unknown U Epithel Cells (Auto) 1.0 /HPF (0-13.0) 11/05/20 Unknown Hyaline Casts 17 /LPF 11/05/20 Unknown Urine Mucus Few /HPF 11/05/20 Unknown Short CBC 11/06/20 Range/Units 09:03 WBC 18.4 H (4.5-11.0) K/mm3 Hgb 15.5 H (11.8-15.2) gm/dl Hct 44.5 (35.5-45.6) % Plt Count 282 (140-440) K/mm3 BMP 11/06/20 15:13 Sodium 141 Potassium 4.1 Chloride 105.2 Carbon Dioxide 22 BUN 27 H Creatinine 1.1 Glucose 231 H Calcium 9.5 Liver Function 11/06/20 Range/Units 15:13 Total Bilirubin 0.50 (0.1-1.2) mg/dL AST 16 (5-40) units/L ALT 14 (7-56) units/L Alkaline Phosphatase 104 (35-129) units/L Albumin 3.8 L (3.9-5) g/dL Melvin/IV: IV Catheter Type [Left Hand] INT / Saline Lock Assessment and Plan Advance Directives: Yes (Full code) VTE prophylaxis?: Chemical Plan of care discussed with patient/family: Yes - Patient Problems (1) Gastroparesis Current Visit: Yes Status: Acute Plan to address problem: IV Reglan and IV Zofran as required IV fluids Pain control (2) Intractable vomiting with nausea Current Visit: Yes Status: Acute Plan to address problem: Symptomatic treatment for now (3) WANDY (acute kidney injury) Current Visit: Yes Status: Acute Plan to address problem: IV fluids 1 Possible ATN (4) Uncontrolled diabetes mellitus Current Visit: No Status: Acute Qualifiers: Diabetes mellitus type: type 1 Plan to address problem: Tight control with Accu-Cheks and long-acting insulin (5) DVT prophylaxis Current Visit: No Status: Acute Plan to address problem: Heparin and GI prophylaxis
[2020-11-05] MEDS ORDERED: oxyCODONE /ACETAMINOPHEN 5-325MG TAB PO PRN (23:06)
[2020-11-05] MEDS ORDERED: ONDANSETRON 4 MG/2 ML INJ IV PRN (23:06)
[2020-11-05] MEDS ORDERED: ACETAMINOPHEN 325 MG TAB PO PRN (23:06)
[2020-11-05] MEDS ORDERED: PROMETHAZINE 25 MG RECT SUPP PR PRN (23:06)
[2020-11-06] MEDS: INSULIN LISPRO 100 UNIT/ML VIAL 3 mL SUB-Q SCH ×6 (00:30→23:05)
[2020-11-06] MEDS: FAMOTIDINE 20 MG/2 ML INJ IV SCH ×3 (00:50→21:13)
[2020-11-06] MEDS: SODIUM CHLORIDE 0.9% 1000 ML 1,000 ML IV SCH ×3 (00:52→21:14)
[2020-11-06] MEDS: METOCLOPRAMIDE 10 MG/2 ML INJ IV PRN ×2 (09:19→17:02)
[2020-11-06] MEDS: HYDROmorphone 1 MG/1 ML INJ IV PRN ×4 (09:21→21:13)
[2020-11-06] MEDS: hydrALAZINE 20 MG/1 ML INJ IV PRN (09:23)
[2020-11-06 09:56] LABS: Hematocrit 44.5 % (35.5-45.6); Hemoglobin 15.5 gm/dl (11.8-15.2); Mean Corpuscular HGB Conc 35 % (32-34); Mean Corpuscular Volume 87 fl (84-94); Platelet Count 282 K/mm3 (140-440); Red Blood Count 5.12 M/mm3 (3.65-5.03); Red Cell Distribution Width 14.2 % (13.2-15.2)
[2020-11-06] MEDS: INSULIN REGULAR, HUMAN 100 UNIT/ML 3ML VIAL SUB-Q SCH ×3 (12:47→21:23)
[2020-11-06 13:15] LABS: Total Cells Counted 100
[2020-11-06 13:16] LABS: Platelet Estimate Consistent w Auto
[2020-11-06 16:05] LABS: Alanine Aminotransferase 14 units/L (7-56); Albumin 3.8 g/dL (3.9-5); BUN/Creatinine Ratio 25; Blood Urea Nitrogen 27 mg/dL (9-20); Calcium 9.5 mg/dL (8.4-10.2); Hemolysis Index 3
[2020-11-06] MEDS ORDERED: ONDANSETRON 4 MG ODT TAB PO PRN (23:45)
[2020-11-06] MEDS ORDERED: ACETAMINOPHEN 325 MG TAB PO PRN (23:50)
--- NOTE | 2020-11-07 00:03 | Progress Note ---
Assessment and Plan - Patient Problems (1) Gastroparesis Current Visit: Yes Status: Acute Plan to address problem: IV Reglan and IV Zofran as required IV fluids Pain control (2) Intractable vomiting with nausea Current Visit: Yes Status: Acute Plan to address problem: Symptomatic treatment for now (3) WANDY (acute kidney injury) Current Visit: Yes Status: Acute Plan to address problem: IV fluids 1 Possible ATN (4) Uncontrolled diabetes mellitus Current Visit: No Status: Acute Qualifiers: Diabetes mellitus type: type 1 Plan to address problem: Tight control with Accu-Cheks and long-acting insulin (5) Urinary retention Current Visit: Yes Status: Acute Plan to address problem: Patient was straight cath (6) DVT prophylaxis Current Visit: No Status: Acute Plan to address problem: Heparin and GI prophylaxis Subjective Date of service: 11/06/20 Principal diagnosis: Paresis and uncontrolled diabetes Interval history: Patient symptomatically slightly better Has urinary retention Objective - Constitutional Vitals: Vital Signs - 12hr 11/06/20 11/06/20 11/06/20 12:31 13:00 16:15 Temperature 98.4 F 98.3 F Pulse Rate 135 H 122 H Respiratory 20 18 20 Rate Blood Pressure 178/95 156/96 O2 Sat by Pulse 100 99 Oximetry General appearance: Present: no acute distress, well-nourished - EENT Eyes: PERRL, EOM intact ENT: hearing intact, clear oral mucosa Ears: bilateral: normal - Neck Neck: supple, normal ROM - Respiratory Respiratory effort: normal Respiratory: bilateral: CTA - Breasts Breasts: normal - Cardiovascular Heart rate: 78 Rhythm: regular Heart Sounds: Present: S1 & S2. Absent: gallop, rub Extremities: pulses intact, No edema, normal color, Full ROM - Gastrointestinal General gastrointestinal: Present: soft, non-tender, non-distended, normal bowel sounds - Genitourinary Male genitourinary: normal - Integumentary Integumentary: clear, warm, dry - Musculoskeletal Musculoskeletal: 1, strength equal bilaterally - Neurologic Neurologic: moves all extremities - Psychiatric Psychiatric: memory intact, appropriate mood/affect, intact judgment & insight - Labs CBC & Chem 7: 11/06/20 09:03 11/06/20 15:13 Labs: Abnormal lab results 11/05/20 11/06/20 11/06/20 Range/Units 11:14 02:13 04:12 WBC (4.5-11.0) K/mm3 RBC (3.65-5.03) M/mm3 Hgb (11.8-15.2) gm/dl MCHC (32-34) % Seg Neuts % (Manual) (40.0-70.0) % Lymphocytes % (Manual) (13.4-35.0) % Seg Neutrophils # Man (1.8-7.7) K/mm3 Lymphocytes # (Manual) (1.2-5.4) K/mm3 BUN (9-20) mg/dL Glucose (75-100) mg/dL POC Glucose 357 H 217 H (70-105) mg/dL Hemoglobin A1c 8.0 H (4-6) % Albumin (3.9-5) g/dL 11/06/20 11/06/20 11/06/20 Range/Units 06:44 08:12 09:03 WBC 18.4 H (4.5-11.0) K/mm3 RBC 5.12 H (3.65-5.03) M/mm3 Hgb 15.5 H (11.8-15.2) gm/dl MCHC 35 H (32-34) % Seg Neuts % (Manual) 91.0 H (40.0-70.0) % Lymphocytes % (Manual) 6.0 L (13.4-35.0) % Seg Neutrophils # Man 16.7 H (1.8-7.7) K/mm3 Lymphocytes # (Manual) 1.1 L (1.2-5.4) K/mm3 BUN (9-20) mg/dL Glucose (75-100) mg/dL POC Glucose 200 H 177 H (70-105) mg/dL Hemoglobin A1c (4-6) % Albumin (3.9-5) g/dL 11/06/20 11/06/20 11/06/20 Range/Units 11:50 15:13 15:18 WBC (4.5-11.0) K/mm3 RBC (3.65-5.03) M/mm3 Hgb (11.8-15.2) gm/dl MCHC (32-34) % Seg Neuts % (Manual) (40.0-70.0) % Lymphocytes % (Manual) (13.4-35.0) % Seg Neutrophils # Man (1.8-7.7) K/mm3 Lymphocytes # (Manual) (1.2-5.4) K/mm3 BUN 27 H (9-20) mg/dL Glucose 231 H (75-100) mg/dL POC Glucose 255 H 183 H (70-105) mg/dL Hemoglobin A1c (4-6) % Albumin 3.8 L (3.9-5) g/dL 11/06/20 11/06/20 Range/Units 16:14 21:14 WBC (4.5-11.0) K/mm3 RBC (3.65-5.03) M/mm3 Hgb (11.8-15.2) gm/dl MCHC (32-34) % Seg Neuts % (Manual) (40.0-70.0) % Lymphocytes % (Manual) (13.4-35.0) % Seg Neutrophils # Man (1.8-7.7) K/mm3 Lymphocytes # (Manual) (1.2-5.4) K/mm3 BUN (9-20) mg/dL Glucose (75-100) mg/dL POC Glucose 214 H 281 H (70-105) mg/dL Hemoglobin A1c (4-6) % Albumin (3.9-5) g/dL
[2020-11-07] MEDS: METOPROLOL TARTRATE 50 MG TAB PO SCH ×3 (01:12→21:55)
[2020-11-07] MEDS ORDERED: LISPRO INSULIN SQ SCH (07:30)
[2020-11-07] MEDS: LOSARTAN 50 MG TAB PO SCH (09:09)
[2020-11-07] MEDS: PANTOPRAZOLE 40 MG TAB PO SCH (09:09)
[2020-11-07] MEDS: ONDANSETRON 4 MG/2 ML INJ IV PRN ×2 (09:09→21:54)
[2020-11-07] MEDS: amLODIPine 10 MG TAB PO SCH (09:10)
[2020-11-07] MEDS: INSULIN REGULAR, HUMAN 100 UNIT/ML 3ML VIAL SUB-Q SCH ×4 (09:11→22:29)
[2020-11-07] MEDS: INSULIN LISPRO 100 UNIT/ML VIAL 3 mL SUB-Q SCH ×3 (09:12→16:28)
[2020-11-07] MEDS: SODIUM CHLORIDE 0.9% 1000 ML 1,000 ML IV SCH ×3 (09:25→21:58)
[2020-11-07] MEDS ORDERED: NON-FORMULARY EACH (Losartan [Cozaar] 100 MG Tablet) PO SCH (10:00)
[2020-11-07] MEDS: METOCLOPRAMIDE 10 MG/2 ML INJ IV PRN (21:54)
[2020-11-08] MEDS: HYDROmorphone 1 MG/1 ML INJ IV PRN (01:20)
[2020-11-08] MEDS ORDERED: SODIUM CHLORIDE 0.9% 250ML 250 ML IV ONE (01:24)
[2020-11-08] MEDS: INSULIN REGULAR, HUMAN 100 UNIT/ML 3ML VIAL SUB-Q SCH ×5 (01:29→22:00)
[2020-11-08] MEDS: SODIUM CHLORIDE 0.9% 1000 ML 1,000 ML IV SCH ×2 (06:52→17:28)
[2020-11-08] MEDS: INSULIN LISPRO 100 UNIT/ML VIAL 3 mL SUB-Q SCH ×3 (09:11→17:18)
[2020-11-08] MEDS: amLODIPine 10 MG TAB PO SCH (10:24)
[2020-11-08] MEDS: LOSARTAN 50 MG TAB PO SCH (10:24)
[2020-11-08] MEDS: METOPROLOL TARTRATE 50 MG TAB PO SCH ×2 (10:24→21:46)
[2020-11-08] MEDS: PANTOPRAZOLE 40 MG TAB PO SCH (10:25)
[2020-11-08 12:09] LABS: BUN/Creatinine Ratio 18; Blood Urea Nitrogen 21 mg/dL (9-20); Calcium 8.7 mg/dL (8.4-10.2); Hemolysis Index 4
--- NOTE | 2020-11-08 18:08 | Progress Note ---
Assessment and Plan - Patient Problems (1) Gastroparesis Current Visit: Yes Status: Acute Plan to address problem: IV Reglan and IV Zofran as required IV fluids Pain control (2) Intractable vomiting with nausea Current Visit: Yes Status: Acute Plan to address problem: Symptomatic treatment for now (3) WANDY (acute kidney injury) Current Visit: Yes Status: Acute Plan to address problem: IV fluids 1 Possible ATN (4) Uncontrolled diabetes mellitus Current Visit: No Status: Acute Qualifiers: Diabetes mellitus type: type 1 Plan to address problem: Tight control with Accu-Cheks and long-acting insulin (5) Urinary retention Current Visit: Yes Status: Acute Plan to address problem: Patient was straight cath (6) DVT prophylaxis Current Visit: No Status: Acute Plan to address problem: Heparin and GI prophylaxis Subjective Date of service: 11/07/20 Principal diagnosis: Paresis and uncontrolled diabetes Interval history: Patient symptomatically slightly better Has urinary retention Abdominal pain better Still vomiting Objective - Constitutional Vitals: Vital Signs - 12hr 11/08/20 11/08/20 11/08/20 08:02 10:00 10:24 Temperature 98.0 F Pulse Rate 81 81 Respiratory 18 20 Rate Blood Pressure 143/83 143/83 O2 Sat by Pulse 99 Oximetry 11/08/20 11/08/20 11:30 16:03 Temperature 99.2 F 99.3 F Pulse Rate 86 90 Respiratory 18 18 Rate Blood Pressure 129/82 133/84 O2 Sat by Pulse 97 100 Oximetry General appearance: Present: no acute distress, well-nourished - EENT Eyes: PERRL, EOM intact ENT: hearing intact, clear oral mucosa Ears: bilateral: normal - Neck Neck: supple, normal ROM - Respiratory Respiratory effort: normal Respiratory: bilateral: CTA - Breasts Breasts: normal - Cardiovascular Heart rate: 78 Rhythm: regular Heart Sounds: Present: S1 & S2. Absent: gallop, rub Extremities: pulses intact, No edema, normal color, Full ROM - Gastrointestinal General gastrointestinal: Present: soft, non-tender, non-distended, normal bowel sounds Rectal Exam: deferred - Genitourinary Male genitourinary: normal - Integumentary Integumentary: clear, warm, dry - Musculoskeletal Musculoskeletal: 1, strength equal bilaterally - Neurologic Neurologic: moves all extremities - Psychiatric Psychiatric: memory intact, appropriate mood/affect, intact judgment & insight - Allied health notes Allied health notes reviewed: nursing, case management - Labs CBC & Chem 7: 11/09/20 05:17 11/09/20 07:48 Labs: Abnormal lab results 11/07/20 11/07/20 11/07/20 Range/Units 22:05 22:11 23:14 BUN (9-20) mg/dL Glucose 659 H* (75-100) mg/dL POC Glucose 526 H 518 H (70-105) mg/dL 11/08/20 11/08/20 11/08/20 Range/Units 09:56 11:41 16:05 BUN 21 H (9-20) mg/dL Glucose 320 H (75-100) mg/dL POC Glucose 409 H 177 H (70-105) mg/dL
[2020-11-08] MEDS ORDERED: INSULIN GLARGINE 100 UNITS/ML SUB-Q SCH (22:00)
[2020-11-09] MEDS: SODIUM CHLORIDE 0.9% 1000 ML 1,000 ML IV SCH ×2 (02:00→09:43)
[2020-11-09 06:09] LABS: Alanine Aminotransferase 19 units/L (7-56); Albumin 3.1 g/dL (3.9-5); BUN/Creatinine Ratio 18; Basophils % (Auto) 0.5 % (0.0-1.8); Blood Urea Nitrogen 23 mg/dL (9-20); Calcium 8.4 mg/dL (8.4-10.2); Eosinophils % (Auto) 0.4 % (0.0-4.3); Hematocrit 34.7 % (35.5-45.6); Hemoglobin 11.9 gm/dl (11.8-15.2); Hemolysis Index 4; Lymphocytes # (Auto) 1.6 K/mm3 (1.2-5.4); Lymphocytes % (Auto) 22.1 % (13.4-35.0); Mean Corpuscular HGB Conc 34 % (32-34); Mean Corpuscular Volume 87 fl (84-94); Monocytes # (Auto) 0.5 K/mm3 (0.0-0.8); Monocytes % (Auto) 7.2 % (0.0-7.3); Platelet Count 214 K/mm3 (140-440); Red Blood Count 3.99 M/mm3 (3.65-5.03); Red Cell Distribution Width 13.6 % (13.2-15.2)
[2020-11-09] MEDS: METOCLOPRAMIDE 10 MG/2 ML INJ IV PRN (06:13)
[2020-11-09] MEDS: INSULIN REGULAR, HUMAN 100 UNIT/ML 3ML VIAL SUB-Q SCH ×3 (06:30→16:48)
[2020-11-09 08:27] LABS: BUN/Creatinine Ratio 17; Blood Urea Nitrogen 22 mg/dL (9-20); Calcium 8.7 mg/dL (8.4-10.2); Hemolysis Index 3
[2020-11-09] MEDS: INSULIN LISPRO 100 UNIT/ML VIAL 3 mL SUB-Q SCH ×3 (08:31→16:48)
[2020-11-09] MEDS: METOPROLOL TARTRATE 50 MG TAB PO SCH (09:44)
[2020-11-09] MEDS: LOSARTAN 50 MG TAB PO SCH (09:44)
[2020-11-09] MEDS: PANTOPRAZOLE 40 MG TAB PO SCH (09:44)
[2020-11-09] MEDS: amLODIPine 10 MG TAB PO SCH (09:46)
[2020-11-09 18:44] VITALS: BP 137/80
--- NOTE | 2020-11-09 19:20 | Discharge Summary ---
Providers - Providers Date of Admission: 11/06/20 14:00 Date of discharge: 11/09/20 Attending physician: MARIA ISABEL HALL Primary care physician: JOVANNY RODRÍGUEZ MD Hospitalization Condition: Fair Hospital course: Subjective Date of service: 11/09/20 Principal diagnosis: Paresis and uncontrolled diabetes Interval history: Patient symptomatically slightly better urinary retention resolved Abdominal pain better Still vomiting Assessment and Plan - Patient Problems (1) Gastroparesis Current Visit: Yes Status: Acute Plan to address problem: Improved (2) Intractable vomiting with nausea Current Visit: Yes Status: Acute Plan to address problem: Improved (3) WANDY (acute kidney injury) Current Visit: Yes Status: Acute Plan to address problem: Resolved (4) Uncontrolled diabetes mellitus Current Visit: No Status: Acute Qualifiers: Diabetes mellitus type: type 1 Plan to address problem: Tight control with Accu-Cheks and long-acting insulin Increase Lovenox\Lantus to 10 units in the morning and 20 units in the evening a nd short acting insulin 8 units before each meal (5) Urinary retention Current Visit: Yes Status: Acute Plan to address problem: Resolved Disposition: DC-01 TO HOME OR SELFCARE - Discharge Diagnoses (1) Gastroparesis Status: Acute (2) Intractable vomiting with nausea Status: Acute (3) WANDY (acute kidney injury) Status: Acute (4) Uncontrolled diabetes mellitus Status: Acute Qualifiers: Diabetes mellitus type: type 1 (5) Urinary retention Status: Acute (6) DVT prophylaxis Status: Acute Core Measure Documentation - Palliative Care Palliative Care/ Comfort Measures: Not Applicable - Core Measures Any of the following diagnoses?: none Exam - Constitutional Vitals: Temp Pulse Resp BP Pulse Ox 99.5 F 85 20 137/80 100 11/09/20 16:21 11/09/20 16:21 11/09/20 16:21 11/09/20 16:21 11/09/20 16:21 General appearance: Present: no acute distress, well-nourished - EENT Eyes: Present: PERRL ENT: hearing intact, clear oral mucosa - Neck Neck: Present: supple, normal ROM - Respiratory Respiratory effort: normal Respiratory: bilateral: CTA - Cardiovascular Heart rate: 78 Rhythm: regular Heart Sounds: Present: S1 & S2. Absent: rub, click - Extremities Extremities: pulses symmetrical, No edema Peripheral Pulses: within normal limits - Abdominal General gastrointestinal: Present: soft, non-tender, non-distended, normal bowel sounds Male genitourinary: Present: normal - Integumentary Integumentary: Present: clear, warm, dry - Musculoskeletal Musculoskeletal: gait normal, strength equal bilaterally - Psychiatric Psychiatric: appropriate mood/affect, intact judgment & insight - Neurologic Neurologic: CNII-XII intact, moves all extremities Plan Activity: no restrictions Diet: diabetic [facility] - 3-5 Days
== END 2020-11-09 20:31 | disposition home or self-care (01) | DRG 74 ==
LOC: ED 10:15 → 3A 17:53 → 4A 20:48 → OBSVTOIN 11-06 14:00
PROVIDERS: ADMIT Internal Medicine; ATTEND Internal Medicine
DX: E10.43 Type 1 diabetes mellitus with diabetic autonomic (poly)neuropathy (principal); N17.9 Acute kidney failure, unspecified; K31.84 Gastroparesis; E10.65 Type 1 diabetes mellitus with hyperglycemia; F17.200 Nicotine dependence, unspecified, uncomplicated; Z79.4 Long term (current) use of insulin; F12.90 Cannabis use, unspecified, uncomplicated; I10 Essential (primary) hypertension; K21.9 Gastro-esophageal reflux disease without esophagitis; R33.9 Retention of urine, unspecified
CPT/HCPCS: 36415; 80048; 80053; 81001; 82947; 82962; 83036; 83690; 85007; 85025; 87641; G0378; C9113; J0360; J1170; J1630; J1815; J2270; J2405; J2765; J7030; J7050

== ENCOUNTER 2021-02-28 01:51 | Inpatient (IN) | payer OTHER ==
[2021-02-28 03:28] LABS: Basophils # (Auto) 0.1 K/mm3 (0.0-0.1); Basophils % (Auto) 0.9 % (0.0-1.8); Eosinophils % (Auto) 0.1 % (0.0-4.3); Hematocrit 40.6 % (35.5-45.6); Hemoglobin 14.1 gm/dl (11.8-15.2); Lymphocytes # (Auto) 1.4 K/mm3 (1.2-5.4); Lymphocytes % (Auto) 12.7 % (13.4-35.0); Mean Corpuscular HGB Conc 35 % (32-34); Mean Corpuscular Volume 86 fl (84-94); Monocytes # (Auto) 0.6 K/mm3 (0.0-0.8); Monocytes % (Auto) 5.3 % (0.0-7.3); Platelet Count 267 K/mm3 (140-440); Red Blood Count 4.75 M/mm3 (3.65-5.03); Red Cell Distribution Width 14.5 % (13.2-15.2)
[2021-02-28 04:01] LABS: Alanine Aminotransferase 11 units/L (7-56); Albumin 4.2 g/dL (3.9-5); BUN/Creatinine Ratio 13; Blood Urea Nitrogen 14 mg/dL (9-20); Calcium 9.8 mg/dL (8.4-10.2); Hemolysis Index 27
[2021-02-28] MEDS ORDERED: FAMOTIDINE 20 MG/2 ML INJ IV ONE (06:15)
[2021-02-28] MEDS ORDERED: LACTATED RINGERS 2,000 ML IV ONE ×2 (06:15→06:22)
[2021-02-28] MEDS ORDERED: HALOPERIDOL LACTATE 5 MG/1 ML INJ IM STA (06:15)
[2021-02-28] MEDS ORDERED: POTASSIUM PHOSPHATE 15 MMOL in SODIUM CHLORIDE 0.9% 250ML 250 ML IV ONE (06:18)
--- NOTE | 2021-02-28 06:19 | Emergency Department Report ---
ED General Adult HPI - General Chief complaint: Nausea/Vomiting/Diarrhea Stated complaint: im in dka PUI?: No Time Seen by Provider: 02/28/21 06:06 Source: patient, EMS ( EMS documentation not available at time of chart d ictation ), RN notes reviewed, old records reviewed Mode of arrival: Wheelchair Limitations: No Limitations - History of Present Illness Initial comments: The patient was evaluated in the emergency department for symptoms described in the history of present illness. He/she was evaluated in the context of the global COVID-19 pandemic, which necessitated consideration that the patient might be at risk for infection with the virus that causes COVID-19. Institutional protocols and algorithms that pertain to the evaluation of patients at risk for COVID-19 are in a state of rapid change based on informatio n released by regulatory bodies including the CDC and federal and state organizations. These policies and algorithms were followed during the patient's care in the emergency department. Please note that these policies, procedures and recommendations changed on a rapid basis. This is a 31-year-old gentleman. Past medical history is complex, including hypertension, diabetes, gastroparesis, and presumed cannabinoid hyperemesis syndrome. He presents to the ER today with a complaint of "I am in diabetic ketoacidosis." He complains of diffuse nontraumatic abdominal pain, nausea, vomiting, and rapid breathing. He denies headache, neck pain, chest pain. He denies loss of taste and smell. He denies urinary symptoms. His symptoms occasionally get better if he takes a hot bath or hot shower. Patient has been admitted to this hospital in the past for similar symptoms. he had a gastric emptying study which has been unremarkable. He was also evaluated for possible SMA syndrome July 2020, seen in consultation with vascular surgery, who recommended that his presentation was not consistent with SMA syndrome. He has had a CT scan in the past, which did demonstrate a nonobstructing intussusception, which might have been considered a transient or incidental finding. -: Gradual, days(s) Location: abdomen Consistency: constant Improves with: none Worsens with: none - Related Data Previous Rx's Medication Instructions Recorded Last Taken Type Lispro Insulin [HumaLOG] 6 unit SQ AC 30 Days #5 pen 08/02/20 Unknown Rx Ondansetron [Zofran Odt] 4 mg PO Q4HR PRN #20 tab.rapdis 11/04/20 Unknown Rx Insulin Detemir [Levemir Flextouch] 20 unit SQ QAM 30 Days #5 11/09/20 Unknown Rx insuln.pen Insulin Regular, Human [Novolin R] 8 units SUB-Q AC 3 Days #5 pen 11/09/20 Unknown Rx Losartan [Cozaar] 100 mg PO QDAY #30 tablet 11/09/20 Unknown Rx Metoclopramide HCl [Reglan TAB] 10 mg PO TIDAC #30 tablet 11/09/20 Unknown Rx Metoprolol [Lopressor TAB] 50 mg PO BID #60 tablet 11/09/20 Unknown Rx Pantoprazole [Protonix TAB] 40 mg PO QDAY #30 tablet 11/09/20 Unknown Rx amLODIPine 10 mg PO QDAY #30 tablet 11/09/20 Unknown Rx oxyCODONE /ACETAMINOPHEN [Percocet 1 tab PO Q6H PRN #20 tablet 11/09/20 Unknown Rx 5/325 mg] Allergies Allergy/AdvReac Type Severity Reaction Status Date / Time No Known Allergies Allergy Verified 07/13/14 23:38 ED Review of Systems ROS: Stated complaint: ABDOMINAL PAIN/VOMITING Other details as noted in HPI Constitutional: malaise, weakness. denies: fever Eyes: denies: eye discharge ENT: denies: epistaxis Respiratory: shortness of breath. denies: cough Cardiovascular: denies: syncope Gastrointestinal: abdominal pain, nausea, vomiting Genitourinary: denies: dysuria Musculoskeletal: denies: back pain Neurological: weakness Psychiatric: anxiety ED Past Medical Hx - Past Medical History Previous Medical History?: Yes Hx Hypertension: Yes Hx Congestive Heart Failure: No Hx Diabetes: Yes Hx Deep Vein Thrombosis: (unknown) Hx Asthma: No Hx COPD: No Hx HIV: No Additional medical history: Gastroparesis - Surgical History Past Surgical History?: No Hx Pacemaker: No Hx Internal Defibrillator: No - Social History Smoking Status: Never Smoker Substance Use Type: None - Medications Home Medications: Home Medications Medication Instructions Recorded Confirmed Last Taken Type Lispro Insulin [HumaLOG] 6 unit SQ AC 30 Days #5 pen 08/02/20 08/06/20 Unknown Rx Ondansetron [Zofran Odt] 4 mg PO Q4HR PRN #20 tab.rapdis 11/04/20 Unknown Rx Insulin Detemir [Levemir Flextouch] 20 unit SQ QAM 30 Days #5 11/09/20 Unknown Rx insuln.pen Insulin Regular, Human [Novolin R] 8 units SUB-Q AC 3 Days #5 pen 11/09/20 Unknown Rx Losartan [Cozaar] 100 mg PO QDAY #30 tablet 11/09/20 Unknown Rx Metoclopramide HCl [Reglan TAB] 10 mg PO TIDAC #30 tablet 11/09/20 Unknown Rx Metoprolol [Lopressor TAB] 50 mg PO BID #60 tablet 11/09/20 Unknown Rx Pantoprazole [Protonix TAB] 40 mg PO QDAY #30 tablet 11/09/20 Unknown Rx amLODIPine 10 mg PO QDAY #30 tablet 11/09/20 Unknown Rx oxyCODONE /ACETAMINOPHEN [Percocet 1 tab PO Q6H PRN #20 tablet 11/09/20 Unknown Rx 5/325 mg] ED Physical Exam - General Limitations: Physical Limitation General appearance: alert, anxious, in distress - Head Head exam: Present: atraumatic, normocephalic - Eye Eye exam: Present: normal appearance, EOMI. Absent: nystagmus - ENT ENT exam: Present: normal exam, normal orophraynx, mucous membranes moist, normal external ear exam - Neck Neck exam: Present: normal inspection, full ROM. Absent: tenderness, me ningismus - Respiratory Respiratory exam: Present: respiratory distress, accessory muscle use. Absent: wheezes, rales, rhonchi, stridor - Cardiovascular Cardiovascular Exam: Present: normal rhythm, tachycardia, normal heart sounds. Absent: bradycardia, irregular rhythm, systolic murmur, diastolic murmur, rubs, gallop - GI/Abdominal GI/Abdominal exam: Present: soft. Absent: distended, tenderness, guarding, rebound, rigid, pulsatile mass - Rectal Rectal exam: Present: deferred - Extremities Exam Extremities exam: Present: normal inspection, full ROM, other (2+ pulses noted in the bilateral upper and lower extremities. There is no palpable cord. negative Homans sign. Muscular compartments are soft. The pelvis is stable.). Absent: pedal edema, calf tenderness - Back Exam Back exam: Present: normal inspection, full ROM. Absent: tenderness, CVA tende rness (R), CVA tenderness (L), paraspinal tenderness, vertebral tenderness - Neurological Exam Neurological exam: Present: alert, other (No facial droop. Tongue midline. Extraocular movements intact bilaterally. Facial sensation intact to light touch in V1, V2, V3 distribution bilaterally. 5 and a 5 strength in 4 extremities. Sensation intact to light touch in 4 extremities.). Absent: motor sensory deficit - Psychiatric Psychiatric exam: Present: anxious - Skin Skin exam: Present: warm, dry, intact, normal color. Absent: rash ED Course Vital Signs 02/28/21 02/28/21 02/28/21 01:59 02:02 06:31 Temperature 97.9 F Pulse Rate 104 H 112 H Respiratory 22 22 Rate Blood Pressure 159/88 Blood Pressure 191/93 [Right] O2 Sat by Pulse 100 99 Oximetry 02/28/21 09:31 Temperature Pulse Rate Respiratory Rate Blood Pressure 175/97 Blood Pressure [Right] O2 Sat by Pulse Oximetry - Reevaluation(s) Reevaluation #1: 02/28/21 07:31 Differential diagnosis, including but not limited to: Cannabinoid hyperemesis syndrome, anxiety, phobia of food, obstruction, gastroparesis, colitis, diverticulitis, intussusception, dehydration, electrolyte derangement Assessment and plan: 31-year-old gentleman, with acute on chronic abdominal pain, nausea and vomiting, who is had extensive diagnostic work-up at this facility in the past, including evaluation for SMA syndrome, ultimately felt to not be SMA syndrome, gastric emptying study, which was fairly unremarkable, positive urine marijuana tests in the past, hemoglobin A1c greater than 8. I suspect that this patient has cannabinoid hyperemesis syndrome, food phobia, and anxiety. His EKG today is unchanged from prior. He is not hypoxic. He denies pulmonary embolism and DVT risk factors. Rightward axis deviation and EKG is chronic, patient also breathing quite rapidly, but has a diagnosis of anxiety, as well as food phobia. We will treat the patient's symptoms, obtain CT scan of the abdomen pelvis, and once more relaxed, repeat laboratory studies. I suspect an alkalotic VBG is secondary to tachypnea, likely secondary to anxiety associated with the aforementioned. No active vomiting that I have seen at this time. Reassess after initial data points. Reevaluation #2: 02/28/21 07:35 After haloperidol, patient sleeping comfortably on stretcher, and in no acute distress. Hypertension chronic. He is still tachycardic, likely secondary to volume depletion. We will give hydralazine for elevated blood pressure, and continue volume resus citation. Reevaluation #3: 02/28/21 10:46 Patient reassessed. Repeat laboratory studies reviewed and appreciated. Venous pH has gone from alkalotic to acidotic. In addition, patient found to have worsening metabolic acidosis, and worsening hyperglycemia, in spite of vigorous fluid resuscitation, and supportive care. Given hyperglycemia, metabolic acidosis, acidotic venous pH, concern for early diabetic ketoacidosis. Patient will be started on insulin drip, insulin push. CT scan of the abdomen pelvis is pending interpretation, I have reached out to the generation technologist, and asked for an expedited read on the CT scan. In any event, patient will require admission to the medical service for correction of his anion gap acidosis and hyperglycemia. Patient will be admitted to the medical service under the care of Dr. Pete Self Reevaluation #4: 02/28/21 11:01 patient vomiting again reglan ordered - Consultations Consultation #1: 02/28/21 11:32 Dr Sanchez of critical care to follow ED Medical Decision Making - Lab Data Result diagrams: 02/28/21 02:47 02/28/21 09:30 Vital Signs 02/28/21 02/28/21 02/28/21 01:59 02:02 06:31 Temperature 97.9 F Pulse Rate 104 H 112 H Respiratory 22 22 Rate Blood Pressure 159/88 Blood Pressure 191/93 [Right] O2 Sat by Pulse 100 99 Oximetry Lab Results 02/28/21 02/28/21 02/28/21 Range/Units 02:06 02:47 02:47 WBC 11.2 H (4.5-11.0) K/mm3 RBC 4.75 (3.65-5.03) M/mm3 Hgb 14.1 (11.8-15.2) gm/dl Hct 40.6 (35.5-45.6) % MCV 86 (84-94) fl MCH 30 (28-32) pg MCHC 35 H (32-34) % RDW 14.5 (13.2-15.2) % Plt Count 267 (140-440) K/mm3 Lymph % (Auto) 12.7 L (13.4-35.0) % Hopkins % (Auto) 5.3 (0.0-7.3) % Eos % (Auto) 0.1 (0.0-4.3) % Baso % (Auto) 0.9 (0.0-1.8) % Lymph # (Auto) 1.4 (1.2-5.4) K/mm3 Hopkins # (Auto) 0.6 (0.0-0.8) K/mm3 Eos # (Auto) 0.0 (0.0-0.4) K/mm3 Baso # (Auto) 0.1 (0.0-0.1) K/mm3 Seg Neutrophils % 81.0 H (40.0-70.0) % Seg Neutrophils # 9.1 H (1.8-7.7) K/mm3 VBG pH (7.320-7.420) Sodium 138 (137-145) mmol/L Potassium 3.5 L (3.6-5.0) mmol/L Chloride 99.4 (98-107) mmol/L Carbon Dioxide 20 L (22-30) mmol/L Anion Gap 22 mmol/L BUN 14 (9-20) mg/dL Creatinine 1.1 (0.8-1.3) mg/dL Estimated GFR > 60 ml/min BUN/Creatinine Ratio 13 % Glucose 235 H (75-100) mg/dL POC Glucose 186 H (70-105) mg/dL Calcium 9.8 (8.4-10.2) mg/dL Phosphorus 2.00 L (2.5-4.5) mg/dL Magnesium 1.80 (1.7-2.3) mg/dL Total Bilirubin 0.70 (0.1-1.2) mg/dL AST 17 (5-40) units/L ALT 11 (7-56) units/L Alkaline Phosphatase 94 (35-129) units/L Total Protein 7.5 (6.3-8.2) g/dL Albumin 4.2 (3.9-5) g/dL Albumin/Globulin Ratio 1.3 % 02/28/21 Range/Units 02:47 WBC (4.5-11.0) K/mm3 RBC (3.65-5.03) M/mm3 Hgb (11.8-15.2) gm/dl Hct (35.5-45.6) % MCV (84-94) fl MCH (28-32) pg MCHC (32-34) % RDW (13.2-15.2) % Plt Count (140-440) K/mm3 Lymph % (Auto) (13.4-35.0) % Hopkins % (Auto) (0.0-7.3) % Eos % (Auto) (0.0-4.3) % Baso % (Auto) (0.0-1.8) % Lymph # (Auto) (1.2-5.4) K/mm3 Hopkins # (Auto) (0.0-0.8) K/mm3 Eos # (Auto) (0.0-0.4) K/mm3 Baso # (Auto) (0.0-0.1) K/mm3 Seg Neutrophils % (40.0-70.0) % Seg Neutrophils # (1.8-7.7) K/mm3 VBG pH 7.642 H* (7.320-7.420) Sodium (137-145) mmol/L Potassium (3.6-5.0) mmol/L Chloride (98-107) mmol/L Carbon Dioxide (22-30) mmol/L Anion Gap mmol/L BUN (9-20) mg/dL Creatinine (0.8-1.3) mg/dL Estimated GFR ml/min BUN/Creatinine Ratio % Glucose (75-100) mg/dL POC Glucose (70-105) mg/dL Calcium (8.4-10.2) mg/dL Phosphorus (2.5-4.5) mg/dL Magnesium (1.7-2.3) mg/dL Total Bilirubin (0.1-1.2) mg/dL AST (5-40) units/L ALT (7-56) units/L Alkaline Phosphatase (35-129) units/L Total Protein (6.3-8.2) g/dL Albumin (3.9-5) g/dL Albumin/Globulin Ratio % - EKG Data -: EKG Interpreted by Nd EKG shows normal: sinus rhythm Rate: tachycardia - EKG Data 02/28/21 07:31 The EKG is interpreted today at 7: 1 1 Sinus rhythm, tachycardia, 116 bpm. Rightward axis deviation, high left ventricular voltage. QTC 461 ms. Minimal motion artifact. This is an abnormal EKG. This is not a STEMI. - Radiology Data Radiology results: pending, report reviewed, image reviewed CT ABDOMEN AND PELVIS WITH CONTRAST HISTORY: Acute abdominal pain with nausea and vomiting COMPARISON: 08/03/2020 TECHNIQUE: Axial CT images were obtained through the abdomen and pelvis after 100 cc of IV contrast. Sagittal and coronal reformatted images. All CT scans at this location are performed using CT dose reduction for ALARA by means of automated exposure control. FINDINGS: CT ABDOMEN: Lung Bases: Clear. Liver: No significant abnormality. Biliary: No significant abnormality. Spleen: No significant abnormality. Unenlarged. Pancreas: No significant abnormality. Adrenals: No significant abnormality. Kidneys: No significant abnormality. Lymphatics: No lymphadenopathy. Vasculature: No significant abnormality. Bowel/Peritoneum: No significant abnormality. No free air. No free fluid. The appendix is not confidently identified. No inflammatory changes in the right lower quadrant. CT PELVIS: : No significant abnormality. Osseous Structures: No significant abnormality. Additional Findings: None IMPRESSION: No significant abnormality. Signer Name: Edgardo Byrd Jr, MD Signed: 02/28/2021 9:48 AM Workstation Name: [id number] Critical Care Time: Yes Critical care time in (mins) excluding proc time.: 35 Critical care attestation.: If time is entered above; I have spent that time in minutes in the direct care of this critically ill patient, excluding procedure time. ED Disposition Clinical Impression: Gastroparesis, HTN (hypertension), Acute abdominal pain, DKA (diabetic ketoacidosis), Hypophosphatemia Disposition: OP ADMIT IP TO THIS HOSP Is pt being admited?: Yes Does the pt Need Aspirin: No Condition: Fair Instructions: Diabetic Ketoacidosis (ED), Hypertension (ED) Referrals: PRIMARY CARE, [Primary Care Provider] - 3-5 Days
[2021-02-28 07:34] LABS: Bilirubin,Urine NEG (Negative); Blood,Urine SM (Negative); Color,Urine Straw (Yellow); Urobilinogen,Urine < 2.0 mg/dL (<2.0)
[2021-02-28] MEDS ORDERED: hydrALAZINE 20 MG/1 ML INJ IV ONE (07:34)
[2021-02-28 07:48] LABS: Protein,Urine >500 mg/dL (Negative)
[2021-02-28 10:21] LABS: BUN/Creatinine Ratio 15; Blood Urea Nitrogen 16 mg/dL (9-20); Calcium 9.3 mg/dL (8.4-10.2); Hemolysis Index 17
[2021-02-28] MEDS ORDERED: INSULIN REGULAR, HUMAN 100 UNITS/1 ML IV ONE (10:41)
[2021-02-28] MEDS ORDERED: DEXTROSE 50% IN WATER (25GM) 50 ML SYRINGE IV PRN ×2 (10:45→19:47)
--- NOTE | 2021-02-28 10:53 | Cat Scan Report ---
CT ABDOMEN AND PELVIS WITH CONTRAST HISTORY: Acute abdominal pain with nausea and vomiting COMPARISON: 08/03/2020 TECHNIQUE: Axial CT images were obtained through the abdomen and pelvis after 100 cc of IV contrast. Sagittal and coronal reformatted images. All CT scans at this location are performed using CT dose re duction for ALARA by means of automated exposure control. FINDINGS: CT ABDOMEN: Lung Bases: Clear. Liver: No significant abnormality. Biliary: No significant abnormality. Spleen: No significant abnormality. Unenlarged. Pancreas: No significant abnormality. Adrenals: No significant abnormality. Kidneys: No significant abnormality. Lymphatics: No lymphadenopathy. Vasculature: No significant abnormality. Bowel/Peritoneum: No significant abnormality. No free air. No free fluid. The appendix is not confide ntly identified. No inflammatory changes in the right lower quadrant. CT PELVIS: : No significant abnormality. Osseous Structures: No significant abnormality. Additional Findings: None IMPRESSION: No significant abnormality. Signer Name: Edgardo Byrd Jr, MD Signed: 02/28/2021 10:48 AM Workstation Name: [id number]
[2021-02-28] MEDS ORDERED: D5W/0.45% NACL/KCL 20 MEQ 20 MEQ/1,000 ML BAG IV SCH (11:00)
[2021-02-28] MEDS ORDERED: INSULIN REGULAR, HUMAN 100 UNITS in SODIUM CHLORIDE 0.9% 99 ML IV SCH (11:00)
[2021-02-28] MEDS ORDERED: METOCLOPRAMIDE 10 MG/2 ML INJ IV ONE (11:01)
--- NOTE | 2021-02-28 12:30 | History and Physical Report ---
History of Present Illness Chief complaint: I am in diabetic ketoacidosis History of present illness: 31 YO Male with hypertension, diabetes complicated by gastroparesis, cannabinoid hyperemesis syndrome, medication noncompliance presents to ED for evaluation. Patient reports "I am in diabetic ketoacidosis". Patient states that he has experienced nausea, multiple episodes of vomiting, abdominal discomfort over the past 1 day with worsening symptoms over the past 6 hours. EMS was notified and upon arrival the patient was found to be in distress and subsequently transported to [facility] for further care and evaluation of the aforementioned symptoms. The patient was seen and evaluated in the emergency department. All lab and imaging studies reviewed. Patient found to have diabetic ketoacidosis, as well as volume depletion. Patient initiated on DKA protocol and admitted to ICU. Patient denies fever, chills, chest pain, palpitation, productive cough, skin rash, recent ill contacts, ingestion of food/water from new or different sources, or known exposure to COVID-19. Prior admission on 11/06/2020 reviewed. All medication listed at time of admission has been reconciled. Past History Past Medical History: diabetes, hypertension Past Surgical History: No surgical history, Other (Reviewed) Social history: single, smoking. denies: alcohol abuse, prescription drug abuse Family history: diabetes, hypertension Medications and Allergies Allergies Allergy/AdvReac Type Severity Reaction Status Date / Time No Known Allergies Allergy Verified 07/13/14 23:38 Home Medications Medication Instructions Recorded Confirmed Last Taken Type Lispro Insulin [HumaLOG] 6 unit SQ AC 30 Days #5 pen 08/02/20 08/06/20 Unknown Rx Ondansetron [Zofran Odt] 4 mg PO Q4HR PRN #20 tab.rapdis 11/04/20 Unknown Rx Insulin Detemir [Levemir Flextouch] 20 unit SQ QAM 30 Days #5 11/09/20 Unknown Rx insuln.pen Insulin Regular, Human [Novolin R] 8 units SUB-Q AC 3 Days #5 pen 11/09/20 Unknown Rx Losartan [Cozaar] 100 mg PO QDAY #30 tablet 11/09/20 Unknown Rx Metoclopramide HCl [Reglan TAB] 10 mg PO TIDAC #30 tablet 11/09/20 Unknown Rx Metoprolol [Lopressor TAB] 50 mg PO BID #60 tablet 11/09/20 Unknown Rx Pantoprazole [Protonix TAB] 40 mg PO QDAY #30 tablet 11/09/20 Unknown Rx amLODIPine 10 mg PO QDAY #30 tablet 11/09/20 Unknown Rx oxyCODONE /ACETAMINOPHEN [Percocet 1 tab PO Q6H PRN #20 tablet 11/09/20 Unknown Rx 5/325 mg] Active Meds: Active Medications Dextrose (Dextrose 50% In Water (25gm) 50 Ml Syringe) 0 ml IV Q30MIN PRN; Protocol PRN Reason: Hypoglycemia Insulin Human Regular 100 (units/ Sodium Chloride) 100 mls @ 1 mls/hr IV TITR CHIP; Protocol Last Admin: 02/28/21 12:08 Dose: 7 units/hr, 7 mls/hr Documented by: Potassium Chloride/Dextrose/Sod Cl (D5w/0.45% Nacl/Kcl 20 Meq) 20 meq in 1,000 mls @ 125 mls/hr IV DIRECT CHIP Sodium Chloride (Sodium Chloride 0.9% 10 Ml Flush Syringe) 10 ml IV PRN NR Stop: 03/12/21 10:59 Review of Systems Constitutional: no weight loss, no weight gain, no fever, no chills Ears, nose, mouth and throat: no ear pain, no ear discharge, no nasal discharge Cardiovascular: no chest pain, no palpitations, no rapid/irregular heart beat, no lightheadedness Respiratory: no cough, no excessive sputum, no shortness of breath Gastrointestinal: nausea, vomiting, no abdominal pain, no diarrhea, no constipation, no hematemesis Genitourinary Male: no hematuria, no flank pain, no discharge, no urinary frequency, no nocturia Rectal: no pain Musculoskeletal: no neck stiffness, no shooting arm pain, no arm numbness/tingling, no shooting leg pain, no leg numbness/tingling Integumentary: no rash, no pruritis, no sores, no wounds Neurological: no head injury, no paralysis, no weakness, no numbness, no tingling, no syncope, no tremors Psychiatric: no anxiety, no sleep disturbances, no hypersomnia, no change in a ppetite, no change in libido, no suicidal ideation Endocrine: no cold intolerance, no polyphagia, no polydipsia, no nocturia, no excessive sweating Hematologic/Lymphatic: no easy bruising Allergic/Immunologic: no urticaria, no allergic rhinitis Exam - Constitutional Vitals: Temp Pulse Resp BP Pulse Ox 97.9 F 112 H 22 175/97 99 02/28/21 01:59 02/28/21 06:31 02/28/21 06:31 02/28/21 09:31 02/28/21 06:31 General appearance: Present: mild distress - EENT Eyes: Present: PERRL ENT: hearing intact, clear oral mucosa - Neck Neck: Present: supple, normal ROM - Respiratory Respiratory effort: normal Respiratory: bilateral: CTA - Cardiovascular Heart Sounds: Present: S1 & S2. Absent: rub, click - Extremities Extremities: pulses symmetrical, No edema Peripheral Pulses: within normal limits - Abdominal General gastrointestinal: Present: soft, non-tender, non-distended, normal bowel sounds Male genitourinary: Present: normal - Integumentary Integumentary: Present: clear, warm, dry - Musculoskeletal Musculoskeletal: gait normal, strength equal bilaterally - Psychiatric Psychiatric: appropriate mood/affect, intact judgment & insight - Neurologic Neurologic: CNII-XII intact, moves all extremities Results - Labs CBC & Chem 7: 02/28/21 02:47 02/28/21 14:25 Labs: Abnormal lab results 02/28/21 02/28/21 02/28/21 Range/Units 02:06 02:47 02:47 WBC 11.2 H (4.5-11.0) K/mm3 MCHC 35 H (32-34) % Lymph % (Auto) 12.7 L (13.4-35.0) % Seg Neutrophils % 81.0 H (40.0-70.0) % Seg Neutrophils # 9.1 H (1.8-7.7) K/mm3 VBG pH (7.320-7.420) Potassium 3.5 L (3.6-5.0) mmol/L Chloride (98-107) mmol/L Carbon Dioxide 20 L (22-30) mmol/L Glucose 235 H (75-100) mg/dL POC Glucose 186 H (70-105) mg/dL Phosphorus 2.00 L (2.5-4.5) mg/dL Total Creatine Kinase (55-170) units/L Lipase (13-60) units/L Urine pH (5.0-7.0) 02/28/21 02/28/21 02/28/21 Range/Units 02:47 02:47 09:30 WBC (4.5-11.0) K/mm3 MCHC (32-34) % Lymph % (Auto) (13.4-35.0) % Seg Neutrophils % (40.0-70.0) % Seg Neutrophils # (1.8-7.7) K/mm3 VBG pH 7.642 H* (7.320-7.420) Potassium (3.6-5.0) mmol/L Chloride 97.6 L (98-107) mmol/L Carbon Dioxide 20 L (22-30) mmol/L Glucose 441 H (75-100) mg/dL POC Glucose (70-105) mg/dL Phosphorus (2.5-4.5) mg/dL Total Creatine Kinase 314 H (55-170) units/L Lipase 12 L (13-60) units/L Urine pH (5.0-7.0) 02/28/21 02/28/21 02/28/21 Range/Units 09:30 10:58 11:59 WBC (4.5-11.0) K/mm3 MCHC (32-34) % Lymph % (Auto) (13.4-35.0) % Seg Neutrophils % (40.0-70.0) % Seg Neutrophils # (1.8-7.7) K/mm3 VBG pH 7.315 L (7.320-7.420) Potassium (3.6-5.0) mmol/L Chloride (98-107) mmol/L Carbon Dioxide (22-30) mmol/L Glucose (75-100) mg/dL POC Glucose 517 H 371 H (70-105) mg/dL Phosphorus (2.5-4.5) mg/dL Total Creatine Kinase (55-170) units/L Lipase (13-60) units/L Urine pH (5.0-7.0) 02/28/21 Range/Units Unknown WBC (4.5-11.0) K/mm3 MCHC (32-34) % Lymph % (Auto) (13.4-35.0) % Seg Neutrophils % (40.0-70.0) % Seg Neutrophils # (1.8-7.7) K/mm3 VBG pH (7.320-7.420) Potassium (3.6-5.0) mmol/L Chloride (98-107) mmol/L Carbon Dioxide (22-30) mmol/L Glucose (75-100) mg/dL POC Glucose (70-105) mg/dL Phosphorus (2.5-4.5) mg/dL Total Creatine Kinase (55-170) units/L Lipase (13-60) units/L Urine pH 9.0 H (5.0-7.0) Assessment and Plan - Patient Problems (1) DKA (diabetic ketoacidosis) Current Visit: Yes Status: Acute Qualifiers: Diabetes mellitus complication detail: without coma Plan to address problem: IV fluid resuscitation therapy, insulin drip, serial BMP, monitor urine output every shift, monitor fluid balance, IV bicarbonate therapy, monitor anion gap. The high probability of a clinically significant, sudden or life threatening deterioration of the [endocrine, renal] system(s) required my full and direct attention, intervention and personal management. The aggregate critical care time was [65] minutes. This time is in addition to time spent performing reported procedures but includes the following: [x] Data Review and interpretation [x] Patient assessment and monitoring of vital signs [x] Documentation [x] Medication orders and management (2) Noncompliance with medication regimen Current Visit: Yes Status: Acute Plan to address problem: Patient counseled regarding medication noncompliance. Patient knowledges that he will attempt be more compliant in the future. (3) Cannabinoid hyperemesis syndrome Current Visit: Yes Status: Acute Plan to address problem: Supportive care, abstinence from cannabinoid use. (4) Gastroparesis Current Visit: Yes Status: Acute Plan to address problem: Antiemetic therapy, small meals, diabetes control, medication compliance. (5) Hypertension Current Visit: Yes Status: Chronic Qualifiers: Hypertension type: essential hypertension Plan to address problem: Monitor blood pressure every shift, continue medical management. (6) DVT prophylaxis Current Visit: Yes Status: Acute Plan to address problem: SCD to bilateral lower extremities while in bed, patient is ambulatory
[2021-02-28 12:48] LABS: BUN/Creatinine Ratio 15; Blood Urea Nitrogen 18 mg/dL (9-20); Calcium 9.6 mg/dL (8.4-10.2); Hemolysis Index 5
[2021-02-28] MEDS ORDERED: ONDANSETRON 4 MG ODT TAB PO PRN (13:00)
[2021-02-28] MEDS ORDERED: oxyCODONE /ACETAMINOPHEN 5-325MG TAB PO PRN (13:00)
[2021-02-28] MEDS ORDERED: SODIUM BICARB 8.4% 50 MEQ/50 ML SYRINGE IV SCH (13:00)
[2021-02-28] MEDS: LOSARTAN 50 MG TAB PO SCH (14:54)
[2021-02-28] MEDS: amLODIPine 10 MG TAB PO SCH (14:55)
[2021-02-28] MEDS: PANTOPRAZOLE 40 MG TAB PO SCH (14:55)
[2021-02-28 15:05] LABS: BUN/Creatinine Ratio 15; Blood Urea Nitrogen 20 mg/dL (9-20); Hemolysis Index 8
[2021-02-28] MEDS ORDERED: NON-FORMULARY EACH (Metoclopramide Hcl [Reglan Tab] 5 MG Tablet) PO SCH (16:30)
[2021-02-28 17:18] LABS: BUN/Creatinine Ratio 14; Blood Urea Nitrogen 17 mg/dL (9-20); Calcium 9.1 mg/dL (8.4-10.2); Hemolysis Index 5
[2021-02-28] MEDS ORDERED: SODIUM CHLORIDE 0.9% 1000 ML 3,000 ML IV ONE (17:21)
[2021-02-28 18:14] LABS: BUN/Creatinine Ratio 15; Blood Urea Nitrogen 16 mg/dL (9-20); Calcium 8.9 mg/dL (8.4-10.2); Hemolysis Index 3
[2021-02-28] MEDS: METOCLOPRAMIDE 10 MG TAB PO SCH (18:19)
[2021-02-28 19:22] LABS: BUN/Creatinine Ratio 15; Blood Urea Nitrogen 17 mg/dL (9-20); Calcium 9.1 mg/dL (8.4-10.2); Hemolysis Index 6
[2021-02-28] MEDS: METOPROLOL TARTRATE 50 MG TAB PO SCH (22:57)
[2021-03-01] MEDS ORDERED: INSULIN LISPRO 100 UNIT/ML SUB-Q SCH
[2021-03-01] MEDS ORDERED: METOPROLOL TARTRATE 5 MG/5 ML INJ IV ONE (06:02)
[2021-03-01] MEDS: INSULIN REGULAR, HUMAN 100 UNITS/1 ML SUB-Q SCH ×4 (09:25→22:00)
[2021-03-01] MEDS: METOCLOPRAMIDE 10 MG TAB PO SCH ×3 (09:57→17:34)
[2021-03-01] MEDS: LOSARTAN 50 MG TAB PO SCH (09:57)
[2021-03-01] MEDS: amLODIPine 10 MG TAB PO SCH (09:57)
[2021-03-01] MEDS: PANTOPRAZOLE 40 MG TAB PO SCH (09:57)
[2021-03-01] MEDS: METOPROLOL TARTRATE 50 MG TAB PO SCH ×2 (09:57→22:12)
--- NOTE | 2021-03-01 10:27 | Progress Note ---
<BREEZY REYES R - Last Filed: 03/01/21 10:23> Assessment and Plan Assessment and plan: Diabetes mellitus type 1, uncontrolled Medical noncompliance Cannabinoid hyperemesis syndrome Diabetic gastroparesis Hypertension 03/01/2021. Patient's diet will be advanced to full liquid diet. Continue Reglan and add Zofran to the regimen. Also, continue Protonix. Patient will be counseled on cessation of cannabis at discharge. History Interval history: No new issues overnight Hospitalist Physical - Constitutional Vitals: Temp Pulse Resp BP Pulse Ox 98 F 112 H 18 188/109 98 03/01/21 06:00 03/01/21 10:15 03/01/21 06:00 03/01/21 10:15 03/01/21 06:00 General appearance: Present: mild distress - EENT Eyes: Present: PERRL, EOM intact ENT: hearing intact, clear oral mucosa, dentition normal - Neck Neck: Present: supple, normal ROM - Respiratory Respiratory effort: normal Respiratory: bilateral: CTA - Cardiovascular Rhythm: regular Heart Sounds: Present: S1 & S2. Absent: gallop, rub - Extremities Extremities: no ischemia, No edema, Full ROM - Abdominal General gastrointestinal: soft, non-tender, non-distended, normal bowel sounds - Integumentary Integumentary: Present: clear, warm, dry - Neurologic Neurologic: CNII-XII intact, moves all extremities Results - Labs CBC & Chem 7: 02/28/21 02:47 02/28/21 18:44 Labs: Laboratory Last Values WBC 11.2 K/mm3 (4.5-11.0) H 02/28/21 02:47 RBC 4.75 M/mm3 (3.65-5.03) 02/28/21 02:47 Hgb 14.1 gm/dl (11.8-15.2) 02/28/21 02:47 Hct 40.6 % (35.5-45.6) 02/28/21 02:47 MCV 86 fl (84-94) 02/28/21 02:47 MCH 30 pg (28-32) 02/28/21 02:47 MCHC 35 % (32-34) H 02/28/21 02:47 RDW 14.5 % (13.2-15.2) 02/28/21 02:47 Plt Count 267 K/mm3 (140-440) 02/28/21 02:47 Lymph % (Auto) 12.7 % (13.4-35.0) L 02/28/21 02:47 [place] % (Auto) 5.3 % (0.0-7.3) 02/28/21 02:47 Eos % (Auto) 0.1 % (0.0-4.3) 02/28/21 02:47 Baso % (Auto) 0.9 % (0.0-1.8) 02/28/21 02:47 Lymph # (Auto) 1.4 K/mm3 (1.2-5.4) 02/28/21 02:47 [place] # (Auto) 0.6 K/mm3 (0.0-0.8) 02/28/21 02:47 Eos # (Auto) 0.0 K/mm3 (0.0-0.4) 02/28/21 02:47 Baso # (Auto) 0.1 K/mm3 (0.0-0.1) 02/28/21 02:47 Seg Neutrophils % 81.0 % (40.0-70.0) H 02/28/21 02:47 Seg Neutrophils # 9.1 K/mm3 (1.8-7.7) H 02/28/21 02:47 VBG pH 7.315 (7.320-7.420) L 02/28/21 09:30 Sodium 140 mmol/L (137-145) 02/28/21 18:44 Potassium 3.8 mmol/L (3.6-5.0) D 02/28/21 18:44 Chloride 103.2 mmol/L (98-107) 02/28/21 18:44 Carbon Dioxide 24 mmol/L (22-30) 02/28/21 18:44 Anion Gap 17 mmol/L 02/28/21 18:44 BUN 17 mg/dL (9-20) 02/28/21 18:44 Creatinine 1.1 mg/dL (0.8-1.3) 02/28/21 18:44 Estimated GFR > 60 ml/min 02/28/21 18:44 BUN/Creatinine Ratio 15 % 02/28/21 18:44 Glucose 131 mg/dL (75-100) H 02/28/21 18:44 POC Glucose 276 mg/dL (70-105) H 03/01/21 06:41 Calcium 9.1 mg/dL (8.4-10.2) 02/28/21 18:44 Phosphorus 4.10 mg/dL (2.5-4.5) D 02/28/21 11:18 Magnesium 1.80 mg/dL (1.7-2.3) 02/28/21 02:47 Magnesium 1.80 mg/dL (1.7-2.3) 02/28/21 02:47 Total Bilirubin 0.70 mg/dL (0.1-1.2) 02/28/21 02:47 AST 17 units/L (5-40) 02/28/21 02:47 ALT 11 units/L (7-56) 02/28/21 02:47 Alkaline Phosphatase 94 units/L (35-129) 02/28/21 02:47 Total Creatine Kinase 314 units/L (55-170) H 02/28/21 02:47 Total Protein 7.5 g/dL (6.3-8.2) 02/28/21 02:47 Albumin 4.2 g/dL (3.9-5) 02/28/21 02:47 Albumin/Globulin Ratio 1.3 % 02/28/21 02:47 Lipase 12 units/L (13-60) L 02/28/21 02:47 Urine Color Straw (Yellow) 02/28/21 Unknown Urine Turbidity Clear (Clear) 02/28/21 Unknown Urine pH 9.0 (5.0-7.0) H 02/28/21 Unknown Ur Specific [place] 1.020 (1.003-1.030) 02/28/21 Unknown Urine Protein >500 mg/dL (Negative) 02/28/21 Unknown Urine Glucose (UA) >=500 mg/dL (Negative) 02/28/21 Unknown Urine Ketones 20 mg/dL (Negative) 02/28/21 Unknown Urine Blood Sm (Negative) 02/28/21 Unknown Urine Nitrite Neg (Negative) 02/28/21 Unknown Urine Bilirubin Neg (Negative) 02/28/21 Unknown Urine Urobilinogen < 2.0 mg/dL (<2.0) 02/28/21 Unknown Ur Leukocyte Esterase Neg (Negative) 02/28/21 Unknown Urine WBC (Auto) 1.0 /HPF (0.0-6.0) 02/28/21 Unknown Urine RBC (Auto) 18.0 /HPF (0.0-6.0) 02/28/21 Unknown Melvin/IV: Voiding Method Toilet Active Medications - Current Medications Current Medications: Generic Name Dose Route Start Last Admin Trade Name Freq PRN Reason Stop Dose Admin Amlodipine Besylate 10 mg 02/28/21 13:00 03/01/21 09:57 Amlodipine 10 Mg Tab PO 10 mg QDAY CHIP Administration Insulin Human Regular 0 units 03/01/21 07:30 Insulin Regular, Human 100 Units/1 Ml SUB-Q ACHS CHIP Protocol Losartan Potassium 100 mg 02/28/21 13:00 03/01/21 09:57 Losartan 50 Mg Tab PO 100 mg QDAY CHIP Administration Metoclopramide HCl 10 mg 02/28/21 16:30 03/01/21 09:57 Metoclopramide 10 Mg Tab PO 10 mg TIDAC CHIP Administration Metoprolol Tartrate 50 mg 02/28/21 22:00 03/01/21 09:57 Metoprolol Tartrate 50 Mg Tab PO 50 mg BID CHIP Administration Ondansetron HCl 4 mg 02/28/21 13:00 Ondansetron 4 Mg Odt Tab PO Q4H PRN Nausea Pantoprazole Sodium 40 mg 02/28/21 13:00 03/01/21 09:57 Pantoprazole 40 Mg Tab PO 40 mg QDAY CHIP Administration Sodium Chloride 10 ml 02/28/21 22:00 02/28/21 22:57 Sodium Chloride 0.9% 10 Ml Flush Syringe IV 10 ml BID CHIP Administration Sodium Chloride 10 ml 02/28/21 12:30 Sodium Chloride 0.9% 10 Ml Flush Syringe IV PRN PRN LINE FLUSH <GIGI SHETH - Last Filed: 03/02/21 08:24> Assessment and Plan - Patient Problems (1) Cannabinoid hyperemesis syndrome Current Visit: Yes Status: Acute Hospitalist Physical - Constitutional Vitals: Temp Pulse Resp BP Pulse Ox 99.0 F 95 H 24 133/92 100 03/02/21 04:51 03/02/21 04:51 03/02/21 04:51 03/02/21 04:51 03/02/21 04:51 Results - Labs CBC & Chem 7: 02/28/21 02:47 02/28/21 18:44 Labs: Laboratory Last Values WBC 11.2 K/mm3 (4.5-11.0) H 02/28/21 02:47 RBC 4.75 M/mm3 (3.65-5.03) 02/28/21 02:47 Hgb 14.1 gm/dl (11.8-15.2) 02/28/21 02:47 Hct 40.6 % (35.5-45.6) 02/28/21 02:47 MCV 86 fl (84-94) 02/28/21 02:47 MCH 30 pg (28-32) 02/28/21 02:47 MCHC 35 % (32-34) H 02/28/21 02:47 RDW 14.5 % (13.2-15.2) 02/28/21 02:47 Plt Count 267 K/mm3 (140-440) 02/28/21 02:47 Lymph % (Auto) 12.7 % (13.4-35.0) L 02/28/21 02:47 [place] % (Auto) 5.3 % (0.0-7.3) 02/28/21 02:47 Eos % (Auto) 0.1 % (0.0-4.3) 02/28/21 02:47 Baso % (Auto) 0.9 % (0.0-1.8) 02/28/21 02:47 Lymph # (Auto) 1.4 K/mm3 (1.2-5.4) 02/28/21 02:47 [place] # (Auto) 0.6 K/mm3 (0.0-0.8) 02/28/21 02:47 Eos # (Auto) 0.0 K/mm3 (0.0-0.4) 02/28/21 02:47 Baso # (Auto) 0.1 K/mm3 (0.0-0.1) 02/28/21 02:47 Seg Neutrophils % 81.0 % (40.0-70.0) H 02/28/21 02:47 Seg Neutrophils # 9.1 K/mm3 (1.8-7.7) H 02/28/21 02:47 VBG pH 7.315 (7.320-7.420) L 02/28/21 09:30 Sodium 140 mmol/L (137-145) 02/28/21 18:44 Potassium 3.8 mmol/L (3.6-5.0) D 02/28/21 18:44 Chloride 103.2 mmol/L (98-107) 02/28/21 18:44 Carbon Dioxide 24 mmol/L (22-30) 02/28/21 18:44 Anion Gap 17 mmol/L 02/28/21 18:44 BUN 17 mg/dL (9-20) 02/28/21 18:44 Creatinine 1.1 mg/dL (0.8-1.3) 02/28/21 18:44 Estimated GFR > 60 ml/min 02/28/21 18:44 BUN/Creatinine Ratio 15 % 02/28/21 18:44 Glucose 131 mg/dL (75-100) H 02/28/21 18:44 POC Glucose 305 mg/dL (70-105) H 03/01/21 21:27 Calcium 9.1 mg/dL (8.4-10.2) 02/28/21 18:44 Phosphorus 4.10 mg/dL (2.5-4.5) D 02/28/21 11:18 Magnesium 1.80 mg/dL (1.7-2.3) 02/28/21 02:47 Magnesium 1.80 mg/dL (1.7-2.3) 02/28/21 02:47 Total Bilirubin 0.70 mg/dL (0.1-1.2) 02/28/21 02:47 AST 17 units/L (5-40) 02/28/21 02:47 ALT 11 units/L (7-56) 02/28/21 02:47 Alkaline Phosphatase 94 units/L (35-129) 02/28/21 02:47 Total Creatine Kinase 314 units/L (55-170) H 02/28/21 02:47 Total Protein 7.5 g/dL (6.3-8.2) 02/28/21 02:47 Albumin 4.2 g/dL (3.9-5) 02/28/21 02:47 Albumin/Globulin Ratio 1.3 % 02/28/21 02:47 Lipase 12 units/L (13-60) L 02/28/21 02:47 Urine Color Straw (Yellow) 02/28/21 Unknown Urine Turbidity Clear (Clear) 02/28/21 Unknown Urine pH 9.0 (5.0-7.0) H 02/28/21 Unknown Ur Specific [place] 1.020 (1.003-1.030) 02/28/21 Unknown Urine Protein >500 mg/dL (Negative) 02/28/21 Unknown Urine Glucose (UA) >=500 mg/dL (Negative) 02/28/21 Unknown Urine Ketones 20 mg/dL (Negative) 02/28/21 Unknown Urine Blood Sm (Negative) 02/28/21 Unknown Urine Nitrite Neg (Negative) 02/28/21 Unknown Urine Bilirubin Neg (Negative) 02/28/21 Unknown Urine Urobilinogen < 2.0 mg/dL (<2.0) 02/28/21 Unknown Ur Leukocyte Esterase Neg (Negative) 02/28/21 Unknown Urine WBC (Auto) 1.0 /HPF (0.0-6.0) 02/28/21 Unknown Urine RBC (Auto) 18.0 /HPF (0.0-6.0) 02/28/21 Unknown Melvin/IV: Voiding Method Toilet Active Medications - Current Medications Current Medications: Generic Name Dose Route Start Last Admin Trade Name Freq PRN Reason Stop Dose Admin Amlodipine Besylate 10 mg 02/28/21 13:00 03/01/21 09:57 Amlodipine 10 Mg Tab PO 10 mg QDAY CHIP Administration Insulin Human Regular 0 units 03/01/21 07:30 03/02/21 07:30 Insulin Regular, Human 100 Units/1 Ml SUB-Q 8 units ACHS CHIP Administration Protocol Losartan Potassium 100 mg 02/28/21 13:00 03/01/21 09:57 Losartan 50 Mg Tab PO 100 mg QDAY CHIP Administration Metoclopramide HCl 10 mg 02/28/21 16:30 03/01/21 17:34 Metoclopramide 10 Mg Tab PO Not Given TIDAC CHIP Metoprolol Tartrate 50 mg 02/28/21 22:00 03/01/21 22:12 Metoprolol Tartrate 50 Mg Tab PO 50 mg BID CHIP Administration Ondansetron HCl 4 mg 03/01/21 10:26 03/01/21 17:33 Ondansetron 4 Mg/2 Ml Inj IV 4 mg Q4H PRN Administration Nausea And Vomiting Pantoprazole Sodium 40 mg 02/28/21 13:00 03/01/21 09:57 Pantoprazole 40 Mg Tab PO 40 mg QDAY CHIP Administration Sodium Chloride 10 ml 02/28/21 22:00 03/01/21 22:00 Sodium Chloride 0.9% 10 Ml Flush Syringe IV Not Given BID CHIP Sodium Chloride 10 ml 02/28/21 12:30 Sodium Chloride 0.9% 10 Ml Flush Syringe IV PRN PRN LINE FLUSH Nutrition/Malnutrition Assess - Dietary Evaluation Nutrition/Malnutrition Findings: Nutrition Notes Start: 03/01/21 15:17 Freq: Status: Active Protocol: Document 03/01/21 15:17 CW (Rec: 03/01/21 15:36 CW [email or web address]) Nutrition Notes Need for 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 Pt previously dx'd with DM and was followed by our RD team. Pt did not awake upon visit at 1030 and did not answer phone at 1515 for diet education. Nathanael score of 20 . Burn Absent Trauma Absent GI Symptoms Nausea,Vomiting,Other Skin Integrity/Comment Ski Intact Current % PO Negligible Minimum of two criteria No physical signs of malnutrition #2 Nutrition Diagnosis Predicted suboptimal energy intake Etiology DKA As Evidenced by Signs and Symptoms Pt reports of vomiting and adb pain [employer], currently NPO status #1 Nutrition Diagnosis Food and nutrition-related knowledge deficit Etiology excessive carbohydrate intake As Evidenced by Signs and Symptoms no hx of previous education related to carbohydrate controlled diet Is patient on ventilator? No Is Patient Ambulatory and/or Out of Bed Yes REE-([facility]-ambulatory/OOB) [ [id number] [id number]] Calculation Used for Recommendations [facility] Additional Notes protein needs: 47 - 58g (0.8 - 1g/kgBW) fluid needs: 1 ml/kcal Nutrition Intervention Change Diet Order: Diet advancement to Consistent Carbohydrate Diet when medically feasible Teaching Recipient Patient Learning Readiness unreponsiv Goal #1 diet advancement Goal #2 Understand importance of carbohydrate maintenance Anticipated Discharge Needs: Consistent Carbohydrate Diet Follow-Up By: 03/03/21 Additional Comments F/U for diet advancement, intakes, diet education
[2021-03-01] MEDS: ONDANSETRON 4 MG/2 ML INJ IV PRN ×2 (12:44→17:33)
[2021-03-02] MEDS ORDERED: ONDANSETRON 4 MG/2 ML INJ IM ONE (00:46)
[2021-03-02] MEDS: METOCLOPRAMIDE 10 MG TAB PO SCH ×3 (07:30→17:44)
[2021-03-02] MEDS: INSULIN REGULAR, HUMAN 100 UNITS/1 ML SUB-Q SCH ×4 (07:30→22:49)
--- NOTE | 2021-03-02 08:22 | Discharge Summary ---
Providers - Providers Date of Admission: 02/28/21 12:30 Date of discharge: 03/02/21 Attending physician: GIGI SHETH none Primary care physician: ICT SUPPORT ENGINEER Hospitalization Condition: Good Hospital course: 31 YO Male with hypertension, diabetes complicated by gastroparesis, cannabinoid hyperemesis syndrome, medication noncompliance presents to ED for evaluation. P pako reports "I am in diabetic ketoacidosis". Patient states that he has experienced nausea, multiple episodes of vomiting, abdominal discomfort over the past 1 day with worsening symptoms over the past 6 hours. EMS was notified and upon arrival the patient was found to be in distress and subsequently transported to [facility] for further care and evaluation of the aforementioned symptoms. The patient was seen and evaluated in the emergency department. All lab and imaging studies reviewed. Patient found to have diabetic ketoacidosis, as well as volume depletion. Patient initiated on DKA protocol and admitted to ICU. Patient denies fever, chills, chest pain, palpitation, productive cough, skin rash, recent ill contacts, ingestion of food/water from new or different sources, or known exposure to COVID-19. Prior admission on 11/06/2020 reviewed. All medication listed at time of admission has been reconciled. Patient discharged from the ICU DKA resolved. Patient also stopped vomiting. Was educated to stop marijuana. And to have better compliance with medication. Patient Accu-Cheks have stabilized and can continue insulin and further titration as outpatient. Disposition: DC-01 TO HOME OR SELFCARE Final Discharge Diagnosis (Prints w/discharge instructions): DKA Time spent for discharge: 20 - Discharge Diagnoses (1) Cannabinoid hyperemesis syndrome Status: Acute Comment: Patient should avoid marijuana use. Also compliance with Reglan. Compliance with diabetic medications. (2) Acute abdominal pain Status: Acute (3) DKA (diabetic ketoacidosis) Status: Acute Qualifiers: Diabetes mellitus complication detail: without coma Comment: Patient gap closing we will continue current insulin dose. No longer in DKA at this time. (4) Gastroparesis Status: Acute Comment: Continue Reglan as outpatient. (5) Noncompliance with medication regimen Status: Acute Comment: Long discussion with patient about compliance. Patient understands. (6) WANDY (acute kidney injury) Status: Acute Comment: Resolving with IV fluids. Core Measure Documentation - Palliative Care Palliative Care/ Comfort Measures: Not Applicable - Core Measures Any of the following diagnoses?: none Exam - Constitutional Vitals: Temp Pulse Resp BP Pulse Ox 99.0 F 95 H 24 133/92 100 03/02/21 04:51 03/02/21 04:51 03/02/21 04:51 03/02/21 04:51 03/02/21 04:51 General appearance: Present: no acute distress, well-nourished - EENT Eyes: Present: PERRL ENT: hearing intact, clear oral mucosa - Neck Neck: Present: supple, normal ROM - Respiratory Respiratory effort: normal Respiratory: bilateral: CTA - Cardiovascular Heart Sounds: Present: S1 & S2. Absent: rub, click - Extremities Extremities: pulses symmetrical, No edema Peripheral Pulses: within normal limits - Abdominal General gastrointestinal: Present: soft, non-tender, non-distended, normal bowel sounds Male genitourinary: Present: normal - Integumentary Integumentary: Present: clear, warm, dry - Musculoskeletal Musculoskeletal: gait normal, strength equal bilaterally - Psychiatric Psychiatric: appropriate mood/affect, intact judgment & insight - Neurologic Neurologic: CNII-XII intact, moves all extremities Plan Activity: no restrictions, other (No avoid marijuana) Diet: diabetic Follow up with: PRIMARY CARE,MD [Primary Care Provider] - 3-5 Days Prescriptions: Losartan [Cozaar] 100 mg PO QDAY #30 tablet Metoprolol [Lopressor TAB] 50 mg PO BID #60 tablet Pantoprazole [Protonix TAB] 40 mg PO QDAY #30 tablet Metoclopramide [Reglan TAB] 10 mg PO TIDAC #30 tablet Metoclopramide HCl [Reglan TAB] 10 mg PO TIDAC #30 tablet
[2021-03-02] MEDS: ONDANSETRON 4 MG/2 ML INJ IV PRN ×2 (09:29→17:48)
[2021-03-02] MEDS: LOSARTAN 50 MG TAB PO SCH (09:33)
[2021-03-02] MEDS: PANTOPRAZOLE 40 MG TAB PO SCH (09:34)
[2021-03-02] MEDS: amLODIPine 10 MG TAB PO SCH (09:34)
[2021-03-02] MEDS: METOPROLOL TARTRATE 50 MG TAB PO SCH ×2 (09:34→22:50)
[2021-03-02 10:12] LABS: Basophils # (Auto) 0.1 K/mm3 (0.0-0.1); Basophils % (Auto) 0.7 % (0.0-1.8); Hematocrit 40.9 % (35.5-45.6); Hemoglobin 14.4 gm/dl (11.8-15.2); Lymphocytes # (Auto) 1.5 K/mm3 (1.2-5.4); Lymphocytes % (Auto) 12.7 % (13.4-35.0); Mean Corpuscular HGB Conc 35 % (32-34); Mean Corpuscular Volume 85 fl (84-94); Monocytes # (Auto) 0.5 K/mm3 (0.0-0.8); Monocytes % (Auto) 4.4 % (0.0-7.3); Platelet Count 306 K/mm3 (140-440); Red Blood Count 4.82 M/mm3 (3.65-5.03); Red Cell Distribution Width 14.2 % (13.2-15.2)
[2021-03-02 10:20] LABS: BUN/Creatinine Ratio 20; Blood Urea Nitrogen 22 mg/dL (9-20); Calcium 8.8 mg/dL (8.4-10.2); Hemolysis Index 17
--- NOTE | 2021-03-02 11:24 | Electrocardiograph Report ---
[facility] Test Date: 2021-02-28 Test Time: 07:11:33 Pat Name: JODI HAYDEN Department: Room: A389 Gender: M Hacksaw Inspector: MARIA E : 1990 Requested By: WILD MAK Order Number: [id number] Reading MD: Rony Griffin Measurements Intervals [place] Rate: 116 P: 52 [place]: 125 QRS: 108 QRSD: 80 T: 50 QT: 331 QTc: 461 Interpretive Statements Sinus tachycardia Probable left atrial enlargement No previous ECG available for comparison Electronically Signed On 03-02-2021 11:24:18 EDT by Rony Griffin
--- NOTE | 2021-03-02 18:32 | Event Note ---
Date: 03/02/21 Patient had a large volume vomiting prior to discharge. [place] sick on stomach was unable to tolerate p.o. and therefore may go was held today.
[2021-03-03 05:06] VITALS: BP 125/75
[2021-03-03] MEDS: METOCLOPRAMIDE 10 MG TAB PO SCH ×2 (07:30→11:30)
[2021-03-03] MEDS: INSULIN REGULAR, HUMAN 100 UNITS/1 ML SUB-Q SCH ×2 (08:35→11:30)
--- NOTE | 2021-03-03 08:39 | Discharge Summary ---
Providers - Providers Date of Admission: 02/28/21 12:30 Date of discharge: 03/03/21 Attending physician: BREEZY REYES Primary care physician: MANUAL PLATE FILLER Hospitalization Reason for admission: Intractable nausea and vomiting Condition: Good Hospital course: 31 YO Male with hypertension, diabetes complicated by gastroparesis, cannabinoid hyperemesis syndrome, medication noncompliance presents to ED for evaluation. Patient reports "I am in diabetic ketoacidosis". Patient states that he has experienced nausea, multiple episodes of vomiting, abdominal discomfort over the past 1 day with worsening symptoms over the past 6 hours. EMS was notified and upon arrival the patient was found to be in distress and subsequently transported to [facility] for further care and evaluation of the aforementioned symptoms. The patient was seen and evaluated in the emergency department. All lab and imaging studies reviewed. Patient found to have diabetic ketoacidosis, as well as volume depletion. Patient initiated on DKA protocol and admitted to ICU. Patient denies fever, chills, chest pain, palpitation, productive cough, skin rash, recent ill contacts, ingestion of food/water from new or different sources, or known exposure to COVID-19. Prior admission on 11/06/2020 reviewed. All medication listed at time of admission has been reconciled. Patient discharged from the ICU DKA resolved. Patient also stopped vomiting. Was educated to stop marijuana. And to have better compliance with medication. Patient Accu-Cheks have stabilized and can continue insulin and further titration as outpatient. Patient was planned for discharge on 03/02/2021 but had large emesis on the day therefore discharge was held. Patient now tolerating diet and will be discharged today. Dedicated discharge time 35 minutes. Disposition: DC-01 TO HOME OR SELFCARE Final Discharge Diagnosis (Prints w/discharge instructions): DKA, intractable nausea and vomiting, cannabinoid hyperemesis syndrome Core Measure Documentation - Palliative Care Palliative Care/ Comfort Measures: Not Applicable - Core Measures Any of the following diagnoses?: none Exam - Constitutional Vitals: Temp Pulse Resp BP Pulse Ox 98.6 F 99 H 16 125/75 97 03/03/21 04:27 03/02/21 22:50 03/03/21 04:27 03/03/21 04:27 03/02/21 22:00 General appearance: Present: no acute distress, well-nourished - EENT Eyes: Present: PERRL ENT: hearing intact, clear oral mucosa - Neck Neck: Present: supple, normal ROM - Respiratory Respiratory effort: normal Respiratory: bilateral: CTA - Cardiovascular Heart Sounds: Present: S1 & S2. Absent: rub, click - Extremities Extremities: pulses symmetrical, No edema Peripheral Pulses: within normal limits - Abdominal General gastrointestinal: Present: soft, non-tender, non-distended, normal bowel sounds Male genitourinary: Present: normal - Integumentary Integumentary: Present: clear, warm, dry - Musculoskeletal Musculoskeletal: gait normal, strength equal bilaterally - Psychiatric Psychiatric: appropriate mood/affect, intact judgment & insight - Neurologic Neurologic: CNII-XII intact, moves all extremities Plan Activity: advance as tolerated Weight Bearing Status: Weight Bear as Tolerated Diet: diabetic Follow up with: PRIMARY CARE,MD [Primary Care Provider] - 3-5 Days Prescriptions: Losartan [Cozaar] 100 mg PO QDAY #30 tablet Lispro Insulin [HumaLOG] 6 unit SQ AC 30 Days #5 pen Insulin Detemir [Levemir Flextouch] 20 unit SQ QAM 30 Days #5 insuln.pen Metoprolol [Lopressor TAB] 50 mg PO BID #60 tablet Pantoprazole [Protonix TAB] 40 mg PO QDAY #30 tablet Metoclopramide [Reglan TAB] 10 mg PO TIDAC #30 tablet Metoclopramide HCl [Reglan TAB] 10 mg PO TIDAC #30 tablet
[2021-03-03] MEDS: PANTOPRAZOLE 40 MG TAB PO SCH (09:36)
[2021-03-03] MEDS: LOSARTAN 50 MG TAB PO SCH (09:36)
[2021-03-03] MEDS: amLODIPine 10 MG TAB PO SCH (09:36)
[2021-03-03] MEDS: METOPROLOL TARTRATE 50 MG TAB PO SCH (09:37)
[2021-03-03] MEDS ORDERED: INSULIN LISPRO 100 UNIT/ML SUB-Q SCH (11:30)
[2021-03-04] MEDS ORDERED: NON-FORMULARY EACH (Insulin Detemir [Levemir Flextouch] 100 UNIT/ML Insuln.Pen) SQ SCH (10:00)
[2021-03-04] MEDS ORDERED: INSULIN GLARGINE 100 UNITS/ML SUB-Q SCH (10:00)
== END 2021-03-03 15:11 | disposition home or self-care (01) | DRG 638 ==
LOC: ED 01:51 → CC1 12:30 → 3A 20:13
PROVIDERS: ADMIT Internal Medicine; ATTEND Hospitalist
DX: E10.10 Type 1 diabetes mellitus with ketoacidosis without coma (principal); N17.9 Acute kidney failure, unspecified; E83.39 Other disorders of phosphorus metabolism; K31.84 Gastroparesis; I10 Essential (primary) hypertension; E10.43 Type 1 diabetes mellitus with diabetic autonomic (poly)neuropathy; Z91.14 Patient's other noncompliance with medication regimen; Z82.49 Family history of ischemic heart disease and other diseases of the circulatory system; Z83.3 Family history of diabetes mellitus; Z79.899 Other long term (current) drug therapy; Z79.4 Long term (current) use of insulin
CPT/HCPCS: 36415; 74177; 80048; 80053; 81001; 82550; 82805; 82962; 83690; 83735; 84100; 85025; 93005; 96365; 96375; G0378; J0360; J1630; J1815; J2405; J2765; J7030; J7050; J7120; Q9967

== ENCOUNTER 2022-04-17 15:14 | Emergency (ER) | payer SELFPAY ==
[2022-04-17] MEDS ORDERED: SODIUM CHLORIDE 0.9% 1000 ML 1,000 ML IV ONE ×2 (16:46→22:45)
[2022-04-17] MEDS ORDERED: DEXTROSE 50% IN WATER (25GM) 50 ML SYRINGE IV ONE (16:54)
[2022-04-17 17:08] LABS: Hematocrit 41.4 % (35.5-45.6); Hemoglobin 14.1 gm/dl (11.8-15.2); Mean Corpuscular HGB Conc 34 % (32-34); Mean Corpuscular Volume 85 fl (84-94); Platelet Count 372 K/mm3 (140-440); Red Cell Distribution Width 14.6 % (13.2-15.2)
[2022-04-17 17:33] LABS: Alanine Aminotransferase 43 units/L (7-56); Albumin 4.6 g/dL (3.9-5); BUN/Creatinine Ratio 17; Blood Urea Nitrogen 24 mg/dL (9-20); Hemolysis Index 6
[2022-04-17] MEDS ORDERED: METOCLOPRAMIDE 10 MG/2 ML INJ IV ONE (19:18)
[2022-04-17] MEDS ORDERED: MORPHINE 2 MG/1 ML INJ IV ONE (19:18)
--- NOTE | 2022-04-17 20:02 | Emergency Department Report ---
ED N/V/D HPI - General Chief complaint: Nausea/Vomiting/Diarrhea Stated complaint: N/A ABD PAIN Time Seen by Provider: 04/17/22 19:04 Source: patient, EMS Mode of arrival: Stretcher Limitations: No Limitations - History of Present Illness Initial comments: 32-year-old male with a history of diabetes and hypertension associated with gastroparesis who now presents with nausea and vomiting and diarrhea nonbloody that started this morning progressively getting worse. Patient denies any fever or chills. Patient also reports some abdominal discomfort diffusely. No other modifying or associated factors reported. MD complaint: nausea, vomiting, diarrhea, abdominal pain - Related Data Previous Rx's Medication Instructions Recorded Last Taken Type Insulin Regular, Human [Novolin R] 8 units SUB-Q AC 3 Days #5 pen 11/09/20 Unknown Rx amLODIPine 10 mg PO QDAY #30 tablet 11/09/20 Unknown Rx oxyCODONE /ACETAMINOPHEN [Percocet 1 tab PO Q6H PRN #20 tablet 11/09/20 Unknown Rx 5/325 mg] Losartan [Cozaar] 100 mg PO QDAY #30 tablet 03/02/21 Unknown Rx Metoclopramide HCl [Reglan TAB] 10 mg PO TIDAC #30 tablet 03/02/21 Unknown Rx Metoprolol [Lopressor TAB] 50 mg PO BID #60 tablet 03/02/21 Unknown Rx Insulin Detemir [Levemir Flextouch] 20 unit SQ QAM 30 Days #5 03/03/21 Unknown Rx insuln.pen Lispro Insulin [HumaLOG] 6 unit SQ AC 30 Days #5 pen 03/03/21 Unknown Rx Metoclopramide [Reglan TAB] 10 mg PO TIDAC #30 tablet 04/17/22 Unknown Rx Ondansetron [Zofran ODT TAB] 4 mg PO Q4HR PRN #20 tab.rapdis 04/17/22 Unknown Rx Pantoprazole [Protonix TAB] 40 mg PO QDAY #30 tablet 04/17/22 Unknown Rx Allergies Allergy/AdvReac Type Severity Reaction Status Date / Time No Known Allergies Allergy Verified 07/13/14 23:38 ED Review of Systems ROS: Stated complaint: N/A ABD PAIN Other details as noted in HPI Comment: All other systems reviewed and negative Gastrointestinal: abdominal pain, nausea, vomiting, diarrhea ED Past Medical Hx - Past Medical History Hx Hypertension: Yes Hx Congestive Heart Failure: No Hx Diabetes: Yes Hx Deep Vein Thrombosis: (unknown) Hx Asthma: No Hx COPD: No Hx HIV: No Additional medical history: Gastroparesis - Surgical History Hx Pacemaker: No Hx Internal Defibrillator: No - Social History Smoking Status: Current Every Day Smoker Substance Use Type: Marijuana - Medications Home Medications: Home Medications Medication Instructions Recorded Confirmed Last Taken Type Insulin Regular, Human [Novolin R] 8 units SUB-Q AC 3 Days #5 pen 11/09/20 03/02/21 Unknown Rx amLODIPine 10 mg PO QDAY #30 tablet 11/09/20 03/02/21 Unknown Rx oxyCODONE /ACETAMINOPHEN [Percocet 1 tab PO Q6H PRN #20 tablet 11/09/20 03/02/21 Unknown Rx 5/325 mg] Losartan [Cozaar] 100 mg PO QDAY #30 tablet 03/02/21 Unknown Rx Metoclopramide HCl [Reglan TAB] 10 mg PO TIDAC #30 tablet 03/02/21 Unknown Rx Metoprolol [Lopressor TAB] 50 mg PO BID #60 tablet 03/02/21 Unknown Rx Insulin Detemir [Levemir Flextouch] 20 unit SQ QAM 30 Days #5 03/03/21 Unknown Rx insuln.pen Lispro Insulin [HumaLOG] 6 unit SQ AC 30 Days #5 pen 03/03/21 Unknown Rx Metoclopramide [Reglan TAB] 10 mg PO TIDAC #30 tablet 04/17/22 Unknown Rx Ondansetron [Zofran ODT TAB] 4 mg PO Q4HR PRN #20 tab.rapdis 04/17/22 Unknown Rx Pantoprazole [Protonix TAB] 40 mg PO QDAY #30 tablet 04/17/22 Unknown Rx ED Physical Exam - General Limitations: No Limitations General appearance: alert, in no apparent distress - Head Head exam: Present: normal inspection - Eye Eye exam: Present: normal appearance Pupils: Present: normal accommodation - ENT ENT exam: Present: normal exam, normal orophraynx, mucous membranes dry - Neck Neck exam: Present: normal inspection. Absent: tenderness - Respiratory Respiratory exam: Present: normal lung sounds bilaterally. Absent: respiratory distress, accessory muscle use - Cardiovascular Cardiovascular Exam: Present: regular rate, normal rhythm, normal heart sounds - GI/Abdominal GI/Abdominal exam: Present: soft, tenderness (Diffusely tender mild), normal bowel sounds - Extremities Exam Extremities exam: Present: normal inspection, normal capillary refill. Absent: tenderness - Back Exam Back exam: Present: normal inspection. Absent: tenderness - Neurological Exam Neurological exam: Present: alert, oriented X3 - Psychiatric Psychiatric exam: Present: normal affect, normal mood - Skin Skin exam: Present: warm, normal color ED Course Vital Signs 04/17/22 04/17/22 04/17/22 15:21 18:29 19:02 Temperature 98.0 F Pulse Rate 82 95 H Respiratory 16 20 Rate Blood Pressure 160/90 192/92 [Left] O2 Sat by Pulse 99 99 99 Oximetry 04/17/22 04/17/22 19:41 23:15 Temperature Pulse Rate 109 H 97 H Respiratory 16 16 Rate Blood Pressure 192/92 202/98 [Left] O2 Sat by Pulse 98 98 Oximetry - Reevaluation(s) Reevaluation #1: 04/17/22 20:00 Here with nausea and vomiting associated with nonbloody diarrhea since morning--in the patient with history of diabetes with gastroparesis--we will go ahead and start IV fluids, order Reglan with 2 mg of morphine for symptomatic relief--we will also get acute abdominal labs including lipase, CBC, CMP, and UA for any infectious process or electrolyte abnormality.-- Reevaluation #2: 04/17/22 21:33 Noted with elevated with mild BUN/Cr -- likely as result of dehydration -- will continue to hydrate Also noted with elevated Lactic acid with normal wbc and reassuring vital signs which makes this unlikely to be sepsis-- 04/17/22 23:55 Pt second ivf ns 1L bolus ongoing at this pain -- pt is prep to be discharge home after the ivf is completed-- ED Medical Decision Making - Lab Data Result diagrams: 04/17/22 16:34 04/17/22 16:34 - Medical Decision Making See progress note for details - Differential Diagnosis See progress note for details Critical care attestation.: If time is entered above; I have spent that time in minutes in the direct care of this critically ill patient, excluding procedure time. ED Disposition Clinical Impression: Nausea vomiting and diarrhea, Gastroenteritis, Dehydration, Gastroparesis due to DM Disposition: 01 HOME / SELF CARE / HOMELESS Is pt being admited?: No Does the pt Need Aspirin: No Condition: Stable Instructions: Food Choices to Help Relieve Diarrhea, Adult, Nausea and Vomiting, Adult, [id number], Type 2 Diabetes Mellitus, Self Care, Adult, [id number], Diarrhea, Adult, [id number], Diabetes Mellitus Type 2 in Adults (ED) Additional Instructions: Increase your daily fluid to help your hydration Start with bland diet and increase as tolerated Call and follow-up with your primary doctor in the next 3 to 5 days for progress Please do not hesitate to call or return to emergency room if your symptoms worsen Prescriptions: Pantoprazole [Protonix TAB] 40 mg PO QDAY #30 tablet Metoclopramide [Reglan TAB] 10 mg PO TIDAC #30 tablet Ondansetron [Zofran ODT TAB] 4 mg PO Q4HR PRN #20 tab.rapdis PRN Reason: Nausea Referrals: NARAYAN BRUCE MD [Primary Care Provider] - 3-5 Days
[2022-04-17 23:17] VITALS: BP 202/98
== END 2022-04-18 01:38 | disposition home or self-care (01) ==
LOC: ED 15:14
DX: K52.9 Noninfective gastroenteritis and colitis, unspecified (principal); E86.0 Dehydration; E11.43 Type 2 diabetes mellitus with diabetic autonomic (poly)neuropathy; K31.84 Gastroparesis; I10 Essential (primary) hypertension; F17.200 Nicotine dependence, unspecified, uncomplicated; F12.90 Cannabis use, unspecified, uncomplicated; Z79.899 Other long term (current) drug therapy; Z79.4 Long term (current) use of insulin
CPT/HCPCS: 36415; 80053; 82140; 82962; 83690; 85027; 96361; 96374; 96375; 99284; J2270; J2765; J3490; J7030